=== PATIENT | female | born 1955 | race Caucasian/White ===

== ENCOUNTER 2022-11-15 13:28 | Outpatient (OUT) | payer MEDICARE, SELFPAY ==
[2022-11-15 14:35] LABS: Thyroid Stimulating Hormone 1.378 uIU/mL (0.358-3.740)
[2022-11-15 15:01] LABS: Free T4 0.97 ng/dL (0.76-1.46)
[2022-11-16 04:07] LABS: Triiodothyronine (T3) 107 ng/dL (71-180)
== END 2022-11-15 13:29 ==
LOC: LAB 13:35
PROVIDERS: PCP Internal Medicine; Visit Provider Internal Medicine
DX: E05.00 Thyrotoxicosis with diffuse goiter without thyrotoxic crisis or storm (principal)
CPT/HCPCS: 36415; 84439; 84443; 84480

== ENCOUNTER 2022-12-21 09:01 | Outpatient (OUT) | payer MEDICARE, SELFPAY ==
--- NOTE | 2022-12-21 09:16 | MM_ITS ---
Patient: KRISTYN ALEXANDER Exam Date: 12/21/2022 : 1955 Gender:F Ordering : DR Marcos Roque D.O. Admission #: [id number] Family : Order #: [id number] CLICK HERE TO VIEW EXAM RADIOLOGY REPORT PROCEDURE: MM TOMOSYNTHESIS SCREENING BI COMPARISON: MG MAMM SCREEN 3D SAÚL CAD, 12/04/2020. MG MAMM SCREEN 3D SAÚL CAD, 12/09/2021. INDICATIONS: Screening Calculator Name NCI Breast Cancer Risk Assessment Tool 5 Year Breast Cancer Risk 4.00% Lifetime Breast Cancer Risk 12.50% Personal Breast Cancer No Personal Ovarian Cancer No Treatments None Family Cancers Mother with breast cancer at age 71. LOCATION: [facility] BREAST COMPOSITION: Heterogeneously dense,which may obscure small masses. FINDINGS: DIAGNOSTIC CATEGORY 2--BENIGN FINDING. NO CHANGE FROM COMPARISON. Scattered benign-appearing nodules are present. Scattered benign-appearing calcifications are present. Scattered benign-appearing lymph nodes are present. RIGHT BREAST: No significant suspicious finding. LEFT BREAST: No significant suspicious finding. RECOMMENDATIONS: ROUTINE MAMMOGRAM AND CLINICAL EVALUATION IN 12 MONTHS. PLEASE NOTE: A NORMAL MAMMOGRAM DOES NOT EXCLUDE THE POSSIBILITY OF BREAST CANCER. A CLINICALLY SUSPICIOUS PALPABLE LUMP SHOULD BE BIOPSIED. Dictated by: Caden Brennan MD on 12/21/2022 at 13:03 Approved by: Caden Brennan MD on 12/21/2022 at 13:04
[2022-12-21 09:51] LABS: Basophils Absolute Auto 0.1 10^3/uL (0.0-0.1); Basophils Percent Auto 0.5 % (0.2-2.0); Eosinophils Absolute Auto 0.5 10^3/uL (0.0-0.7); Eosinophils Percent Auto 4.4 % (0.9-7.0); Hematocrit 41.7 % (36.0-48.0); Hemoglobin 13.4 g/dL (12.0-16.0); Immature Granulocytes Abs Auto 0.08 10^3/uL (0.00-0.03); Immature Granulocytes Pct Auto 0.8 % (0.0-0.5); Lymphocytes Absolute Auto 3.1 10^3/uL (1.2-3.8); Lymphocytes Percent Auto 29.7 % (20.5-60.0); Mean Corpuscular HGB Conc 32.1 g/dL (29.9-35.2); Mean Corpuscular Hemoglobin 28.9 pg (26.7-34.0); Mean Corpuscular Volume 90.1 fL (81.0-99.0); Mean Platelet Volume 10.8 fL (9.5-13.5); Monocytes Absolute Auto 0.8 10^3/uL (0.3-0.8); Neutrophils Absolute Auto 5.9 10^3/uL (1.4-6.5); Neutrophils Percent Auto 56.6 % (43.0-75.0); Platelet Count 293 10^3/uL (150-450); Red Blood Count 4.63 10^6/uL (4.20-5.40); Red Cell Distribution Width 13.5 % (11.0-15.0); White Blood Count 10.5 10^3/uL (4.0-11.0)
[2022-12-21 10:10] LABS: Bilirubin Urine NEGATIVE (NEGATIVE); Blood Urine NEGATIVE (NEGATIVE); Clarity Urine CLEAR (CLEAR); Color Urine LT. YELLOW (YELLOW); Glucose Urine UA NEGATIVE (NEGATIVE); Ketones Urine NEGATIVE (NEGATIVE); Leukocyte Esterase Urine LARGE (NEGATIVE); Nitrite Urine NEGATIVE (NEGATIVE); Protein Urine NEGATIVE (NEG/TRACE); Specific Gravity Urine 1.015 (1.005-1.025); Urobilinogen Urine 0.2 EU/dL (0.2-1.0); pH Urine 6.5 (5.0-9.0)
[2022-12-21 10:46] LABS: Bacteria Urine SMALL #/HPF (NONE SEEN); Cast Seen? NONE SEEN #/LPF (NONE SEEN); Crystals Seen? None Seen #/HPF (None Seen); Mucus Urine NONE SEEN (NONE SEEN); Squamous Epithelial Cell Urine MANY #/LPF (NONE/RARE); Urine Culture Indicated ALREADY ORDERED
[2022-12-21 11:21] LABS: Alanine Aminotransferase 21 U/L (14-59); Anion Gap 10.8; BUN Creatinine Ratio 25.9; Carbon Dioxide 29.6 mmol/L (21.0-32.0); Chloride 106 mmol/L (98-107); Chol HDL Ratio 3.2; Cholesterol 169 mg/dL (<=200); Estimated GFR (African America >60 (>=60); Estimated GFR (Non-African Ame 50 (>=60); Glucose 94 mg/dL (74-106); HDL Cholesterol 53 mg/dL (40-60); LDL Cholesterol Calculated 101.2 mg/dL; Potassium 3.4 mmol/L (3.5-5.1); Sodium 143 mmol/L (136-145); Triglycerides 74 mg/dL (<=150); VLDL CHOLESTEROL 14.8 mg/dL
== END 2022-12-21 09:02 | disposition home or self-care (01) ==
LOC: MAMMO 09:01
PROVIDERS: PCP Internal Medicine; Visit Provider Internal Medicine
DX: E78.00 Pure hypercholesterolemia, unspecified (principal); I10 Essential (primary) hypertension; Z79.899 Other long term (current) drug therapy; R30.0 Dysuria; Z12.31 Encounter for screening mammogram for malignant neoplasm of breast; Z80.3 Family history of malignant neoplasm of breast
CPT/HCPCS: 36415; 77063; 77067; 80048; 80061; 81001; 84460; 85025; 87086; 87150; 87186

== ENCOUNTER 2023-02-09 21:36 | Outpatient (REF) | payer MEDICARE, SELFPAY ==
[2023-02-15 13:08] LABS: Age Gdln ACOG Testing Note (.); Pap IG (Image Guided) Note (.)
== END 2023-02-09 21:37 | disposition home or self-care (01) ==
LOC: LAB 21:36
PROVIDERS: PCP Internal Medicine; Visit Provider Obstetrics & Gynecology
DX: Z12.4 Encounter for screening for malignant neoplasm of cervix (principal)
CPT/HCPCS: G0145

== ENCOUNTER 2023-02-14 10:21 | Outpatient (OUT) | payer MEDICARE, SELFPAY ==
--- NOTE | 2023-02-14 10:27 | XR_ITS ---
The [address] [address] Patient Name: KRISTYN ALEXANDER MRN: [id number] date: 1955 Sex: F Assigned Patient Location: RAD Current Patient Location: RAD Accession/Order Number: [id number] Exam Date: 02/14/2023 10:40 Report Date: 02/14/2023 16:26 At the request of: CONSUELO CLEVELAND Procedure: XR DEXA axial skeleton STUDY: XR DEXA axial skeleton HISTORY: Post Menopausal State Z78.0 TECHNIQUE: Bone mineral density (BMD) assessment by [employer]. Combined fav.[employer].it/[employer] database references used in T-score calculation. COMPARISON: 02/10/2021 SCAN QUALITY: Regions evaluated with no significant confounding factors. BMD RESULTS: Lumbar spine (L1-L4): BMD 1.346 g/cm2 T-score 1.4 No statistically significant interval change. Left Hip (neck): BMD 1.083 g/cm2 T-score 0.3 No statistically significant interval change. Right Hip (neck): BMD 1.041 g/cm2 T-score 0.0 No statistically significant interval change. XR/XR DEXA axial skeleton IMPRESSION: Normal bone mineral density. No statistically significant interval change. RECOMMENDATION: Consider follow-up study in 2 years, best performed at this facility to yield the most valid serial quantitative assessment. Electronically authenticated by: MAXIMILIANO BAILEY Date: 02/14/2023 16:26
== END 2023-02-14 10:22 | disposition home or self-care (01) ==
LOC: RAD 10:22
PROVIDERS: PCP Internal Medicine; Visit Provider Obstetrics & Gynecology
DX: Z78.0 Asymptomatic menopausal state (principal)
CPT/HCPCS: 77080

== ENCOUNTER 2023-12-23 09:26 | Outpatient (OUT) | payer MEDICARE, SELFPAY ==
[2023-12-23 09:50] LABS: Basophils Percent Auto 0.4 % (0.2-2.0); Eosinophils Absolute Auto 0.5 10^3/uL (0.0-0.7); Eosinophils Percent Auto 5.7 % (0.9-7.0); Hematocrit 41.1 % (36.0-48.0); Hemoglobin 13.3 g/dL (12.0-16.0); Immature Granulocytes Abs Auto 0.03 10^3/uL (0.00-0.03); Immature Granulocytes Pct Auto 0.3 % (0.0-0.5); Lymphocytes Absolute Auto 2.9 10^3/uL (1.2-3.8); Mean Corpuscular HGB Conc 32.4 g/dL (29.9-35.2); Mean Corpuscular Volume 89.5 fL (81.0-99.0); Mean Platelet Volume 10.9 fL (9.5-13.5); Monocytes Absolute Auto 0.7 10^3/uL (0.3-0.8); Neutrophils Absolute Auto 4.7 10^3/uL (1.4-6.5); Neutrophils Percent Auto 52.6 % (43.0-75.0); Platelet Count 325 10^3/uL (150-450); Red Blood Count 4.59 10^6/uL (4.20-5.40); Red Cell Distribution Width 12.5 % (11.0-15.0); White Blood Count 8.9 10^3/uL (4.0-11.0)
--- NOTE | 2023-12-23 10:00 | MM_ITS ---
Patient Name: KRISTYN ALEXANDER MR#: [id number] : 1955 Exam Date: 12/23/2023 Ordering Doctor: DR Marcos Roque D.O. RADIOLOGY REPORT PROCEDURE: MM TOMOSYNTHESIS SCREENING BI COMPARISON: MM TOMOSYNTHESIS SCREENING BI, 12/21/2022. MG MAMM SCREEN 3D SAÚL CAD, 12/09/2021. DIGITIZED_MAMMO, 05/27/2009. INDICATIONS: Screening Calculator Name NCI Breast Cancer Risk Assessment Tool 5 Year Breast Cancer Risk 4.00% Lifetime Breast Cancer Risk 11.90% Personal Breast Cancer No Personal Ovarian Cancer No Treatments None Family Cancers Mother with breast cancer at age 71. LOCATION: [facility] BREAST COMPOSITION: The breasts are heterogeneously dense,which may obscure small masses. FINDINGS: DIAGNOSTIC CATEGORY 2--BENIGN FINDING: RIGHT BREAST: No significant suspicious finding. No significant change has occurred. LEFT BREAST: No significant suspicious finding. No significant change has occurred. RECOMMENDATIONS: ROUTINE MAMMOGRAM AND CLINICAL EVALUATION IN 12 MONTHS. PLEASE NOTE: A NORMAL MAMMOGRAM DOES NOT EXCLUDE THE POSSIBILITY OF BREAST CANCER. A CLINICALLY SUSPICIOUS PALPABLE LUMP SHOULD BE BIOPSIED. Dictated by: Oh Zaragoza M.D. on 12/23/2023 at 14:37 Approved by: Oh Zaragoza M.D. on 12/23/2023 at 14:46
[2023-12-23 10:56] LABS: Alanine Aminotransferase 32 U/L (14-59); Albumin Globulin Ratio 1.1; Albumin Level 3.8 g/dL (3.4-5.0); Alkaline Phosphatase 78 U/L (46-116); Anion Gap 12.3; Aspartate Amino Transferase 19 U/L (15-37); BUN Creatinine Ratio 20.7; Bilirubin Total 0.6 mg/dL (0.2-1.0); Calcium 9.3 mg/dL (8.5-10.1); Carbon Dioxide 28.8 mmol/L (21.0-32.0); Chloride 105 mmol/L (98-107); Cholesterol 175 mg/dL (<=200); Estimated GFR (African America 59 (>=60); Estimated GFR (Non-African Ame 49 (>=60); Globulin 3.6 g/dL; Glucose 98 mg/dL (74-106); HDL Cholesterol 44 mg/dL (40-60); LDL Cholesterol Calculated 106.8 mg/dL; Potassium 3.1 mmol/L (3.5-5.1); Sodium 143 mmol/L (136-145); Thyroid Stimulating Hormone 1.246 uIU/mL (0.358-3.740); Total Protein 7.4 g/dL (6.4-8.2); Triglycerides 121 mg/dL (<=150); Uric Acid 6.4 mg/dL (2.6-6.0); VLDL CHOLESTEROL 24.2 mg/dL
[2023-12-23 11:06] LABS: Free T4 0.98 ng/dL (0.76-1.46)
[2023-12-24 04:08] LABS: Triiodothyronine (T3) 132 ng/dL (71-180)
[2023-12-25 17:11] LABS: Thyroid Stim Immunoglobulin 0.66 IU/L (0.00-0.55)
== END 2023-12-23 09:27 | disposition home or self-care (01) ==
LOC: MAMMO 09:26
PROVIDERS: PCP Internal Medicine; Visit Provider Internal Medicine
DX: K76.0 Fatty (change of) liver, not elsewhere classified (principal); I10 Essential (primary) hypertension; E78.00 Pure hypercholesterolemia, unspecified; E05.00 Thyrotoxicosis with diffuse goiter without thyrotoxic crisis or storm; Z12.31 Encounter for screening mammogram for malignant neoplasm of breast; Z80.3 Family history of malignant neoplasm of breast
CPT/HCPCS: 36415; 77063; 77067; 80053; 80061; 84439; 84443; 84445; 84480; 84550; 85025

== ENCOUNTER 2024-02-15 20:02 | Outpatient (REF) | payer MEDICARE, SELFPAY | END 2024-02-15 20:03 | disposition home or self-care (01) | LOC: LAB 20:02 | PROVIDERS: PCP Internal Medicine; Visit Provider Physician Assistant | DX: Z01.419 Encounter for gynecological examination (general) (routine) without abnormal findings (principal) | CPT/HCPCS: 88175 ==

== ENCOUNTER 2024-09-16 03:22 | Observation (INO) | payer MEDICARE, SELFPAY ==
[2024-09-16] VITALS (7 sets, daily range): BP systolic 148–165; BP diastolic 71–99; PULSE 79–92; TEMP 36.6–36.9; O2SAT 94–97; BMI 30.2
--- OUTSIDE RECORDS SUMMARY | 2024-09-16 03:27 | XMS_ITS | CCD ---
Author Organization [facility] Care Team Providers Care Clay Miner Name Role Phone Edmund Cardoza Attending Provider [phone] NON, STAFF, Primary Care Provider Unavailabl e JUDE, DR YUAN Admitting Unavailable BALL, DR YUAN Attending Unavailable BALL, DR YUAN Primary Care Unavailable BALL, DR YUAN Consulting Unavailable BALL, DR YUAN Admitting Unavailable BALL, DR YUAN Attending Unavailable BALL, DR YUAN Primary Care Unavailable BALL, DR YUAN Consulting Unavailable BALL, DR YUAN Admitting Unavailable BALL, DR YUAN Attending Unavailable BALL, DR YUAN Primary Care Unavailable BALL, DR YUAN Consulting Unavailable BALL, DR YUAN Admitting Unavailable BALL, DR YUAN Attending Unavailable BALL, DR YUAN Primary Care Unavailable BALL, DR YUAN Consulting Unavailable MEGHA ., DR CORDERO Admitting Unavailable MEGHA ., DR CORDERO Attending Unavailable BALL, DR YUAN Primary Care Unavailable MEGHA ., DR CORDERO Consulting Unavailable BALL, DR YUAN Admitting Unavailable BALL, DR YUAN Attending Unavailable BALL, DR YUAN Primary Care Unavailable BALL, DR YUAN Consulting Unavailable BALL, DR YUAN Admitting Unavailable BALL, DR YUAN Attending Unavailable BALL, DR YUAN Primary Care Unavailable BALL, DR YUAN Consulting Unavailable ZIEBER, DR [place] Reyes Consulting Unavailable BALL, DR YUAN Admitting Unavailable BALL, DR YUAN Attending Unavailable BALL, DR YUAN Primary Care Unavailable BALL, DR YUAN Consulting Unavailable ZIEBER, DR [place] Reyes Consulting Unavailable Jude, Macros Unavailable CONSUELO [place] Attending Unavailable NIDIA LIVINGSTON Attending Unavailable MELINDA BAKER Referring Unavailable NIDIA LIVINGSTON Attending Unavailable NIDIA LIVINGSTON Attending Unavailable NIDIA LIVINGSTON Attending Unavailable NIDIA LIVINGSTON Attending Unavailable Unavailable Unavailable Unavailable Allergies Allergy Classification Reported Allergen(s) Allergy Type Date of Onset Reaction(s) Facility (9 sources) Amoxicillin Drug Allergy 07-25-19 24 Unknown Reaction [facility] (9 sources) Codeine Drug Allergy 06-06-19 13 stomach irritation [facility] (9 sources) Doxycycline Drug Allergy 07-25-19 24 Unknown Reaction [facility] (1 source) Furosemide Drug Allergy 03-08-20 16 [facility] (9 sources) Latex Drug allergy (disorder) 06-06-19 13 Unknown Reaction [facility] (1 source) metroNIDAZOLE Drug Allergy 03-08-20 16 [facility] (14 sources) Amoxicillin Drug Allergy Unknown [facility] Other (14 sources) Codeine Drug Allergy stomach irritation Death by Party [facility] Other (14 sources) Doxycycline Drug Allergy Unknown Home Comfort Zones Other (14 sources) Latex Propensity to adverse reactions Unknown [facility] Com[facility]ones Other (20 sources) metroNIDAZOLE Drug Allergy 07-25-19 24 Unknown, Unknown Reaction [facility] (10 sources) Furosemide Drug Allergy 06-06-19 20 Unknown, Unknown Reaction [facility] Comment on above: Onset Date: 06/06/19 (2 sources) Pseudoephedrine Drug Allergy 06-06-19 20 Unknown Home Comfort Zones Other (1 source) Allergies Reconciled Propensity to adverse reactions Unknown Home Comfort Zones Other (2 sources) Tylenol with Codeine #3 *ANALGESICS - OPIOID* Propensity to adverse reactions 06-06-19 Unknown Home Comfort Zones Other (1 source) patient allergy list reviewed by nurse or physicia Propensity to adverse reactions 04-17-20 Comment:Done Home Comfort Zones Other (8 sources) 12 Hour Decongestant Allergy to substance 07-23-19 Unknown Reaction [facility] Comment on above: Onset Date: 06/06/19 (8 sources) Tylenol with Codeine #3 *ANALG Allergy to substance 07-23-19 Unknown Reaction [facility] Comment on above: Free Text Allergy: T ylenol with Codeine #3 *ANALGESICS - OPIOID*; Onset Date: 06/06/2019 Medications Current Medications Medication Drug Class(es) Dates Sig (Normalized) Sig (Original) acetaminophen 500 mg oral tablet (8 sources) Start: 07-23-2023 take 1 tablet by mouth every six hours Acetaminophen (Tylenol Extra Strength) 500 mg tablet Active 500 MG PO Every 6 hours July 23, 2023 1:00am AeroChamber mini chamber (8 sources) Start: 07-23-2023 AeroChamber mini chamber Active 0 .Route .MEDSUPPLY July 23, 2023 1:00am Start: 07-23-2023 AeroChamber mi ni chamber Active 0 .Route .MEDSUPPLY July 23, 2023 12:00am AeroChamber Mini Chamber - (10 sources) Start: 09-15-2022 Start: 09-15-2022 AeroChamber Mi ni Chamber - Use with MDI inhaled every 4 hours as needed for cough for 30 days Sep, Active amLODIPine (20 sources) Dihydropyridine Calcium Channel Shani Start: 07-27-2024 Amlodipine 2.5 mg tablet Active 0 .ROUTE .COMPLEX July 27, 2024 2:17pm TAKE 1 TABLET DAILY Start: 09-10-2023 End: 07-27-2024 Amlodipine 2.5 mg tablet Discontinued 0 .ROUTE .COMPLEX September 10, 2023 12:05pm July 27, 2024 2:18pm TAKE 1 TABLET DAILY Start: 09-10-2023 Amlodipine 2.5 mg tablet Active 0 .ROUTE .COMPLEX September 10, 2023 11:05am TAKE 1 TABLET DAILY Start: 09-10-2023 Amlodipine Act charu 0 .ROUTE .COMPLEX September 10, 2023 12:05pm TAKE 1 TABLET DAILY Start: 07-23-2023 End: 09-10-2023 take 1 tablet by mouth once daily Amlodipine 2.5 mg tablet Discontinued 2.5 MG PO Daily July 23, 2023 1:00am September 10, 2023 12:05pm Start: 09-27-2022 take 1 tablet by kj th every twenty-four hours amLODIPine Besylate 2.5 MG 1 tablet Orally Once a day Sep, Active aspirin 400 mg / caffeine 32 mg oral tablet (20 sources) Platelet Aggregation Inhibitor, Nonsteroidal Anti-inflammatory Drug, Central Nervous System Stimulant, Methylxanthine Start: 07-23-2023 take 2 tablets by mouth every six hours as needed Aspirin-Caffeine 400-32 mg tablet Active 2 TAB PO Every 6 hours as needed July 23, 2023 1:00am take 2 tablets by mouth every si x hours Anacin 400-32 MG 2 tablets as needed Orally every 6 hrs Active take 2 tablets by mouth every si x hours calcium carbonate 1500 mg oral tablet (20 sources) Start: 07-23-2023 take 1 tablet by mouth twice daily Calcium Carbonate 600 mg calcium (1,500 mg) tablet Active 600 MG PO Twice daily July 23, 2023 1:00am take 1 tablet by mouth every twe lve hours Calcium 600 MG 1 tablet with meals Orally Twice a day Active cholecalciferol 0.01 mg/ml oral solution (20 sources) Vitamin D Start: 07-23-2023 take 5 ug by mouth once daily Cholecalciferol (Vitamin D3) 10 mcg/mL (400 unit/mL) drops Active 5 MCG PO Daily July 23, 2023 1:00am take 0.25 mL by mouth once daily Vitamin D 10 MCG/ML 0.25 mL Orally Once a day Active Cranberry (8 sources) Non-Standardized Food Allergenic Extract, Non-Standardized Plant Allergenic Extract Start: 07-23-2023 take 1 capsule by mouth twice daily at mealtime Cranberry 500 mg capsule Active 500 MG PO Twice daily July 23, 2023 1:00am administer with meals Start: 07-23-2023 take 1 capsule by mo [facility] twice daily at mealtime Cranberry 500 mg capsule Active 500 MG PO Twice daily July 23, 2023 12:00am administer with meals Start: 07-23-2023 take 500 mg by mouth twice daily at mealtime Cranberry Active 500 MG PO Twice daily July 23, 2023 1:00am administer with meals Start: 07-23-2023 take 500 mg by mouth twice daily at mealtime Cranberry Active 500 MG PO Twice daily July 23, 2023 12:00am administer with meals Cranberry Super Strength (14 sources) Cranberry Super Strength Active Estroven (14 sources) Estroven Active fluticasone propionate 0.05 mg/actuat metered dose nasal spray (20 sources) Corticosteroid Start: 09-05-2023 take 2 spray(s) nasal route once daily Fluticasone Propionate 50 mcg/actuation spray,suspension Active 0 .ROUTE .COMPLEX 48 September 05, 2023 5:09pm USE 2 SPRAYS IN EACH NOSTRIL DAILY Start: 07-23-2023 End: 09-05-2023 Fluticasone Propionate 50 mc g/actuation spray,suspension Discontinued 2 SPRAY INTRANASAL Daily July 23, 2023 1:00am September 05, 2023 5:09pm take 2 spray(s) nasa l route once daily Fluticasone Propionate 50 MCG/ACT 2 sprays in each nostril Nasally Once a day Active hydroCHLOROthiazide 12.5 mg / irbesartan 150 mg oral tablet (20 sources) Thiazide Diuretic, Angiotensin 2 Receptor Shani Start: 03-11-2024 Irbesartan-Hydrochlorothiazi de 150-12.5 mg tablet Active 0 .ROUTE .COMPLEX 180 March 11, 2024 7:41pm TAKE 2 TABLETS DAILY Start: 07-23-2023 End: 03-11-2024 take 2 tablets by mouth once daily Irbesartan-Hydrochlorothiazide 150-12.5 mg tablet Discontinued 2 TAB PO Daily July 23, 2023 1:00am March 11, 2024 7:41pm Irbesartan-hydro CHLOROthiazide 150-12.5 mg TAKE 2 TABLETS DAILY Active take 1 tablet by kj th every twenty-four hours Labetalol (20 sources) beta-Adrenergic Shani Start: 11-02-2023 Labeta lol 200 mg tablet Active 0 .ROUTE .COMPLEX 180 November 02, 2023 1:08pm TAKE 1 TABLET TWICE A DAY Start: 11-02-2023 Labetalol 200 mg tablet Active 0 .ROUTE .COMPLEX 180 November 02, 2023 12:08pm TAKE 1 TABLET TWICE A DAY Start: 11-02-2023 Labetalol Acti ve 0 .ROUTE .COMPLEX 180 November 02, 2023 1:08pm TAKE 1 TABLET TWICE A DAY Start: 07-23-2023 End: 11-02-2023 take 1 tablet by mouth twice daily Labetalol 200 mg tablet Discontinued 200 MG PO Twice daily July 23, 2023 1:00am November 02, 2023 1:08pm Labetalol HCl 20 0 mg TAKE 1 TABLET TWICE A DAY Active levocetirizine dihydrochloride 5 mg oral tablet (20 sources) Histamine-1 Receptor Antagonist Start: 07-23-2023 End: 07-25-2023 take 1 tablet by mouth once daily in the evening as needed Levocetirizine (Xyzal) 5 mg tablet Active 5 MG PO Every evening as needed July 25, 2023 1:00am take 1 tablet by kj th every twenty-four hours Levocetirizine Dihydrochloride 5 MG 1 tablet in the evening Orally Once a day Active methIMAzole 10 mg oral tablet (20 sources) Thyroid Hormone Synthesis Inhibitor Start: 07-23-2024 take 1 tablet by mouth once daily Methimazole 10 mg tablet Active 10 MG PO Daily 90 90 July 23, 2024 1:07pm Start: 11-28-2023 End: 07-23-2024 Methimazole 5 mg tablet Disc ontinued 0 .ROUTE .COMPLEX November 28, 2023 8:52pm July 23, 2024 1:08pm TAKE 1 TABLET DAILY Start: 11-28-2023 End: 07-23-2024 Methimazole 5 mg tablet Disc ontinued 0 .ROUTE .COMPLEX November 28, 2023 7:52pm July 23, 2024 12:08pm TAKE 1 TABLET DAILY Start: 11-28-2023 Methimazole Ac tive 0 .ROUTE .COMPLEX November 28, 2023 8:52pm TAKE 1 TABLET DAILY Start: 07-23-2023 End: 11-28-2023 take 1 tablet by mouth once daily Methimazole 5 mg tablet Discontinued 5 MG PO Daily July 23, 2023 1:00am November 28, 2023 8:52pm take 1 tablet by kj every twenty-four hours methIMAzole 5 MG 1 tablet Orally Once a day Active nitrofurantoin, macrocrystals 100 mg oral capsule (1 source) Nitrofuran Antibacterial Start: 09-11-2024 take 1 capsule by mouth twice daily at mealtime Nitrofurantoin Macrocrystal 100 mg capsule Active 100 MG PO Twice daily September 11, 2024 12:00am must administer with a meal/food oxymetazoline hydrochloride 0.5 mg/ml nasal spray (20 sources) Start: 07-23-2023 Oxymetazoline (Afrin (Oxymetazoline)) 0.05 % mist Active 1 SPRAY INTRANASAL Every 12 hours as needed July 23, 2023 1:00am Afrin Nasal Spra y Active microencapsulated potassium chloride 10 meq extended release oral tablet (20 sources) Start: 07-23-2023 End: 04-11-2024 take 1 tablet by mouth once daily Potassium Chloride 10 mEq tablet,ER particles/crystals Active 10 MEQ PO Daily April 11, 2024 2:34pm Potassium Chlori de Nanda ER 10 MEQ TAKE 1 TABLET DAILY Active Potassium Chlori de Not-Taking pravastatin sodium 40 mg oral tablet (20 sources) HMG-CoA Reductase Inhibitor Start: 11-28-2023 Pravastatin 40 mg tablet Active 0 .ROUTE .COMPLEX November 28, 2023 8:52pm TAKE 1 TABLET DAILY IN THE EVENING Start: 07-23-2023 End: 11-28-2023 take 1 tablet by mouth once daily in the evening Pravastatin 40 mg tablet Discontinued 40 MG PO Every evening July 23, 2023 1:00am November 28, 2023 8:52pm Pravastatin Sodi um 40 mg TAKE 1 TABLET DAILY IN THE EVENING Active Probiotic - (14 sources) Probiotic - as d irected Orally Active Rhubarb Root Extract (Estroven Cmplt Menopause Rlf) 4 mg tablet (8 sources) Start: 07-23-2023 take 1 tablet by mouth once daily Rhubarb Root Extract (Estroven Cmplt Menopause Rlf) 4 mg tablet Active 4 MG PO Daily July 23, 2023 1:00am Start: 07-23-2023 take 1 tablet by kj th once daily Rhubarb Root Extract (Estroven Cmplt Menopause Rlf) 4 mg tablet Active 4 MG PO Daily July 23, 2023 12:00am saccharomyces boulardii 250 mg oral capsule (8 sources) Start: 07-23-2023 take 1 capsule by mouth twice daily Saccharomyces Boulardii (Daily Probiotic (S. Boulardii)) 250 mg capsule Active 250 MG PO Twice daily July 23, 2023 1:00am sulfamethoxazole 800 mg / trimethoprim 160 mg oral tablet (20 sources) Dihydrofolate Reductase Inhibitor Antibacterial, Sulfonamide Antimicrobial Start: 06-15-2022 take 1 tablet by mouth every twelve hours Bactrim DS 800-160 MG 1 tablet Orally Twice a day for 5 days October, Active Start: 06-15-2022 take 1 tablet by mouth every t welve hours Tylenol Extra Strength 500 M G (14 sources) take 1 tablet by kj th every six hours as needed Tylenol Extra Strength 500 MG 1 tablet a s needed Orally every 6 hrs Active Vitamins A,C,E-Disk-Qvdwen (Preservision Areds) 4,296 mcg-226 mg-90 mg capsule (2 sources) Start: 07-23-2024 take 1 capsule by mouth twice daily Vitamins A,C,U-Iysn-Gbihdf (Preservision Areds) 4,296 mcg-226 mg-90 mg capsule Active 1 CAP PO Twice daily July 23, 2024 1:00am Start: 07-23-2024 take 1 capsule by [facility] twice daily Vitamins A,C,O-Rydl-Jrwnpx (Preservision Areds) 4,296 mcg-226 mg-90 mg capsule Active 1 CAP PO Twice daily July 23, 2024 12:00am Completed/Discontinued Medications Medication Drug Class(es) Dates Sig (Normalized) Sig (Original) Acetaminophen / butalbital / Caffeine (14 sources) Barbiturate, Central Nervous System Stimulant, Methylxanthine Fioricet Not-Galen ing [id number] 200 actuat albuterol 0.09 mg/actuat metered dose inhaler (18 sources) beta2-Adrenergic Agonist Start: 07-23-2023 End: 07-25-2023 take 1 puff(s) by inhalation every four hours as needed for cough Albuterol Sulfate 90 mcg/actuation HFA aerosol inhaler Discontinued 2 PUFF INHALATION Every 4 hours as needed for cough and SOB July 23, 2023 1:00am July 25, 2023 12:45pm Start: 09-15-2022 take 2 puff(s) by in halation every four hours as needed for cough Albuterol Sulfate HFA 108 (90 Base) MCG/ACT 2 puffs Inhalation every 4 hrs as needed for cough and SOB Sep, Active Start: 09-15-2022 take 2 puff(s) by in halation every four hours as needed for cough Albuterol Sulfate HFA 108 (90 Base) MCG/ACT 2 puffs Inhalation every 4 hrs as needed for cough and SOB for 30 days Sep, Active Start: 09-15-2022 Cetirizine (14 sources) Histamine-1 Receptor Antagonist ZyrTEC Allergy N ot-Taking ciprofloxacin 250 mg oral tablet (12 sources) Quinolone Antimicrobial Start: 07-23-2023 End: 07-25-2023 take 1 tablet by mouth every twelve hours Ciprofloxacin Hcl 250 mg tablet Discontinued 250 MG PO Every 12 hours July 23, 2023 1:00am July 25, 2023 12:46pm Start: 12-21-2022 take 1 tablet by kj th every twelve hours Ciprofloxacin HCl 250 MG 1 tablet Orally every 12 hrs for 5 days Dec, Active famotidine 20 mg oral tablet (20 sources) Histamine-2 Receptor Antagonist Start: 07-23-2023 End: 07-25-2023 take 1 tablet by mouth once daily Famotidine (Pepcid) 20 mg tablet Discontinued 20 MG PO Daily July 23, 2023 1:00am July 25, 2023 12:46pm take 1 tablet by kj th once daily at bedtime as needed Pepcid 20 MG 1 tablet at bedtime as needed Orally Once a day as needed Active Felodipine (14 sources) Dihydropyridine Calcium Channel Shani Felodipine Not-T aking Loratadine (14 sources) Loratadine Not-T aking Losartan Potassium-HCTZ (14 sources) Losartan Potassi um-HCTZ Not-Taking Naproxen (14 sources) Nonsteroidal Anti-inflammatory Drug Aleve Not-Taking nitrofurantoin, macrocrystals 25 mg / nitrofurantoin, monohydrate 75 mg oral capsule (5 sources) Nitrofuran Antibacterial Start: 11-18-2023 End: 07-23-2024 take 1 capsule by mouth twice daily at mealtime Nitrofurantoin Monohyd/M-Cryst (Macrobid) 100 mg capsule Discontinued 100 MG PO Twice daily 10 5 November 18, 2023 12:00am July 23, 2024 2:22pm must administer with a meal/food omeprazole 40 mg delayed release oral capsule (20 sources) Proton Pump Inhibitor Start: 07-23-2023 End: 11-29-2023 Omeprazole 40 mg capsule,delayed release(DR/EC) Discontinued 40 MG PO Daily November 29, 2023 11:41am November 29, 2023 11:42am take on empty stomach, followed in 30 minutes by food take 1 capsule by mouth twice da maria antonia Omeprazole 40 MG 1 capsule Orally Twice a day, take on empty stomach, followed in 30 minutes by food Active take 1 capsule by mouth once alaina ly Omeprazole 40 MG 1 capsule 30 minutes before morning meal Orally Once a day Active oseltamivir 75 mg oral capsule (14 sources) Neuraminidase Inhibitor Start: 05-22-2017 take 1 capsule by mouth every twelve hours Tamiflu 75 MG 1 capsule Orally Twice a day for 5 day(s) May, Not-Taking predniSONE 20 mg oral tablet (7 sources) Start: 09-06-2023 End: 07-23-2024 Prednisone 20 mg tablet Discontinued 20 MG PO As Directed September 06, 2023 12:00am July 23, 2024 2:22pm 1 tab tid w/ food x 3 days, then bid w/ food x 3 days, then qd w/ food x 3 days Stool Softener (14 sources) Stool Softener N ot-Taking triamcinolone acetonide 40 mg/ml injectable suspension (8 sources) Corticosteroid Start: 10-29-2022 Kenalog-40 Mar, 60 mg Start: 10-29-2022 Problems Active Problems Problem Classification Problem Date Documented Da te Episodic/Chronic Abdominal pain (17 sources) Abdominal pain; Translations: [Unspecified abdominal pain] Onset: 6 Episodic Acquired foot deformities (2 sources) Hallux valgus (acquired), right foot; Translations: [Hallux valgus (acquired)] 09-06-2023 Chronic Allergic reactions (14 sources) Allergic contact dermatitis due to plants, except food; Translations: [Allergic contact dermatitis due to plants, except food] Episodic Asthma (20 sources) Mild intermittent asthma; Translations: [Mild intermittent asthma with (acute) exacerbation] Chronic Benign neoplasm of uterus (16 sources) Uterine leiomyoma; Translations: [Leiomyoma of uterus, unspecified] Episodic Conditions associated with dizziness or vertigo (1 source) Benign paroxysmal positional vertigo; Translations: [Benign paroxysmal vertigo, right ear] Episodic Disorders of lipid metabolism (20 sources) Familial hypercholesterolemia; Translations: [Hypercholesterolemia] Onset: 5 Chronic Diverticulosis and diverticulitis (1 source) Diverticulosis of colon; Translations: [Diverticulosis of colon] Onset: 6 Chronic Esophageal disorders (16 sources) Esophageal reflux finding; Translations: [Esophageal reflux] 07-23-2023 Chronic Essential hypertension (20 sources) Essential (primary) hypertension; Translations: [Essential hypertension] Onset: 2 Chronic Fluid and electrolyte disorders (14 sources) Hypokalemia; Translations: [Hypokalemia] Episodic Genitourinary symptoms and ill-defined conditions (11 sources) Dysuria; Translations: [Dysuria] Onset: 7 Resolved: 8 Episodic Headache; including migraine (20 sources) Chronic tension-type headache; Translations: [Chronic tension-type headache, not intractable] Onset: 9 Chronic Immunizations and screening for infectious disease (3 sources) Encounter for screening for human papillomavirus (HPV); Translations: [Contact with and (suspected) exposure to other viral communicable diseases] Onset: 2 Episodic Late effects of cerebrovascular disease (1 source) 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; Translations: [Dysphagia following unspecified cerebrovascular disease] Onset: 5 Chronic Malaise and fatigue (17 sources) Other malaise; Translations: [Other fatigue] Onset: 7 Episodic Mood disorders (15 sources) Major depression, single episode; Translations: [Major depressive disorder, single episode, unspecified] Chronic Nonmalignant breast conditions (1 source) Fibrocystic disease of breast; Translations: [Diffuse cystic mastopathy of unspecified breast] Chronic Nutritional deficiencies (1 source) Vitamin D deficiency; Translations: [Vitamin D deficiency, unspecified] Onset: 7 Chronic Osteoarthritis (2 sources) Degenerative joint disease of pelvis; Translations: [Osteoarthrosis, unspecified whether generalized or localized, pelvic region and thigh] Onset: 6 Chronic Other aftercare (2 sources) Other correction (current) drug therapy; Translations: [OTH 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 CURRENT DRUG THERAPY] Onset: 2 Episodic Other aftercare (1 source) Long-term current use of drug therapy; Translations: [Other 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) drug therapy] Episodic Other bone disease and musculoskeletal deformities (1 source) Disorder of bone; Translations: [Other specified disorders of bone density and structure, other site] Episodic Other connective tissue disease (2 sources) Other bursitis, not elsewhere classified, unspecified site; Translations: [Other bursitis] 09-06-2023 Episodic Other ear and sense organ disorders (3 sources) Impacted cerumen; Translations: [Impacted cerumen] Onset: 8 Episodic Other ear and sense organ disorders (1 source) Acute actinic otitis externa; Translations: [Acute actinic otitis externa, right ear] Episodic Other female genital disorders (14 sources) Large ovary; Translations: [Other noninflammatory disorders of ovary, fallopian tube and broad ligament] Episodic Other female genital disorders (1 source) Noninflammatory disorder of the vagina; Translations: [Other specified noninflammatory disorders of vagina] Episodic Other female genital disorders (1 source) Other noninflammatory disorders of ovary, fallopian tube and broad ligament; Translations: [Other noninflammatory disorders of ovary, fallopian tube and broad ligament] Episodic Other gastrointestinal disorders (1 source) Irritable bowel syndrome; Translations: [Irritable bowel syndrome without diarrhea] Onset: 6 Chronic Other gastrointestinal disorders (15 sources) H/O: gastrointestinal disease; Translations: [Personal history of other diseases of the digestive system] Episodic Other gastrointestinal disorders (1 source) Peritoneal adhesion; Translations: [Peritoneal adhesions (postprocedural) (postinfection)] Episodic Other injuries and conditions due to external causes (1 source) History of fall; Translations: [History of falling] Episodic Other liver diseases (20 sources) Fatty (change of) liver, not elsewhere classified; Translations: [Nonalcoholic fatty liver disease] Chronic Other liver diseases (1 source) Chronic nonalcoholic liver disease; Translations: [Other chronic nonalcoholic liver disease] Onset: 0 Chronic Other liver diseases (6 sources) Steatosis of liver; Translations: [Fatty (change of) liver, not elsewhere classified] 11-27-2023 Chronic Other lower respiratory disease (1 source) Chest pain on breathing; Translations: [Chest pain on breathing] Episodic Other non-traumatic joint disorders (1 source) Shoulder pain; Translations: [Pain in unspecified shoulder] 07-23-2024 Episodic Other non-traumatic joint disorders (1 source) Pain in unspecified shoulder; Translations: [Pain in joint, shoulder region] 07-23-2024 Episodic Other nutritional; endocrine; and metabolic disorders (1 source) Body mass index 30+ - obesity; Translations: [Body mass index 30.0-30.9, adult] Onset: 6 Chronic Other nutritional; endocrine; and metabolic disorders (1 source) Obesity; Translations: [Obesity, unspecified] Onset: 2 Chronic Other nutritional; endocrine; and metabolic disorders (1 source) Simple obesity ; Translations: [Other obesity due to excess calories] Onset: 6 Chronic Other nutritional; endocrine; and metabolic disorders (1 source) Overweight Episodic Other nutritional; endocrine; and metabolic disorders (3 sources) Body mass index 25-29 - overweight; Translations: [Body mass index 29.0-29.9, adult] Onset: 6 Episodic Other nutritional; endocrine; and metabolic disorders (1 source) Overweight; Translations: [Overweight] Episodic Other screening for suspected conditions (not mental disorders or infectious disease) (20 sources) Encounter for screening for malignant neoplasm of cervix; Translations: [Encounter for screening mammogram for malignant neoplasm of breast] Onset: 2 Resolved: 0 Episodic Other upper respiratory disease (15 sources) Seasonal allergic rhinitis; Translations: [Other seasonal allergic rhinitis] Chronic Other upper respiratory disease (19 sources) Allergic rhinitis due to pollen; Translations: [Allergic rhinitis due to pollen] 07-23-2023 Chronic Other upper respiratory disease (3 sources) Allergic rhinitis due to pollen; Translations: [Allergic rhinitis due to pollen] Chronic Other upper respiratory disease (1 source) Allergic rhinitis; Translations: [Allergic rhinitis, unspecified] Chronic Other upper respiratory infections (5 sources) Acute sinusitis; Translations: [Acute sinusitis, unspecified] Onset: 4 Episodic Ovarian cyst (2 sources) Cyst of ovary; Translations: [Other and unspecified ovarian cyst] Episodic Residual codes; unclassified (15 sources) Asymptomatic menopausal state; Translations: [Menopause] Episodic Residual codes; unclassified (1 source) Family history of ischemic heart disease; Translations: [Family history of ischemic heart disease and other diseases of the circulatory system] Episodic Residual codes; unclassified (1 source) Postmenopausal state; Translations: [Asymptomatic menopausal state] Episodic Spondylosis; intervertebral disc disorders; other back problems (16 sources) Cervical spondylosis; Translations: [Spondylosis without myelopathy or radiculopathy, cervical region] Onset: 7 Chronic Sprains and strains (5 sources) Strain of muscle of right hip; Translations: [Strain of muscle, fascia and tendon of right hip, initial encounter] Onset: 6 07-23-2024 Episodic Thyroid disorders (20 sources) Thyrotoxicosis with diffuse goiter without thyrotoxic crisis or storm; Translations: [Thyrotoxicosis, unspecified without thyrotoxic crisis or storm] Onset: 2 Chronic Unclassified (2 sources) CONTACT W/AND (SUSP) EXPOS COVID-19; Translations: [CONTACT W/AND (SUSP) EXPOS COVID-19] Onset: 2 Unclassified (1 source) Long-term current use of drug therapy; Translations: [Long-term (current) use of other medications] Onset: 9 Unclassified (1 source) Abnormal result; Translations: [Other abnormal clinical finding] Onset: 8 Urinary tract infections (1 source) Acute cystitis without hematuria Episodic Viral infection (1 source) COVID-19; Translations: [COVID-19] Onset: 2 Past or Other Problems Problem Classification Problem Date Documented Da te Episodic/Chronic Acute bronchitis (1 source) Acute bronchitis; Translations: [Acute bronchitis, unspecified] Onset: 04-08-2014 Episodic Bacterial infection; unspecified site (1 source) Bacterial infectious disease; Translations: [Bacterial infection, unspecified, in conditions classified elsewhere and of unspecified site] Onset: 07-07-2018 Episodic Esophageal disorders (17 sources) Esophageal disorders; Translations: [Gastroesophageal reflux disease with esophagitis without hemorrhage] Influenza (1 source) Influenza due to identified novel influenza A virus with other respiratory manifestations; Translations: [Influenza due to identified novel influenza A virus with other respiratory manifestations] Onset: 05-26-2017 Episodic Nonspecific chest pain (1 source) Chest pain; Translations: [Other chest pain] Resolved: 02-15-2020 Episodic Other aftercare (1 source) Surgical follow-up; Translations: [Follow-up examination, following unspecified surgery] Onset: 10-20-2006 Resolved: 09-09-2017 Episodic Other aftercare (1 source) History and physical examination, follow-up; Translations: [Encounter for follow-up examination after completed treatment for conditions other than malignant neoplasm] Resolved: 11-18-2020 Episodic Other connective tissue disease (1 source) Olecranon bursitis; Translations: [Olecranon bursitis] Onset: 01-03-2017 Episodic Other female genital disorders (1 source) Noninflammatory disorder of the female genital organs; Translations: [Other specified noninflammatory disorders of cervix uteri] Resolved: 03-19-2020 Episodic Other female genital disorders (1 source) History of gynecological disorder; Translations: [Personal history of other genital system and obstetric disorders] Onset: 01-27-2016 Episodic Other gastrointestinal disorders (1 source) Diarrhea; Translations: [Diarrhea] Onset: 06-08-2016 Episodic Other gastrointestinal disorders (1 source) Oral phase dysphagia; Translations: [Dysphagia, oral phase] Onset: 11-14-2014 Episodic Other non-traumatic joint disorders (1 source) Arthralgia of the upper arm; Translations: [Pain in joint, upper arm] Onset: 01-03-2017 Episodic Other screening for suspected conditions (not mental disorders or infectious disease) (1 source) Imaging result abnormal; Translations: [Abnormal findings on diagnostic imaging of other specified body structures] Resolved: 07-07-2021 Chronic Otitis media and related conditions (1 source) Eustachian tube salpingitis; Translations: [Unspecified Eustachian salpingitis, right ear] Onset: 07-07-2018 Episodic Residual codes; unclassified (1 source) Family history of malignant neoplasm of breast; Translations: [FAMILY HX MALIG NEOPLASM OF BREAST] Onset: 12-13-2021 Episodic Residual codes; unclassified (1 source) Postoperative state; Translations: [Other postprocedural status] Onset: 01-27-2016 Episodic Residual codes; unclassified (1 source) Postprocedural state finding; Translations: [Other specified postprocedural states] Resolved: 06-19-2020 Episodic Residual codes; unclassified (1 source) Requires influenza virus vaccination; Translations: [Need for prophylactic vaccination and inoculation, Influenza] Onset: 03-16-2018 Episodic Unclassified (1 source) CONTACT W/AND (SUSP) EXPOS COVID-19; Translations: [CONTACT W/AND (SUSP) EXPOS COVID-19] Onset: 12-30-2021 Unclassified (1 source) Gynecological examination normal; Translations: [Routine gynecological examination] Results Test Name Value Interpretation Reference Range Facility No Panel Informationon 02-14 Reference Lab Test Patient Age Note . [facility] Comment on above: TESTS RESULT FLAG UN ITS REF RANGE LAB Clinician Provided Cytology Information Source.............Cervix;Endocervix No. of containers..01 ThinPrep Genaro WEEMS Anuja... Note 01 <21 or >65 or no age provided --- FLAG LEGEND: L-Low Normal,H-High Normal,LL-Alert Low,HH-Alert High <-Panic Low,>-Panic High,A-Abnormal,AA-Critical Abnormal ---Performed at:01 =[address] [facility] [address] Nandini Kim MD, Thin Prep Pap Screen Note . [facility] Comment on above: TESTS RESULT FLAG UN ITS REF RANGE LAB DI AGNOSIS: 02 NEGATIVE FOR INTRAEPITHELIAL LESION OR MALIGNANCY.Specimen adequacy: 02 Satisfactory for evaluation. Endocervical and/or squamous metaplastic cells (endocervical component) are present.Performed by: Cristal Wilder, X Ray Technician ([facility]). 02Note: Note 03 The Pap smear is a screening test designed to aid in the detection of premalignant and malignant conditions of the uterine cervix. It is not a diagnostic procedure and should not be used as the sole means of detecting cervical cancer. Both false-positive and false-negative reports do occur.Test Methodology: Note 03 This liquid based ThinPrep(R) pap test was screened with the use of an image guided system. -- FLAG LEGEND: L-Low Normal,H-High Normal,LL-Alert Low,HH-Alert High <-Panic Low,>-Panic High,A-Abnormal,AA-Critical Abnormal ---Performed at:02 [facility] [address] [place] [address] Wlilie Villanueva MD, [address] [address] Nandini Kim MD, Fodtwjrvx at: =G - [facility] [address] [id number] Director: Nandini Kim MD, Phone: [phone] at: [facility] - [facility] [id number] [place], [place] [id number] Director: Willie Villanueva MD, Phone: [phone] Basophils Auto (Bld) [#/Vol] on 12-23-2023 Basophils (Bld) [#/Vol] 0.0 10 3/uL 0.0-0.1 [facility] Basophils/100 WBC Auto (Bld) on 12-23-2023 Basophils/100 WBC (Bld) 0.4 % 0.2-2.0 [facility] Cholesterol in LDL Calc [Mas s/Vol]on 12-23-2023 Cholesterol in LDL [Mass/Vol] 106.8 mg/dL [facility] Comment on above: <100 mg/dl [id number] 0-129 mg/dl NEAR OR ABOVE [id number] mg/dl BORDERLINE [id number] mg/dl HIGH>190 mg/dl VERY HIGH Cholesterol in VLDL Calc [Ma ss/Vol]on 12-23-2023 Cholesterol in VLDL [Mass/Vol] 24.2 mg/dL [facility] Eosinophils/100 WBC Auto (Bl d)on 12-23-2023 Eosinophils/100 WBC (Bld) 5.7 % 0.9-7.0 [facility] Erythrocyte distribution wid th Auto (RBC) [Ratio]on 12-23-2023 Erythrocyte distribution width (RBC) [Ratio] 12.5 % 11.0-15.0 [facility] Estimated glomerular filtrat ion rate (GFR) non- Americanon 12-23-2023 GFR/1.73 sq M.predicted among non-blacks MDRD (S/P/Bld) [Vol rate/Area] 49 mL/min/{1.73_m2} Low >=60 [facility] Globulin Calc (S) [Mass/Vol] on 12-23-2023 Globulin (S) [Mass/Vol] 3.6 g/dL [facility] Hematocrit Auto (Bld) [Volum e fraction]on 12-23-2023 Hematocrit (Bld) [Volume fraction] 41.1 % 36.0-48.0 [facility] Hemoglobin [Mass/volume] in Bloodon 12-23-2023 Hemoglobin (Bld) [Mass/Vol] 13.3 g/dL 12.0-16.0 [facility] Laboratory - Chemistry and C hemistry - challengeon 12-23-2023 Albumin [Mass/Vol] 3.8 g/dL 3.4-5.0 [facility] ALP [Catalytic activity/Vol] 78 U/L 46-116 [facility] ALT [Catalytic activity/Vol] 32 U/L 14-59 [facility] AST [Catalytic activity/Vol] 19 U/L 15-37 [facility] Bilirubin [Mass/Vol] 0.6 mg/dL 0.2-1.0 [facility] Calcium [Mass/Vol] 9.3 mg/dL 8.5-10.1 [facility] Chloride [Moles/Vol] 105 mmol/L 98-107 [facility] Cholesterol [Mass/Vol] 175 mg/dL <=200 [facility] Cholesterol in HDL [Mass/Vol] 44 mg/dL 40-60 [facility] Comment on above: > or =60 mg/dl - LOW CARDIOVASCULAR RISK<40 mg/dl - HIGH CARDIOVASCULAR RISK CO2 [Moles/Vol] 28.8 mmol/L 21.0-32.0 [facility] Creatinine [Mass/Vol] 1.11 mg/dL High 0.55-1.02 [facility] Free T4 [Mass/Vol] 0.98 ng/dL 0.76-1.46 [facility] GFR/1.73 sq M.predicted MDRD (S/P/Bld) [Vol rate/Area] 59 mL/min/{1.73_m2} Low >=60 [facility] Glucose [Mass/Vol] 98 mg/dL 74-106 [facility] Potassium [Moles/Vol] 3.1 mmol/L Low 3.5-5.1 [facility] Protein [Mass/Vol] 7.4 g/dL 6.4-8.2 [facility] Sodium [Moles/Vol] 143 mmol/L 136-145 [facility] Triglyceride [Mass/Vol] 121 mg/dL <=150 [facility] TSH Qn 1.246 m[IU]/L 0.358-3.740 [facility] Urate [Mass/Vol] 6.4 mg/dL High 2.6-6.0 [facility] Urea nitrogen [Mass/Vol] 23.0 mg/dL High 7.0-18.0 [facility] Urea nitrogen/Creatinine [Mass ratio] 20.7 mg/mg [facility] Laboratory - Hematology and Cell countson 12-23-2023 Immature granulocytes/100 WBC (Bld) 0.3 % 0.0-0.5 [facility] Leukocytes [#/volume] correc jo ann for nucleated erythrocytes in Blood by Automated counon 12-23-2023 WBC corrected for nucl RBC Auto (Bld) [#/Vol] 8.9 10 3/uL 4.0-11.0 [facility] Lymphocytes Auto (Bld) [#/Vo l]on 12-23-2023 Lymphocytes (Bld) [#/Vol] 2.9 10 3/uL 1.2-3.8 [facility] Lymphocytes/100 WBC Auto (Bl d)on 12-23-2023 Lymphocytes/100 WBC (Bld) 33.0 % 20.5-60.0 [facility] MCH Auto (RBC) [Entitic mass ]on 12-23-2023 MCH (RBC) [Entitic mass] 29.0 pg 26.7-34.0 [facility] MCHC Auto (RBC) [Mass/Vol]on 12-23-2023 MCHC (RBC) [Mass/Vol] 32.4 g/dL 29.9-35.2 [facility] MCV Auto (RBC) [Entitic vol] on 12-23-2023 MCV (RBC) [Entitic vol] 89.5 fL 81.0-99.0 [facility] Monocytes Auto (Bld) [#/Vol] on 12-23-2023 Monocytes (Bld) [#/Vol] 0.7 10 3/uL 0.3-0.8 [facility] Monocytes/100 WBC Auto (Bld) on 12-23-2023 Monocytes/100 WBC (Bld) 8.0 % 1.7-12.0 [facility] Neutrophils Auto (Bld) [#/Vo l]on 12-23-2023 Neutrophils (Bld) [#/Vol] 4.7 10 3/uL 1.4-6.5 [facility] Neutrophils/100 WBC Auto (Bl d)on 12-23-2023 Neutrophils/100 WBC (Bld) 52.6 % 43.0-75.0 [facility] No Panel Informationon 12-22 Eosinophils # (Auto) 0.5 10 3/uL 0.0-0.7 [facility] Immature Granulocyte # (Auto) 0.03 10 3/uL 0.00-0.03 [facility] Total Triiodothyronine 132 ng/dL 71-180 [facility] Comment on above: Performed at: [facility] [address] [id number] Director: Dayton Toussaint PhD, Phone: [phone] Platelet mean volume Auto (B ld) [Entitic vol]on 12-23-2023 Platelet mean volume (Bld) [Entitic vol] 10.9 fL 9.5-13.5 [facility] Platelets Auto (Bld) [#/Vol] on 12-23-2023 Platelets (Bld) [#/Vol] 325 10 3/uL 150-450 [facility] RBC Auto (Bld) [#/Vol]on RBC (Bld) [#/Vol] 4.59 10 6/uL 4.20-5.40 [facility] Serum or plasma albumin/glob ulin mass ratioon 12-23-2023 Albumin/Globulin [Mass ratio] 1.1 {ratio} [facility] Serum or plasma anion gap de terminationon 12-23-2023 Anion gap [Moles/Vol] 12.3 mmol/L [facility] Serum or plasma total choles terol/high density lipoprotein (HDL) cholesterol mass vanesa 12-23-2023 Cholesterol.total/Ch olesterol in HDL [Mass ratio] 4.0 {ratio} [facility] Comment on above: 3.3 - 4.4 LOW RISK4. 4 - 7.1 AVERAGE RISK7.1 - 11.0 MODERATE RISK>11.0 HIGH RISK Thyroid stimulating immunogl obulin (TSI) measurementon 12-23-2023 Thyroid stimulating immunoglobulins actual/normal (S) [Relative mass conc] 0.66 IU/L Abnormal 0.00-0.55 [facility] Comment on above: Performed at: BN - L [address] [id number] Director: Anderson Rodriguez MD, Phone: [phone] Laboratory - Chemistry and C hemistry - challengeon 11-18-2023 Bilirubin Ql (U) Negative [facility] Glucose (U) [Mass/Vol] Negative [facility] Ketones Ql (U) Negative [facility] pH (U) 7 [pH] [facility] Specific gravity (U) [Rel density] 1.015 [facility] Urobilinogen (U) [Mass/Vol] 0.2 mg/dL [facility] Laboratory - Specimen inform ationon 11-18-2023 Appearance (U) cloudy [facility] Color (U) yellow [facility] Laboratory - Urinalysison Leukocyte esterase Test strip Ql (U) +++ [facility] Nitrite Ql (U) Negative [facility] Protein Ql (U) ++ [facility] No Panel Informationon 11-17 Urine Occult Blood +++ [facility] Laboratory - Chemistry and C hemistry - challengeon 07-25-2023 TSH Qn 3.532 m[IU]/L 0.358-3.740 [facility] TSHon 07-21-2022 TSH 3.102 uIU/mL Normal 0.358-3.740 [facility] Comment on above: Performed By: #### B MP, TSH, LIPID #### Laboratory [address] [address] [address] Leonardo Salazar Thyroid Stimulating Hormoneo 07-21-2022 Thyroid Stimulating Hormone [facility] [employer] Other TSHon 06-14-2022 TSH 3.853 uIU/mL Critically high 0.358-3.740 [facility] Comment on above: Performed By: #### T SH #### Laboratory [address] [address] [address] Leonardo Salazar TSHon 05-03-2022 TSH 5.728 uIU/mL Critically high 0.358-3.740 [facility] Comment on above: Performed By: #### T SH #### Laboratory [address] [address] [address] Leonardo Salazar TSHon 03-25-2022 TSH 4.674 uIU/mL Critically high 0.358-3.740 [facility] Comment on above: Performed By: #### B MP, TSH, LIPID #### Laboratory [address] [place] [address] Dr. Leonardo Salazar PAP ACOG PANEL 2: 30 to 65on 02-12-2022 . . Normal [facility] Comment on above: Performed By: #### B MP, TSH, LIPID #### Laboratory [address] [address] [address] Leonardo Salazar Age Gdln ACOG Testing Comment [facility] Comment on above: Result Comment: <21 or >65 or no age provided Performed By: #### B MP, TSH, LIPID #### Laboratory [address] [address] [address] Leonardo Salazar DIAGNOSIS: Comment [facility] Comment on above: Result Comment: NEGA TIVE FOR INTRAEPITHELIAL LESION OR MALIGNANCY. Performed By: #### B MP, TSH, LIPID #### Laboratory [address] [place] [address] Dr. Leonardo Salazar Methodology: Comment [facility] Comment on above: Result Comment: This liquid based ThinPrep(R) pap test was screened with the use of an image guided system. Performed By: #### B MP, TSH, LIPID #### Laboratory [address] [place] [address] Dr. Leonardo Salazar Note: Comment [facility] Comment on above: Result Comment: The Pap smear is a screening test designed to aid in the detection of premalignant and malignant conditions of the uterine cervix. It is not a diagnostic procedure and should not be used as the sole means of detecting cervical cancer. Both false-positive and false-negative reports do occur. . Performed By: #### B MP, TSH, LIPID #### Laboratory [address] [address] [address] Leonardo Salazar Performed by: Comment Normal [facility] Comment on above: Result Comment: Troy Faulkner X Ray Technician (ASCP) Performed By: #### B MP, TSH, LIPID #### Laboratory [address] [place] [address] Dr. Leonardo Salazar Specimen adequacy: Comment [facility] Comment on above: Result Comment: Sati sfactory for evaluation. Endocervical and/or squamous metaplastic cells (endocervical component) are present. Performed By: #### B MP, TSH, LIPID #### Laboratory [address] [place] [address] Dr. Leonardo Salazar Covid-19 PCR (CVDTB)on 12-05 SARS-CoV-2 (COVID-19) RNA MOSHE+probe Ql (Unsp spec) Detected Critically abnormal NOT DETECTED The Comment on above: Result Comment: This test is not yet approved or cleared by the [place] FDA. When there are no FDA-approved or cleared tests available, and other criteria are met, FDA can make tests available under an emergency access mechanism called an Emergency Use Authorization (EUA). The EUA for this test is supported by the Size Worker of Health and Human Service's (HHS's) declaration that circumstances exist to justify the emergency use of in vitro diagnostics for the detection and/or diagnosis of the virus that causes COVID-19. This EUA will remain in effect (meaning this test can be used) for the duration of the COVID-19 declaration justifying emergency of IVDs, unless it is terminated or revoked by FDA (after which the test may no longer be used). Performed By: #### C VDTB #### Laboratory [address] [place] [address] Dr. Leonardo Salazar THYROID-STIMULATING IMMUNOGL OBULINon 12-28-2021 Thyroid Sim Immunoglobulin 4.57 IU/L Critically high 0.00-0.55 The Comment on above: Performed By: #### T OSITO #### Laboratory [address] [place] [address] Dr. Leonardo Salazar US THYROIDon 12-27-2021 US THYROID EXAMINATION: US THYROID HISTORY: Thyrotoxicosis COMPARISON: No relevant comparison available. FINDINGS: RIGHT LOBE: Contains a 1.8 x 1.8 x 1.1 cm TR 3 nodule within inferior pole. Lobe size: 5.2 x 1.3 x 1.7 cm LEFT LOBE: Contains a 1.5 x 1.4 x 0.8 cm TR 3 nodule within the interpolar region. Lobe size: 3.9 x 1.6 x 1.6 cm ISTHMUS: Borderline mildly thickened. Homogeneous echotexture. Thickness: 4 mm IMPRESSION: 1. Follow-up ultrasound in one year for evaluation of right and left thyroid TR 3 nodules. TR 3 The [employer] TI-RADS committee's white paper recommendations for thyroid lesions classified as TR3 (mildly suspicious) are listed below: > 1.5 cm. Follow-up ultrasound in 1, 3, and 5 years. > 2.5 cm. FNA. J. Am Luis Radiol 2017;14:587-595. Electronically authenticated by: [place] ZARAGOZA Date: 2021-12-27 07:22 Normal The THYROID PEROXIDASE ABon - Thyroid Peroxidase (TPO) Ab 234 IU/mL Critically high 0-34 The Comment on above: Performed By: #### T POAB #### Laboratory [address] [place] [address] Dr. Leonardo Salazar T3, TOTAL (TRIIODOTHYRONINE) on 12-11-2021 T3, TOTAL 196 ng/dL Critically high 71-180 [facility] Comment on above: Performed By: #### B MP, TSH, LIPID #### Laboratory [address] [place] [address] Dr. Leonardo Salazar CBC AUTO DIFFon 12-09-2021 BASO # 0.1 103/ul Normal 0.0-0.1 [facility] Comment on above: Performed By: #### C BC #### Laboratory [address] [place] [address] Dr. Leonardo Salazar Basophils/100 WBC (Bld) 0.4 % Normal 0.2-2.0 [facility] Comment on above: Performed By: #### C BC #### Laboratory [address] [place] [address] Dr. Leonardo Salazar EO # 0.3 103/ul Normal 0.0-0.7 The Comment on above: Performed By: #### C BC #### Laboratory [address] [place] [address] Dr. Leonardo Salazar Eosinophils/100 WBC (Bld) 2.3 % Normal 0.9-7.0 [facility] Comment on above: Performed By: #### C BC #### Laboratory [address] [place] [address] Dr. Leonardo Salazar Erythrocyte distribution width (RBC) [Ratio] 12.9 % Normal 11.0-15.0 [facility] Comment on above: Performed By: #### C BC #### Laboratory [address] [place] [address] Dr. Leonardo Salazar Hematocrit (Bld) [Volume fraction] 43.1 % Normal 36.0-48.0 [facility] Comment on above: Performed By: #### C BC #### Laboratory [address] [place] [address] Dr. Leonardo Salazar Hemoglobin (Bld) [Mass/Vol] 13.7 g/dL Normal 12.0-16.0 [facility] Comment on above: Performed By: #### C BC #### Laboratory [address] [place] [address] Dr. Leonardo Salazar IG # 0.07 10e3/ul Critically high 0.00-0.03 [facility] Comment on above: Performed By: #### C BC #### Laboratory [address] [place] [address] Dr. Leonardo Salazar IG % 0.6 % Critically high 0.0-0.5 [facility] Comment on above: Performed By: #### C BC #### Laboratory [address] [place] [address] Dr. Leonardo Salazar LYMPH # 2.9 103/ul Normal 1.2-3.8 [facility] Comment on above: Performed By: #### C BC #### Laboratory [address] [place] [address] Dr. Leonardo Salazar Lymphocytes/100 WBC (Bld) 25.3 % Normal 20.5-60.0 [facility] Comment on above: Performed By: #### C BC #### Laboratory [address] [place] [address] Dr. Leonardo Salazar MANUAL DIFF REQ NO Normal [facility] Comment on above: Performed By: #### C BC #### Laboratory [address] [place] [address] Dr. Leonardo Salazar MCH (RBC) [Entitic mass] 27.5 pg Normal 26.7-34.0 [facility] Comment on above: Performed By: #### C BC #### Laboratory [address] [address] [address] Leonardo Salazar MCHC (RBC) [Mass/Vol] 31.8 g/dL Normal 29.9-35.2 The Comment on above: Performed By: #### C BC #### Laboratory [address] [place] [address] Dr. Leonardo Salazar MCV (RBC) [Entitic vol] 86.4 fL Normal 81.0-99.0 [facility] Comment on above: Performed By: #### C BC #### Laboratory [address] [place] [address] Dr. Leonardo Salazar MONO # 0.9 103/ul Critically high 0.3-0.8 [facility] Comment on above: Performed By: #### C BC #### Laboratory [address] [place] [address] Dr. Leonardo Salazar Monocytes/100 WBC (Bld) 8.2 % Normal 1.7-12.0 [facility] Comment on above: Performed By: #### C BC #### Laboratory [address] [place] [address] Dr. Leonardo Salazar NEUT # 7.1 103/ul Critically high 1.4-6.5 [facility] Comment on above: Performed By: #### C BC #### Laboratory [address] [place] [address] Dr. Leonardo Salazar Neutrophils/100 WBC (Bld) 63.2 % Normal 43.0-75.0 The Comment on above: Performed By: #### C BC #### Laboratory [address] [place] [address] Dr. Leonardo Salazar Platelet mean volume (Bld) [Entitic vol] 10.4 fL Normal 9.5-13.5 The Comment on above: Performed By: #### C BC #### Laboratory [address] [place] [address] Dr. Leonardo Salazar PLT 320 103/ul Normal 150-450 [facility] Comment on above: Performed By: #### C BC #### Laboratory [address] [address] [address] Leonardo Salazar RBC 4.99 106/ul Normal 4.20-5.40 [facility] Comment on above: Performed By: #### C BC #### Laboratory [address] [address] [address] Leonardo Salazar WBC 11.3 103/ul Critically high 4.0-11.0 [facility] Comment on above: Performed By: #### C BC #### Laboratory [address] [address] [address] Leonardo Salazar FREE T3on 12-09-2021 FREE T3 5.33 pg/mlL Critically high 2.18-3.98 [facility] Comment on above: Performed By: #### F T3 #### Laboratory [address] [place] [address] Dr. Leonardo Salazar FREE T4on 12-09-2021 Free T4 [Mass/Vol] 1.97 ng/dL Critically high 0.76-1.46 [facility] Comment on above: Performed By: #### B MP, TSH, LIPID #### Laboratory [address] [place] [address] Dr. Leonardo Salazar LIPID PROFILEon 12-09-2021 CHOL-HDL RATIO NORM SEE BELOW Normal [facility] Comment on above: Result Comment: 3.3 - 4.4 LOW RISK 4.4 - 7.1 AVERAGE RISK 7.1 - 11.0 MODERATE RISK >11.0 HIGH RISK Performed By: #### B MP, TSH, LIPID #### Laboratory [address] [place] [address] Dr. Leonardo Salazar Cholesterol [Mass/Vol] 170 mg/dL Normal <=200 [facility] Comment on above: Performed By: #### B MP, TSH, LIPID #### Laboratory [address] [place] [address] Dr. Leonardo Salazar Cholesterol in HDL [Mass/Vol] 51 mg/dL Normal 40-60 [facility] Comment on above: Performed By: #### B MP, TSH, LIPID #### Laboratory [address] [address] [address] Leonardo Salazar Cholesterol in LDL [Mass/Vol] 105.4 mg/dL Normal [facility] Comment on above: Performed By: #### B MP, TSH, LIPID #### Laboratory [address] [place] [address] Dr. Leonardo Salazar Cholesterol.total/Ch olesterol in HDL [Mass ratio] 3.3 {ratio} Normal [facility] Comment on above: Performed By: #### B MP, TSH, LIPID #### Laboratory [address] [address] [address] Leonardo Salazar HDL NORMAL > or = 60 mg/dl - LOW CARDIOVASCULAR RISK <40 mg/dl - HIGH CARDIOVASCULAR RISK Normal [facility] Comment on above: Performed By: #### B MP, TSH, LIPID #### Laboratory [address] [place] [address] Dr. Leonardo Salazar LDL CALC NORMAL SEE BELOW Normal [facility] Comment on above: Result Comment: <100 mg/dl OPTIMAL 100 - 129 mg/dl NEAR OR ABOVE OPTIMAL 130 - 159 mg/dl BORDERLINE HIGH 160 - 189 mg/dl HIGH >190 mg/dl VERY HIGH Performed By: #### B MP, TSH, LIPID #### Laboratory [address] [place] [address] Dr. Leonardo Salazar Triglyceride [Mass/Vol] 68 mg/dL Normal <=150 [facility] Comment on above: Performed By: #### B MP, TSH, LIPID #### Laboratory [address] [place] [address] Dr. Leonardo Salazar VLDL CALC 13.6 mg/dL Normal [facility] Comment on above: Performed By: #### B MP, TSH, LIPID #### Laboratory [address] [place] [address] Dr. Leonardo Salazar MG MAMM SCREEN 3D SAÚL CADon 12-09-2021 MG MAMM SCREEN 3D SAÚL CAD Patient: ANGELA BAXTER Exam Date: 12/09/2021 : 1955 Gender:F Ordering : DR MARCOS ROQUE D.O. Admission #: [id number] Family : CONSUELO CLEVELAND . Order #: [id number] CLICK HERE TO VIEW EXAM RADIOLOGY REPORT PROCEDURE: MAMMOGRAM SCREENING 3D BILATERAL CAD COMPARISON: MG MAMM SCREEN 3D SAÚL CAD, 12/04/2020. MG MAMM SCREEN SAÚL W CAD, 12/04/2019. INDICATIONS: Screening mammography Calculator Name NCI Breast Cancer Risk Assessment Tool 5 Year Breast Cancer Risk 3.90% Lifetime Breast Cancer Risk 13.00% Personal Breast Cancer No Personal Ovarian Cancer No Treatments None Family Cancers Mother with breast cancer at age 71. LOCATION: The BREAST COMPOSITION: Heterogeneously dense,which may obscure small masses. FINDINGS: DIAGNOSTIC CATEGORY 2--BENIGN FINDING: RIGHT BREAST: No significant suspicious finding. Scattered benign-appearing nodules are present. No significant change has occurred. LEFT BREAST: No significant suspicious finding. Scattered benign-appearing nodules are present. No significant change has occurred. RECOMMENDATIONS: ROUTINE MAMMOGRAM AND CLINICAL EVALUATION IN 12 MONTHS. PLEASE NOTE: A NORMAL MAMMOGRAM DOES NOT EXCLUDE THE POSSIBILITY OF BREAST CANCER. A CLINICALLY SUSPICIOUS PALPABLE LUMP SHOULD BE BIOPSIED. Dictated by: Oh Zaragoza M.D. on 12/10/2021 at 13:34 Approved by: Oh Zaragoza M.D. on 12/10/2021 at 14:20 Normal The PROF CHEM 8 (BAS METB)on Anion gap [Moles/Vol] 10.4 mmol/L Normal [facility] Comment on above: Performed By: #### B MP, TSH, LIPID #### Laboratory [address] [address] [address] Leonardo Salazar Calcium [Mass/Vol] 9.7 mg/dL Normal 8.5-10.1 [facility] Comment on above: Performed By: #### B MP, TSH, LIPID #### Laboratory [address] [address] [address] Leonardo Salazar Chloride [Moles/Vol] 106 mmol/L Normal 98-107 [facility] Comment on above: Performed By: #### B MP, TSH, LIPID #### Laboratory [address] [address] [address] Leonardo Salazar CO2 [Moles/Vol] 29.5 mmol/L Normal 21.0-32.0 The [facility] Comment on above: Performed By: #### B MP, TSH, LIPID #### Laboratory [address] [address] [address] Leonardo Salazar Creatinine [Mass/Vol] 0.88 mg/dL Normal 0.55-1.02 [facility] Comment on above: Performed By: #### B MP, TSH, LIPID #### Laboratory [address] [address] [address] Leonardo Salazar EGFR-AF BOLIVIAN >60 Normal >=60 The [facility] Comment on above: Performed By: #### B MP, TSH, LIPID #### Laboratory [address] [address] [address] Leonardo Salazar EGFR-NON AF BOLIVIAN >60 Normal >=60 [facility] Comment on above: Performed By: #### B MP, TSH, LIPID #### Laboratory [address] [address] [address] Leonardo Salazar Glucose [Mass/Vol] 98 mg/dL Normal 74-106 The [facility] Comment on above: Performed By: #### B MP, TSH, LIPID #### Laboratory [address] [address] [address] Leonardo Salazar Potassium [Moles/Vol] 3.9 mmol/L Normal 3.5-5.1 The Comment on above: Performed By: #### B MP, TSH, LIPID #### Laboratory [address] [address] [address] Leonardo Salazar Sodium [Moles/Vol] 142 mmol/L Normal 136-145 [facility] Comment on above: Performed By: #### B MP, TSH, LIPID #### Laboratory [address] [address] [address] Leonardo Salazar Urea nitrogen [Mass/Vol] 23.0 mg/dL Critically high 7.0-18.0 [facility] Comment on above: Performed By: #### B MP, TSH, LIPID #### Laboratory [address] [place], [place] [address] Dr. Leonardo Salazar Urea nitrogen/Creatinine [Mass ratio] 26.1 mg/mg Normal The Comment on above: Performed By: #### B MP, TSH, LIPID #### Laboratory [address] [place], [place] [address] Dr. Leonardo Salazar TSHon 12-09-2021 TSH Qn m[IU]/L Critically low 0.358-3.740 [facility] Comment on above: Performed By: #### B MP, TSH, LIPID #### Laboratory [address] [place], [place] [address] Dr. Leonardo Salazar Vital Signs Date Time Vital Sign Value Performing Clinician Facility 07-23-2024 11:45-0500 Body height 172.72 cm [facility] 07-23-2024 11:45-0500 Body mass index (BMI) [Ratio] 30.1 kg/m2 [facility] 07-23-2024 11:45-0500 Body weight 89.92 kg [facility] 07-23-2024 11:45-0500 Diastolic blood pressure 75 mm[Hg] [facility] 07-23-2024 11:45-0500 Heart rate 80 /min [facility] 07-23-2024 11:45-0500 Respiratory rate 12 /min [facility] 07-23-2024 11:45-0500 Systolic blood pressure 124 mm[Hg] [facility] 03-19-2024 11:57-0400 Body height 172.72 cm [facility] 03-19-2024 11:57-0400 Body mass index (BMI) [Ratio] 29.8 kg/m2 [facility] 03-19-2024 11:57-0400 Body weight 89.07 kg [facility] 03-19-2024 11:57-0400 Diastolic blood pressure 82 mm[Hg] [facility] 03-19-2024 11:57-0400 Heart rate 71 /min [facility] 03-19-2024 11:57-0400 Respiratory rate 12 /min [facility] 03-19-2024 11:57-0400 Systolic blood pressure 134 mm[Hg] [facility] 11-29-2023 11:44-0400 Body height 172.72 cm [facility] 11-29-2023 11:44-0400 Body mass index (BMI) [Ratio] 29.5 kg/m2 [facility] 11-29-2023 11:44-0400 Body weight 88.11 kg [facility] 11-29-2023 11:44-0400 Diastolic blood pressure 85 mm[Hg] [facility] 11-29-2023 11:44-0400 Heart rate 89 /min [facility] 11-29-2023 11:44-0400 Respiratory rate 12 /min [facility] 11-29-2023 11:44-0400 Systolic blood pressure 134 mm[Hg] [facility] 09-06-2023 11:44-0400 Body height 172.72 cm [facility] 09-06-2023 11:44-0400 Body mass index (BMI) [Ratio] 29.6 kg/m2 [facility] 09-06-2023 11:44-0400 Body weight 88.45 kg [facility] 09-06-2023 11:44-0400 Diastolic blood pressure 82 mm[Hg] [facility] 09-06-2023 11:44-0400 Heart rate 80 /min [facility] 09-06-2023 11:44-0400 Respiratory rate 16 /min [facility] 09-06-2023 11:44-0400 Systolic blood pressure 131 mm[Hg] [facility] 07-25-2023 11:40-0500 Body height 172.72 cm [facility] 07-25-2023 11:40-0500 Body mass index (BMI) [Ratio] 30.2 kg/m2 [facility] 07-25-2023 11:40-0500 Body weight 90.26 kg [facility] 07-25-2023 11:40-0500 Diastolic blood pressure 78 mm[Hg] [facility] 07-25-2023 11:40-0500 Heart rate 73 /min [facility] 07-25-2023 11:40-0500 Respiratory rate 12 /min [facility] 07-25-2023 11:40-0500 Systolic blood pressure 137 mm[Hg] [facility] 03-23-2023 10:00-0400 Body height 172.72 cm Marcos Ball Other [facility] [employer] Other 03-23-2023 10:00-0400 Body mass index (BMI) [Ratio] 29.83 kg/m2 Marcos Ball Other [facility] Other 03-23-2023 10:00-0400 Body weight 89 kg Marcos Ball Other [facility] Other 03-23-2023 10:00-0400 Diastolic blood pressure 79 mm[Hg] Marcos Ball Other [facility] Other 03-23-2023 10:00-0400 Respiratory rate 12 /min Marcos Ball Other [facility] Other 03-23-2023 10:00-0400 Systolic blood pressure 131 mm[Hg] Marcos Ball Other [facility] Other 11-24-2022 10:00-0400 Body height 172.72 cm Marcos Ball Other [facility] Other 11-24-2022 10:00-0400 Body mass index (BMI) [Ratio] 29.43 kg/m2 Marcos Ball Other [facility] Other 11-24-2022 10:00-0400 Body weight 87.82 kg Marcos Ball Other [facility] Other 11-24-2022 10:00-0400 Diastolic blood pressure 87 mm[Hg] Marcos Ball Other [facility] Other 11-24-2022 10:00-0400 Respiratory rate 12 /min Marcos Ball Other [facility] Other 11-24-2022 10:00-0400 Systolic blood pressure 128 mm[Hg] Marcos Ball Other [facility] Other 07-21-2022 11:00-0500 Body height 172.72 cm Marcos Ball Other [facility] Other 07-21-2022 11:00-0500 Body mass index (BMI) [Ratio] 29.31 kg/m2 Marcos Ball Other [facility] Other 07-21-2022 11:00-0500 Body weight 87.45 kg Marcos Ball Other [facility] Other 07-21-2022 11:00-0500 Diastolic blood pressure 68 mm[Hg] Marcos Ball Other [facility] Other 07-21-2022 11:00-0500 Respiratory rate 12 /min Marcos Ball Other [facility] Other 07-21-2022 11:00-0500 Systolic blood pressure 124 mm[Hg] Marcos Ball Other [facility] Other Encounters Encounter Date Encounter Type Care Provider Facility Start: 09-11-2024 End: 09-11-2024 ambulatory [facility] Work Phone: Start: 09-11-2024 End: 09-11-2024 Patient encounter procedure [facility] Work Phone: Start: 07-23-2024 End: 07-23-2024 ambulatory [facility] Work Phone: Start: 07-23-2024 End: 07-23-2024 Patient encounter procedure [facility] Work Phone: Start: 06-25-2024 End: 06-25-2024 ambulatory NIDIA Garcia YARA Not Available Start: 06-13-2024 End: 06-13-2024 ambulatory NIDIA Garcia YARA Not Available Start: 06-04-2024 End: 06-04-2024 ambulatory NIDIA M YARA Not Available Start: 05-24-2024 End: 05-24-2024 ambulatory NIDIA Garcia YARA Not Available Start: 03-19-2024 End: 03-19-2024 ambulatory [facility] Work Phone: Start: 03-19-2024 End: 03-19-2024 Patient encounter procedure [facility] Work Phone: Start: 03-01-2024 End: 03-01-2024 ambulatory NIDIA Garcia YARA Not Available Start: 02-15-2024 Non-patient / Non-visit [facility] Work Phone: Start: 02-15-2024 End: 02-15-2024 ambulatory CONSUELO MEGHA Not Available Start: 12-28-2023 End: 12-28-2023 ambulatory [facility] Work Phone: Start: 12-28-2023 End: 12-28-2023 Patient encounter procedure [facility] Work Phone: Start: 12-23-2023 Non-patient / Non-visit [facility] Work Phone: Start: 11-29-2023 End: 11-29-2023 ambulatory [facility] Work Phone: Start: 11-29-2023 End: 11-29-2023 Patient encounter procedure [facility] Work Phone: Start: 11-18-2023 End: 11-18-2023 ambulatory [facility] Work Phone: Start: 11-18-2023 End: 11-18-2023 Patient encounter procedure [facility] Work Phone: Start: 09-06-2023 End: 09-06-2023 ambulatory [facility] Work Phone: Start: 09-06-2023 End: 09-06-2023 Patient encounter procedure [facility] Work Phone: Start: 07-25-2023 End: 07-25-2023 ambulatory [facility] Work Phone: Start: 07-25-2023 End: 07-25-2023 Patient encounter procedure [facility] Work Phone: Start: 03-23-2023 End: 03-23-2023 ambulatory Marcos Roque Other [facility] Other Start: 03-23-2023 Office outpatient vi sit 25 minutes Marcos Jude [facility] Start: 01-06-2023 End: 01-06-2023 ambulatory Marcos Roque Other [facility] Other Start: 01-06-2023 Telephone encounter Marcos Roque [facility] Start: 12-23-2022 End: 12-23-2022 ambulatory Marcos Roque Other [facility] Other Start: 12-23-2022 Telephone encounter Marcos Roque [facility] Start: 12-21-2022 End: 12-21-2022 ambulatory Marcos Ball Other [facility] Other Start: 12-21-2022 Telephone encounter Marcos Roque [facility] Start: 11-24-2022 End: 11-24-2022 ambulatory Marcos Ball Other [facility] Other Start: 11-24-2022 Patient encounter procedure Marcos Ball [facility] Start: 11-17-2022 End: 11-17-2022 ambulatory Marcos Roque Other [facility] Other Start: 11-17-2022 Telephone encounter Marcos Roque [facility] Start: 11-08-2022 End: 11-08-2022 ambulatory Marcos Roque Other [facility] Other Start: 11-08-2022 Telephone encounter Marcos Roque [facility] Start: 09-28-2022 End: 09-28-2022 ambulatory Marcos Roque Other [facility] Other Start: 09-28-2022 Telephone encounter Marcos Jude [facility] Start: 09-27-2022 End: 09-27-2022 ambulatory Marcos Roque Other [facility] Other Start: 09-27-2022 Telephone encounter Marcos Roque [facility] Start: 09-15-2022 End: 09-15-2022 ambulatory Marcos Roque Other [facility] Other Start: 09-15-2022 Office outpatient vi sit 15 minutes Marcos Roque [facility] Start: 07-21-2022 Office outpatient vi sit 25 minutes Marcos Roque [facility] Start: 07-21-2022 End: 07-22-[address] MARCOS ROQUE Facility:[facility] Start: 06-15-2022 End: 06-15-2022 ambulatory Marcos Roque Other [facility] Other Start: 06-15-2022 Nursing evaluation o f patient and report Marcos Roque [facility] Start: 06-15-2022 Telephone encounter Marcos Roque [facility] Start: 06-14-2022 End: 06-15-[address] MARCOS ROQUE Facility:[facility] Start: 06-14-2022 Telephone encounter Marcos Roque [facility] Start: 05-03-2022 End: 05-04-[address] MARCOS ROQUE Facility:[facility] Start: 03-25-2022 End: 03-26-[address] MARCOS ROQUE Facility:[facility] Start: 03-24-2022 Gynecological examin ation normal Marcos Roque Other [facility] [employer] Other Start: 02-04-2022 End: 02-04-[address] CONSUELO CLEVELAND . Facility:[facility] Start: 02-04-2022 Adult health examination Cristobal Roque Other [facility] [employer] Other Start: 12-30-2021 End: 12-30-[address] MARCOS ROQUE Facility:[facility] Start: 12-25-2021 End: 12-26-[address] MARCOS ROQUE Facility:[facility] Start: 12-09-2021 End: 12-10-[address] MARCOS ROQUE Facility:[facility] Start: 11-18-2020 End: 11-18-2020 Pre-procedure evaluation check Marcos Roque Other [facility] [employer] Other Start: 08-22-2020 End: 08-22-2020 Discharged Recurring Edmund Cardoza [facility] Vaccine Procedures Date Procedure Procedure Detail Performing Clinician Start: 11-23-2021 Depression screening Be lizett Roque Other Start: 08-20-2015 General examination of patient Marcos Roque Other Start: 08-20-2015 Screening for malign ant neoplasm of colon Marcos Roque Other Screening for malign ant neoplasm of breast Marcos Roque Other Screening for malign ant neoplasm of breast Marcos Roque Other Screening for osteoporosis B enreanna Roque Other Plan of Treatment Date Care Activity Detail Author Comprehensive metabo lic 2000 panel - Serum or Plasma [facility] enter MG Breast - bilateral Screening [facility] Thyroid stimulating immunoglobulins actual/normal in Serum [facility] enter [facility] Immunizations Immunization Date Immunization Notes Care Provider Fa cility 02-11-2024 Fluzone QIV High-Dos e 65YR+ [facility] 10-06-2022 COVID-19 Pfizer (bivalent) Marcos Roque Other [facility] 03-02-2022 COVID-19 Pfizer (bivalent) Marcos Roque Other [facility] 03-02-2022 influenza virus vaccine, unspecified formulation [facility] 03-02-2022 influenza, high dose seasonal, preservative-free Marcos Roque Other [facility] Other 09-07-2021 COVID-19 Pfizer Marcos Medrano joseph Other [facility] 09-07-2021 COVID-19 Vaccine Pfi zer - Documentation Purposes Only Marcos Roque Other [facility] 03-11-2021 influenza virus vaccine, split virus (incl. purified surface antigen) Marcos Roque Other [facility] [employer] Other 03-11-2021 influenza virus vaccine, unspecified formulation [facility] 03-03-2021 COVID-19 Vaccine Pfi zer - Documentation Purposes Only Marocs Roque Other [facility] 08-22-2020 COVID-19 mRNA,[id number] (Pfizer) [facility] 07-30-2020 COVID-19 mRNA,[id number] (Pfizer) [facility] 03-19-2020 influenza virus vaccine, split virus (incl. purified surface antigen) Marcos Roque Other [facility] [employer] Other 03-19-2020 influenza virus vaccine, unspecified formulation [facility] 03-20-2019 influenza virus vaccine, split virus (incl. purified surface antigen) Marcos Roque Other [facility] [employer] Other 03-20-2019 influenza virus vaccine, unspecified formulation [facility] 03-16-2018 influenza virus vaccine, split virus (incl. purified surface antigen) Marcos Jude Other [facility] Other 03-16-2018 influenza virus vaccine, unspecified formulation [facility] 04-04-2017 influenza virus vaccine, split virus (incl. purified surface antigen) Marcos Roque Other [facility] [employer] Other 04-04-2017 influenza virus vaccine, unspecified formulation [facility] 04-06-2016 influenza virus vaccine, split virus (incl. purified surface antigen) Marcos Roque Other [facility] Other 04-06-2016 influenza virus vaccine, unspecified formulation [facility] 04-03-2015 tetanus and diphther ia toxoids, adsorbed, preservative free, for adult use (5 Lf of tetanus toxoid and 2 Lf of diphtheria toxoid) Marcos Roque Other [facility] 02-21-2014 tetanus and diphther ia toxoids, adsorbed, preservative free, for adult use (5 Lf of tetanus toxoid and 2 Lf of diphtheria toxoid) Marcos Roque Other [facility] 03-07-2013 tetanus and diphther ia toxoids, adsorbed, preservative free, for adult use (5 Lf of tetanus toxoid and 2 Lf of diphtheria toxoid) Marcos Roque Other [facility] Payers Date Payer Category Payer Medicare [id number] 1955 Unknown [id number] 2.16.84 [id number] 1955 Unknown [id number] 2.16.84 [id number] 1955 Unknown [id number] 2.16.84 [id number] 1955 Unknown [id number] 2.16.84 [id number] 1955 Unknown [id number] 2.16.84 0.1.555470.3.579.2.593 1955 Unknown [id number] 2.16.84 0.1.995411.3.579.2.593 1955 Unknown [id number] 2.16.84 0.1.305975.3.579.2.593 1955 Unknown [id number] 2.16.84 [id number] 1955 Unknown [id number] 2.16.84 0.1.353553.3.579.2.1259 1955 Unknown [id number] 2.16.84 0.1.097002.3.579.2.1259 1955 Unknown [id number] 2.16.84 0.1.569943.3.579.2.1259 1955 Unknown [id number] 2.16.84 0.1.032094.3.579.2.1259 1955 Unknown [id number] 2.16.84 0.1.679921.3.579.2.1259 1955 Unknown [id number] 2.16.84 [id number] Medicare [id number] Self-pay Self Pay [id number] Social History Date Type Detail Facility Tobacco smoking status NHIS Unknown if ever smoked [facility] Start: 1955 Sex Assigned At Female F [facility] Sex Assigned At Sex Assigned At Bir th [place] [facility] Other Start: 03-23-2023 End: 07-25-2023 Tobacco smoking status NHIS Never smoked tobacco (finding) [facility] Start: 07-23-2024 End: 09-11-2024 Sex Female (finding) [facility] Goals Date Patient Goal Desired Activity /State Clinical Notes 06-14-2022 to 07-23-2024 Note Date & Type Note Facility 07-23-2024 Evaluation note Diagnosis Onset Date Resolution Chronic tension-type headache, not intractable acute Februa 2024 11:26am Gastroesophageal reflux disease with esophagitis without hemorrhage acute July 11:26am Graves disease acute July 072024 11:26am Hypercholesterolemia acute 2024 11:26am Metabolic dysfunction-associated fatty liver disease (MAFLD) acute 2024 11:26am Mild intermittent asthma without complication acute July 232024 11:26am Primary hypertension acute 2024 11:26am Shoulder pain acute July 232024 11:26am Strain of rotator cuff of right shoulder acute July 23, 2024 11:26am Dysuria acute September 11 9:56am [facility] Work Phone: [phone] 551-902002-17-2025 Evaluation note* Diagnosis Onset Date Resolution Status Admit Date Chronic tension-type headach e, not intractable acute July 23 11:26am Gastroesophageal reflux dise ase with esophagitis without hemorrhage acute July 23 11:26am Graves disease acute July 072024 11:26am Hypercholesterolemia acute 2024 11:26am Metabolic dysfunction-associ ated fatty liver disease (MAFLD) acute 2024 11:26am Mild intermittent asthma wit hout complication acute July 23 11:26am Primary hypertension acute 2024 11:26am [facility] Work Phone: [phone] 247-736510-18-2023 Evaluation note* Encounter Date Diagnosis Assessment Notes Treatment Notes Treatment Clinical Notes Mar, Primary hypertension (ICD-10 - I10) This patient is instructed to consume a healthy, low-fat, low-salt diet. They are also encouraged to continue exercise to achieve/maintain a normal BMI. Mar, NAFLD (nonalcoholic fatty liver disease) (ICD-10 - K76.0) Healthy low fat, high protein diet Exercise and weight loss Mar, Hypercholesterolemia (ICD-10 - E78.00) Instructed on diet and exercise with continued statin therapy.Discussed the beneficial effects of lowering cholesterol in reducing the risk for cerebrovascular and cardiovascular disease. Mar, Graves disease (ICD- 10 - E05.00) Clinically and chemically euthyroid. Continue Methimazole for now w/ retesting in 3mo. Mar, Mild intermittent as thma without complication (ICD-10 - J45.20) Avoid allergens, smoke and dust. Continue antihistamines. DONOVAN as needed for cough and wheezing. No ER visits for AE Mar, Multiple thyroid nod ules (ICD-10 - E04.2) Monitor for now. Yearly US per guidelines Mar, Gastroesophageal ref lux disease with esophagitis without hemorrhage (ICD-10 - K21.00) Diet instructions: Smaller portions, avoid eating and laying flat, avoid eating or drinking prior to bedtime. Weight loss. Mar, Seasonal allergic rhinitis due to pollen (ICD-10 - J30.1) Continue antihistamines and CS nasal spray Received Kenalog today since increased allergens where planning on [employer] Other 06-21-2023 Evaluation note* Encounter Date Diagnosis Assessment Notes Treatment Notes Treatment Clinical Notes Nov, Medicare annual well ness visit, subsequent (ICD-10 - Z00.00) Personalized health advice was given to the beneficiary including a written plan for screenings discussed and provided. Advanced care planning reviewed and/or information given as requested. Additional counseling was provided here today in regards to, [ ]. The above visit was performed by [ ], under direct supervision of [ ]. Document reviewed and amended by provider signed below. Nov, Primary hypertension (ICD-10 - I10) This patient is instructed to consume a healthy, low-fat, low-salt diet. They are also encouraged to continue exercise to achieve/maintain a normal BMI. Nov, NAFLD (nonalcoholic fatty liver disease) (ICD-10 - K76.0) Healthy, low fat diet, exercise and weight loss Nov, Hypercholesterolemia (ICD-10 - E78.00) Instructed on diet and exercise with continued statin therapy.Discussed the beneficial effects of lowering cholesterol in reducing the risk for cerebrovascular and cardiovascular disease. Nov, Gastroesophageal ref lux disease with esophagitis without hemorrhage (ICD-10 - K21.00) Diet instructions: Smaller portions, avoid eating and laying flat, avoid eating or drinking prior to bedtime. Weight loss. Nov, Graves disease (ICD- 10 - E05.00) Continue Methimazole as prescribed. Serial TSH, T4,T3 No s/s hyperthyroidism Recommend eye examination for JO ANN Nov, Mild intermittent as thma without complication (ICD-10 - J45.20) DONOVAN as needed during seasonal allergy and acute respiratory infections Nov, Multiple thyroid nod ules (ICD-10 - E04.2) Nov, Screening mammogram for breast cancer (ICD-10 - Z12.31) Nov, Menopause (ICD-10 - Z78.0) Nov, High risk medication use (ICD-10 - Z79.899) [facility] [employer] Other 06-05-2023 Evaluation note* Encounter Date Diagnosis Assessment Notes Treatment Notes Treatment Clinical Notes Nov, Graves disease (ICD-10 - E05.00) [employer] Other 04-12-2023 Evaluation note* Encounter Date Diagnosis Assessment Notes Treatment Notes Treatment Clinical Notes Sep, Gastroesophageal ref lux disease with esophagitis without hemorrhage (ICD-10 - K21.00) Diet instructions: Smaller portions, avoid eating and laying flat, avoid eating or drinking prior to bedtime. Weight loss. Double PPI taking bkfst and supper Strict dietary plan, avoid eating/drinking prior to bed Sep, Mild intermittent asthma with acute exacerbation (ICD-10 - J45.21) Initiate DONOVAN w/ chamber. Kenalog injection may be beneficial Sep, Seasonal allergic rhinitis due to pollen (ICD-10 - J30.1) Continue Flonase and Claritin Kenalog may be beneficial [employer] Other 02-15-2023 Evaluation note* Encounter Date Diagnosis Assessment Notes Treatment Notes Treatment Clinical Notes Jul, Primary hypertension (ICD-10 - I10) This patient is instructed to consume a healthy, low-fat, low-salt diet. They are also encouraged to continue exercise to achieve/maintain a normal BMI. Jul, Elevated cholesterol (ICD-10 - E78.00) Diet and exercise with continued statin therapy. Jul, NAFLD (nonalcoholic fatty liver disease) (ICD-10 - K76.0) Low fat diet, exercise w/ goal of weight loss. Recheck labs annually. Jul, Graves disease (ICD-10 - E05.00) Continue Methimazole, recheck TSH. Jul, Thyroid nodule (ICD-10 - E04.1) US: TR 3 - 12/2021 Repeat US yearly x 3 Jul, Overweight (BMI 25.0-29.9) (ICD-10 - E66.3) This patient has been instructed on a low-fat, high-fiber diet. They are instructed to reduce calories, portion sizes and snacks. It is recommended that they exercise for 30 minutes, 3-5 times weekly. Jul, Cervical spondylosis (ICD-10 - M47.812) ROM exercises, heat/ice and massage. Jul, Chronic tension-type headache, not intractable (ICD-10 - G44.229) Tylenol, heat/ice and massage [facility] [employer] Other 01-10-2023 Evaluation note* Encounter Date Diagnosis Assessment Notes Treatment Notes Treatment Clinical Notes Jun, Dysuria (ICD-10 - R30.0) [facility] [employer] Other 01-09-2023 Evaluation note* Encounter Date Diagnosis Assessment Notes Treatment Notes Treatment Clinical Notes Jun, Graves disease (ICD-10 - E05.00) [employer] Other Evaluation noteNo InformationNort [facility] Other evaluation noteNort [employer] Other evaluation noteNo assessment information available [facility] Work Phone: Evaluation note* Diagnosis Onset Date Resolution Status Chronic tension-type headache, not intractable acute Gastroesophageal reflux dise ase with esophagitis without hemorrhage acute Graves disease acute Hypercholesterolemia acute Mild intermittent asthma without complication acute NAFLD (nonalcoholic fatty liver disease) acute Primary hypertension acute [facility] Work Phone: Evaluation note* Diagnosis Onset Date Resolution Status Valgus deformity of right great toe noneactive Bursitis due to trauma nonea ctive [facility] Work Phone: Evaluation note* Diagnosis Onset Date Resolution Status Valgus deformity of right great toe noneactive Bursitis due to trauma nonea ctive Chronic tension-type headache, not intractable acute Gastroesophageal reflux dise ase with esophagitis without hemorrhage acute Graves disease acute Hypercholesterolemia acute Metabolic dysfunction-associ ated steatotic liver disease (MASLD) acute Mild intermittent asthma without complication acute Primary hypertension acute [facility] Work Phone: Evaluation note* Diagnosis Onset Date Resolution Status Chronic tension-type headache, not intractable acute Gastroesophageal reflux dise ase with esophagitis without hemorrhage acute Graves disease acute Hypercholesterolemia acute Metabolic dysfunction-associ ated steatotic liver disease (MASLD) acute Mild intermittent asthma without complication acute Primary hypertension acute Medicare annual wellness visit, subsequent noneactive Screening mammogram for breast cancer noneactive [facility] Work Phone: Evaluation note* Diagnosis Onset Date Resolution Status Seasonal allergic rhinitis due to pollen acute Chronic tension-type headache, not intractable acute Gastroesophageal reflux dise ase with esophagitis without hemorrhage acute Graves disease acute Hypercholesterolemia acute Metabolic dysfunction-associ ated steatotic liver disease (MASLD) acute Mild intermittent asthma without complication acute Primary hypertension acute [facility] Work Phone: History general Narrative - Reported* Type Description Date Medical History hyperlipidemia Medical History Graves disease Medical History Primary hypertension Medical History Episodic tension-type headache, not intractable Medical History Non-alcoholic fatty liver diseas e Medical History Multiple thyroid nodules Medical History Thyrotoxicosis, unsp ecified without thyrotoxic crisis or storm Medical History Abnormal TSH Medical History Malaise Medical History Abdominal pain Medical History Uterine fibroid Medical History Left ovarian enlargement Medical History Gastroesophageal ref lux disease with esophagitis without hemorrhage Medical History Hypokalemia Medical History Menopause Medical History Allergic rhinitis, seasonal Medical History Allergic contact dermatitis due to plants, except food Medical History H/O Crohn's disease Medical History Chronic major depressive disorde r Medical History Hyperlipidemia type II Medical History Migraine with aura a nd without status migrainosus, not intractable Surgical History biopsy Surgical History oophorectomy Surgical History D&C Hospitalization History SEE SURGICAL HX [place] [facility] Other History general Narrative - [facility] [employer] Other Advance Directives Advance Directive Response Recorded Date/ Time Advance Directives No July 7:14pm Advance Directive Response Recorded Date/ Time Advance Directives No July 6:14pm Chief Complaint and Reason for Visit Chief Complaint Vaccine Ins Chief Complaint 4 month Chief Complaint 4 month Inflamed Bunion Reason for Visit Chronic tension-type headache, not intractable Gastroesophageal reflux disease with esophagitis without hemorrhage Graves disease Hypercholesterolemia Mild intermittent asthma without complication NAFLD (nonalcoholic fatty liver disease) Primary hypertension Chief Complaint Inflamed Bunion UA Reason for Visit Valgus deformity of right great toe Bursitis due to trauma Chief Complaint Inflamed Bunion UA Medicare Wellness Reason for Visit Valgus deformity of right great toe Bursitis due to trauma Chronic tension-type headache, not intractable Gastroesophageal reflux disease with esophagitis without hemorrhage Graves disease Hypercholesterolemia Metabolic dysfunction-associated steatotic liver disease (MASLD) Mild intermittent asthma without complication Primary hypertension Chief Complaint UA Medicare Wellness allergy shot Reason for Visit Chronic tension-type headache, not intractable Gastroesophageal reflux disease with esophagitis without hemorrhage Graves disease Hypercholesterolemia Metabolic dysfunction-associated steatotic liver disease (MASLD) Mild intermittent asthma without complication Primary hypertension Medicare annual wellness visit, subsequent Screening mammogram for breast cancer Chief Complaint allergy shot 4 month f/u Reason for Visit Seasonal allergic rh initis due to pollen Chronic tension-type headache, not intractable Gastroesophageal reflux disease with esophagitis without hemorrhage Graves disease Hypercholesterolemia Metabolic dysfunction-associated steatotic liver disease (MASLD) Mild intermittent asthma without complication Primary hypertension Chief Complaint Admit Date 4 month f/u July 23, 2024 11:26am Reason for Visit Admit Date Chronic tension-type headache, not intra ctable July 23, 2024 11:26am Gastroesophageal reflux dise ase with esophagitis without hemorrhage July 23, 2024 11:26am Graves disease July 23, 2024 11:26am Hypercholesterolemia July 23, 2024 11:26am Metabolic dysfunction-associ ated fatty liver disease (MAFLD) July 23, 2024 11:26am Mild intermittent asthma without complic ation July 23, 2024 11:26am Primary hypertension July 23, 2024 11:26am Chief Complaint Admit Date 4 month f/u July 23, 2024 11:26am UA, difficulty voiding, backpain September 112024 9:56am Reason for Visit Admit Date Chronic tension-type headache, not intra ctable July 23, 2024 11:26am Gastroesophageal reflux dise ase with esophagitis without hemorrhage July 23, 2024 11:26am Graves disease July 23, 2024 11:26am Hypercholesterolemia July 23, 2024 11:26am Metabolic dysfunction-associ ated fatty liver disease (MAFLD) July 23, 2024 11:26am Mild intermittent asthma without complic ation July 23, 2024 11:26am Primary hypertension July 23, 2024 11:26am Shoulder pain July 23, 2024 11:26am Strain of rotator cuff of right shoulder July 23, 2024 11:26am Dysuria September 11, 2024 9:56 am Assessments No Assessments Information Available Summary Purpose Family History Relationship Condition Age at Onset Recorded Date/[place] father Unknown Malignant neoplasm Unknown Not Specified Unknown Hypertension Unknown Diabetes mellitus Unknown Relationship Condition Age at Onset Recorded Date/[place] father Unknown Malignant neoplasm Unknown mother Unknown Hypertension Unknown Diabetes mellitus Unknown Additional Source Comments INFORMATION SOURCE (unrecogn ized section and content) DATE CREATED AUTHOR 07/26/2022 [facility] DATE CREATED AUTHOR AUTHOR'S ORGANIZ ATION 06/26/2024 [facility] EPIC REASON FOR VISIT (unrecogniz ed section and content) LabsPossible Medication4 MON TH FOLLOW UPU/Adeep cough for 2 weeks, chest tightness due to coughUpdate/RefillRefillLabsLab ResultsWELLNESSNo InformationNo InformationTesting Results4 month Follow up Care Teams (unrecognized sec tion and content) Team Status: Active Member Role Status Janell Roque DO Primary Care Provider Active Team Status: Inactive Member Role Status Janell Roque DO Primary Care Provide r, Attending Provider Active Start: July 23, 2024 End: July 23, 2024 Team Status: Active Member Role Status Janell Roque DO Primary Care Provide r, Attending Provider Active Start: December 23, 2023 Team Status: Inactive Member Role Status Janell Roque DO Primary Care Provider Active Start: December 28, 2023 End: December 28, 2023 Diana Fowler MD Attending Provider Active St art: December 28, 2023 End: December 28, 2023 Team Status: Active Member Role Status Janell Roque DO Primary Care Provider Active Start: February 15, 2024 Karyn Leong PA-C Attending Provider Active Start : February 15, 2024 Team Status: Inactive Member Role Status Janell Roque DO Primary Care Provide r, Attending Provider Active Start: March 19, 2024 End: March 19, 2024 Team Status: Inactive Member Role Status Dates Marcos Ball , DO Primary Care Provide r, Attending Provider Active Start: July 25, 2023 End: July 25, 2023 Team Status: Inactive Member Role Status Dates Marcos Roque , DO Primary Care Provide r, Attending Provider Active Start: September 06, 2023 End: September 06, 2023 Team Status: Inactive Member Role Status Dates Marcos Roque , DO Primary Care Provide r, Attending Provider Active Start: November 18, 2023 End: November 18, 2023 Team Status: Inactive Member Role Status Dates Marcos Roque , DO Primary Care Provide r, Attending Provider Active Start: November 29, 2023 End: November 29, 2023 Team Status: Inactive Member Role Status Dates Marcos Roque , DO Primary Care Provider Active Start: September 11, 2024 End: September 11, 2024 Diana Fowler MD Attending Provider Active St art: September 11, 2024 End: September 11, 2024 Goals (unrecognized section and content) Goals may be documented in a n alternate section FOR RECORDS PERTAINING TO PATIENTS WHO ARE OR HAVE BEEN ENROLLED IN A CHEMICAL DEPENDENCY/SUBSTANCEABUSE PROGRAM, SOME INFORMATION MAY BE OMITTED. This clinical summary was aggregated from multiple sources. Caution should be exercised in using it in the provision of clinical care. This summary normalizes information from multiple sources, and as a consequence, information in this document may materially change the coding, format and clinical context of patient data. In addition, data may be omitted in some cases. CLINICAL DECISIONS SHOULD BE BASED ON THE PRIMARY CLINICAL RECORDS. [facility]. provides no warranty or guarantee of the accuracy or completeness of information in this document.
--- NOTE | 2024-09-16 03:45 | ED_ITS ---
HPI HPI - General Adult General Chief complaint: Nausea/Vomiting/Diarrhea Stated complaint: Nausea/Vomiting/Diarrhea UTI Time Seen by Provider: 09/16/24 03:35 Source: patient Mode of arrival: Wheelchair Limitations: no limitations History of Present Illness HPI narrative: cc - nausea and vomiting Pt developed nausea earlier in the week and had some urinary symptoms. She was diagnosed with UTI and started on macrobid. She took that for 3-4 days until she received a letter in the mail from [facility] warning her that she might developed abdominal pain or vomiting - so she stopped taking the macrobid. She said that her nausea returned yesterday and she began vomiting early this morning - so she came to the ED for evaluation. Pt stated that she has not had a BM for several days. She also has not been eating and drinking as she normally does for the last several days. No flank pain or abdominal pain at this time. She denied recent UTI symptoms. No blood in urine or stool. No fever or chills. No cough or congestion. Related Data Home Medications ?Medication ?Instructions ?Recorded ?Confirmed [facility] cranberry supplement 09/16/24 amlodipine 2.5 mg tablet 2.5 mg PO DAILY 09/16/24 09/16/24 aspirin-caffeine 400 mg-32 mg 1 tab PO Q6H PRN headache 09/16/24 09/16/24 tablet calcium 600 mg (as 1 tab PO BID 09/16/24 09/16/24 carbonate)-vitamin D3 5 mcg (200 unit) tablet cholecalciferol (vitamin D3) 350 400 mcg PO BID 09/16/24 09/16/24 mcg (14,000 unit) capsule famotidine 20 mg tablet (Pepcid) 10 mg PO DAILY PRN stomch 09/16/24 09/16/24 fluticasone propionate 50 2 spray intranasal DAILY 09/16/24 09/16/24 mcg/actuation nasal spray,suspension irbesartan 150 1 tab PO BID 09/16/24 09/16/24 mg-hydrochlorothiazide 12.5 mg tablet labetalol 200 mg tablet 200 mg PO Q12H 09/16/24 09/16/24 lactobacillus combination no.9 4 4,000 mmu cells PO DAILY 09/16/24 09/16/24 billion cell capsule (Adult 50 Plus Probiotic) levocetirizine 5 mg tablet (24HR 5 mg PO DAILY 09/16/24 09/16/24 Allergy Relief) methimazole 10 mg tablet 5 mg PO DAILY 09/16/24 09/16/24 nitrofurantoin macrocrystal 100 mg 100 mg PO Q12H 09/16/24 09/16/24 capsule omeprazole 40 mg capsule,delayed 40 mg PO DAILY 09/16/24 09/16/24 release oxymetazoline 0.05 % nasal spray 2 spray intranasal HS PRN nasal 09/16/24 09/16/24 (12 Hour Nasal Relief [place]) congestion peg 400-propylene glycol (PF) 0.4 1 drp ophthalmic (eye) BID 09/16/24 09/16/24 %-0.3 % eye drops in a dropperette (Lubricant Eye (PG-PEG 400) (PF)) pravastatin 40 mg tablet 40 mg PO HS 09/16/24 09/16/24 soy isoflavone-black cohosh 1 cap PO DAILY 09/16/24 09/16/24 root-magnolia bark 155 mg capsule (Estroven) vit C 250 mg-vit E 90 mg-zinc 40 1 tab PO BID 09/16/24 09/16/24 mg-copper 1 [id number] capsule (PreserVision AREDS-2) Allergies Allergy/AdvReac Type Severity Reaction Status Date / Time metronidazole (From Flagyl) Allergy red skin Verified 09/16/24 03:39 latex AdvReac Rash Verified 09/16/24 03:39 Opioid HPI Opioid Management Most Recent Opioid Data: No Data to Display PFSH PFSH Social History Little interest or pleasure in doing things: not at all Feeling down, depressed, or hopeless: not at all Exam Narrative Exam Narrative: Nurses notes and vital signs reviewed and patient is not hypoxic. afebrile General: Well-appearing and in no apparent distress. Skin: Warm, dry, no pallor noted. No rash. Head: Normocephalic, atraumatic. Neck: Supple, non-tender. No meningismus Eye: Pupils are equal, round and EOMI. No scleral icterus. Ears, Nose, Mouth, and Throat: Oral mucosa is dry Cardiovascular: Regular Rate and Rhythm without murmur, gallop or rub. Respiratory: No accessory muscle use or respiratory distress. Lungs are clear to auscultation, no wheezing, rales or rhonchi Back: No CVA tenderness Musculoskeletal: normal ROM, no calf or popliteal tenderness, no lower extremity edema/swelling GI: Abdomen is soft, non-distended. Normal bowel sounds. No masses appreciated. No tenderness to palpation. No rebound, guarding, or rigidity noted. Neurological: A&O x4. No cranial nerve dysfunction observed. No truncal ataxia. Moves all extremities. Sensation intact. Psychiatric: Cooperative and interactive. Normal mood and affect. Bowel Constitutional Vital Signs, click to edit/add: Last Vital Signs Temp 98.2 F 09/16/24 03:29 Pulse 83 09/16/24 03:29 Resp 20 09/16/24 04:01 BP 155/93 H 09/16/24 03:29 Pulse Ox 97 09/16/24 03:29 O2 Del Method Room Air 09/16/24 03:29 Course Vital Signs Vital signs: Vital Signs Temperature 98.2 F 09/16/24 03:29 Pulse Rate 83 09/16/24 03:29 Respiratory Rate 20 09/16/24 03:29 Blood Pressure 155/93 H 09/16/24 03:29 Pulse Oximetry 97 09/16/24 03:29 Oxygen Delivery Method Room Air 09/16/24 03:29 Temperature 98.2 F 09/16/24 03:29 Pulse Rate 83 09/16/24 03:29 Respiratory Rate 20 09/16/24 04:01 Blood Pressure 155/93 H 09/16/24 03:29 Pulse Oximetry 97 09/16/24 03:29 Oxygen Delivery Method Room Air 09/16/24 03:29 Medical Decision Making MDM Narrative Medical decision making narrative: Peripheral IV established blood drawn and sent for testing. The patient was ordered to receive a liter of normal saline IV fluid and IV Zofran for nausea. Urine was ordered to be sent for testing if obtained. WBC 16.5. Pt missed the HAT and we could not get a urine sample. BUN and Cr elevated at 71, 1.7. K decreased at 2.6. Lipase normal. LFTs normal. Lactate negative. Blood cultures pending. Pt was ordered to receive another liter of NS IVF. She felt less nausea after receiving IV Zofran and was able to tolerate ice chips. She was given oral potassium. Unclear if leukocytosis associated with viral infection or incompletely treated UTI - she was unable to give urine sample after missing the HAT. Blood cultures and lactate were ordered due to the pt's leukocytosis. She was ordered to receive a dose of Rocephin IV to treat her presumptive UTI - we will verify once she is able to give another urine sample. She will need to be admitted in order to further treat her dehydration, acute kidney injury and leukocytosis with source pending. Telehospitalist notified via [employer] to call to discuss case. Shilpi Lagunas and I spoke by phone and the telehospitalist agreed to admit the patient to [facility] - she will go under Dr Waldrop's care. ED nurse will attempt to straight cath for urine once the patient has received IVF and feels her bladder is full. UA confirmed acute UTI as the likely cause of the leukocytosis Lab Data Lab results reviewed: Yes I reviewed the patient's lab results Labs: Lab Results 09/16/24 09/16/24 09/16/24 Range/Units 03:50 03:56 04:55 WBC 16.5 H (4.0-11.0) 10^3/uL RBC 4.48 (4.20-5.40) 10^6/uL Hgb 12.9 (12.0-16.0) g/dL Hct 38.7 (36.0-48.0) % MCV 86.4 (81.0-99.0) fL MCH 28.8 (26.7-34.0) pg MCHC 33.3 (29.9-35.2) g/dL RDW 13.2 (11.0-15.0) % Plt Count 369 (150-450) 10^3/uL MPV 11.3 (9.5-13.5) fL Seg Neuts % (Manual) 74.0 (43.0-75.0) Band Neutrophils % 2.0 (0-5) % Lymphocytes % (Manual) 12.0 L (20.5-60.0) % Monocytes % (Manual) 10.0 (1.7-12.0) % Eosinophils % (Manual) 2.0 (0.9-7.0) % Basophils % (Manual) 0.0 L (0.2-2.0) % Neutrophils # (Manual) 12.21 H (1.4-6.5) 10^3/uL Band Neutrophils # 0.3 (0.0-0.3) 10^3/uL Lymphocytes # (Manual) 1.98 (1.20-3.80) 10^3/uL Monocytes # (Manual) 1.65 H (0.30-0.80) 10^3/uL Eosinophils # (Manual) 0.33 (0.00-0.70) 10^3/uL Basophils # (Manual) 0.00 (0.00-0.10) 10^3/uL Sodium 143 (136-145) mmol/L Potassium 2.6 L* (3.5-5.1) mmol/L Chloride 102 (98-107) mmol/L Carbon Dioxide 26.0 (21.0-32.0) mmol/L Anion Gap 17.6 BUN 71.0 H (7.0-18.0) mg/dL Creatinine 1.71 H (0.55-1.02) mg/dL Est GFR ( Amer) 36 L (>=60 mL/min/1.73m^2) Est GFR (Non-Af Amer) 30 L (>=60 mL/min/1.73m^2) BUN/Creatinine Ratio 41.5 Glucose 110 H (74-106) mg/dL Lactate 1.2 (0.4-2.0) mmol/L Calcium 9.2 (8.5-10.1) mg/dL Total Bilirubin 0.6 (0.2-1.0) mg/dL AST 15 (15-37) U/L ALT 24 (14-59) U/L Alkaline Phosphatase 93 (46-116) U/L Total Protein 7.3 (6.4-8.2) g/dL Albumin 2.6 L (3.4-5.0) g/dL Globulin 4.7 g/dL Albumin/Globulin Ratio 0.6 Lipase 55.0 (16.0-77.0) U/L Urine Color Lt. yellow (YELLOW) Urine Clarity Sl cloudy (CLEAR) Urine pH 6.0 (5.0-9.0) Ur Specific [place] 1.010 (1.005-1.025) Urine Protein 100 A (NEG/TRACE) mg/dL Urine Glucose (UA) Negative (NEGATIVE) mg/dL Urine Ketones 15 A (NEGATIVE) mg/dL Urine Occult Blood Moderate A (NEGATIVE) Urine Nitrite Negative (NEGATIVE) Urine Bilirubin Negative (NEGATIVE) Urine Urobilinogen 1.0 (0.2-1.0) EU/dL Ur Leukocyte Esterase Small A (NEGATIVE) Urine RBC 2-5 A (0-2) #/HPF Urine WBC 10-20 A (NONE SEEN) #/HPF Ur Squamous Epith Cells Moderate A (NONE/RARE) #/LPF Urine Crystals None seen (None Seen) #/HPF Urine Bacteria Moderate A (NONE SEEN) #/HPF Urine Casts None seen (NONE SEEN) #/LPF Urine Mucus None seen (NONE SEEN) Ur Culture Indicated? Yes-[facility] [place] Discharge Plan Discharge Chief Complaint: Nausea/Vomiting/Diarrhea Clinical Impression: Acute kidney injury, Gastroenteritis, Leukocytosis, Acute hypokalemia, Acute UTI Patient Disposition: Admitted as Observation Time of Disposition Decision: 04:37
[2024-09-16 04:03] LABS: Hematocrit 38.7 % (36.0-48.0); Hemoglobin 12.9 g/dL (12.0-16.0); Mean Corpuscular HGB Conc 33.3 g/dL (29.9-35.2); Mean Corpuscular Hemoglobin 28.8 pg (26.7-34.0); Mean Corpuscular Volume 86.4 fL (81.0-99.0); Mean Platelet Volume 11.3 fL (9.5-13.5); Platelet Count 369 10^3/uL (150-450); Red Blood Count 4.48 10^6/uL (4.20-5.40); Red Cell Distribution Width 13.2 % (11.0-15.0); White Blood Count 16.5 10^3/uL (4.0-11.0)
[2024-09-16] MEDS: ONDANSETRON PF 4 MG/2 ML VIAL IV (04:06)
[2024-09-16] MEDS: 0.9 % SODIUM CHLORIDE 1,000 ML 999 ML IV (04:06)
[2024-09-16 04:17] LABS: Alanine Aminotransferase 24 U/L (14-59); Albumin Globulin Ratio 0.6; Albumin Level 2.6 g/dL (3.4-5.0); Alkaline Phosphatase 93 U/L (46-116); Anion Gap 17.6; Aspartate Amino Transferase 15 U/L (15-37); BUN Creatinine Ratio 41.5; Bilirubin Total 0.6 mg/dL (0.2-1.0); Calcium 9.2 mg/dL (8.5-10.1); Chloride 102 mmol/L (98-107); Estimated GFR (African America 36 (>=60 mL/min/1.73m^2); Estimated GFR (Non-African Ame 30 (>=60 mL/min/1.73m^2); Globulin 4.7 g/dL; Glucose 110 mg/dL (74-106); Sodium 143 mmol/L (136-145); Total Protein 7.3 g/dL (6.4-8.2)
[2024-09-16 04:20] LABS: Potassium 2.6 mmol/L (3.5-5.1)
[2024-09-16 04:26] LABS: Band Neutrophils Absolute 0.3 10^3/uL (0.0-0.3); Segmented Neut Absolute Manual 12.21 10^3/uL (1.4-6.5)
[2024-09-16 04:27] LABS: Eosinophils Absolute Manual 0.33 10^3/uL (0.00-0.70); Lymphocytes Absolute Manual 1.98 10^3/uL (1.20-3.80); Monocytes Absolute Manual 1.65 10^3/uL (0.30-0.80)
[2024-09-16] MEDS: 0.9 % SODIUM CHLORIDE 1,000 ML 1000 ML IV (04:40)
[2024-09-16 05:01] LABS: Lactate/Lactic Acid 1.2 mmol/L (0.4-2.0)
[2024-09-16 05:11] LABS: Bilirubin Urine NEGATIVE (NEGATIVE); Blood Urine MODERATE (NEGATIVE); Clarity Urine SL CLOUDY (CLEAR); Color Urine LT. YELLOW (YELLOW); Glucose Urine UA NEGATIVE (NEGATIVE); Ketones Urine 15 mg/dL (NEGATIVE); Leukocyte Esterase Urine SMALL (NEGATIVE); Nitrite Urine NEGATIVE (NEGATIVE); Protein Urine 100 mg/dL (NEG/TRACE)
[2024-09-16 05:17] LABS: Bacteria Urine MODERATE #/HPF (NONE SEEN); Cast Seen? NONE SEEN #/LPF (NONE SEEN); Crystals Seen? None Seen #/HPF (None Seen); Mucus Urine NONE SEEN (NONE SEEN); Squamous Epithelial Cell Urine MODERATE #/LPF (NONE/RARE); Urine Culture Indicated YES-FRMC
[2024-09-16] MEDS: CEFTRIAXONE 1,000 MG in 0.9 % SODIUM CHLORIDE 50 ML 100 MG IV (05:35)
[2024-09-16] MEDS: POTASSIUM CHLORIDE 10 MEQ ER TABLET 40 MEQ PO (05:43)
--- OUTSIDE RECORDS SUMMARY | 2024-09-16 06:28 | XMS_ITS | CCD ---
Author Organization [facility] Care Team Providers Care Livestock Farmer Name Role Phone Edmund Cardoza Attending Provider NON, STAFF, Primary Care Provider Unavailabl e [...] ZIEBER, DR [place] Reyes Consulting Unavailable Jude, Marcos Unavailable CONSUELO CLEVELAND Attending Unavailable NIDIA LIVINGSTON Attending Unavailable MELINDA BAKER Referring Unavailable NIDIA LIVINGSTON Attending Unavailable NIDIA LIVINGSTON Attending Unavailable NIDIA LIVINGSTON Attending Unavailable NIDIA LIVINGSTON Attending Unavailable Unavailable Unavailable Unavailable Allergies Allergy Classification Reported Allergen(s) Allergy Type Date of Onset Reaction(s) Facility (9 sources) Amoxicillin Drug Allergy 07-25-19 24 Unknown Reaction [facility] Repository (9 sources) Codeine Drug Allergy 06-06-19 13 stomach irritation [facility] (9 sources) Doxycycline Drug Allergy 07-25-19 24 Unknown Reaction [facility] (1 source) Furosemide Drug Allergy 03-08-20 16 [facility] (9 sources) Latex Drug allergy (disorder) 06-06-19 13 Unknown Reaction [facility] (1 source) metroNIDAZOLE Drug Allergy 03-08-20 16 [facility] (14 sources) Amoxicillin Drug Allergy Unknown [facility] Other (14 sources) Codeine Drug Allergy stomach irritation [facility] Other (14 sources) Doxycycline Drug Allergy Unknown [facility] Other (14 sources) Latex Propensity to adverse reactions Unknown [facility] Other (20 sources) metroNIDAZOLE Drug Allergy 07-25-19 24 Unknown, Unknown Reaction [facility] (10 sources) Furosemide Drug Allergy 06-06-19 20 Unknown, Unknown Reaction [facility] Comment on above: Onset Date: 06/06/19 (2 sources) Pseudoephedrine Drug Allergy 06-06-19 20 Unknown [facility] Other (1 source) Allergies Reconciled Propensity to adverse reactions Unknown [facility] Other (2 sources) Tylenol with Codeine #3 *ANALGESICS - OPIOID* Propensity to adverse reactions 06-06-19 Unknown [facility] Other (1 source) patient allergy list reviewed by nurse or physicia Propensity to adverse reactions 04-17-20 Comment:Done [facility] Other (8 sources) 12 Hour Decongestant Allergy to substance 07-23-19 Unknown Reaction [facility] Comment on above: Onset Date: 06/06/19 (8 sources) Tylenol with Codeine #3 *ANALG Allergy to substance 07-23-19 Unknown Reaction [facility] Comment on above: Free Text Allergy: T [...] Start: 07-23-2023 take 1 capsule by mo [facility] twice daily at mealtime Cranberry 500 mg [...] needed Orally every 6 hrs Active Vitamins A,C,D-Lvcv-Bfjzge (Preservision Areds) 4,296 mcg-226 mg-90 mg capsule (2 sources) Start: 07-23-2024 take 1 capsule by mouth twice daily Vitamins A,C,O-Wmjd-Vjarty (Preservision Areds) 4,296 mcg-226 mg-90 mg capsule Active 1 CAP PO Twice daily July 23, 2024 1:00am Start: 07-23-2024 take 1 capsule by [facility] daily Vitamins A,C,L-Jhrq-Uxkjri (Preservision Areds) 4,296 mcg-226 mg-90 mg capsule Active 1 CAP PO Twice daily July 23, 2024 12:00am Completed/Discontinued Medications Medication Drug Class(es) Dates Sig (Normalized) Sig (Original) Acetaminophen / butalbital / Caffeine (14 sources) Barbiturate, Central Nervous System Stimulant, Methylxanthine Fioricet Not-Galen ing [id number] 200 actuat albuterol 0.09 mg/actuat metered dose [...] 6 Chronic Other aftercare (2 sources) Other care home (current) drug therapy; Translations: [OTH LAB[employer] CURRENT DRUG THERAPY] Onset: 2 Episodic Other aftercare (1 source) Long-term current use of drug therapy; Translations: [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 [facility] Comment on above: TESTS RESULT FLAG UN ITS REF RANGE LAB Clinician Provided Cytology Information Source.............Cervix;Endocervix No. of containers..01 ThinPrep Genaro WEEMS Anuja... Note 01 <21 or >65 or no age provided --- FLAG LEGEND: L-Low Normal,H-High Normal,LL-Alert Low,HH-Alert High <-Panic Low,>-Panic High,A-Abnormal,AA-Critical Abnormal ---Performed at:01 =G [facility] [address] Nandini Kim MD, Thin Prep Pap Screen Note . [facility] Comment on above: TESTS RESULT FLAG UN ITS REF RANGE LAB DI AGNOSIS: 02 NEGATIVE FOR INTRAEPITHELIAL LESION OR MALIGNANCY.Specimen adequacy: 02 Satisfactory for evaluation. Endocervical and/or squamous metaplastic cells (endocervical component) are present.Performed by: Cristal Wilder, Sueding And Buffing Machine Operator ([facility]). 02Note: Note 03 The Pap smear is [...] Low,>-Panic High,A-Abnormal,AA-Critical Abnormal ---Performed at:02 [facility] [address] [place] [address] Willie Villanueva MD, [address] [address] Nandini Kim MD, Jyrcxhdjy at: =G - [facility] [address] [id number] Director: Nandini Kim MD, Phone: [phone] at: [facility] - [facility] [id number] [place], [place] [id number] Director: Willie Villanueva MD, Phone: [phone] Basophils Auto (Bld) [#/Vol] on 12-23-2023 Basophils (Bld) [#/Vol] 0.0 10 3/uL 0.0-0.1 [facility] Basophils/100 WBC Auto (Bld) on 12-23-2023 Basophils/100 WBC (Bld) 0.4 % 0.2-2.0 [facility] Cholesterol in LDL Calc [Mas s/Vol]on 12-23-2023 Cholesterol in LDL [Mass/Vol] 106.8 mg/dL [facility] Comment on above: <100 mg/dl [id number] 0-129 mg/dl NEAR OR ABOVE [id number] mg/dl BORDERLINE [id number] mg/dl HIGH>190 mg/dl VERY HIGH Cholesterol in VLDL Calc [Ma ss/Vol]on 12-23-2023 Cholesterol in VLDL [Mass/Vol] 24.2 mg/dL [facility] Eosinophils/100 WBC Auto (Bl d)on 12-23-2023 Eosinophils/100 WBC (Bld) 5.7 % 0.9-7.0 [facility] Erythrocyte distribution wid th Auto (RBC) [Ratio]on 12-23-2023 Erythrocyte distribution width (RBC) [Ratio] 12.5 % 11.0-15.0 [facility] Estimated glomerular filtrat ion rate (GFR) non- Americanon 12-23-2023 GFR/1.73 sq M.predicted among non-blacks MDRD (S/P/Bld) [Vol rate/Area] 49 mL/min/{1.73_m2} Low >=60 [facility] Globulin Calc (S) [Mass/Vol] on 12-23-2023 Globulin (S) [Mass/Vol] 3.6 g/dL [facility] Hematocrit Auto (Bld) [Volum e fraction]on 12-23-2023 Hematocrit (Bld) [Volume fraction] 41.1 % 36.0-48.0 [facility] Hemoglobin [Mass/volume] in Bloodon 12-23-2023 Hemoglobin (Bld) [Mass/Vol] 13.3 g/dL 12.0-16.0 [facility] Laboratory - Chemistry and C hemistry - challengeon 12-23-2023 Albumin [Mass/Vol] 3.8 g/dL 3.4-5.0 [facility] ALP [Catalytic activity/Vol] 78 U/L 46-116 [facility] ALT [Catalytic activity/Vol] 32 U/L 14-59 [facility] AST [Catalytic activity/Vol] 19 U/L 15-37 [facility] Bilirubin [Mass/Vol] 0.6 mg/dL 0.2-1.0 [facility] Calcium [Mass/Vol] 9.3 mg/dL 8.5-10.1 [facility] Chloride [Moles/Vol] 105 mmol/L 98-107 [facility] Cholesterol [Mass/Vol] 175 mg/dL <=200 [facility] Cholesterol in HDL [Mass/Vol] 44 mg/dL 40-60 [facility] Comment on above: > or =60 mg/dl - LOW CARDIOVASCULAR RISK<40 mg/dl - HIGH CARDIOVASCULAR RISK CO2 [Moles/Vol] 28.8 mmol/L 21.0-32.0 [facility] Creatinine [Mass/Vol] 1.11 mg/dL High 0.55-1.02 [facility] Free T4 [Mass/Vol] 0.98 ng/dL 0.76-1.46 [facility] GFR/1.73 sq M.predicted MDRD (S/P/Bld) [Vol rate/Area] 59 mL/min/{1.73_m2} Low >=60 [facility] Glucose [Mass/Vol] 98 mg/dL 74-106 [facility] Potassium [Moles/Vol] 3.1 mmol/L Low 3.5-5.1 [facility] Protein [Mass/Vol] 7.4 g/dL 6.4-8.2 [facility] Sodium [Moles/Vol] 143 mmol/L 136-145 [facility] Triglyceride [Mass/Vol] 121 mg/dL <=150 [facility] TSH Qn 1.246 m[IU]/L 0.358-3.740 [facility] Urate [Mass/Vol] 6.4 mg/dL High 2.6-6.0 [facility] Urea nitrogen [Mass/Vol] 23.0 mg/dL High 7.0-18.0 [facility] Urea nitrogen/Creatinine [Mass ratio] 20.7 mg/mg [facility] Laboratory - Hematology and Cell countson 12-23-2023 Immature granulocytes/100 WBC (Bld) 0.3 % 0.0-0.5 [facility] Leukocytes [#/volume] correc jo ann for nucleated erythrocytes in Blood by Automated counon 12-23-2023 WBC corrected for nucl RBC Auto (Bld) [#/Vol] 8.9 10 3/uL 4.0-11.0 [facility] Lymphocytes Auto (Bld) [#/Vo l]on 12-23-2023 Lymphocytes (Bld) [#/Vol] 2.9 10 3/uL 1.2-3.8 [facility] Lymphocytes/100 WBC Auto (Bl d)on 12-23-2023 Lymphocytes/100 WBC (Bld) 33.0 % 20.5-60.0 [facility] MCH Auto (RBC) [Entitic mass ]on 12-23-2023 MCH (RBC) [Entitic mass] 29.0 pg 26.7-34.0 [facility] MCHC Auto (RBC) [Mass/Vol]on 12-23-2023 MCHC (RBC) [Mass/Vol] 32.4 g/dL 29.9-35.2 [facility] MCV Auto (RBC) [Entitic vol] on 12-23-2023 MCV (RBC) [Entitic vol] 89.5 fL 81.0-99.0 [facility] Monocytes Auto (Bld) [#/Vol] on 12-23-2023 Monocytes (Bld) [#/Vol] 0.7 10 3/uL 0.3-0.8 [facility] Monocytes/100 WBC Auto (Bld) on 12-23-2023 Monocytes/100 WBC (Bld) 8.0 % 1.7-12.0 [facility] Neutrophils Auto (Bld) [#/Vo l]on 12-23-2023 Neutrophils (Bld) [#/Vol] 4.7 10 3/uL 1.4-6.5 [facility] Neutrophils/100 WBC Auto (Bl d)on 12-23-2023 Neutrophils/100 WBC (Bld) 52.6 % 43.0-75.0 [facility] No Panel Informationon 12-22 Eosinophils # (Auto) 0.5 10 3/uL 0.0-0.[address] [facility] Immature Granulocyte # (Auto) 0.03 10 3/uL 0.00-0.03 [facility] Total Triiodothyronine 132 ng/dL 71-180 [facility] Comment on above: Performed at: [facility] [id number] Director: [place] Toussaint PhD, Phone: [phone] Platelet mean volume Auto (B ld) [Entitic vol]on 12-23-2023 Platelet mean volume (Bld) [Entitic vol] 10.9 fL 9.5-13.5 [facility] Platelets Auto (Bld) [#/Vol] on 12-23-2023 Platelets (Bld) [#/Vol] 325 10 3/uL 150-450 [facility] RBC Auto (Bld) [#/Vol]on RBC (Bld) [#/Vol] 4.59 10 6/uL 4.20-5.40 [facility] Serum or plasma albumin/glob ulin mass ratioon 12-23-2023 Albumin/Globulin [Mass ratio] 1.1 {ratio} [facility] Serum or plasma anion gap de terminationon 12-23-2023 Anion gap [Moles/Vol] 12.3 mmol/L [facility] Serum or plasma total choles terol/high density lipoprotein (HDL) cholesterol mass vanesa 12-23-2023 Cholesterol.total/Ch olesterol in HDL [Mass ratio] 4.0 {ratio} [facility] Comment on above: 3.3 - 4.4 LOW RISK4. 4 - 7.1 AVERAGE RISK7.1 - 11.0 MODERATE RISK>11.0 HIGH RISK Thyroid stimulating immunogl obulin (TSI) measurementon 12-23-2023 Thyroid stimulating immunoglobulins actual/normal (S) [Relative mass conc] 0.66 IU/L Abnormal 0.00-0.55 [facility] Comment on above: Performed at: BN - L [address] [id number] Director: Anderson Rodriguez MD, Phone: [phone] Laboratory - Chemistry and C hemistry - challengeon 11-18-2023 Bilirubin Ql (U) Negative [facility] Glucose (U) [Mass/Vol] Negative [facility] Ketones Ql (U) Negative [facility] pH (U) 7 [pH] [facility] Specific gravity (U) [Rel density] 1.015 [facility] Urobilinogen (U) [Mass/Vol] 0.2 mg/dL [facility] Laboratory - Specimen inform ationon 11-18-2023 Appearance (U) cloudy [facility] Color (U) yellow [facility] Laboratory - Urinalysison Leukocyte esterase Test strip Ql (U) +++ [facility] Nitrite Ql (U) Negative [facility] Protein Ql (U) ++ [facility] No Panel Informationon 11-17 Urine Occult Blood +++ [facility] Laboratory - Chemistry and C hemistry - challengeon 07-25-2023 TSH Qn 3.532 m[IU]/L 0.358-3.740 [facility] TSHon 07-21-2022 TSH 3.102 uIU/mL Normal 0.358-3.740 [facility] Comment on above: Performed By: #### B MP, TSH, LIPID #### [facility] [address] [address] [address] Leonardo Salazar Thyroid Stimulating Hormoneo 07-21-2022 Thyroid Stimulating Hormone Located Within [facility] Other TSHon 06-14-2022 TSH 3.853 uIU/mL Critically high 0.358-3.740 [facility] Comment on above: Performed By: #### T SH #### [facility] [address] [address] [address] Leonardo Salazar TSHon 05-03-2022 TSH 5.728 uIU/mL Critically high 0.358-3.740 [facility] Comment on above: Performed By: #### T SH #### [facility] [address] [address] [address] Leonardo Salazar TSHon 03-25-2022 TSH 4.674 uIU/mL Critically high 0.358-3.740 [facility] Comment on above: Performed By: #### B MP, TSH, LIPID #### [facility] [address] [place] [address] Dr. Leonardo Salazar PAP ACOG PANEL 2: 30 to 65on 02-12-2022 . . Normal [facility] Comment on above: Performed By: #### B MP, TSH, LIPID #### [facility] [address] [address] [address] Leonardo Salazar Age Gdln ACOG Testing Comment [facility] Comment on above: Result Comment: <21 or >65 or no age provided Performed By: #### B MP, TSH, LIPID #### [facility] [address] [address] [address] Leonardo Salazar DIAGNOSIS: Comment [facility] Comment on above: Result Comment: NEGA TIVE FOR INTRAEPITHELIAL LESION OR MALIGNANCY. Performed By: #### B MP, TSH, LIPID #### [facility] [address] [place] [address] Dr. Leonardo Salazar Methodology: Comment [facility] Comment on above: Result Comment: This liquid based ThinPrep(R) pap test was screened with the use of an image guided system. Performed By: #### B MP, TSH, LIPID #### [facility] [address] [place] [address] Dr. Leonardo Salazar Note: Comment [facility] Comment on above: Result Comment: The Pap smear is a screening test designed to aid in the detection of premalignant and malignant conditions of the uterine cervix. It is not a diagnostic procedure and should not be used as the sole means of detecting cervical cancer. Both false-positive and false-negative reports do occur. . Performed By: #### B MP, TSH, LIPID #### [facility] [address] [address] [address] Leonardo Salazar Performed by: Comment Normal [facility] Comment on above: Result Comment: Troy Faulkner Sueding And Buffing Machine Operator ([employer]) Performed By: #### B MP, TSH, LIPID #### [facility] [address] [place] [address] Dr. Leonardo Salazar Specimen adequacy: Comment [facility] Comment on above: Result Comment: Sati sfactory for evaluation. Endocervical and/or squamous metaplastic cells (endocervical component) are present. Performed By: #### B MP, TSH, LIPID #### [facility] [address] [place] [address] Dr. Leonardo Salazar Covid-19 PCR (CVDTB)on 12-05 SARS-CoV-2 (COVID-19) RNA MOSHE+probe Ql (Unsp spec) Detected Critically abnormal NOT DETECTED [facility] Comment on above: Result Comment: This test is not yet approved or cleared by the [place] FDA. When there are no FDA-approved or cleared tests available, and other criteria are met, FDA can make tests available under an emergency access mechanism called an Emergency Use Authorization (EUA). The EUA for this test is supported by the [place] of Health and Human Service's (HHS's) declaration [...] used). Performed By: #### C VDTB #### [facility] [address] [place] [address] Dr. Leonardo Salazar THYROID-STIMULATING IMMUNOGL OBULINon 12-28-2021 Thyroid Sim Immunoglobulin 4.57 IU/L Critically high 0.00-0.55 [facility] Comment on above: Performed By: #### T OSITO #### [facility] [address] [place] [address] Dr. Leonardo Salazar US THYROIDon 12-27-2021 US [...] thyroid TR 3 nodules. TR 3 The [employer] TI-RADS committee's white paper recommendations for thyroid lesions classified as TR3 (mildly suspicious) are listed below: > 1.5 cm. Follow-up ultrasound in 1, 3, and 5 years. > 2.5 cm. FNA. J. Am Luis Radiol 2017;14:587-595. Electronically authenticated by: [place] ZARAGOZA Date: 2021-12-27 07:22 Normal [facility] THYROID PEROXIDASE ABon - Thyroid Peroxidase (TPO) Ab 234 IU/mL Critically high 0-34 [facility] Comment on above: Performed By: #### T POAB #### [facility] [address] [place] [address] Dr. Leonardo Salazar T3, TOTAL (TRIIODOTHYRONINE) on 12-11-2021 T3, TOTAL 196 ng/dL Critically high 71-180 [facility] Comment on above: Performed By: #### B MP, TSH, LIPID #### [facility] [address] [place] [address] Dr. Leonardo Salazar CBC AUTO DIFFon 12-09-2021 BASO # 0.1 103/ul Normal 0.0-0.1 [facility] Comment on above: Performed By: #### C BC #### [facility] [address] [place] [address] Dr. Leonardo Salazar Basophils/100 WBC (Bld) 0.4 % Normal 0.2-2.0 [facility] Comment on above: Performed By: #### C BC #### [facility] [address] [place] [address] Dr. Leonardo Salazar EO # 0.3 103/ul Normal 0.0-0.7 [facility] Comment on above: Performed By: #### C BC #### [facility] [address] [place] [address] Dr. Leonardo Salazar Eosinophils/100 WBC (Bld) 2.3 % Normal 0.9-7.0 [facility] Comment on above: Performed By: #### C BC #### [facility] [address] [place] [address] Dr. Leonardo Salazar Erythrocyte distribution width (RBC) [Ratio] 12.9 % Normal 11.0-15.0 [facility] Comment on above: Performed By: #### C BC #### [facility] [address] [place] [address] Dr. Leonardo Salazar Hematocrit (Bld) [Volume fraction] 43.1 % Normal 36.0-48.0 [facility] Comment on above: Performed By: #### C BC #### [facility] [address] [place] [address] Dr. Leonardo Salazar Hemoglobin (Bld) [Mass/Vol] 13.7 g/dL Normal 12.0-16.0 [facility] Comment on above: Performed By: #### C BC #### [facility] [address] [place] [address] Dr. Leonardo Salazar IG # 0.07 10e3/ul Critically high 0.00-0.03 [facility] Comment on above: Performed By: #### C BC #### [facility] [address] [place] [address] Dr. Leonardo Salazar IG % 0.6 % Critically high 0.0-0.5 [facility] Comment on above: Performed By: #### C BC #### [facility] [address] [place] [address] Dr. Leonardo Salazar LYMPH # 2.9 103/ul Normal 1.2-3.8 [facility] Comment on above: Performed By: #### C BC #### [facility] [address] [place] [address] Dr. Leonardo Salazar Lymphocytes/100 WBC (Bld) 25.3 % Normal 20.5-60.0 [facility] Comment on above: Performed By: #### C BC #### [facility] [address] [place] [address] Dr. Leonardo Salazar MANUAL DIFF REQ NO Normal [facility] Comment on above: Performed By: #### C BC #### [facility] [address] [place] [address] Dr. Leonardo Salazar MCH (RBC) [Entitic mass] 27.5 pg Normal 26.7-34.0 [facility] Comment on above: Performed By: #### C BC #### [facility] [address] [address] [address] Leonardo Salazar MCHC (RBC) [Mass/Vol] 31.8 g/dL Normal 29.9-35.2 [facility] Comment on above: Performed By: #### C BC #### [facility] [address] [place] [address] Dr. Leonardo Salazar MCV (RBC) [Entitic vol] 86.4 fL Normal 81.0-99.0 [facility] Comment on above: Performed By: #### C BC #### [facility] [address] [place] [address] Dr. Leonardo Salazar MONO # 0.9 103/ul Critically high 0.3-0.8 [facility] Comment on above: Performed By: #### C BC #### [facility] [address] [place] [address] Dr. Leonardo Salazar Monocytes/100 WBC (Bld) 8.2 % Normal 1.7-12.0 [facility] Comment on above: Performed By: #### C BC #### [facility] [address] [place] [address] Dr. Leonardo Salazar NEUT # 7.1 103/ul Critically high 1.4-6.5 [facility] Comment on above: Performed By: #### C BC #### [facility] [address] [place] [address] Dr. Leonardo Salazar Neutrophils/100 WBC (Bld) 63.2 % Normal 43.0-75.0 [facility] Comment on above: Performed By: #### C BC #### [facility] [address] [place] [address] Dr. Leonardo Salazar Platelet mean volume (Bld) [Entitic vol] 10.4 fL Normal 9.5-13.5 [facility] Comment on above: Performed By: #### C BC #### [facility] [address] [place] [address] Dr. Leonardo Salazar PLT 320 103/ul Normal 150-450 [facility] Comment on above: Performed By: #### C BC #### [facility] [address] [address] [address] Leonardo Salazar RBC 4.99 106/ul Normal 4.20-5.40 [facility] Comment on above: Performed By: #### C BC #### [facility] [address] [address] [address] Leonardo Salazar WBC 11.3 103/ul Critically high 4.0-11.0 [facility] Comment on above: Performed By: #### C BC #### [facility] [address] [address] [address] Leonardo Salazar FREE T3on 12-09-2021 FREE T3 5.33 pg/mlL Critically high 2.18-3.98 [facility] Comment on above: Performed By: #### F T3 #### [facility] [address] [place] [address] Dr. Leonardo Salazar FREE T4on 12-09-2021 Free T4 [Mass/Vol] 1.97 ng/dL Critically high 0.76-1.46 [facility] Comment on above: Performed By: #### B MP, TSH, LIPID #### [facility] [address] [place] [address] Dr. Leonardo Salazar LIPID PROFILEon 12-09-2021 CHOL-HDL RATIO NORM SEE BELOW Normal [facility] Comment on above: Result Comment: 3.3 - 4.4 LOW RISK 4.4 - 7.1 AVERAGE RISK 7.1 - 11.0 MODERATE RISK >11.0 HIGH RISK Performed By: #### B MP, TSH, LIPID #### [facility] [address] [place] [address] Dr. Leonardo Salazar Cholesterol [Mass/Vol] 170 mg/dL Normal <=200 [facility] Comment on above: Performed By: #### B MP, TSH, LIPID #### [facility] [address] [place] [address] Dr. Leonardo Salazar Cholesterol in HDL [Mass/Vol] 51 mg/dL Normal 40-60 [facility] Comment on above: Performed By: #### B MP, TSH, LIPID #### [facility] [address] [address] [address] Leonardo Salazar Cholesterol in LDL [Mass/Vol] 105.4 mg/dL Normal [facility] Comment on above: Performed By: #### B MP, TSH, LIPID #### [facility] [address] [place] [address] Dr. Leonardo Salazar Cholesterol.total/Ch olesterol in HDL [Mass ratio] 3.3 {ratio} Normal [facility] Comment on above: Performed By: #### B MP, TSH, LIPID #### [facility] [address] [address] [address] Leonardo Salazar HDL NORMAL > or = 60 mg/dl - LOW CARDIOVASCULAR RISK <40 mg/dl - HIGH CARDIOVASCULAR RISK Normal [facility] Comment on above: Performed By: #### B MP, TSH, LIPID #### [facility] [address] [place] [address] Dr. Leonardo Salazar LDL CALC NORMAL SEE BELOW Normal [facility] Comment on above: Result Comment: <100 mg/dl OPTIMAL 100 - 129 mg/dl NEAR OR ABOVE OPTIMAL 130 - 159 mg/dl BORDERLINE HIGH 160 - 189 mg/dl HIGH >190 mg/dl VERY HIGH Performed By: #### B MP, TSH, LIPID #### [facility] [address] [place] [address] Dr. Leonardo Salazar Triglyceride [Mass/Vol] 68 mg/dL Normal <=150 [facility] Comment on above: Performed By: #### B MP, TSH, LIPID #### [facility] [address] [place] [address] Dr. Leonardo Salazar VLDL CALC 13.6 mg/dL Normal [facility] Comment on above: Performed By: #### B MP, TSH, LIPID #### [facility] [address] [place] [address] Dr. Leonardo Salazar MG MAMM SCREEN 3D SAÚL CADon 12-09-2021 MG MAMM SCREEN 3D SAÚL CAD Patient: ANGELA BAXTER Exam Date: 12/09/2021 : 1955 Gender:F Ordering : DR MARCOS ROQUE D.O. Admission #: [id number] Family : CONSUELO C[place]AND . Order #: [id number] CLICK HERE TO VIEW EXAM RADIOLOGY REPORT [...] breast cancer at age 70. LOCATION: [facility] BREAST COMPOSITION: Heterogeneously dense,which may obscure small [...] M.D. on 12/10/2021 at 14:20 Normal [facility] PROF CHEM 8 (BAS METB)on Anion gap [Moles/Vol] 10.4 mmol/L Normal [facility] Comment on above: Performed By: #### B MP, TSH, LIPID #### [facility] [address] [address] [address] Leonardo Salazar Calcium [Mass/Vol] 9.7 mg/dL Normal 8.5-10.1 [facility] Comment on above: Performed By: #### B MP, TSH, LIPID #### [facility] [address] [address] [address] Leonardo Salazar Chloride [Moles/Vol] 106 mmol/L Normal 98-107 [facility] Comment on above: Performed By: #### B MP, TSH, LIPID #### [facility] [address] [address] [address] Leonardo Salazar CO2 [Moles/Vol] 29.5 mmol/L Normal 21.0-32.0 [facility] Comment on above: Performed By: #### B MP, TSH, LIPID #### [facility] [address] [address] [address] Leonardo Salazar Creatinine [Mass/Vol] 0.88 mg/dL Normal 0.55-1.02 [facility] Comment on above: Performed By: #### B MP, TSH, LIPID #### [facility] [address] [address] [address] Leonardo Salazar EGFR-AF MARTINIQUAIS >60 Normal >=60 [facility] Comment on above: Performed By: #### B MP, TSH, LIPID #### [facility] [address] [address] [address] Leonardo Salazar EGFR-NON AF MARTINIQUAIS >60 Normal >=60 [facility] Comment on above: Performed By: #### B MP, TSH, LIPID #### [facility] [address] [address] [address] Leonardo Salazar Glucose [Mass/Vol] 98 mg/dL Normal 74-106 [facility] Comment on above: Performed By: #### B MP, TSH, LIPID #### [facility] [address] [address] [address] Leonardo Salazar Potassium [Moles/Vol] 3.9 mmol/L Normal 3.5-5.1 [facility] Comment on above: Performed By: #### B MP, TSH, LIPID #### [facility] [address] [address] [address] Leonardo Salazar Sodium [Moles/Vol] 142 mmol/L Normal 136-145 [facility] Comment on above: Performed By: #### B MP, TSH, LIPID #### [facility] [address] [address] [address] Leonardo Salazar Urea nitrogen [Mass/Vol] 23.0 mg/dL Critically high 7.0-18.0 [facility] Comment on above: Performed By: #### B MP, TSH, LIPID #### [facility] [address], [place] [address] Dr. Leonardo Salazar Urea nitrogen/Creatinine [Mass ratio] 26.1 mg/mg Normal [facility] Comment on above: Performed By: #### B MP, TSH, LIPID #### [facility] [address], [place] [address] Dr. Leonardo Salazar TSHon 12-09-2021 TSH Qn m[IU]/L Critically low 0.358-3.740 [facility] Comment on above: Performed By: #### B MP, TSH, LIPID #### [facility] [address], [place] [address] Dr. Leonardo Salazar Vital Signs Date Time Vital Sign Value Performing Clinician Facility 07-23-2024 11:45-0500 Body height 172.72 cm [facility] 07-23-2024 11:45-0500 Body mass index (BMI) [Ratio] 30.1 kg/m2 [facility] 07-23-2024 11:45-0500 Body weight 89.92 kg [facility] 07-23-2024 11:45-0500 Diastolic blood pressure 75 mm[Hg] [facility] 07-23-2024 11:45-0500 Heart rate 80 /min [facility] 07-23-2024 11:45-0500 Respiratory rate 12 /min [facility] 07-23-2024 11:45-0500 Systolic blood pressure 124 mm[Hg] [facility] 03-19-2024 11:57-0400 Body height 172.72 cm [facility] 03-19-2024 11:57-0400 Body mass index (BMI) [Ratio] 29.8 kg/m2 [facility] 03-19-2024 11:57-0400 Body weight 89.07 kg [facility] 03-19-2024 11:57-0400 Diastolic blood pressure 82 mm[Hg] [facility] 03-19-2024 11:57-0400 Heart rate 71 /min [facility] 03-19-2024 11:57-0400 Respiratory rate 12 /min [facility] 03-19-2024 11:57-0400 Systolic blood pressure 134 mm[Hg] [facility] 11-29-2023 11:44-0400 Body height 172.72 cm [facility] 11-29-2023 11:44-0400 Body mass index (BMI) [Ratio] 29.5 kg/m2 [facility] 11-29-2023 11:44-0400 Body weight 88.11 kg [facility] 11-29-2023 11:44-0400 Diastolic blood pressure 85 mm[Hg] [facility] 11-29-2023 11:44-0400 Heart rate 89 /min [facility] 11-29-2023 11:44-0400 Respiratory rate 12 /min [facility] 11-29-2023 11:44-0400 Systolic blood pressure 134 mm[Hg] [facility] 09-06-2023 11:44-0400 Body height 172.72 cm [facility] 09-06-2023 11:44-0400 Body mass index (BMI) [Ratio] 29.6 kg/m2 [facility] 09-06-2023 11:44-0400 Body weight 88.45 kg [facility] 09-06-2023 11:44-0400 Diastolic blood pressure 82 mm[Hg] [facility] 09-06-2023 11:44-0400 Heart rate 80 /min [facility] 09-06-2023 11:44-0400 Respiratory rate 16 /min [facility] 09-06-2023 11:44-0400 Systolic blood pressure 131 mm[Hg] [facility] 07-25-2023 11:40-0500 Body height 172.72 cm [facility] 07-25-2023 11:40-0500 Body mass index (BMI) [Ratio] 30.2 kg/m2 [facility] 07-25-2023 11:40-0500 Body weight 90.26 kg [facility] 07-25-2023 11:40-0500 Diastolic blood pressure 78 mm[Hg] [facility] 07-25-2023 11:40-0500 Heart rate 73 /min [facility] 07-25-2023 11:40-0500 Respiratory rate 12 /min [facility] 07-25-2023 11:40-0500 Systolic blood pressure 137 mm[Hg] [facility] 03-23-2023 10:00-0400 Body height 172.72 cm Marcos Ball Other [facility] Other 03-23-2023 10:00-0400 Body mass index (BMI) [Ratio] 29.83 kg/m2 Marcos Ball Other [facility] Other 03-23-2023 10:00-0400 Body weight 89 kg Marcos Ball Other [facility] Other 03-23-2023 10:00-0400 Diastolic blood pressure 79 mm[Hg] Marcos Ball Other [facility] Other 03-23-2023 10:00-0400 Respiratory rate 12 /min Marcos Ball Other [facility] Other 03-23-2023 10:00-0400 Systolic blood pressure 131 mm[Hg] Marcos Ball Other [facility] Other 11-24-2022 10:00-0400 Body height 172.72 cm Marcos Ball Other [facility] Other 11-24-2022 10:00-0400 Body mass index (BMI) [Ratio] 29.43 kg/m2 Marcos Ball Other [facility] Other 11-24-2022 10:00-0400 Body weight 87.82 kg Marcos Ball Other [facility] Other 11-24-2022 10:00-0400 Diastolic blood pressure 87 mm[Hg] Marcos Ball Other [facility] Other 11-24-2022 10:00-0400 Respiratory rate 12 /min Marcos Ball Other [facility] Other 11-24-2022 10:00-0400 Systolic blood pressure 128 mm[Hg] Marcos Ball Other [facility] Other 07-21-2022 11:00-0500 Body height 172.72 cm Marcos Ball Other [facility] Other 07-21-2022 11:00-0500 Body mass index (BMI) [Ratio] 29.31 kg/m2 Marcos Ball Other [facility] Other 07-21-2022 11:00-0500 Body weight 87.45 kg Marcos Ball Other [facility] Other 07-21-2022 11:00-0500 Diastolic blood pressure 68 mm[Hg] Marcos Ball Other [facility] Other 07-21-2022 11:00-0500 Respiratory rate 12 /min Marcos Ball Other [facility] Other 07-21-2022 11:00-0500 Systolic blood pressure 124 mm[Hg] Marcos Ball Other [facility] Other Encounters Encounter Date Encounter Type Care Provider Facility Start: 09-11-2024 End: 09-11-2024 ambulatory [facility] Work Phone: Start: 09-11-2024 End: 09-11-2024 Patient encounter procedure [facility] Work Phone: Start: 07-23-2024 End: 07-23-2024 ambulatory [facility] Work Phone: Start: 07-23-2024 End: 07-23-2024 Patient encounter procedure [facility] Work Phone: Start: 06-25-2024 End: 06-25-2024 ambulatory NIDIA Garcia YARA Not Available Start: 06-13-2024 End: 06-13-2024 ambulatory NIDIA Garcia YARA Not Available Start: 06-04-2024 End: 06-04-2024 ambulatory NIDIA M YARA Not Available Start: 05-24-2024 End: 05-24-2024 ambulatory NIDIA Garcia YARA Not Available Start: 03-19-2024 End: 03-19-2024 ambulatory [facility] Work Phone: Start: 03-19-2024 End: 03-19-2024 Patient encounter procedure [facility] Work Phone: Start: 03-01-2024 End: 03-01-2024 ambulatory NIDIA Garcia YARA Not Available Start: 02-15-2024 Non-patient / Non-visit [facility] Work Phone: Start: 02-15-2024 End: 02-15-2024 ambulatory CONSUELO MEGHA Not Available Start: 12-28-2023 End: 12-28-2023 ambulatory [facility] Work Phone: Start: 12-28-2023 End: 12-28-2023 Patient encounter procedure [facility] Work Phone: Start: 12-23-2023 Non-patient / Non-visit [facility] Work Phone: Start: 11-29-2023 End: 11-29-2023 ambulatory [facility] Work Phone: Start: 11-29-2023 End: 11-29-2023 Patient encounter procedure [facility] Work Phone: Start: 11-18-2023 End: 11-18-2023 ambulatory [facility] Work Phone: Start: 11-18-2023 End: 11-18-2023 Patient encounter procedure [facility] Work Phone: Start: 09-06-2023 End: 09-06-2023 ambulatory [facility] Work Phone: Start: 09-06-2023 End: 09-06-2023 Patient encounter procedure [facility] Work Phone: Start: 07-25-2023 End: 07-25-2023 ambulatory [facility] Work Phone: Start: 07-25-2023 End: 07-25-2023 Patient encounter procedure [facility] Work Phone: Start: 03-23-2023 End: 03-23-2023 ambulatory Marcos Roque Other [facility] Other Start: 03-23-2023 Office outpatient vi sit 25 minutes Marcos Jude [facility] Start: 01-06-2023 End: 01-06-2023 ambulatory Marcos Roque Other [facility] Other Start: 01-06-2023 Telephone encounter Marcos Roque [facility] Start: 12-23-2022 End: 12-23-2022 ambulatory Marcos Roque Other [facility] Other Start: 12-23-2022 Telephone encounter Marcos Roque [facility] Start: 12-21-2022 End: 12-21-2022 ambulatory Marcos Ball Other [facility] Other Start: 12-21-2022 Telephone encounter Marcos Roque [facility] Start: 11-24-2022 End: 11-24-2022 ambulatory Marcos Ball Other [facility] Other Start: 11-24-2022 Patient encounter procedure Marcos Ball [facility] Start: 11-17-2022 End: 11-17-2022 ambulatory Marcos Roque Other [facility] Other Start: 11-17-2022 Telephone encounter Marcos Roque [facility] Start: 11-08-2022 End: 11-08-2022 ambulatory Marcos Roque Other [facility] Other Start: 11-08-2022 Telephone encounter Marcos Roque [facility] Start: 09-28-2022 End: 09-28-2022 ambulatory Marcos Roque Other [facility] Other Start: 09-28-2022 Telephone encounter Marcos Jude [facility] Start: 09-27-2022 End: 09-27-2022 ambulatory Marcos Roque Other [facility] Other Start: 09-27-2022 Telephone encounter Marcos Roque [facility] Start: 09-15-2022 End: 09-15-2022 ambulatory Marcos Roque Other [facility] Other Start: 09-15-2022 Office outpatient vi sit 15 minutes Marcos Roque [facility] Start: 07-21-2022 Office outpatient vi sit 25 minutes Marcos Roque [facility] Start: 07-21-2022 End: 07-22-[address] MARCOS ROQUE Facility:[facility] Start: 06-15-2022 End: 06-15-2022 ambulatory Marcos Roque Other [facility] Other Start: 06-15-2022 Nursing evaluation o f patient and report Marcos Roque [facility] Start: 06-15-2022 Telephone encounter Marcos Roque [facility] Start: 06-14-2022 End: 06-15-[address] MARCOS ROQUE Facility:[facility] Start: 06-14-2022 Telephone encounter Marcos Roque [facility] Start: 05-03-2022 End: 05-04-[address] MARCOS ROUQE Facility:[facility] Start: 03-25-2022 End: 03-26-[address] MARCOS ROQUE Facility:[facility] Start: 03-24-2022 Gynecological examin ation normal Marcos Roque Other [facility] Other Start: 02-04-2022 End: 02-04-[address] CONSUELO C[place]AND . Facility:[facility] Start: 02-04-2022 Adult health examination Cristobal Roque Other [facility] Other Start: 12-30-2021 End: 12-30-[address] MARCOS ROQUE Facility:[facility] Start: 12-25-2021 End: 12-26-[address] MARCOS ROQUE Facility:[facility] Start: 12-09-2021 End: 12-10-[address] MARCOS ROQUE Facility:[facility] Start: 11-18-2020 End: 11-18-2020 Pre-procedure evaluation check Marcos Roque Other [facility] Other Start: 08-22-2020 End: 08-22-2020 Discharged Recurring Edmund Cardoza [facility]Cov[facility] Vaccine Procedures Date Procedure Procedure Detail Performing Clinician Start: 11-23-2021 Depression screening Be lieztt Roque Other Start: 08-20-2015 General examination of [...] lic 2000 panel - Serum or Plasma [facility] enter MG Breast - bilateral Screening [facility] Thyroid stimulating immunoglobulins actual/normal in Serum [facility] enter [facility] Immunizations Immunization Date Immunization Notes Care Provider Fa cility 02-11-2024 Fluzone QIV High-Dos e 65YR+ [facility] 10-06-2022 COVID-19 Pfizer (bivalent) Marcos Roque Other [facility] 03-02-2022 COVID-19 Pfizer (bivalent) Marcos Roque Other [facility] 03-02-2022 influenza virus vaccine, unspecified formulation [facility] 03-02-2022 influenza, high dose seasonal, preservative-free Marcos Roque Other [facility] Other 09-07-2021 COVID-19 Pfizer Marcos Medrano joseph Other [facility] 09-07-2021 COVID-19 Vaccine Pfi zer - Documentation Purposes Only Marcos Roque Other [facility] 03-11-2021 influenza virus vaccine, split virus (incl. purified surface antigen) Marcos Roque Other [facility] Other 03-11-2021 influenza virus vaccine, unspecified formulation [facility] 03-03-2021 COVID-19 Vaccine Pfi zer - Documentation Purposes Only Marcos Roque Other [facility] 08-22-2020 COVID-19 mRNA,[id number] b2 (Pfizer) [facility] 07-30-2020 COVID-19 mRNA,[id number] b2 (Pfizer) [facility] 03-19-2020 influenza virus vaccine, split virus (incl. purified surface antigen) Marcos Roque Other [facility] Other 03-19-2020 influenza virus vaccine, unspecified formulation [facility] 03-20-2019 influenza virus vaccine, split virus (incl. purified surface antigen) Marcos Roque Other [facility] Other 03-20-2019 influenza virus vaccine, unspecified formulation [facility] 03-16-2018 influenza virus vaccine, split virus (incl. purified surface antigen) Marcos Jude Other [facility] Other 03-16-2018 influenza virus vaccine, unspecified formulation [facility] 04-04-2017 influenza virus vaccine, split virus (incl. purified surface antigen) Marocs Roque Other [facility] Other 04-04-2017 influenza virus vaccine, unspecified formulation [facility] 04-06-2016 influenza virus vaccine, split virus (incl. purified surface antigen) Marcos Roque Other [facility] Other 04-06-2016 influenza virus vaccine, unspecified formulation [facility] 04-03-2015 tetanus and diphther ia toxoids, adsorbed, preservative free, for adult use (5 Lf of tetanus toxoid and 2 Lf of diphtheria toxoid) Marcos Roque Other [facility] 02-21-2014 tetanus and diphther ia toxoids, adsorbed, preservative free, for adult use (5 Lf of tetanus toxoid and 2 Lf of diphtheria toxoid) Marcos Roque Other [facility] 03-07-2013 tetanus and diphther ia toxoids, adsorbed, preservative free, for adult use (5 Lf of tetanus toxoid and 2 Lf of diphtheria toxoid) Marcos Roque Other [facility] Payers Date Payer Category Payer Medicare [id number] 1955 Unknown [id number] 2.16.84 [id number] 1955 Unknown [id number] 2.16.84 [id number] 1955 Unknown [id number] 2.16.84 [id number] 1955 Unknown [id number] 2.16.84 [id number] 1955 Unknown [id number] 2.16.84 0.1.411260.3.579.2.593 1955 Unknown [id number] 2.16.84 0.1.050830.3.579.2.593 1955 Unknown [id number] 2.16.84 0.1.068325.3.579.2.593 1955 Unknown [id number] 2.16.84 0.1.717298.3.579.2.593 1955 Unknown [id number] 2.16.84 0.1.202964.3.579.2.1259 1955 Unknown [id number] 2.16.84 0.1.214250.3.579.2.1259 1955 Unknown [id number] 2.16.84 0.1.216154.3.579.2.1259 1955 Unknown [id number] 2.16.84 0.1.720876.3.579.2.1259 1955 Unknown [id number] 2.16.84 0.1.280139.3.579.2.1259 1955 Unknown [id number] 2.16.84 [id number] Medicare [id number] Self-pay Self Pay [id number] Social History Date Type Detail Facility Tobacco smoking status NHIS Unknown if ever smoked [facility] Start: 1955 Sex Assigned At Female F [facility] Sex Assigned At Sex Assigned At Bir th [place] [facility] Other Start: 03-23-2023 End: 07-25-2023 Tobacco smoking status NHIS Never smoked tobacco (finding) [facility] Start: 07-23-2024 End: 09-11-2024 Sex Female (finding) [facility] Goals Date Patient Goal Desired Activity /State [...] 2024 11:26am Dysuria acute September 11 9:56am [facility] Work Phone: 1(110) 601-368802-17-2025 Evaluation note* Diagnosis Onset Date Resolution Status [...] 23 11:26am Primary hypertension acute 2024 11:26am [facility] Work Phone: 1(413) 446-245610-18-2023 Evaluation note* Encounter Date Diagnosis Assessment Notes [...] today since increased allergens where planning on [employer] [facility] Other 06-21-2023 Evaluation note* Encounter Date Diagnosis [...] High risk medication use (ICD-10 - Z79.899) [facility] Other 06-05-2023 Evaluation note* Encounter Date Diagnosis Assessment Notes Treatment Notes Treatment Clinical Notes Nov, Graves disease (ICD-10 - E05.00) [facility] Other 04-12-2023 Evaluation note* Encounter Date Diagnosis [...] Flonase and Claritin Kenalog may be beneficial [facility] Other 02-15-2023 Evaluation note* Encounter Date Diagnosis [...] (ICD-10 - G44.229) Tylenol, heat/ice and massage [facility] Other 01-10-2023 Evaluation note* Encounter Date Diagnosis Assessment Notes Treatment Notes Treatment Clinical Notes Jun, Dysuria (ICD-10 - R30.0) [facility] Other 01-09-2023 Evaluation note* Encounter Date Diagnosis Assessment Notes Treatment Notes Treatment Clinical Notes Jun, Graves disease (ICD-10 - E05.00) [facility] Other Evaluation noteNo [facility] Other evaluation [facility]Nort [facility] Other evaluation noteNo assessment information available [facility] Work Phone: Evaluation note* Diagnosis Onset Date Resolution Status Chronic tension-type headache, not intractable acute Gastroesophageal reflux dise ase with esophagitis without hemorrhage acute Graves disease acute Hypercholesterolemia acute Mild intermittent asthma without complication acute NAFLD (nonalcoholic fatty liver disease) acute Primary hypertension acute [facility] Work Phone: Evaluation note* Diagnosis Onset Date Resolution Status Valgus deformity of right great toe noneactive Bursitis due to trauma nonea ctive [facility] Work Phone: Evaluation note* Diagnosis Onset Date Resolution Status Valgus deformity of right great toe noneactive Bursitis due to trauma nonea ctive Chronic tension-type headache, not intractable acute Gastroesophageal reflux dise ase with esophagitis without hemorrhage acute Graves disease acute Hypercholesterolemia acute Metabolic dysfunction-associ ated steatotic liver disease (MASLD) acute Mild intermittent asthma without complication acute Primary hypertension acute [facility] Work Phone: Evaluation note* Diagnosis Onset Date Resolution Status Chronic tension-type headache, not intractable acute Gastroesophageal reflux dise ase with esophagitis without hemorrhage acute Graves disease acute Hypercholesterolemia acute Metabolic dysfunction-associ ated steatotic liver disease (MASLD) acute Mild intermittent asthma without complication acute Primary hypertension acute Medicare annual wellness visit, subsequent noneactive Screening mammogram for breast cancer noneactive [facility] Work Phone: Evaluation note* Diagnosis Onset Date Resolution Status Seasonal allergic rhinitis due to pollen acute Chronic tension-type headache, not intractable acute Gastroesophageal reflux dise ase with esophagitis without hemorrhage acute Graves disease acute Hypercholesterolemia acute Metabolic dysfunction-associ ated steatotic liver disease (MASLD) acute Mild intermittent asthma without complication acute Primary hypertension acute [facility] Work Phone: History general Narrative - [...] History D&C Hospitalization History SEE SURGICAL HX [place] [facility] Other History general Narrative - [facility] Other Advance Directives Advance Directive Response Recorded [...] DATE CREATED AUTHOR AUTHOR'S ORGANIZ ATION 06/26/2024 [facility] EPIC REASON FOR VISIT (unrecogniz [...] Team Status: Inactive Member Role Status Janell Roqeu DO Primary Care Provide r, Attending Provider [...] BE BASED ON THE PRIMARY CLINICAL RECORDS. [facility] [facility]. provides no warranty or guarantee of the accuracy or completeness of information in this document.
[2024-09-16] MEDS: 0.9 % SODIUM CHLORIDE 1,000 ML 100 ML IV (06:38)
--- NOTE | 2024-09-16 07:31 | P.HP_ITS ---
HPI H&P: HPI History of Present Illness Chief complaint: Leukocytosis ANYI Narrative: Patient was being treated as an outpatient for acute UTI, started having increasing nausea and vomiting, stopped her antibiotics was slightly better but nausea vomiting persisted and presented to the emergency room, found to have acute kidney injury with significant leukocytosis and still positive urinalysis with hypokalemia When I saw patient up in the medical surgical floor, she was resting comfortably in bed, no new complaints, she was describing some orthostatic hypotension symptoms, she states when she got up this morning to go to the bathroom she did not feel that Opioid HPI Opioid Management Most Recent Pain and Opioid Data: Last Pain Assessment 09/16/24 09:00 Last ORT Total Score 0 09/16/24 06:26 09/16/24 Last ORT Risk Category Low Risk 09/16/24 06:26 09/16/24 Review of Systems ROS Status of ROS 10 or more systems reviewed and unremark able except as noted in history and below PFSH PFS Medical History (Updated 09/16/24 @ 09:35 by Wellington Waldrop MD) Thyroid disease ?E07.9 - Disorder of thyroid, unspecified (ICD-10) Cyst Normal colonoscopy GERD (gastroesophageal reflux disease) ?K21.9 - Gastro-esophageal reflux disease without esophagitis (ICD-10) Low blood potassium ?E87.6 - Hypokalemia (ICD-10) High blood cholesterol ?E78.00 - Pure hypercholesterolemia, unspecified (ICD-10) Hypertension ?I10 - Essential (primary) hypertension (ICD-10) Surgical History (Updated 09/16/24 @ 05:42 by Pooja Posada) H/O endoscopy ?Z98.890 - Other specified postprocedural states (ICD-10) Family History (Updated 09/16/24 @ 06:24 by Evelia Stephen, HERB) Mother Family history of CHF (congestive heart failure) Family history of cancer Family history of diabetes mellitus Family history of hypertension Hypothyroidism Father Family history of cancer Grandmother Family history of myocardial infarction Family history of stroke DVT (deep venous thrombosis) Social History (Updated 09/16/24 @ 06:25 by Evelia Stephen, HERB) Within the past year, how often did you have a drink containing alcohol: never Within the past year, how many standard drinks containing alcohol did you have on a typical day: 1 or 2 Within the past year, how often did you have six or more drinks on one occasion: never Total score: 0 Score interpretation: A score less than 3 is consistent with normal alcohol consumption. Smoking status: Never smoker Non-prescribed substance use: denies use Highest level of school completed/degree received: high school graduate Are you now , , , , never or living with a partner: Little interest or pleasure in doing things: not at all Feeling down, depressed, or hopeless: not at all Do you think of yourself as: straight/heterosexual Gender Identity: female Meds Home Medications and Allergies Home Medications ?Medication ?Instructions ?Recorded ?Confirmed ?Type amlodipine 2.5 mg tablet 2.5 mg PO DAILY 09/16/24 09/16/24 History aspirin-caffeine 400 mg-32 mg 1 tab PO Q6H PRN headache 09/16/24 09/16/24 History tablet calcium 600 mg (as 1 tab PO BID 09/16/24 09/16/24 History carbonate)-vitamin D3 5 mcg (200 unit) tablet cholecalciferol (vitamin D3) 350 400 mcg PO BID 09/16/24 09/16/24 History mcg (14,000 unit) capsule famotidine 20 mg tablet (Pepcid) 10 mg PO DAILY PRN stomch 09/16/24 09/16/24 History fluticasone propionate 50 2 spray intranasal DAILY 09/16/24 09/16/24 History mcg/actuation nasal spray,suspension irbesartan 150 1 tab PO BID 09/16/24 09/16/24 History mg-hydrochlorothiazide 12.5 mg tablet labetalol 200 mg tablet 200 mg PO Q12H 09/16/24 09/16/24 History lactobacillus combination no.9 4 4,000 mmu cells PO DAILY 09/16/24 09/16/24 History billion cell capsule (Adult 50 Plus Probiotic) levocetirizine 5 mg tablet (24HR 5 mg PO DAILY 09/16/24 09/16/24 History Allergy Relief) levofloxacin 500 mg tablet 500 mg PO DAILY 7 days #7 tabs 09/16/24 Rx methimazole 10 mg tablet 5 mg PO DAILY 09/16/24 09/16/24 History omeprazole 40 mg capsule,delayed 40 mg PO DAILY 09/16/24 09/16/24 History release oxymetazoline 0.05 % nasal spray 2 spray intranasal HS PRN nasal 09/16/24 09/16/24 History (12 Hour Nasal Relief [place]) congestion peg 400-propylene glycol (PF) 0.4 1 drp ophthalmic (eye) BID 09/16/24 09/16/24 History %-0.3 % eye drops in a dropperette (Lubricant Eye (PG-PEG 400) (PF)) pravastatin 40 mg tablet 40 mg PO HS 09/16/24 09/16/24 History soy isoflavone-black cohosh 1 cap PO DAILY 09/16/24 09/16/24 History root-magnolia bark 155 mg capsule (Estroven) vit C 250 mg-vit E 90 mg-zinc 40 1 tab PO BID 09/16/24 09/16/24 History mg-copper 1 to-mynazj-sxqkos capsule (PreserVision AREDS-2) Allergies Allergy/AdvReac Type Severity Reaction Status Date / Time metronidazole (From Flagyl) Allergy red skin Verified 09/16/24 03:39 latex AdvReac Rash Verified 09/16/24 03:39 Exam Constitutional Vital Signs, click to edit/add: Last Vital Signs Temp 97.8 F 09/16/24 06:26 Pulse 82 09/16/24 06:26 Resp 16 09/16/24 06:26 BP 161/76 H 09/16/24 06:26 Pulse Ox 96 09/16/24 06:26 O2 Del Method Room Air 09/16/24 06:56 Documenting provider has reviewed patient's vital signs: yes Common normals: no apparent distress Chest Common normals: inspection of chest normal Respiratory Common normals: normal respiratory effort and no retractions Cardio Common normals: regular rate and regular rhythm GI Common normals: Normal to inspection, nondistended, normoactive bowel sounds present, soft to palpation and non-tender Extremity Common normals: normal to inspection, full ROM and no clubbing, cyanosis or edema Results Labs Labs: Short CBC 09/16/24 Range/Units 03:56 WBC 16.5 H (4.0-11.0) 10^3/uL Hgb 12.9 (12.0-16.0) g/dL Hct 38.7 (36.0-48.0) % Plt Count 369 (150-450) 10^3/uL BMP 04/13/25 03:56 Sodium 143 Potassium 2.6 L* Chloride 102 Carbon Dioxide 26.0 BUN 71.0 H Creatinine 1.71 H Glucose 110 H Calcium 9.2 Liver Function 09/16/24 Range/Units 03:56 Total Bilirubin 0.6 (0.2-1.0) mg/dL AST 15 (15-37) U/L ALT 24 (14-59) U/L Alkaline Phosphatase 93 (46-116) U/L Albumin 2.6 L (3.4-5.0) g/dL Urine 09/16/24 Range/Units 04:55 Urine Color Lt. yellow (YELLOW) Urine Clarity Sl cloudy (CLEAR) Urine pH 6.0 (5.0-9.0) Ur Specific [place] 1.010 (1.005-1.025) Urine Protein 100 A (NEG/TRACE) mg/dL Urine Glucose (UA) Negative (NEGATIVE) mg/dL Assessment and Plan Assessment and Plan (1) Acute hypokalemia: (2) Acute kidney injury: (3) Leukocytosis: (4) Acute UTI: (5) Dehydration: (6) Constipation: (7) Orthostatic hypotension: Plan Admission findings: Elevated blood pressure on admission but patient describing orthostatic hypotension symptoms, leukocytosis, hypokalemia, acute kidney injury stage I (baseline creatinine at wellness labs 1.11, admission creatinine of 1.71 which is 154% above baseline with decreased urine output in the last 6 hours would be stage I acute kidney injury) secondary to dehydration secondary to UTI with failed outpatient treatment Dehydration secondary to failed outpatient treatment of acute UTI resulting in acute kidney injury stage I as outlined above-IV fluids this morning, IV and oral antibiotics this morning, if tolerating the oral antibiotics and able to eat breakfast and lunch, possible discharge to home later today Acute kidney injury stage I with hypokalemia-repeat labs GERD-continue with current medications Constipation-add 1 dose of lactulose and MiraLAX Hyperthyroidism-continue with home medications Hypercholesterolemia continue with home medications Admission status: Patient admitted with acute kidney injury stage I secondary to dehydration secondary to failed outpatient treatment of acute UTI, at this point it would appear medically necessary treatment will only span 1 midnight, observation status. If patient condition deteriorates and she will span more than 1 midnight, she will be changed to inpatient status
--- NOTE | 2024-09-16 08:52 | P.DS_ITS ---
DS: Providers Provider Date of admission: 09/16/24 06:10 Primary care physician: Marcos Roque DO Consults: 09/16/24 07:25 Consult to Pharmacy Routine Consulting Provider: Reason for consultation: Please Grandy me when Med Rec is Updated Has provider been notified: No Occupational Therapy Eval and Treat Routine Reason for consultation: Only if needed for Rehab Has provider been notified: No Physical Therapy Eval and Treat Routine Reason for consultation: Eval and Treat Has provider been notified: No DS: Diagnosis Discharge Diagnosis (1) Orthostatic hypotension: (2) Dehydration: (3) Acute UTI: Plan (1) Acute hypokalemia: (2) Acute kidney injury: (3) Leukocytosis: (4) Acute UTI: (5) Dehydration: (6) Constipation: (7) Orthostatic hypotension: Plan Admission findings: Elevated blood pressure on admission but patient describing orthostatic hypotension symptoms, leukocytosis, hypokalemia, acute kidney injury stage I (baseline creatinine at wellness labs 1.11, admission creatinine of 1.71 which is 154% above baseline with decreased urine output in the last 6 hours would be stage I acute kidney injury) secondary to dehydration secondary to UTI with failed outpatient treatment Dehydration secondary to failed outpatient treatment of acute UTI resulting in acute kidney injury stage I as outlined above-IV fluids this morning, IV and oral antibiotics this morning, if tolerating the oral antibiotics and able to eat breakfast and lunch, possible discharge to home later today Acute kidney injury stage I with hypokalemia-repeat labs GERD-continue with current medications Constipation-add 1 dose of lactulose and MiraLAX Hyperthyroidism-continue with home medications Hypercholesterolemia continue with home medications Admission status: Patient admitted with acute kidney injury stage I secondary to dehydration secondary to failed outpatient treatment of acute UTI, at this point it would appear medically necessary treatment will only span 1 midnight, observation status. If patient condition deteriorates and she will span more than 1 midnight, she will be changed to inpatient status DS: Summary Hospital Course Hospital Course: Patient admitted with Elevated blood pressure on admission but patient describing orthostatic hypotension symptoms, leukocytosis, hypokalemia, acute kidney injury stage I (baseline creatinine at wellness labs 1.11, admission creatinine of 1.71 which is 154% above baseline with decreased urine output in the last 6 hours would be stage I acute kidney injury) secondary to dehydration secondary to UTI with failed outpatient treatment. She improved throughout the course today As She Is Able to Eat and Drink, at That Point She Was Discharged Home in Improving Condition. Medications See List. Follow-Up with Your PCP within the Next Week. Time Spent with Patient Time attestation: Total time spent providing and/or coordinating discharge services: Exam Constitutional Vital Signs, click to edit/add: Last Vital Signs Temp 97.8 F 09/16/24 06:26 Pulse 79 09/16/24 07:51 Resp 16 09/16/24 06:26 BP 161/76 H 09/16/24 06:26 Pulse Ox 96 09/16/24 06:26 O2 Del Method Room Air 09/16/24 07:32 Documenting provider has reviewed patient's vital signs: yes Common normals: no apparent distress Chest Common normals: inspection of chest normal Respiratory Common normals: normal respiratory effort and no retractions Cardio Common normals: regular rate and regular rhythm GI Common normals: Normal to inspection, nondistended, normoactive bowel sounds present, soft to palpation and non-tender Extremity Common normals: normal to inspection, full ROM and no clubbing, cyanosis or edema DS: Data Data Completed and Pending Labs on day of discharge: Labs from last 24 hours 09/16/24 09/16/24 09/16/24 04:55 03:56 03:50 WBC 16.5 H RBC 4.48 Hgb 12.9 Hct 38.7 MCV 86.4 MCH 28.8 MCHC 33.3 RDW 13.2 Plt Count 369 MPV 11.3 Seg Neuts % (Manual) 74.0 Band Neutrophils % 2.0 Lymphocytes % (Manual) 12.0 L Monocytes % (Manual) 10.0 Eosinophils % (Manual) 2.0 Basophils % (Manual) 0.0 L Neutrophils # (Manual) 12.21 H Band Neutrophils # 0.3 Lymphocytes # (Manual) 1.98 Monocytes # (Manual) 1.65 H Eosinophils # (Manual) 0.33 Basophils # (Manual) 0.00 Sodium 143 Potassium 2.6 L* Chloride 102 Carbon Dioxide 26.0 Anion Gap 17.6 BUN 71.0 H Creatinine 1.71 H Est GFR ( Amer) 36 L Est GFR (Non-Af Amer) 30 L BUN/Creatinine Ratio 41.5 Glucose 110 H Lactate 1.2 Calcium 9.2 Total Bilirubin 0.6 AST 15 ALT 24 Alkaline Phosphatase 93 Total Protein 7.3 Albumin 2.6 L Globulin 4.7 Albumin/Globulin Ratio 0.6 Lipase 55.0 Urine Color Lt. yellow Urine Clarity Sl cloudy Urine pH 6.0 Ur Specific [place] 1.010 Urine Protein 100 A Urine Glucose (UA) Negative Urine Ketones 15 A Urine Occult Blood Moderate A Urine Nitrite Negative Urine Bilirubin Negative Urine Urobilinogen 1.0 Ur Leukocyte Esterase Small A Urine RBC 2-5 A Urine WBC 10-20 A Ur Squamous Epith Cells Moderate A Urine Crystals None seen Urine Bacteria Moderate A Urine Casts None seen Urine Mucus None seen Ur Culture Indicated? Yes-[facility] [place] Discharge Plan Discharge Disposition: Home, Self-Care Discharge Medications: New levofloxacin 500 mg tablet 500 mg PO DAILY 7 Days Qty: 7 0RF Continued amlodipine 2.5 mg tablet 2.5 mg PO DAILY fluticasone propionate 50 mcg/actuation spray,suspension 2 spray INTRANASAL DAILY Rx Instructions: In am irbesartan-hydrochlorothiazide 150-12.5 mg tablet 1 tab PO BID labetalol 200 mg tablet 200 mg PO Q12H methimazole 10 mg tablet 5 mg PO DAILY Rx Instructions: at 3pm omeprazole 40 mg capsule,delayed release(DR/EC) 40 mg PO DAILY Rx Instructions: at noon famotidine [Pepcid] 20 mg tablet 10 mg PO DAILY PRN (Reason: stomch) pravastatin 40 mg tablet 40 mg PO HS levocetirizine [24HR Allergy Relief] 5 mg tablet 5 mg PO DAILY Rx Instructions: at HS oxymetazoline [12 Hour Nasal Relief [place]] 0.05 % spray,non-aerosol 2 spray intranasal HS PRN (Reason: nasal congestion) aspirin-caffeine 400-32 mg tablet 1 tab PO Q6H PRN (Reason: headache) calcium carbonate-vitamin D3 600 mg-5 mcg (200 unit) tablet 1 tab PO BID cholecalciferol (vitamin D3) 350 mcg (14,000 unit) capsule 400 mcg PO BID Adult 50 Plus Probiotic 4 billion cell capsule 4,000 mmu cells PO DAILY Patient Comments: at 0800 Rx Instructions: administer with a meal Estroven 155 mg capsule 1 cap PO DAILY Rx Instructions: 8 am PreserVision AREDS-2 250-90-40-1 mg capsule 1 tab PO BID Lubricant Eye (PG-PEG 400)(PF) 0.4-0.3 % dropperette 1 drp ophthalmic (eye) BID Rx Instructions: for dry eyes Activity: resume usual activities as tolerated Diet: advance to your usual diet Print Language: Romanian Patient Instructions: Levofloxacin (By mouth) (Calinaqrobin, Levaqrobin Leva-libia), Hypotension (DC), Urinary Tract Infection in Older Adults (DC) Forms: Portal Instructions Discharge Date/Time: 09/16/24 17:26
[2024-09-16] MEDS: CHOLECALCIFEROL (VITAMIN D3) 25 MCG/1,000 UNITS TABLET 12.5 MCG PO (09:08)
[2024-09-16] MEDS: LABETALOL HCL 100 MG TABLET 200 MG PO (09:08)
[2024-09-16] MEDS: PANTOPRAZOLE SODIUM 40 MG TABLET.DR PO (09:08)
[2024-09-16] MEDS: FLUTICASONE PROPIONATE 50 MCG NASAL SPRAY 2 SPRAY NS (09:08)
[2024-09-16] MEDS: ARTIFICIAL TEARS 300 DROP/15 ML BOTTLE OP (09:08)
[2024-09-16] MEDS: AMLODIPINE BESYLATE 5 MG TABLET 2.5 MG PO (09:08)
[2024-09-16] MEDS: L. ACIDOPHILUS/L.BULGARICUS TABLET 4 TAB PO (09:09)
[2024-09-16] MEDS: POLYETHYLENE GLYCOL 3350 17 GM POWDER PACKET PO (09:09)
[2024-09-16] MEDS: ENOXAPARIN SODIUM 30 MG/0.3 ML SYRINGE SUBQ (09:09)
[2024-09-16] MEDS: LACTULOSE 10 GM/15 ML UD CUP 30 GM PO (09:09)
[2024-09-16] MEDS: LEVOFLOXACIN 500 MG TABLET PO (09:11)
[2024-09-16 09:15] LABS: Anion Gap 11.5; BUN Creatinine Ratio 44.2; Carbon Dioxide 26.5 mmol/L (21.0-32.0); Chloride 109 mmol/L (98-107); Estimated GFR (African America 43 (>=60 mL/min/1.73m^2); Estimated GFR (Non-African Ame 35 (>=60 mL/min/1.73m^2); Glucose 99 mg/dL (74-106); Sodium 144 mmol/L (136-145)
[2024-09-16] MEDS: POTASSIUM CHLORIDE 40 MEQ in 0.9 % SODIUM CHLORIDE 250 ML 67.5 MEQ IV (10:31)
[2024-09-16 17:07] LABS: Anion Gap 13.3; BUN Creatinine Ratio 39.6; Calcium 8.3 mg/dL (8.5-10.1); Carbon Dioxide 23.9 mmol/L (21.0-32.0); Chloride 112 mmol/L (98-107); Estimated GFR (African America 44 (>=60 mL/min/1.73m^2); Estimated GFR (Non-African Ame 36 (>=60 mL/min/1.73m^2); Glucose 103 mg/dL (74-106); Potassium 3.2 mmol/L (3.5-5.1); Sodium 146 mmol/L (136-145)
--- NOTE | 2024-09-17 13:05 | CM.DCFOLLOWU ---
Person spoke with:patient How are you feeling? starting to feel better, could not keep anything down when first got home, but now she is able to keep fruits and water How is your pain?none Did you understand your discharge instructions?yes Do you have any questions about your discharge instructions? no, called PCP today and he will be calling back in regards to one medication Were you given any prescriptions at discharge?yes Were you able to get your prescriptions filled?yes Do you understand how to take your medications as ordered?yes Do you have any questions about your follow up appointment and do you plan to keep your follow up appointment? no questions, she told PCP she will call once she is feeling better Is there anything else that you would like to discuss?no Questions/Comments/Concerns/Other:none
== END 2024-09-16 17:26 | disposition home or self-care (01) ==
LOC: ER 05:02 → MS 06:25
PROVIDERS: Registered Nurse; Admitting Provider Family Medicine; Emergency Provider Emergency Medicine; PCP Internal Medicine; Visit Provider Family Medicine
DX: E86.0 Dehydration (principal); N17.9 Acute kidney failure, unspecified; N39.0 Urinary tract infection, site not specified; E87.6 Hypokalemia; K59.00 Constipation, unspecified; I95.1 Orthostatic hypotension; D72.829 Elevated white blood cell count, unspecified; K21.9 Gastro-esophageal reflux disease without esophagitis; E05.90 Thyrotoxicosis, unspecified without thyrotoxic crisis or storm; E78.00 Pure hypercholesterolemia, unspecified; B96.20 Unspecified Escherichia coli [E. coli] as the cause of diseases classified elsewhere; K52.9 Noninfective gastroenteritis and colitis, unspecified
CPT/HCPCS: 36415; 80048; 80053; 81001; 83605; 83690; 85007; 85027; 87040; 87070; 87086; 87088; 87186; 87205; 94761; 96361; 96365; 96366; 96367; 96372; 96375; 99285; G0378; J0696; J1650; J2405; J3480

== ENCOUNTER 2024-12-24 08:19 | Outpatient (OUT) | payer MEDICARE, SELFPAY ==
--- OUTSIDE RECORDS SUMMARY | 2023-09-21 06:15 | XMS_ITS ---
Author Organization [facility] [place] Address [address] [place] [address] Care Team Providers Care Transportation Dispatch Manager Name Role Phone Marcos Roque DO Primary Care Provider Bairon Dejesus Unavailable [phone] Allergies Allergen (clinical drug ingredient) Drug/Non Drug Allergy documented on EMR Reaction Allergy Type Onset Date Status metronidazole Flagyl rash, stomach upset Drug Allergy Active codeine Codeine rash, stomach upset Drug Allergy Active REASON FOR VISIT right foot pain not specified Medications Medication SIG (Take, Route, Frequency, Duration) Notes Start Date End Date Status Pravastatin Sodium 40 MG Oral for 90 Days Active Potassium Chloride Nanda ER 10 MEQ Oral for 90 Days Active Omeprazole 40 MG Oral for 90 Days Active methIMAzole 5 MG Oral for 90 Days Active Labetalol HCl 200 MG Oral for 90 Days Active Fluticasone Propionate 50 MCG/ACT Nasal for 90 Days Active amLODIPine Besylate 2.5 MG Oral for 90 Days Active Xyzal Active Afrin Allergy Active Irbesartan-hydroCHLOROthiaz livan 150-12.5 MG Oral for 90 Days Active Anacin 400-32 MG 2 tablets as needed Orally every 6 hrs Active Calcium 600 + D 600-5 MG-MCG 1 tablet with a meal Orally Once a day Active Vitamin D3 10 MCG (400 UNIT) 2 tablets Orally Once a day Active Probiotic Active Estroven Menopause Supplement - as directed Orally Active Tylenol 325 MG 1 tablet as needed O rally every 4 hrs Active Aleve 220 MG 1 tablet with food o r milk as needed Orally every 12 hrs Active Cranberry 450 MG as directed Orally Active Systane 0.4-0.3 % as directed Ophthalmic Active Social History Tobacco Use: Social History Observation Description Date Details (start date - stop date) Never Smoker NA - NA Tobacco Control (Standard) Question Answer Notes Tobacco use: Nonsmoker Problems Problem Type SNOMED Code ICD Code Onset Dates Problem Status W/U Status Risk Notes Problem 426316918 Tinea unguium (B35.1) Active confirmed Problem 988584462 Hallux rigidus, right foot (M20.21) Active confirmed Problem 811258449 Hallux valgus (acquired), right foot (M20.11) Active confirmed Vital Signs Weight 194 lbs 09/21/2023 Height 67 in 09/21/2023 Temperature 98.4 degrees Fahrenheit 09/21/19 24 Heart Rate 82 /min 09/21/2023 BMI 30.38 kg/m2 09/21/2023 Oximetry 97 % 09/21/2023 Encounters Encounter Location Date Provider Diagnosis [facility] (PODIATRY) [address] [place] [address] [place] [address] 09/21/2023 [facility] Right foot pain M79.671 ; Tinea unguium B35.1 ; Hallux rigidus, right foot M20.21 and Hallux valgus (acquired), right foot M20.11 Assessments Encounter Date Diagnosis (ICD Code) Assessment Notes Treatment Notes Treatment Clinical Notes Section Notes 09/21/2023 Right foot pain (ICD-10 - M79.671) 09/21/2023 Tinea unguium (ICD-10 - B35.1) Patient examined evaluated. All findings discussed with patient all questions answered to patient's satisfaction.Amparo ricardo presents today for initial evaluation regarding right foot pain. Her she does have moderate bunion deformity with hallux rigidus, however this is nonpainful for her and she is not interested in pursuing any intervention regarding this at this point.. Her primary complaint is the right hallux toenail which is thickened and dystrophic causes catching on shoe gear and is even become lifted off and caused her significant pain in the past. She presents today hoping to have the toenail completely removed.Clinical exam and findings discussed with patient.Discussed temporary versus permanent avulsion with the patient, after discussing risk and benefits of each she elected to move forward with temporary total nail avulsion. After informed consent was obtained, the right hallux was prepped with alcohol and digital block consisting of 5 cc of 1% lidocaine plain was administered. After anesthesia was confirmed, the right hallux was prepped with Betadine solution and attention was then directed to the hallux toenail which was loosened at the proximal nail fold with the [place] and able to be avulsed and totality with hemostats. Hemostasis was maintained with pressure. She tolerated the procedure well without incident. A dressing of Xeroform, dry sterile dressing and Coban was applied to the right hallux. Postprocedure care was discussed with the patient, she may remove the dressing later this evening or tomorrow and change with antibiotic ointment and Band-Aid.Like for her to follow-up in 2 weeks to evaluate her progress. She is to call meantime with any questions or concerns. 09/21/2023 Hallux rigidus, right foot (ICD-10 - M20.21) 09/21/2023 Hallux valgus (acquired), right foot (ICD-10 - M20.11) Plan Of Treatment Treatment Notes Assessment Notes Tinea unguium Patient examined evaluated. All findings discussed with patient all questions answered to patient's satisfaction.Patient presents today for initial evaluation regarding right foot pain. Her she does have moderate bunion deformity with hallux rigidus, however this is nonpainful for her and she is not interested in pursuing any intervention regarding this at this point.. Her primary complaint is the right hallux toenail which is thickened and dystrophic causes catching on shoe gear and is even become lifted off and caused her significant pain in the past. She presents today hoping to have the toenail completely removed.Clinical exam and findings discussed with patient.Discussed temporary versus permanent avulsion with the patient, after discussing risk and benefits of each she elected to move forward with temporary total nail avulsion. After informed consent was obtained, the right hallux was prepped with alcohol and digital block consisting of 5 cc of 1% lidocaine plain was administered. After anesthesia was confirmed, the right hallux was prepped with Betadine solution and attention was then directed to the hallux toenail which was loosened at the proximal nail fold with the [place] and able to be avulsed and totality with hemostats. Hemostasis was maintained with pressure. She tolerated the procedure well without incident. A dressing of Xeroform, dry sterile dressing and Coban was applied to the right hallux. Postprocedure care was discussed with the patient, she may remove the dressing later this evening or tomorrow and change with antibiotic ointment and Band-Aid.Like for her to follow-up in 2 weeks to evaluate her progress. She is to call meantime with any questions or concerns. Progress Notes * Aline ALEXANDEROB: 5 (68 yo F)Acc No.[id number]:09/21/2023 New Patient Patient: Angela ZAIDI Provider: Wilber Anderson DPM, MS :1955 A ge:68 Y S ex:Female Date:09/21/2023 Address:[address] [place] [address] [address], [id number] Pcp:Marcos Roque, DO Check In:10:12 AM ESTCheck O ut:11:13 AM EST Subjective: * Chief Complaints: * R ight foot pain not specified * HPI: G eneral: Patient to office for intial visit today for right great toenail problem. Patient states she had trauma to the right great toe in the past and the nail has never grown back the same. She feels like it is loose and would like it popped off . She recently finished a course of prednisone for redness to her right bunion that the doctor stated was not gout. She wears a bunion cushion and has not pain there anymore. Her right great toenail is not painful, but would like it removed today and suggestions on further treatment for when the nail grows back. * ROS: G eneral/Constitutional: Chills d enies. F ever d enies. W eight gain?denies. W eight loss d enies. S kin: Skin Ulcers d enies. S kin lesion(s) d enies. ? C ardiovascular: Difficulty breathing on exertion d enies. L eg cramps?denies. E anton d enies. C hest pain d enies. R espiratory: Difficulty breathing d enies. D yspnea d enies.?Cough d enies. G astrointestinal: Diarrhea d enies. N ausea d enies. V omiting?denies. M usculoskeletal: Bone/Joint Symptoms d enies. C fci Pain d enies.?Leg cramps d enies. N eurologic: Numbness d enies. T ingling d enies . G ait abnormality d enies. ? H ematology: Anemia D enies. E asy bruising d enies. ? A ll Other Systems: Review of Systems (ROS) S ee HPI for details,All others negative except those mentioned in HPI. * Active Problem List B35.1 Tinea unguium Modified On:09/21/2023W/U Status:confirmed M20.21 Hallux rigidus, righ t foot Modified On:09/21/2023/U Status:confirmed M20.11 Hallux valgus (acqui red), right foot Modified On:09/21/2023/U Status:confirmed * Medical History: * Surgical History: c olonoscopy x3 remove cyst endoscopy x2 right breast biopsy D&C x2 * Hospitalization/Major Diagno stic Procedure: * Family History: M other: blood clots, diagnosed with Cancer, Hypertension, Heart Disease, Diabetes. F ather: diagnosed with Cancer. * Social History: T obacco Use: T obacco Control (Standard) T obacco use: N onsmoker * Medications: T akingAfrin Allergy Aleve(Naproxen Sodium) 220 MG Tablet 1 tablet with food or milk as needed Orally every 12 hrs amLODIPine Besylate 2.5 MG Tablet Oral Anacin(Aspirin-Caffeine) 400-32 MG Tablet 2 tablets as needed Orally every 6 hrs Calcium 600 + D(Calcium Carb-Cholecalciferol) 600-5 MG-MCG Tablet 1 tablet with a meal Orally Once a day Cranberry 450 MG Tablet as directed Orally Estroven Menopause Supplement(Multiple Vitamins-Minerals) - Tablet as directed Orally Fluticasone Propionate 50 MCG/ACT Suspension Nasal Irbesartan-hydroCHLOROthiazide 150-12.5 MG Tablet Oral Labetalol HCl 200 MG Tablet Oral methIMAzole 5 MG Tablet Oral Omeprazole 40 MG Capsule Delayed Release Oral Potassium Chloride Nanda ER 10 MEQ Tablet Extended Release Oral Pravastatin Sodium 40 MG Tablet Oral Probiotic Systane(Polyethyl Glycol-Propyl Glycol) 0.4-0.3 % Gel as directed Ophthalmic Tylenol(Acetaminophen) 325 MG Tablet 1 tablet as needed Orally every 4 hrs Vitamin D3 10 MCG (400 UNIT) Tablet 2 tablets Orally Once a day Xyzal Medication List reviewed and reconciled with the patientTaking Afrin Allergy Taking Aleve(Naproxen Sodium) 220 MG Tablet 1 tablet with food or milk as needed Orally every 12 hrs Taking amLODIPine Besylate 2.5 MG Tablet Oral Taking Anacin(Aspirin-Caffeine) 400-32 MG Tablet 2 tablets as needed Orally every 6 hrs Taking Calcium 600 + D(Calcium Carb-Cholecalciferol) 600-5 MG-MCG Tablet 1 tablet with a meal Orally Once a day Taking Cranberry 450 MG Tablet as directed Orally Taking Estroven Menopause Supplement(Multiple Vitamins-Minerals) - Tablet as directed Orally Taking Fluticasone Propionate 50 MCG/ACT Suspension Nasal Taking Irbesartan-hydroCHLOROthiazide 150-12.5 MG Tablet Oral Taking Labetalol HCl 200 MG Tablet Oral Taking methIMAzole 5 MG Tablet Oral Taking Omeprazole 40 MG Capsule Delayed Release Oral Taking Potassium Chloride Nanda ER 10 MEQ Tablet Extended Release Oral Taking Pravastatin Sodium 40 MG Tablet Oral Taking Probiotic Taking Systane(Polyethyl Glycol-Propyl Glycol) 0.4-0.3 % Gel as directed Ophthalmic Taking Tylenol(Acetaminophen) 325 MG Tablet 1 tablet as needed Orally every 4 hrs Taking Vitamin D3 10 MCG (400 UNIT) Tablet 2 tablets Orally Once a day Taking Xyzal Medication List reviewed and reconciled with the patient * Allergies: C odeine: rash, stomach upsetFlagyl: rash, stomach upset Objective: * Vitals: W t:194lbs, Ht: 67 in, Temp:98.4F, HR:82/min, BMI:30.38Index, Pain scale:01-10, Oxygen sat %:97%, Ht-cm: 170.18 cm, Wt-k kg. * Examination: P odiatry Exam: MUSCULOSKELETAL: M uscle strength 5/5 for 4 pedal groups. Ankle subtalar range of motion supple without pain or crepitus. First MTP range of motion significant limited dorsiflexion approximately 20 degrees. Mild hallux abductovalgus deformity prominent medial eminence. Palpatory tenderness elicited to the right hallux toenail. No pain with calf or thigh compression.. NEUROLOGICAL: L ight touch gross station intact. Negative Tinel's. VASCULAR: D P PT pulse strongly palpable. CFT intact. Skin temperature warm symmetric definitely increased. No erythema edema or ecchymosis.. [facility] thickened discolored and dystrophic with subungual debris. Nail is well adhered. Remaining toenails within normal limits. No open lesions or signs of acute infection.. Assessment: * Assessment: 1. T ilanaa unguium - B35.1 (Primary) 2 . R ight foot pain - M79.671 3 . H allux rigidus, right foot - M20.21 4 . H allux valgus (acquired), right foot - M20.11 Plan: * Treatment: 2. R ight foot pain I maging: XR Foot RT (3 views) * (Order Cancelled) * Procedure Codes: 1 1730 AVULSION,NAIL PLATE, Modifiers: T5 * * Sign off status: Completed Visit Status: Collin SHELDON (Check Out) true * Provider: Wilber Anderson DPM, MS Date: 0 09/21/2023 Generated for Himanshu cifuentes/Kathi/Zoiesmitting on: 0 12/24/2024 08:21 AM EDT History and Physical Notes * Examination Category Sub-Category Detail Notes Category Not es Podiatry Exam MUSCULOSKELETAL: Muscle strength 5/5 for 4 pedal groups. Ankle subtalar range of motion supple without pain or crepitus. First MTP range of motion significant limited dorsiflexion approximately 20 degrees. Mild hallux abductovalgus deformity prominent medial eminence. Palpatory tenderness elicited to the right hallux toenail. No pain with calf or thigh compression. NEUROLOGICAL: Light touch gross st ation intact. Negative Tinel's VASCULAR: DP PT pulse strongly palpable. CFT intact. Skin temperature warm symmetric definitely increased. No erythema edema or ecchymosis. DERMATOLOGY Right hallux toenail thickened discolored and dystrophic with subungual debris. Nail is well adhered. Remaining toenails within normal limits. No open lesions or signs of acute infection.
--- OUTSIDE RECORDS SUMMARY | 2023-10-06 06:20 | XMS_ITS ---
Author Organization [facility] [place] Address [address] [place] [address] Care Team Providers Care Arboriculture Teacher Name Role Phone Marcos Roque DO Primary Care Provider Chrystal Liu Unavailable [phone] Allergies Allergen (clinical drug ingredient) Drug/Non Drug Allergy documented on EMR Reaction Allergy Type Onset Date Status metronidazole Flagyl rash, stomach upset Drug Allergy Active codeine Codeine rash, stomach upset Drug Allergy Active REASON FOR VISIT 2 week f/u Medications Medication SIG (Take, Route, Frequency, Duration) Notes Start Date End Date Status methIMAzole 5 MG Oral for 90 Days Active Labetalol HCl 200 MG Oral for 90 Days Active Fluticasone Propionate 50 MCG/ACT Nasal for 90 Days Active Estroven Menopause Supplement - as directed Orally Active Irbesartan-hydroCHLOROthiaz livan 150-12.5 MG Oral for 90 Days Active Aleve 220 MG 1 tablet with food o r milk as needed Orally every 12 hrs Active Cranberry 450 MG as directed Orally Active Calcium 600 + D 600-5 MG-MCG 1 tablet with a meal Orally Once a day Active Anacin 400-32 MG 2 tablets as needed Orally every 6 hrs Active amLODIPine Besylate 2.5 MG Oral for 90 Days Active Afrin Allergy Active Tylenol 325 MG 1 tablet as needed O rally every 4 hrs Active Systane 0.4-0.3 % as directed Ophthalmic Active Vitamin D3 10 MCG (400 UNIT) 2 tablets Orally Once a day Active Xyzal Active Potassium Chloride Nanda ER 10 MEQ Oral for 90 Days Active Omeprazole 40 MG Oral for 90 Days Active Probiotic Active Pravastatin Sodium 40 MG Oral for 90 Days Active Social History Tobacco Use: Social History Observation Description Date Details (start date - stop date) Never Smoker NA - NA Tobacco Control (Standard) Question Answer Notes Tobacco use: Nonsmoker Vital Signs Weight 194 lbs 10/06/2023 Height 67 in 10/06/2023 Temperature 96.2 degrees Fahrenheit 10/06/19 Heart Rate 100 /min 10/06/2023 Respiratory Rate 18 /min 10/06/2023 BMI 30.38 kg/m2 10/06/2023 Encounters Encounter Location Date Provider Diagnosis [facility] (PODIATRY) [address] [place] [address] [place] [address] 10/06/2023 Chrystal Willard Tinea unguium B35.1 Assessments Encounter Date Diagnosis (ICD Code) Assessment Notes Treatment Notes Treatment Clinical Notes Section Notes 10/06/2023 Tinea unguium (ICD-10 - B35.1) The patient is a pleasant 68-year-old female who presents for reevaluation after avulsion of the left hallux nail for painful nail fungus. No evidence of infection on examination today. She was advised that it may take up to a year for the nail to regrow. She should follow up with us if she develops any pain as the nail regrows. She is happy with the plan. Plan Of Treatment Treatment Notes Assessment Notes Tinea unguium The patient is a pleasant 68-year-old female who presents for reevaluation after avulsion of the left hallux nail for painful nail fungus. No evidence of infection on examination today. She was advised that it may take up to a year for the nail to regrow. She should follow up with us if she develops any pain as the nail regrows. She is happy with the plan. Next Appt Details Follow Up: prn, Reason: Progress Notes * Aline ALEXANDEROB: 5 (68 yo F)Acc No.[id number]:10/06/2023 Follow Up Patient: Angela ZAIDI Provider: Laverne Willard PA-C :1955 A ge:68 Y S ex:Female Date:10/06/2023 Address:[address] [place] [address] [address], [id number] Pcp:Marcos Roque, DO Check In:10:10 AM ESTCheck O ut:10:44 AM EST Subjective: * Chief Complaints: * 2 week f/u * HPI: G eneral: f/u right great toenail procedure. Denies pain states much better no redness or drainage noted. * ROS: G eneral/Constitutional: Chills d enies. [...] M usculoskeletal: Bone/Joint Symptoms d enies. C mcfp Pain d enies.?Leg cramps d enies. N eurologic: Numbness d enies. T ingling d enies . G ait abnormality d enies. ? H ematology: Anemia D enies. E asy bruising d enies. ? A ll Other Systems: Review of Systems (ROS) S ee HPI for details,All others negative except those mentioned in HPI. * Active Problem List B35.1 Tinea unguium Modified On:09/21/2023/U Status:confirmed M20.21 Hallux rigidus, righ t foot Modified On:09/21/2023/U Status:confirmed M20.11 Hallux valgus (acqui red), right foot Modified On:09/21/2023U Status:confirmed * Medical History: * Surgical History: c olonoscopy x3 remove cyst endoscopy x2 right breast biopsy D&C x2 * Hospitalization/Major Diagno stic Procedure: s ee above * Family History: M other: blood clots, diagnosed with Heart Disease, Cancer, Diabetes, Hypertension. F ather: diagnosed with Cancer. * Social [...] C odeine: rash, stomach upsetFlagyl: rash, stomach upsetno[Allergies Verified] Objective: * Vitals: W t:194lbs, Ht: 67 in, Temp:96.2F, HR:100/min, RR:18/min, BMI:30.38Index, Pain scale:01-10, Ht-cm: 170.18 cm, Wt-k kg. * Examination: P odiatry Examination: SKIN: s kin intact, n o sign of infection. Left hallux nail is absent. MUSCULOSKELETAL: N o pain on palpation, Range of motion of ankle and foot is within normal limits, Muscle strength is 5/5 in all planes. NEUROLOGICAL: L ight touch sensation is intact in all nerve distributions, Normal muscle tone. VASCULAR: P alpable pedal pulses, No swelling, No calf pain on squeeze. Assessment: * Assessment: 1. Niko santana - B35.1 (Primary) Plan: * Treatment: * Procedure Codes: * Follow Up: p rn * * Sign off status: Completed Visit Status: C HK (Check Out) true * Provider: Laverne Willard PA-C Date: 0 10/06/2023 Generated for Himanshu cifuentes/Kathi/Samsonitting on: 0 12/24/2024 08:21 AM EDT History and Physical Notes * HPI (History of Present Illness) Category Sub-Category Detail Notes Category Not es General f/u right great toenail procedure. Denies pain states much better no redness or drainage noted. Examination Category Sub-Category Detail Notes Category Not es Podiatry Examination SKIN: skin intact , no sign of infection. Left hallux nail is absent MUSCULOSKELETAL: No pain on palpation , Range of motion of ankle and foot is within normal limits, Muscle strength is 5/5 in all planes NEUROLOGICAL: Light touch sensatio n is intact in all nerve distributions, Normal muscle tone VASCULAR: Palpable pedal pulse s, No swelling, No calf pain on squeeze
--- OUTSIDE RECORDS SUMMARY | 2024-12-19 08:54 | XMS_ITS | Continuity of Care Document ---
Author Organization [facility] Address [address] [place] [address] Phone Care Team Providers Care Elephant Keeper Name Role Phone Marcos Roque DO Primary Care Provider Marcos Roque DO Attending Provider Edu Watts MD Attending Provider [phone] Edu Watts MD Other Provider Care Teams Patient Care Team Team Status: Active Member Role Status Dates Marcos Roque DO Primary Care Provider Active Visit Care Team Team Status: Inactive Member Role Status Dates Marcos Roque DO Primary Care Provider Active Start: September 25, 2024 End: September 25, 2024 Marcos Roque DO Attending Provider Active Sta rt: September 25, 2024 End: September 25, 2024 Visit Care Team Team Status: Inactive Member Role Status Dates Marcos Roque DO Primary Care Provider Active Start: November 20, 2024 End: November 20, 2024 Marcos Roque DO Attending Provider Active Sta rt: November 20, 2024 End: November 20, 2024 Patient Care Team Team Status: Active Member Role Status Dates Marcos Roque DO Primary Care Provider Active Start: December 19, 2024 Edu Watts MD Attending Provider Active S tart: December 19, 2024 Edu Watts MD Other Provider Active Start : December 19, 2024 Chief Complaint and Reason for Visit Chief Complaint Admit Date swelling on side of ear by cheekbone Apr il 22nd, 2025 1:37pm Wellness November 20, 2024 11:2 4am GERD, heartburn, Screening December 19 9:41am Reason for Visit Admit Date Gastroesophageal reflux dise ase with esophagitis without hemorrhage September 25, 2024 1:37pm Primary hypertension September 25, 2024 1: 37pm Parotid sialadenitis September 25, 2024 1: 37pm Chronic tension-type headache, not intra ctable November 20, 2024 11:24am Gastroesophageal reflux dise ase with esophagitis without hemorrhage November 20, 2024 11:24am Graves disease November 20, 2024 11:2 4am Hypercholesterolemia November 20, 2024 11: 24am Metabolic dysfunction-associated fatty l iver disease (MAFLD) November 20, 2024 11:24am Mild intermittent asthma without complic ation November 20, 2024 11:24am Primary hypertension November 20, 2024 11: 24am Screening for colon cancer November 20 11:24am Medicare annual wellness visit, subseque nt November 20, 2024 11:24am Screening mammogram for breast cancer [facility] 2024 11:24am Reason for Referral Referring Provider Name Referring Provider Address Referring Provider Phone Referral Date Requested Appointment Date Referral Reason November 20, 2024 Z12. 11 - Encounter for screening for malignant neoplasm of colon,K21.00 - Gastro-esophag eal reflux disease with esophagitis, without bleeding Allergies, Adverse Reactions, Alerts Allergen Type Severity Reaction Last Updated Verified Status Comments amoxicillin Allergy Unknown Unknown Reaction December 05, 2024 9:30am Yes Active codeine Allergy Unknown stomach irritation December 05, 2024 9:30am Yes Active doxycycline Allergy Unknown Unknown Reaction December 05, 2024 9:30am Yes Active furosemide Allergy Unknown Unknown Reaction December 05, 2024 9:30am Yes Active Onset Date: 06/06/2019 latex Allergy Unknown Unknown Reaction December 05, 2024 9:30am Yes Active metronidazole Allergy Unknown Unknown Reaction December 05, 2024 9:30am Yes Active 12 Hour Decongestant Allergy Unknown Unknown Reaction July 23, 2023 11:40am No Active Onset Date: 06/06/2019 Tylenol with Codeine #3 *ANALG Allergy Unknown Unknown Reaction July 23, 2023 11:40am No Active Free Text Allergy: Tylenol with Codeine #3 *ANALGESICS - OPIOID*; Onset Date: 06/06/2019 Social History Smoking Status Status Start Date End Date Date of Observa tion Never smoked tobacco (finding) December 19, 2024 10:09am Observation Status Observation Response Date of Response Legal Sex Female (finding) Sex Assigned At Female July [id number] Family History Relationship Condition Age at Onset Recorded Date/[place] father Unknown Malignant neoplasm of esophagus Unknown mother Diabetes mellitus Unknown Malignant neoplasm of breast Unknown Unknown Hypertension Unknown Macular degeneration Unknown Problems Active Problems Medical Problem Onset Date Status Medicare annual wellness visit, subsequent Unkno wn Active Gastroesophageal reflux disease with esophagitis without hemorrhage Unknown Active Strain of rotator cuff of right shoulder Unknown Active Metabolic dysfunction-associated fatty liver dis ease (MAFLD) Unknown Active Screening for colon cancer Unknown Activ e Mild intermittent asthma without complication Un known Active NAFLD (nonalcoholic fatty liver disease) Unknown Active Graves disease Unknown Active Shoulder pain Unknown Active Dysuria Unknown Active Multiple thyroid nodules Unknown Active Hypercholesterolemia Unknown Active Primary hypertension Unknown Active Seasonal allergic rhinitis due to pollen Unknown Active Chronic tension-type headache, not intractable U nknown Active Medications Medication Status Dose Units Route Directions Qty Days St art Date Stop Date End Date Instructions Adherence Fluticasone Propionate 50 mcg/actuati on spray,suspe nsion Active 0 .ROUTE .COMPLEX September 05, 2023 5:09pm USE 2 SPRAYS IN EACH NOSTRIL DAILY Complies with drug therapy Amlodipine 2.5 mg tablet Discont inued 0 .ROUTE .COMPLEX September 10, 2023 12:05p m [id number] 2:18p m TAKE 1 TABLET DAILY Labetalol 200 mg tablet Discont inued 0 .ROUTE .COMPLEX 180 November 02, 2023 1:08pm October 28, 2024 7:38a m TAKE 1 TABLET TWICE A DAY Pravastatin 40 mg tablet Discont inued 0 .ROUTE .COMPLEX November 28, 2023 8:52pm October 10, 2024 10:14 am TAKE 1 TABLET DAILY IN THE EVENING Methimazole 5 mg tablet Discont inued 0 .ROUTE .COMPLEX November 28, 2023 8:52pm 2024 1:08p m TAKE 1 TABLET DAILY Irbesartan- Hydrochloro thiazide 150-12.5 mg tablet Active 0 .ROUTE .COMPLEX 180 Oct2023 7:41pm TAKE 2 TABLETS DAILY Complies with drug therapy Potassium Chloride 10 mEq tablet,ER particles/c rystals Active 10 MEQ PO Daily 90 Novemb er 2023 2:34pm Complies with drug therapy Amlodipine 2.5 mg tablet Active 0 .ROUTE .COMPLEX 90 2024 2:17pm TAKE 1 TABLET DAILY Complies with drug therapy Ciprofloxac in Hcl (Cipro) 250 mg tablet Discont inued 250 MG PO Twice daily 10 5 September 18, 2024 12:00a m September 25, 2024 2:27p m Pravastatin 40 mg tablet Active 40 MG PO Daily 90 90 October 10, 2024 10:14a m Complies with drug therapy Labetalol 200 mg tablet Active 0 .ROUTE .COMPLEX 180 October 28, 2024 7:37am TAKE 1 TABLET TWICE A DAY Complies with drug therapy Cholecalcif berta (Vitamin D3) (Delta D3) 10 mcg (400 unit) tablet Active 10 MCG PO Twice daily December 05, 2024 12:00a m Complies with drug therapy Famotidine (Pepcid) 20 mg tablet Active 20 MG PO Daily at bedtime as needed for reflux December 05, 2024 12:00a m Complies with drug therapy Methimazole 10 mg tablet Active 5 MG PO Daily December 05, 2024 12:00a m Complies with drug therapy Potassium Chloride 10 mEq tablet,ER particles/c rystals Discont inued 10 MEQ PO Daily 2023 1:00am Novem tae 2023 2:34p m Cholecalcif berta (Vitamin D3) 10 mcg/mL (400 unit/mL) drops Discont inued 5 MCG PO Daily 2023 1:00am December 05, 2024 9:31a m Levocetiriz ine 5 mg tablet Discont inued 5 MG PO Daily 2023 1:00am Febru miriam 2023 12:47 pm Oxymetazoli ne (Afrin (Oxymetazol ine)) 0.05 % mist Active 1 SPRAY INTRAN BREANNA Every 12 hours as needed for nasal congestion 2023 1:00am Complies with drug therapy Fluticasone Propionate 50 mcg/actuati on spray,suspe nsion Discont inued 2 SPRAY INTRAN BREANNA Daily 2023 1:00am September 05, 2023 5:09p m Aspirin-Caf feine 400-32 mg tablet Active 2 TAB PO Every 6 hours as needed for headache 2023 1:00am Complies with drug therapy Methimazole 5 mg tablet Discont inued 5 MG PO Daily 2023 1:00am November 28, 2023 8:52p m Calcium Carbonate 600 mg calcium (1,500 mg) tablet Active 600 MG PO Twice daily 2023 1:00am Complies with drug therapy Acetaminoph en (Tylenol Extra Strength) 500 mg tablet Active 500 MG PO Every 6 hours 2023 1:00am Complies with drug therapy Omeprazole 40 mg capsule,del ayed release(DR/ EC) Discont inued 40 MG PO Twice daily 2023 1:00am November 29, 2023 11:41 am take on empty stomach, followed in 30 minutes by food Pravastatin 40 mg tablet Discont inued 40 MG PO Every evening 2023 1:00am November 28, 2023 8:52p m Labetalol 200 mg tablet Discont inued 200 MG PO Twice daily 2023 1:00am November 02, 2023 1:08p m Saccharomyc es Boulardii (Daily Probiotic (S. Boulardii)) 250 mg capsule Active 250 MG PO Twice daily 2023 1:00am Complies with drug therapy Cranberry 500 mg capsule Active 1000 MG PO Daily 2023 1:00am administer with meals Complies with drug therapy Irbesartan- Hydrochloro thiazide 150-12.5 mg tablet Discont inued 2 TAB PO Daily 2023 1:00am Octob er 2023 7:41p m Rhubarb Root Extract (Estroven Cmplt Menopause Rlf) 4 mg tablet Active 4 MG PO Daily 2023 1:00am Complies with drug therapy Ciprofloxac in Hcl 250 mg tablet Discont inued 250 MG PO Every 12 hours 2023 1:00am Febru miriam 2023 12:46 pm Amlodipine 2.5 mg tablet Discont inued 2.5 MG PO Daily 2023 1:00am September 10, 2023 12:05 pm Albuterol Sulfate 90 mcg/actuati on HFA aerosol inhaler Discont inued 2 PUFF INHALA TION Every 4 hours as needed for cough and SOB 2023 1:00am 2023 12:45 pm AeroChamber mini chamber Active 0 .Route .MEDSUPPLY 2023 1:00am Famotidine (Pepcid) 20 mg tablet Discont inued 20 MG PO Daily 2023 1:00am 2023 12:46 pm Levocetiriz ine (Xyzal) 5 mg tablet Active 5 MG PO Every evening 2023 1:00am Complies with drug therapy Omeprazole 40 mg capsule,del ayed release(DR/ EC) Discont inued 40 MG PO Daily November 29, 2023 11:41a m November 29, 2023 11:42 am take on empty stomach, followed in 30 minutes by food Nitrofurant oin Monohyd/M-C ryst (Macrobid) 100 mg capsule Discont inued 100 MG PO Twice daily 10 November 18, 2023 12:00a m 2024 2:22p m must administer with a meal/food Vitamins A,C,E-Zinc- Copper (Preservisi on Areds) 4,296 mcg-226 mg-90 mg capsule Active 1 CAP PO Twice daily 2024 1:00am Complies with drug therapy Methimazole 10 mg tablet Discont inued 10 MG PO Daily 2024 1:07pm December 05, 2024 9:35a m Nitrofurant oin Macrocrysta l 100 mg capsule Discont inued 100 MG PO Twice daily September 11, 2024 12:00a m November 19, 2024 4:33p m must administer with a meal/food Omeprazole 40 mg capsule,del ayed release(DR/ EC) Active 40 MG PO Daily November 29, 2023 11:41a m take on empty stomach, followed in 30 minutes by food Complies with drug therapy Prednisone 20 mg tablet Discont inued 20 MG PO As Directed September 06, 2023 12:00a m Febru miriam 2024 2:22p m 1 tab tid w/ food x 3 days, then bid w/ food x 3 days, then qd w/ food x 3 days Azithromyci n 250 mg tablet Discont inued 250 MG PO .COMPLEX 6 5 September 25, 2024 12:00a m November 19, 2024 4:33p m 2 tabs on first day followed by 1 tab on days 2-5 Immunizations Immunization Event Date Not Given Reason Dose Number Provider Contracting Consultant Lot Number Vaccine Information Statement (VIS) Detail Administration Location COVID-19 mRNA, Comirnaty ([facility]) July 30, 2020 [id number] [facility] COVID-19 mRNA, Comirnaty ([facility]) August 22, 2020 [id number] [facility] COVID-19 mRNA, Comirnaty ([facility]) March 03, 2021 COVID-19 mRNA, Comirnaty ([facility]) September 07, 2021 COVID-19 Comirnaty ([facility]) Tri-Sucrose 12September 07, 2021 COVID-19 mRNA Bivalent Booster ([facility]) March 02, 2022 COVID-19 mRNA Bivalent Booster ([facility]) October 06, 2022 Fluzone QIV High-Dose [id number]+ February 11, 2024 influenza, unspecified formulation April 06, 2016 influenza, unspecified formulation April 04, 2017 influenza, unspecified formulation March 16, 2018 influenza, unspecified formulation March 20, 2019 influenza, unspecified formulation March 19, 2020 influenza, unspecified formulation March 11, 2021 influenza, unspecified formulation March 02, 2022 Tetanus, Diphtheria adult, 5 Lf pres free abs March 07, 2013 Tetanus, Diphtheria adult, 5 Lf pres free abs February 21, 2014 Tetanus, Diphtheria adult, 5 Lf pres free abs April 03, 2015 Vital Signs Vital Reading Result Reference Range Collection Date/Time Height 68 [in_i] September 25 1:49pm Weight 84.53 kg September 25 1:49pm Heart Rate 92 /min 60-100 September 25 1:49pm Respiratory rate 12 /min 12-24 September 25, 2024 1:49pm BP Systolic 136 mm[Hg] 100-140 September 25 1:49pm BP Diastolic 78 mm[Hg] 60-100 September 25 1:49pm BMI (Body Mass Index) 28.3 kg/m2 September 25, 2024 1:49pm Height 68 [in_i] November 20, 2024 11:35am Weight 86.69 kg November 20, 2024 11:35am Heart Rate 76 /min 60-100 November 20, 2024 11:35am Respiratory rate 12 /min 12-24 November 20, 2024 11:35am BP Systolic 162 mm[Hg] 100-140 November 20, 2024 11:35am BP Diastolic 84 mm[Hg] 60-100 November 20, 2024 11:35am BMI (Body Mass Index) 29.0 kg/m2 November 042024 11:35am Height 66.5 [in_i] December 19, 2024 10:05am Weight 87.09 kg December 19, 2024 10:05am Heart Rate 74 /min 60-100 December 19, 2024 11:58am Respiratory rate 18 /min -December 19, 2024 11:58am Oxygen saturation by Pulse oximetry 97 % 95-100 December 19, 2024 11:5 8am BP Systolic 147 mm[Hg] 100-140 December 19, 2024 11:58am BP Diastolic 74 mm[Hg] 60-100 December 19, 2024 11:58am Advance Directives Advance Directive Response Recorded Date/ Time Advance Directives No July 7:14pm Insurance Providers Guarantor Angela Baxter Address [address] [place] [phone] Contact Info. Home Phone: Payer Policy Id Subscriber's Name Subscriber Id Effectiv e Date Expiration Date Medicare [id number] Encounters Encounter Location(s) Arrival/Admit Date Discharge/Depart Date Provider(s) Departed Physician/Prov ider Office Visit -[facility] September 25, 2024 1:37pm September 25, 2024 2:23pm Marcos Roque DO Departed Physician/Prov ider Office Visit -[facility] November 20, 2024 11:24am November 20, 2024 12:09pm Marcos Roque DO Non-patient / Non-visit -[facility] December 19, 2024 9:41am Edu Watts MD Recent Diagnosis Onset Date Admit Date Gastroesophageal reflux dise ase with esophagitis without hemorrhage Unknown September 25, 2024 1:37pm Primary hypertension Unknown September 25, 2024 1:37pm Parotid sialadenitis Unknown September 25, 2024 1:37pm Chronic tension-type headache, not intractable U nknown November 20, 2024 11:24am Gastroesophageal reflux dise ase with esophagitis without hemorrhage Unknown November 20, 2024 11:24am Graves disease Unknown November 20, 2024 11:24am Hypercholesterolemia Unknown November 20, 2024 11:24am Metabolic dysfunction-associ ated fatty liver disease (MAFLD) Unknown November 20, 2024 11:24am Mild intermittent asthma without complication Un known November 20, 2024 11:24am Primary hypertension Unknown November 20, 2024 11:24am Screening for colon cancer Unknown November 20, 2024 11:24am Medicare annual wellness visit, subsequent Unkno wn November 20, 2024 11:24am Screening mammogram for breast cancer Unknown November 20, 2024 11:24am Assessments Diagnosis Onset Date Resolution Status Admit Date Gastroesophageal reflux dise ase with esophagitis without hemorrhage acute September 25, 2024 1:37pm Primary hypertension acute Apri l 2024 1:37pm Parotid sialadenitis noneactive Apri l 2024 1:37pm Chronic tension-type headach e, not intractable acute November 20, 2024 11:24am Gastroesophageal reflux dise ase with esophagitis without hemorrhage acute November 20, 2024 11:24am Graves disease acute November 20, 2024 11:24am Hypercholesterolemia acute November 20, 2024 11:24am Metabolic dysfunction-associ ated fatty liver disease (MAFLD) acute November 20, 2024 11:24am Mild intermittent asthma wit hout complication acute November 20, 2024 11:24am Primary hypertension acute November 20, 2024 11:24am Screening for colon cancer acute November 20, 2024 11:24am Medicare annual wellness vis it, subsequent noneactive November 20, 2024 11:24am Screening mammogram for [facility] cancer noneactive November 20, 2024 11:24am Plan of Treatment Author Marcos Roque [facility] Authored November 20, 2024 1:41 pm I have instructed this patie nt to consume a healthy, low-fat, low-salt diet. I have also encouraged them to continue exercise with weight loss to achieve/maintain a BMI < 30. I have instructed this patient on the correct procedure for obtaining home BP measurements: - rest for 5 minutes w/o talking. - positioned w/ feet on floor and arms supported. - average best 2/3 readings w/ goal < 135/85. - update office w/ home readings in 2 weeks. Continue Amlodipine and Labetolol without interruption No ER visits for acute exacerbations. Has noticed some increased phlegm and wheezing, suggested restarting DONOVAN GERD precautions and review of treatment of AR, both triggers for asthma. Instructed on low fat, high protein diet. Instructed on benefits of weight loss and reduction of fatty infiltration of the liver, goal is 10% reduction in weight. Discussed medical therapy: GLP-1, Actos Continue medical treatment w/ Methimazole 5mg qd. Monitor TSH and CBC Previous TSI was elevated, which correlates w/ decreased chance of becoming euthyroid in future - planning to recheck TSH, FT4 and TSI at wellness Continue Methimazole without interruption I have instructed this patient on a low fat, high fiber diet and exercise. I have discussed the primary and secondary prevention benefits attributed to lowering LDL cholesterol. I have also discussed the medical treatment of elevated cholesterol, which is based on the 10 year ASCVD risk. Continue Pravastatin without interruption I have instructed this patient to avoid lying flat after eating. I have also recommended to avoid eating 2 hours prior to bedtime. They were also informed that smaller, frequent meals may be better tolerated. I have discussed additional treatment options for persistent symptoms, which includes: weight loss, H2 blockers and PPI. I have also instructed them to notify the office with any pain or difficulty swallowing. She developed breakthrough heartburn when attempting to decrease to once daily PPI use. I suggest an EGD for persistent heartburn despite adequate treatment Control stress/anxiety and AR, both triggers for headaches. Avoid use of NSAIDs due to overuse headaches and CKD. Controlled w/ Tylenol I have instructed this patient on the recommended lifestyle changes, which includes a low fat, high fiber diet along with a regular exercise routine. I have also reviewed the recommended age-appropriate preventive testing for this patient. I have also reviewed the recommended vaccines for their age and risk factors. I have instructed this patient on monthly SBE and recommended yearly mammograms. This is an asymptomatic, low risk patient, who is due for a screening colonoscopy. There has been no change in appetite, weight or bowel habits. There is no history of abdominal pain, melena or hematochezia. Her last colonoscopy was in 2014. Author Marcos Roque [facility] Authored September 25, 2024 2:2 6pm I have instructed this patie nt to consume a healthy, low-fat, low-salt diet. I have also encouraged them to continue exercise with weight loss to achieve/maintain a BMI < 30. I have instructed this patient on the correct procedure for obtaining home BP measurements: - rest for 5 minutes w/o talking. - positioned w/ feet on floor and arms supported. - average best 2/3 readings w/ goal < 135/85. - update office w/ home readings in 2 weeks. Continue Amlodipine and Labetolol without interruption I have instructed this patient to avoid lying flat after eating. I have also recommended to avoid eating 2 hours prior to bedtime. They were also informed that smaller, frequent meals may be better tolerated. I have discussed additional treatment options for persistent symptoms, which includes: weight loss, H2 blockers and PPI. I have also instructed them to notify the office with any pain or difficulty swallowing. Decrease PPI to qd and use Pepcid as needed in evening EGD if symptoms persist and prevent weaning Instructed on sour candy to stimulate saliva flow Instructed to use warm compresses Rx for Zpak sent to pharmacy, may require 10 day course of therapy, update on Tuesday Future Tests Future scheduled test information is unavailable Pending Tests Test Name Ordered Date Scheduled Date Comprehensive Metabolic Panel November 20, 2024 11 :54am MM screening mammo BI w/CAD November 20, 2024 11:5 2am Future Visits Future appointment information is unavailable Referrals to Other Providers Reason for Referral Referral Start Date Provider Provider Contact Information Provider Address Z12.11 - Encounter for screening for malignant neoplasm of colon,K21.00 - Gastro-esophageal reflux disease with esophagitis, without bleeding November 20, 2024 Edu Watts MD Work Phone: [address], [phone] [facility] [address] Future Procedures Procedure Name Ordered Date Scheduled Date Discharge Order December 19, 2024 11:26am December 11:26am Complete Blood Count Auto Diff November 20, 2024 1 1:54am Lipid Panel November 20, 2024 11:54am Triiodothyronine (T3) Total November 20, 2024 11:5 4am Free T4 (Free Thyroxine) November 20, 2024 11:54am Thyroid Stimulating Hormone November 20, 2024 11:5 4am Future Medications Future medication information is unavailable Patient Instructions Instruction Admit Date [facility] Hemorrhoids Discha rge Instructions Know your Meds [facility] Colon Polypectomy Discharge Instructions December 19, 2024 9:41am Hospital Discharge Instructions Additional Instructions DISCHARGE INSTRUCTIONS FOR UPPER ENDOSCOPY WHAT TO EXPECT: - You may feel full, gassy or cramping after your procedure. In some cases, this may be from a few hours to a day. Walking may help relieve the discomfort. - Your throat may feel sore today from the scope that the doctor passed through your throat to visualize your stomach. Take a throat lozenge or suck on ice to ease the discomfort. - You may notice some streaks of blood in your sputum if the doctor has taken a biopsy. - You should begin to recover from anesthesia within 1 hour of the procedure, however may feel groggy for the next 24 hours. DO's AND DON'Ts: - Call your doctor right away if you have a hard abdomen, severe pain, vomiting or if you cough up large amounts of blood. - Call your doctor if you develop any rashes, hives or difficulty breathing. - If you take 81 mg aspirin for your heart it is safe to resume this medication. - If you take other blood thinner medications your doctor will instruct you when these can safely be resumed. - Do NOT drive for 24 hours. - Do NOT operate machinery such as power tools, lawn mowers, snow blowers, sewing machines, etc. for 24 hours. - Avoid alcoholic beverages and drugs for allergies, nerves, or sleep. - Do NOT stay alone. Do NOT leave your child unattended. - Do NOT make important personal or business decisions or sign any legal documents. - Eat solid foods and drink liquids in smaller amounts than usual until normal appetite returns. If you should experience an upset stomach, liquids high in sugar content (soda, Austyn-Aid, non-acid juices) are recommended. - Do NOT smoke. - Do take it easy today. You need not stay in bed, but avoid strenuous activities such as jogging or working out. DISCHARGE INSTRUCTIONS FOR COLONOSCOPY WHAT TO EXPECT: - You may feel full, gassy or cramping after your procedure. In some cases, this may be from a few hours to a day. Walking may help relieve the discomfort. - If you have polyp(s) removed you may note some minor bloody discharge after your first bowel movements. - You should begin to recover from anesthesia within 1 hour of the procedure, however may feel groggy for the next 24 hours. DO's AND DON'Ts: - Call your doctor right away if you have a hard abdomen, sever pain, are passing lots of bright red blood or clots. - Call your doctor if you develop any rashes, hives or difficulty breathing. - Let your doctor know if you have not had a bowel movement by 3 days after your procedure. - If you take 81 mg aspirin for your heart it is safe to resume this medication. - If you take other blood thinner medications your doctor will instruct you when these can safely be resumed. - Do NOT drive for 24 hours. - Do NOT operate machinery such as power tools, shopandsaven mowers, [employer] blowers, sewing machines, etc. for 24 hours. - Avoid alcoholic beverages and drugs for allergies, nerves, or sleep. - Do NOT stay alone. Do NOT leave your child unattended. - Do NOT make important personal or business decisions or sign any legal documents. - Eat solid foods and drink liquids in smaller amounts than usual until normal appetite returns. If you should experience an upset stomach, liquids high in sugar content (soda, Austyn-Aid, non-acid juices) are recommended. - You can resume normal activities tomorrow. FOLLOW UP & RECOMMENDATIONS: - You should have a repeat colonoscopy in 5 years. - Notify the doctor if you have any problems. - Follow-up with the GI office as needed. - Follow up with PCP. - Office number [phone].
--- OUTSIDE RECORDS SUMMARY | 2024-12-24 08:21 | XMS_ITS | Encounter Summary ---
Author Organization [facility] Address [address] [place] [address] Phone Care Team Providers Care Security Ambassador Name Role Phone Unavailable Primary Care Provider Unavailabl e Encounter Details Date Type Department Care Team (Late st Contact Info) Description 06/08/2023 Patient Risk Score ACO Care Management [address] [place] [address] Social History Tobacco Use Types Packs/Day Years Used Date Smoking Tobacco: Never Assessed Comments Unknown Sex and Gender Information Value Date Recorded Sex Assigned at Not on file Legal Sex Female 5:47 PM EDT Gender Identity Not on file Sexual Orientation Not on file documented as of this encounter Plan of Treatment Not on file documented as of this encounter Visit Diagnoses Not on filedocumented in this encounter
--- OUTSIDE RECORDS SUMMARY | 2024-12-24 08:21 | XMS_ITS | Encounter Summary ---
Author Organization [facility] Address [address] [place] [address] Phone Care Team Providers Care Assembly Inspector Name Role Phone Marcos Roque DO Unavailable Encounter Details Date Type Department Care Team (Late st Contact Info) Description 01/06/2023 Patient Risk Score ACO Care Management [address] [place] [phone] Social History Tobacco Use Types Packs/Day Years [...] Diagnoses Not on filedocumented in this encounter Care Teams Assembly Inspector Relationship Specialty Start Date End Date Marcos Roque DO [address] [place] [address] PCP - MMO Medicare Advantage PCP 10/04/22 05/05/23 documented as of this encounter
--- OUTSIDE RECORDS SUMMARY | 2024-12-24 08:21 | XMS_ITS | Encounter Summary ---
Author Organization [facility] Address [address] [place] [address] Phone Care Team Providers Care Orthotics Prosthetics Technician Name Role Phone Marcos Roque DO Unavailable Encounter Details Date Type Department Care Team (Late st Contact Info) Description 04/08/2023 Patient Risk Score ACO Care Management [address] [place] [phone] Social History Tobacco Use Types Packs/Day Years [...] on filedocumented in this encounter Care Teams Orthotics Prosthetics Technician Relationship Specialty Start Date End Date Marcos Roque DO [address] [place] [address] PCP - MMO Medicare Advantage PCP 10/04/22 05/05/23 documented as of this encounter
--- OUTSIDE RECORDS SUMMARY | 2024-12-24 08:21 | XMS_ITS | Encounter Summary ---
Author Organization [facility] Address [address] [place] [address] Phone Care Team Providers Care Day Spa Manager Name Role Phone Unavailable Primary Care Provider Unavailabl e Encounter Details Date Type Department Care Team (Late st Contact Info) Description 05/08/2023 Patient Risk Score ACO Care Management [address] [place] [address] Social History Tobacco Use Types [...]
--- OUTSIDE RECORDS SUMMARY | 2024-12-24 08:21 | XMS_ITS | Encounter Summary ---
Author Organization [facility] Address [address] [place] [address] Phone Care Team Providers Care Senior Energy Trader Name Role Phone Marcos Roque DO Unavailable Encounter Details Date Type Department Care Team (Late st Contact Info) Description 02/06/2023 Patient Risk Score ACO Care Management [address] [place] [phone] Social History Tobacco Use Types Packs/Day Years [...] on filedocumented in this encounter Care Teams Senior Energy Trader Relationship Specialty Start Date End Date Marcos Roque DO [address] [place] [address] PCP - MMO Medicare Advantage PCP 10/04/22 05/05/23 documented as of this encounter
--- OUTSIDE RECORDS SUMMARY | 2024-12-24 08:21 | XMS_ITS | Clinical Summary ---
Author Organization [facility] Address [address] [place] [address] Phone Care Team Providers Care Clinical Program Manager Name Role Phone Unavailable Primary Care Provider Unavailabl e Social History Tobacco Use Types Packs/Day Years Used Date Smoking Tobacco: Never Assessed Comments Unknown Sex and Gender Information Value Date Recorded Sex Assigned at Not on file Legal Sex Female 5:47 PM EDT Gender Identity Not on file Sexual Orientation Not on file Plan of Treatment Health Maintenance Due Date Last Done Comments CT Colonography 1955 Colonoscopy 1955 Colorectal Cancer Screening 1955 FIT-DNA (Cologuard) 1955 FIT 1955 Lipid Panel 1955 Sigmoidoscopy 1955 Hepatitis C Screening 1972 DTaP/Tdap/Td Vaccines (1 - Tdap) 1976 Mammogram 1994 Pneumococcal Vaccine (1 of 1 - PCV) 2004 Zoster Vaccines (1 of 2) 2004 COVID-19 Vaccine (1 - season) 2024 Yearly Adult Physical 02/11/2024 02/09/2023 , 11/24/2022, 02/04/2022, Additional history exists Influenza Vaccine (#1) 2025 RSV High Risk: (Elderly (60+) or Population) (1 - 1-dose 75+ series) 2029 Bone Density Scan Completed 02/14/2023, 02/10/2021 HIB Vaccines Aged Out No longer eligi ble based on patient's age to complete this topic HPV Vaccines Aged Out No longer eligi ble based on patient's age to complete this topic Hepatitis A Vaccines Aged Out No long er eligible based on patient's age to complete this topic Hepatitis B Vaccines Aged Out No long er eligible based on patient's age to complete this topic IPV Vaccines Aged Out No longer eligi ble based on patient's age to complete this topic Meningococcal Vaccine Aged Out No martín seema eligible based on patient's age to complete this topic Rotavirus Vaccines Aged Out No longer eligible based on patient's age to complete this topic
--- OUTSIDE RECORDS SUMMARY | 2024-12-24 08:21 | XMS_ITS | Patient Health Record ---
Author Organization [facility] Address [address] [place] [address] Care Team Providers Care Senior Engineering Tech Name Role Phone Marcos Roque DO Primary Care Provider Unavaila ble Allergies Allergen (clinical drug ingredient) Drug/Non Drug Allergy documented on EMR Reaction Allergy Type Onset Date Status metronidazole Flagyl rash, stomach upset Drug Allergy Active codeine Codeine rash, stomach upset Drug Allergy Active Results Component Value Reference Range Notes PROF CHEM 8 (BAS METB) Reviewed date:09/16/2024 06:15:41 PM Interpretation: Performing Lab: Notes/Report: [facility] , Sodium 146 136-145 mmol/L Potassium 3.2 3.5-5.1 mmol/L Chloride 112 98-107 mmol/L Carbon Dioxide 23.9 21.0-32.0 mmol/L Anion Gap 13.3 Glucose 103 74-106 mg/dL Blood Urea Nitrogen 57.0 7.0-18.0 mg/dL Creatinine 1.44 0.55-1.02 mg/dL Estimated GFR ( Jaye 44 >=60 mL/min/1.73m 2 Estimated GFR (Non- Yuko 36 >=60 mL/min/1.73m 2 BUN Creatinine Ratio 39.6 Calcium 8.3 8.5-10.1 mg/dL Performing Lab: see note ML - [facility] LB PROF CHEM 8 (BAS METB) Reviewed date:09/16/2024 03:23:36 PM Interpretation: Performing Lab: Notes/Report: [facility] , Sodium 144 136-145 mmol/L Potassium 3.0 3.5-5.1 mmol/L Chloride 109 98-107 mmol/L Carbon Dioxide 26.5 21.0-32.0 mmol/L Anion Gap 11.5 Glucose 99 74-106 mg/dL Blood Urea Nitrogen 65.0 7.0-18.0 mg/dL Creatinine 1.47 0.55-1.02 mg/dL Estimated GFR ( Jaye 43 >=60 mL/min/1.73m 2 Estimated GFR (Non- Yuko 35 >=60 mL/min/1.73m 2 BUN Creatinine Ratio 44.2 Calcium 8.0 8.5-10.1 mg/dL Performing Lab: see note ML - The [facility] Reason For Referral No Information Medications Medication SIG (Take, Route, Frequency, Duration) Notes Start Date End Date Status Irbesartan-hydroCHLOROthiaz livan 150-12.5 MG Oral for 90 Days Active Xyzal Active Aleve 220 MG 1 tablet with food o r milk as needed Orally every 12 hrs Active Potassium Chloride Nanda ER 10 MEQ Oral for 90 Days Active Afrin Allergy Active Omeprazole 40 MG Oral for 90 Days Active methIMAzole 5 MG Oral for 90 Days Active Labetalol HCl 200 MG Oral for 90 Days Active Cranberry 450 MG as directed Orally Active Tylenol 325 MG 1 tablet as needed O rally every 4 hrs Active Calcium 600 + D 600-5 MG-MCG 1 tablet with a meal Orally Once a day Active Systane 0.4-0.3 % as directed Ophthalmic Active Anacin 400-32 MG 2 tablets as needed Orally every 6 hrs Active Probiotic Active amLODIPine Besylate 2.5 MG Oral for 90 Days Active Pravastatin Sodium 40 MG Oral for 90 Days Active Fluticasone Propionate 50 MCG/ACT Nasal for 90 Days Active Estroven Menopause Supplement - as directed Orally Active Vitamin D3 10 MCG (400 UNIT) 2 tablets Orally Once a day Active Social History Tobacco Use: Social History Observation Description Date Details (start date - stop date) Never Smoker NA - NA Tobacco Control (Standard) Question Answer Notes Tobacco use: Nonsmoker Problems Problem Type SNOMED Code ICD Code Onset Dates Problem Status W/U Status Risk Notes Problem 511381385 Tinea unguium (B35.1) Active confirmed Problem 244502437 Hallux valgus (acquired), right foot (M20.11) Active confirmed Problem 177186813 Hallux rigidus, right foot (M20.21) Active confirmed Plan Of Treatment No Information Insurance Providers Payer Name Payer Address Payer Phone Subscriber Number Group Number Insured Name Patient Relationship to Insured Coverage Start Date Coverage End Date MMO [address] [place], [place] [id number] [phone] [id number] Angela Baxter Self - patient is the insured Medical (General) History Medical History History ICD Code hypertension high cholesterol thyroid issues grave's disease Surgical History Surgery Date(Month/Year) colonoscopy x3 remove cyst endoscopy x2 right breast biopsy D&C x2 Hospitalization History Reason Date(Month/Year) see above
--- OUTSIDE RECORDS SUMMARY | 2024-12-24 08:21 | XMS_ITS | Encounter Summary ---
Author Organization [facility] Address [address] [place] [address] Phone Care Team Providers Care Hotel Or Motel Cleaning Supervisor Name Role Phone Marcos Roque DO Unavailable Encounter Details Date Type Department Care Team (Late st Contact Info) Description 03/08/2023 Patient Risk Score ACO Care Management [address] [place] [phone] Social History Tobacco Use Types Packs/Day Years [...] on filedocumented in this encounter Care Teams Hotel Or Motel Cleaning Supervisor Relationship Specialty Start Date End Date Marcos Roque DO [address] [place] [address] PCP - MMO Medicare Advantage PCP 10/04/22 05/05/23 documented as of this encounter
[2024-12-24 08:40] LABS: Hematocrit 37.7 % (36.0-48.0); Hemoglobin 12.4 g/dL (12.0-16.0); Immature Granulocytes Abs Auto 0.02 10^3/uL (0.00-0.03); Immature Granulocytes Pct Auto 0.2 % (0.0-0.5); Lymphocytes Absolute Auto 3.6 10^3/uL (1.2-3.8); Mean Corpuscular HGB Conc 32.9 g/dL (29.9-35.2); Mean Corpuscular Hemoglobin 29.2 pg (26.7-34.0); Mean Corpuscular Volume 88.7 fL (81.0-99.0); Platelet Count 315 10^3/uL (150-450); Red Blood Count 4.25 10^6/uL (4.20-5.40); White Blood Count 9.2 10^3/uL (4.0-11.0)
--- NOTE | 2024-12-24 09:44 | MM_ITS ---
Patient Name: KRISTYN ALEXANDER MR#: [id number] : 1955 Exam Date: 12/24/2024 Ordering Doctor: DR KWABENA YOU D.O. RADIOLOGY REPORT PROCEDURE: MM TOMOSYNTHESIS SCREENING BI COMPARISON: MM TOMOSYNTHESIS SCREENING BI, 12/23/2023. MM TOMOSYNTHESIS SCREENING BI, 12/21/2022. MG MAMM SCREEN 3D SAÚL CAD, 12/09/2021. MG MAMM SAÚL SCRN W CAD DIG, 08/08/2013. INDICATIONS: Screening Calculator Name NCI Breast Cancer Risk Assessment Tool 5 Year Breast Cancer Risk 4.00% Lifetime Breast Cancer Risk 11.40% Personal Breast Cancer No Personal Ovarian Cancer No Treatments None Family Cancers Mother with breast cancer at age 71. LOCATION: [facility] BREAST COMPOSITION: There are scattered areas of fibroglandular density. FINDINGS: DIAGNOSTIC CATEGORY 1--NEGATIVE. RIGHT BREAST: No significant suspicious finding. LEFT BREAST: No significant suspicious finding. RECOMMENDATIONS: ROUTINE MAMMOGRAM AND CLINICAL EVALUATION IN 12 MONTHS. PLEASE NOTE: A NORMAL MAMMOGRAM DOES NOT EXCLUDE THE POSSIBILITY OF BREAST CANCER. A CLINICALLY SUSPICIOUS PALPABLE LUMP SHOULD BE BIOPSIED. Dictated by: Domenico Gonzalez MD on 12/24/2024 at 13:22 Approved by: Domenico Gonzalez MD on 12/24/2024 at 13:34
[2024-12-24 10:19] LABS: Alanine Aminotransferase 23 U/L (14-59); Albumin Globulin Ratio 0.9; Albumin Level 3.4 g/dL (3.4-5.0); Alkaline Phosphatase 70 U/L (46-116); Anion Gap 13.0; Aspartate Amino Transferase 15 U/L (15-37); Blood Urea Nitrogen 24.0 mg/dL (7.0-18.0); Calcium 9.1 mg/dL (8.5-10.1); Carbon Dioxide 29.9 mmol/L (21.0-32.0); Chloride 106 mmol/L (98-107); Cholesterol 155 mg/dL (<=200); Estimated GFR (African America >60 (>=60 mL/min/1.73m^2); Estimated GFR (Non-African Ame 50 (>=60 mL/min/1.73m^2); Globulin 3.7 g/dL; Glucose 109 mg/dL (74-106); HDL Cholesterol 39 mg/dL (40-60); Sodium 146 mmol/L (136-145); Thyroid Stimulating Hormone 0.625 uIU/mL (0.358-3.740); Total Protein 7.1 g/dL (6.4-8.2); Triglycerides 151 mg/dL (<=150); VLDL CHOLESTEROL 30.2 mg/dL
[2024-12-24 10:22] LABS: Potassium 2.9 mmol/L (3.5-5.1)
== END 2024-12-24 08:20 | disposition home or self-care (01) ==
LOC: MAMMO 08:20
PROVIDERS: PCP Internal Medicine; Visit Provider Internal Medicine
DX: Z12.31 Encounter for screening mammogram for malignant neoplasm of breast (principal); K76.0 Fatty (change of) liver, not elsewhere classified; I10 Essential (primary) hypertension; E78.00 Pure hypercholesterolemia, unspecified; E05.00 Thyrotoxicosis with diffuse goiter without thyrotoxic crisis or storm; Z80.3 Family history of malignant neoplasm of breast
CPT/HCPCS: 36415; 77063; 77067; 80053; 80061; 84439; 84443; 84480; 85025

== ENCOUNTER 2024-12-31 10:16 | Outpatient (OUT) | payer MEDICARE, SELFPAY ==
[2024-12-31 10:56] LABS: Anion Gap 13.9; Blood Urea Nitrogen 29.0 mg/dL (7.0-18.0); Calcium 9.2 mg/dL (8.5-10.1); Carbon Dioxide 27.4 mmol/L (21.0-32.0); Chloride 106 mmol/L (98-107); Estimated GFR (African America 59 (>=60 mL/min/1.73m^2); Estimated GFR (Non-African Ame 49 (>=60 mL/min/1.73m^2); Glucose 110 mg/dL (74-106); Potassium 3.3 mmol/L (3.5-5.1); Sodium 144 mmol/L (136-145)
== END 2024-12-31 10:17 | disposition home or self-care (01) ==
PROVIDERS: PCP Internal Medicine; Visit Provider Internal Medicine
DX: E87.6 Hypokalemia (principal)
CPT/HCPCS: 36415; 80048

== ENCOUNTER 2025-02-19 12:09 | Outpatient (REF) | payer MEDICARE, SELFPAY ==
--- OUTSIDE RECORDS SUMMARY | 2025-02-19 09:00 | XMS_ITS | Encounter Summary ---
Author Organization [facility] Address [address] [place] [address] Care Team Providers Care Director Of Special Events Name Role Phone Marcos Roque Primary Care Provider [phone] Reason for Visit * Reason Comments Well Women Visit Encounter Details Date Type Department Care Team (Late st Contact Info) Description 02/19/2025 9:00 AM EDT Office Visit [facility] [place] [facility] [address] [place] [address] Román Mccall DO [address] [place] [address] Well woman exam with routine gynecological exam; [...] nursing note reviewed. Exam conducted with a emerging solutions executive present. Vitals: Estimated body mass index is [...] them. Patient can also view results via Facile System. I reinforced importance of condom use for [...] 06/24/2025 9:45 AM EST Office Visit [facility] [address] [place] [address] Joslyn Mcneil MD [address] [place] [address] 02/24/2026 8:50 AM EDT Procedure Visit [facility] [place] [facility] [address] [facility] [address] Román Mccall DO [address] [place] [address] Scheduled Orders Name Type Priority Associated Diagnoses [...] BI PROCEDURES Final Result Performing Organization Address City/State/[facility] Co de Phone Number [address] [place] [address], documented in this encounter Visit Diagnoses Diagnosis Well woman exam with routine gynecological exam Routine gynecological examination Breast cancer screening by mammogram Postmenopausal state Asymptomatic postmenopausal status (age-related) (natural) documented in this encounter Care Teams Director Of Special Events Relationship Specialty Start Date End Date Marcos Roque DO PCP - General Internal Medicine 02/09/23 documented as of this encounter
--- OUTSIDE RECORDS SUMMARY | 2025-02-19 12:13 | XMS_ITS | Encounter Summary ---
Author Organization [facility] Address [address] [place] [address] Phone Care Team Providers Care County Bailiff Name Role Phone Marcos Roque DO Unavailable Encounter Details Date Type Department Care Team (Late st Contact Info) Description 02/06/2023 Patient Risk Score ACO Care Management [address] [place] [address] Social History Tobacco Use Types Packs/Day Years [...] on filedocumented in this encounter Care Teams County Bailiff Relationship Specialty Start Date End Date Marcos Roque DO [facility] [place] [address] PCP - MMO Medicare Advantage PCP 10/04/22 05/05/23 documented as of this encounter
--- OUTSIDE RECORDS SUMMARY | 2025-02-19 12:13 | XMS_ITS | Encounter Summary ---
Author Organization [facility] Address [address] [place] [address] Phone Care Team Providers Care Maintenance Worker House Trailer Name Role Phone Unavailable Primary Care Provider Unavailabl e Encounter Details Date Type Department Care Team (Late st Contact Info) Description 05/08/2023 Patient Risk Score ACO Care Management [address] [place] [address] Social History Tobacco Use Types [...]
--- OUTSIDE RECORDS SUMMARY | 2025-02-19 12:13 | XMS_ITS | Encounter Summary ---
Author Organization [facility] Address [address] [place] [address] Care Team Providers Care V Belt Coverer Name Role Phone Marcos Roque DO Primary Care Provider [phone] Encounter Details Date Type Department Care Team (Late Contact Info) Description 02/19/2025 Bamboo flowsheet [facility] [address] [place] [address] Román Mccall DO [address] [facility] [address] [place], [facility]11 Social History Tobacco Use Types Packs/Day Years Used Date Smoking Tobacco: Never Smokeless Tobacco: Never Comments No Sex and Gender Information Value Date Recorded Sex Assigned at Female 02/13/2024 10:03 PM EDT Legal Sex Female 7:01 PM EDT Gender Identity Female 02/13/2024 10:03 PM EDT Sexual Orientation Don't know 02/13/2024 10 :03 PM EDT documented as of this encounter Plan of Treatment Upcoming Encounters Date Type Department Care Team (Late Contact Info) Description 06/24/2025 9:45 AM EST Office Visit [facility] [address] [place] [address] Joslyn Mcneil MD [address] [place] [address] 02/24/2026 8:50 AM EDT Procedure Visit [facility] [place] [facility] [address] [place] [address] Román Mccall DO [address] [place] [address] [place] [address] documented as of this encounter Visit Diagnoses Not on filedocumented in this encounter Care Teams V Belt Coverer Relationship Specialty Start Date End Date Marcos Roque DO PCP - General Internal Medicine 02/09/23 documented as of this encounter
--- OUTSIDE RECORDS SUMMARY | 2025-02-19 12:13 | XMS_ITS | Encounter Summary ---
Author Organization [facility] Address [address] [place] [address] Care Team Providers Care General Passenger Agent Name Role Phone Marcos Roque DO Primary Care Provider [phone] Encounter Details Date Type Department Care Team (Late Contact Info) Description 02/23/2024 Orders Only [facility] [address] [facility] [place] [address] Vero Lemons MA [address] [place] [address] Social History Tobacco Use Types Packs/Day Years Used Date Smoking Tobacco: Never Assessed Comments No Sex and Gender Information Value [...] 06/24/2025 9:45 AM EST Office Visit [facility] [address] [place] [address] Joslyn Mcneil MD [address] [place] [address] 02/24/2026 8:50 AM EDT Procedure Visit [facility] [place] [facility] [address] [place] [address] Román Mccall DO [address] [place] [address] documented as of this encounter Procedures Procedure Name Priority Date/Time Associated Diagnosis Comments PAP SMEAR Routine 02/15/2024 12:00 AM EDT documented in this encounter Results * Pap Smear (02/15/2024 12:00 AM EDT) Swab Cervical swab / Unknown us [facility] ORDERABLES Final Re sult EXTERNAL LAB documented in this encounter Visit Diagnoses Not on filedocumented in this encounter Care Teams General Passenger Agent Relationship Specialty Start Date End Date Marcos Roque DO PCP - General Internal Medicine 02/09/23 documented as of this encounter
--- OUTSIDE RECORDS SUMMARY | 2025-02-19 12:13 | XMS_ITS | Encounter Summary ---
Author Organization [facility] Address [address] [place] [address] Care Team Providers Care International Editorial Producer Name Role Phone Marcos Roque DO Primary Care Provider [phone] Encounter Details Date Type Department Care Team (Late st Contact Info) Description 02/14/2023 Clinisync Result Encounter [facility] External Department Unsolicited Consuelo Mccall, DO [address] [place], [facility]11 Social History Tobacco Use Types Packs/Day Years [...] 06/24/2025 9:45 AM EST Office Visit [facility] [address] [place] [address] Joslyn Mcneil MD [address] [place] [address] 02/24/2026 8:50 AM EDT Procedure Visit [facility] [place] [facility] [address] [place] [address] Consuelo Mccall, DO [address] [place] [address] [phone] (work) documented as of this encounter Procedures Procedure Name Priority Date/Time Associated Diagnosis Comments XR DEXA AXIAL SKELETON 02/14/2023 4:26 PM EDT documented in this encounter Results * XR DEXA AXIAL SKELETON (02/14/2023 4:26 PM EDT) Anatomical Region Laterality Modality Other 02/14/2023 4:26 PM EDT Narrative 02/14/2023 4:26 PM EDT [address] [address] XRay Report Signed Patient: ANGELA ALEXANDER MR#: [id number] : 1955 Acct:[id number] Age/Sex: 67 / F ADM Date: 02/14/23 Loc: RAD Attending Dr: Consuelo Mccall D.O. Ordering Physician: Consuelo Mccall D.O. Date of Service: 02/14/23 Procedure(s): XR DEXA axial skeleton Accession Number(s): [id number] cc: Marcos Roque D.O.; Consuelo Mccall D.O. [address] [address] Patient Name: ANGELA ALEXANDER MRN: [id number] date: 1955 Sex: F Assigned Patient Location: [facility] Current Patient Location: [facility] Accession/Order Number: [id number] Exam Date: 02/14/2023 10:40 Report Date: 02/14/2023 16:26 At the request of: CONSUELO MCCALL Procedure: XR DEXA axial skeleton STUDY: XR DEXA axial skeleton HISTORY: Post Menopausal State Z78.0 TECHNIQUE: Bone mineral density (BMD) assessment by [employer]. Combined NHANES[employer] database references used in T-score calculation. COMPARISON: 02/10/2021 SCAN QUALITY: Regions evaluated with no significant confounding factors. BMD RESULTS: Lumbar spine (L1-L4): BMD 1.346 g/cm2 T-score 1.4 No statistically significant interval change. Left Hip (neck): BMD 1.083 g/cm2 T-score 0.3 No statistically significant interval change. Right Hip (neck): BMD 1.041 g/cm2 T-score 0.0 No statistically significant interval change. XR/XR DEXA axial skeleton IMPRESSION: Normal bone mineral density. No statistically significant interval change. RECOMMENDATION: Consider follow-up study in 2 years, best performed at this facility to yield the most valid serial quantitative assessment. Electronically authenticated by: MAXIMILIANO SYLVESTER Date: 02/14/2023 16:26 Dictated By: Maximiliano Sylvester Signed By: 02/14/238 DD/ 25 TD/TT: Lining Cementer: Procedure Note Radiology, Radiologist, - 02/25/2023 [place] [address] XRay Report Signed Patient: ANGELA ALEXANDER LMR#: [id number] [id number] Age/Sex: 67 / FADM Date: 02/14/23 Loc: RAD Attending Dr: Consuelo Mccall D.O. Ordering Physician: Consuelo Mccall D.O. Date of Service: 02/14/23 Procedure(s): XR DEXA axial skeleton Accession Number(s): [id number] cc: Marcos Roque D.O.; Consuelo Mccall D.O. The [place] [id number] Patient Name: ANGELA ALEXANDER MRN: [id number] date: 1955 Sex: F Assigned Patient Location: [facility] Current Patient Location: RAD Accession/Order Number: [id number] Exam Date: 02/14/2023 10:40 Report Date: 02/14/2023 16:26 At the request of: CONSUELO MCCALL Procedure: XR DEXA axial skeleton STUDY: XR DEXA axial skeleton HISTORY: Post Menopausal State Z78.0 TECHNIQUE: Bone mineral density (BMD) assessment by [employer]. Combined [employer] database references used in T-score calculation. COMPARISON: 02/10/2021 SCAN QUALITY: Regions evaluated with no significant confounding factors. BMD RESULTS: Lumbar spine (L1-L4): BMD 1.346 g/cm2 T-score 1.4 No statistically significant interval change. Left Hip (neck): BMD 1.083 g/cm2 T-score 0.3 No statistically significant interval change. Right Hip (neck): BMD 1.041 g/cm2 T-score 0.0 No statistically significant interval change. XR/XR DEXA axial skeleton IMPRESSION: Normal bone mineral density. No statistically significant interval change. RECOMMENDATION: Consider follow-up study in 2 years, best performed atthis facility to yield the most valid serial quantitative assessment. Electronically authenticated by: MAXIMILIANO SYLVESTER Date: 02/14/2023 16:26 Dictated By: Maximiliano Sylvester Signed By:02/14/238 DD/ 25 TD/TT: Lining Cementer: Consuelo Mccall DO [facility] Final Result documented in this encounter Visit Diagnoses Not on filedocumented in this encounter Care Teams International Editorial Producer Relationship Specialty Start Date End Date Marcos Roque DO PCP - General Internal Medicine 02/09/23 documented as of this encounter
--- OUTSIDE RECORDS SUMMARY | 2025-02-19 12:13 | XMS_ITS | Patient Health Record ---
Author Organization [facility] [place] Address [address] [place] [address] Care Team Providers Care Plant Maintenance Mechanic Name Role Phone Marcos Roque DO Primary [...] 03:23:36 PM Interpretation: Performing Lab: Notes/Report: [facility] , Sodium 144 136-145 mmol/L Potassium 3.0 [...] Performing Lab: see note ML - [facility] LB PROF CHEM 8 (BAS METB) Reviewed date:09/16/2024 06:15:41 PM Interpretation: Performing Lab: Notes/Report: [facility] , Sodium 146 136-145 mmol/L Potassium 3.2 [...] Performing Lab: see note ML - [facility] Reason For Referral No Information Medications Medication SIG (Take, Route, Frequency, Duration) Notes Start Date End Date Status Irbesartan-hydroCHLOROthiaz livan 150-12.5 MG Oral; Duration: 90 Days A ctive Xyzal Active Aleve 220 MG 1 tablet with food o r milk as needed Orally every 12 hrs Active Potassium Chloride Nanda ER 10 MEQ Oral; Duration: 90 Days Acti ve Afrin Allergy Active Omeprazole 40 MG Oral; Duration: 90 Days Active methIMAzole 5 MG Oral; Duration: 90 Days Active Labetalol HCl 200 MG Oral; Duration: 90 Days Active Cranberry 450 MG as [...] Active Probiotic Active amLODIPine Besylate 2.5 MG Oral; Duration: 90 Days Active Pravastatin Sodium 40 MG Oral; Duration: 90 Days Active Fluticasone Propionate 50 MCG/ACT Nasal; Duration: 90 Days Act charu Estroven Menopause Supplement - as directed Orally [...] Problem Status W/U Status Risk Notes Problem Tinea unguium (132022474) Tinea unguium (B35.1) Active confirmed Problem Acquired hallux valgus (80529086) Hallux valgus (acquired), right foot (M20.11) Active confirmed Problem Acquired hallux rigidus (3185728) Hallux rigidus, right foot (M20.21) Active confirmed Plan Of Treatment No Information Insurance Providers Payer Name Payer Address Payer Phone Subscriber Number Group Number Insured Name Patient Relationship to Insured Coverage Start Date Coverage End Date [facility] [address] [place], [place] [id number] Angela Baxter Self - patient is the insured Medical (General) History Medical History History ICD Code hypertension high cholesterol thyroid issues grave's disease Surgical History Surgery Date(Month/Year) colonoscopy x3 remove cyst endoscopy x2 right breast biopsy D&C x2 Hospitalization History Reason Date(Month/Year) see above
--- OUTSIDE RECORDS SUMMARY | 2025-02-19 12:13 | XMS_ITS | Encounter Summary ---
Author Organization [facility] Address [address] [place] [address] Care Team Providers Care Elderly Sitter Name Role Phone Marcos Roque DO Primary Care Provider [phone] Encounter Details Date Type Department Care Team (Late Contact Info) Description 12/23/2023 Abstract [facility] [address] [place] [address] Román Mccall DO [address] [facility] [address] [place] [id number] Social History Tobacco Use Types Packs/Day Years [...] 06/24/2025 9:45 AM EST Office Visit [facility] [address] [place] [address] Joslyn Mcneil MD [address] [place] [address] 02/24/2026 8:50 AM EDT Procedure Visit [facility] [place] [facility] [address] [place] [address] Román Mccall DO [address] [place] [address] [place] [address] documented as of this encounter Visit Diagnoses Not on filedocumented in this encounter Care Teams Elderly Sitter Relationship Specialty Start Date End Date Marcos Roque DO PCP - General Internal Medicine 02/09/23 documented as of this encounter
--- OUTSIDE RECORDS SUMMARY | 2025-02-19 12:13 | XMS_ITS | Encounter Summary ---
Author Organization [facility] Address [address] [place] [address] Phone Care Team Providers Care Clam Shovel Operator Name Role Phone Marcos Roque DO Unavailable Encounter Details Date Type Department Care Team (Late st Contact Info) Description 01/06/2023 Patient Risk Score ACO Care Management [address] [place] [address] Social History Tobacco Use Types Packs/Day Years [...] on filedocumented in this encounter Care Teams Clam Shovel Operator Relationship Specialty Start Date End Date Marcos Roque DO [facility] [place] [address] PCP - MMO Medicare Advantage PCP 10/04/22 05/05/23 documented as of this encounter
--- OUTSIDE RECORDS SUMMARY | 2025-02-19 12:13 | XMS_ITS | Encounter Summary ---
Author Organization [facility] Address [address] [place] [address] Care Team Providers Care Agent Telegrapher Name Role Phone Marcos Roque DO Primary Care Provider [phone] Encounter Details Date Type Department Care Team (Latest Contact Info) Description 02/12/2025 Travel Social History Tobacco Use Types Packs/Day Years [...] 06/24/2025 9:45 AM EST Office Visit [facility] [address] [place] [address] Joslyn Mcneil MD [address] [place] [address] 02/24/2026 8:50 AM EDT Procedure Visit [facility] [place] [facility] [address] [place] [address] Román Mccall DO [address] [place] [address] documented as of this encounter Visit Diagnoses Not on filedocumented in this encounter Care Teams Agent Telegrapher Relationship Specialty Start Date End Date Marcos Roque DO PCP - General Internal Medicine 02/09/23 documented as of this encounter
--- OUTSIDE RECORDS SUMMARY | 2025-02-19 12:13 | XMS_ITS | Encounter Summary ---
Author Organization [facility] Address [address] [place] [address] Phone Care Team Providers Care Front Office Manager Name Role Phone Unavailable Primary Care Provider Unavailabl e Encounter Details Date Type Department Care Team (Late st Contact Info) Description 06/08/2023 Patient Risk Score ACO Care Management [address] [place] [address] Social History Tobacco Use Types [...]
--- OUTSIDE RECORDS SUMMARY | 2025-02-19 12:13 | XMS_ITS | Clinical Summary ---
Author Organization [facility] Address [address] [place] [address] Care Team Providers Care Consulting Utility Forester Name Role Phone Marcos Roque Primary Care Provider [phone] Allergies Active Allergy Reactions Criticality Noted Date Comments Acetaminophen-Codeine Unknown 02/09/2023 Amoxicillin Unknown 02/09/2023 Codeine Unknown 02/09/2023 Other Reaction(s): rash, stomach upset Doxycycline Unknown 02/09/2023 Furosemide Unknown 02/09/2023 Latex Unknown 02/09/2023 Metronidazole Unknown 02/09/2023 Other Reaction(s): rash, stomach upset Medications amLODIPine (Norvasc) 2.5 MG tablet 3 Active fluticasone (Flonase) 50 MCG/ACT nasal spray 3 Active irbesartan-hyd roCHLOROthiazi de (Avalide) 150-12.5 MG tablet 3 Active labetalol (Normodyne) 200 MG tablet 3 Active methIMAzole (Tapazole) 5 MG tablet 3 Active omeprazole (PriLOSEC) [address] capsule 3 Active potassium chloride CR (Klor-Con M10) 10 MEQ ER tablet Take 10 mEq by mouth in the morning and 10 mEq in the evening and 10 mEq before bedtime. 3 Active pravastatin (Pravachol) 40 MG tablet 3 Active acetaminophen (Tylenol) 325 MG tablet every 4 (four) hours Active Aspirin-Caffei ne 400-32 MG tablet 2 tablets 4 Active Calcium Carb-Cholecalc iferol (Calcium 600 + D) 600-5 MG-MCG tablet 1 (one) time each day at the same time Active cholecalcifero l (Vitamin D-3) 10 MCG (400 UNIT) tablet 1 (one) time each day at the same time Active Cranberry 450 MG tablet as directed Orally Active Multiple Vitamins-Winona als (Estroven Menopause Supplement) tablet as directed Orally Active levocetirizine (Xyzal) 5 MG tablet Every evening 4 Active Polyethyl Glycol-Propyl Glycol 0.4-0.3 % gel as directed Ophthalmic Active saccharomyces boulardii (Florastor) 250 MG capsule Twice daily 4 Active nitrofurantoin , macrocrystal-m onohydrate, (Macrobid) 100 MG capsule Twice daily 4 02/20/20 25 Discontinu ed(Other) Encounters Date Type Department Care Team Description 02/19/2025 9:00 AM EDT Office Visit [facility] [place] [facility] [address] [place] [address] Román Mccall, Well woman exam with routine gynecological exam; Breast cancer screening by mammogram; Postmenopausal state 02/19/2025 Bamboo flowsheet [facility] [place] [facility] [address] [place] [address] Román Mccall DO 02/12/2025 Travel from Last 3 Months Family History Medical History Relation Name Comments Cancer Father Jeff Garcia Heart disease Maternal Grandmother Cancer Mother Fernanda Garcia Cataracts Mother Fernanda Garcia Diabetes Mother Fernanda Garcia Heart disease Mother Fernanda Garcia Hypertension Mother Fernanda Garcia Macular degeneration Mother Fernanda Garcia Mental illness Mother Fernanda Garcia Heart disease Paternal Grandmother Relation Name Status Comments Father Jeff Garcia Maternal Grandmother Mother Fernanda Garcia Paternal Grandmother Social History Tobacco Use Types Packs/Day Years Used Date Smoking Tobacco: Never Smokeless Tobacco: Never Tobacco Cessation:Counseling Given: Not Answered Comments No Sex and Gender Information Value Date Recorded Sex Assigned at Female 02/13/2024 10:03 PM EDT Legal Sex Female 7:01 PM EDT Gender Identity Female 02/13/2024 10:03 PM EDT Sexual Orientation Don't know 02/13/2024 10 :03 PM EDT Last Filed Vital Signs Vital Sign Reading Time Taken Comments Blood Pressure 122/78 02/19/2025 9:04 AM EDT Pulse - - Temperature - - Respiratory Rate - - Oxygen Saturation - - Inhaled Oxygen Concentration - - Weight 88.4 kg (194 lb 12.8 oz) 02/19/2025 9:04 AM EDT Height 175.3 cm (5' 9 ) 02/09/2023 1:19 PM EDT Body Mass Index 28.77 02/09/2023 1:19 PM EDT Plan of Treatment Upcoming Encounters Date Type Department Care Team (Late st Contact Info) Description 06/24/2025 9:45 AM EST Office Visit [facility] [address] [place] [address] Joslyn Mcneil MD [address] [place] [address] 02/24/2026 8:50 AM EDT Procedure Visit [facility] [place] [facility] [address] [place] [address] Román Mccall DO [address] [facility] [address] [place] [address] Health Maintenance Due Date Last Done Comments CT Colonography 1955 Colonoscopy 1955 Colorectal Cancer Screening 1955 FIT-DNA 1955 FIT 1955 FOBT 1955 Sigmoidoscopy 1955 Mammogram 1994 02/19/2025 Pneumococcal Vaccine: 65+ Years Completed Influenza Vaccine Completed 02/03/2025, , 02/19/2023, Additional history exists Procedures Procedure Name Priority Date/Time Associated Diagnosis Comments BI MAMMOGRAM SCREENING BILATERAL Routine 02/19/2025 11:50 AM EDT Breast cancer screening by mammogram from Last 3 Months Results * Bilateral screening mammogram (02/19/2025 11:50 AM EDT) us Román Mccall DO IMG BI PROCEDURES Final Result [facility] [address] [place] [address], from Last 3 Months Insurance [employer] Care Teams Consulting Utility Forester Relationship Specialty Start Date End Date Marcos Roque DO PCP - General Internal Medicine 02/09/23
--- OUTSIDE RECORDS SUMMARY | 2025-02-19 12:14 | XMS_ITS | Encounter Summary ---
Author Organization [facility] Address [address] [place] [address] Phone Care Team Providers Care Computer Technology Instructor Name Role Phone Marcos Roque DO Unavailable Encounter Details Date Type Department Care Team (Late st Contact Info) Description 03/08/2023 Patient Risk Score ACO Care Management [address] [place] [address] Social History Tobacco Use Types Packs/Day Years [...] on filedocumented in this encounter Care Teams Computer Technology Instructor Relationship Specialty Start Date End Date Marcos Roque DO [facility] [place] [address] PCP - MMO Medicare Advantage PCP 10/04/22 05/05/23 documented as of this encounter
--- OUTSIDE RECORDS SUMMARY | 2025-02-19 12:14 | XMS_ITS | Encounter Summary ---
Author Organization [facility] Address [address] [place] [address] Phone Care Team Providers Care Hand Rounder Name Role Phone Marcos Roque DO Unavailable Encounter Details Date Type Department Care Team (Late st Contact Info) Description 04/08/2023 Patient Risk Score ACO Care Management [address] [place] [id number] Social History Tobacco Use Types Packs/Day Years [...] on filedocumented in this encounter Care Teams Hand Rounder Relationship Specialty Start Date End Date Marcos Roque DO [facility] [place] [address] PCP - MMO Medicare [employer]vantage PCP 10/04/22 05/05/23 documented as of this encounter
--- OUTSIDE RECORDS SUMMARY | 2025-02-19 12:56 | XMS_ITS | CCD ---
Author Organization [facility] Care Team Providers Care Chief Information Security Officer Name Role Phone Edmund Cardoza Attending Provider [phone] NON, STAFF, Primary Care Provider Unavailree ROQUE, DR YUAN Admitting Unavailable BALL, DR YUAN [...] ., DR CORDERO Attending Unavailable BALL, DR YAUN Primary Care Unavailable MEGHA ., DR CORDERO [...] Unavailable ZIEBER, DR OH Reyes Consulting Unavailable Jude Marcos Unavailable CONSUELO CLEVELAND Attending Unavailable NIDIA LIVINGSOTN Attending Unavailable MELINDA BAKER Referring Unavailable NIDIA LIVINGSTON Attending Unavailable NIDIA LIVINGSTON Attending Unavailable NIDIA LIVINGSTON Attending Unavailable NIDIA LIVINGSTON Attending Unavailable Ghanshyam Mills DO Attending Provider Marcos Roque DO Primary Care Provider Marcos Roque DO Attending Provider Edu Watts MD Attending Provider [phone] Edu Watts MD Other Provider [phone] Edu Watts Admitting Unavailable Edu Watts Attending Unavailable Marcos Roque Primary Care Unavailable Ghanshyam Mills Attending Unavailable Ghanshyam Mills Admitting Unavailable Marcos Roque DO Primary Care Provider [phone] Marcos Roque DO Attending Provider Unavailable Unavailable Unavailable Allergies Allergy Classification Reported Allergen(s) Allergy Type Date of Onset Reaction(s) Facility (13 sources) Amoxicillin Drug Allergy 07-25-19 24 Unknown Reaction [facility] (13 sources) Codeine Drug Allergy 06-06-19 13 stomach irritation [facility] (13 sources) Doxycycline Drug Allergy 07-25-19 24 Unknown Reaction [facility] (1 source) Furosemide Drug Allergy 03-08-20 16 [facility] (13 sources) Latex Drug allergy (disorder) 06-06-19 13 Unknown Reaction [facility] (1 source) metroNIDAZOLE Drug Allergy 03-08-20 16 [facility] (14 sources) Amoxicillin Drug Allergy Unknown [facility] Other (14 sources) Codeine Drug Allergy stomach irritation [facility] Other (14 sources) Doxycycline Drug Allergy Unknown [facility] Other (14 sources) Latex Propensity to adverse reactions Unknown [facility] Other (20 sources) metroNIDAZOLE Drug Allergy 07-25-19 24 Unknown, Unknown Reaction [facility] (14 sources) Furosemide Drug Allergy 06-06-19 20 Unknown, Unknown Reaction [facility] Comment on above: Onset Date: 06/06/19 20 (2 sources) Pseudoephedrine Drug Allergy 06-06-19 20 Unknown [facility] Other (1 source) Allergies Reconciled Propensity to adverse reactions Unknown [facility] Other (2 sources) Tylenol with Codeine #3 *ANALGESICS - OPIOID* Propensity to adverse reactions 06-06-19 Unknown [facility] Other (1 source) patient allergy list reviewed by nurse or physicia Propensity to adverse reactions 11-12-20 15 Comment:Done [facility] Other (12 sources) 12 Hour Decongestant Allergy to substance 07-23-19 24 Unknown Reaction [facility] Comment on above: Onset Date: 06/06/19 20 (12 sources) Tylenol with Codeine #3 *ANALG Allergy to substance 07-23-19 24 Unknown Reaction [facility] Comment on above: Free Text Allergy: T ylenol with Codeine #3 *ANALGESICS - OPIOID*; Onset Date: 06/06/2019 Medications Current Medications Medication Drug Class(es) Dates Sig (Normalized) Sig (Original) acetaminophen 500 mg oral tablet (12 sources) Start: 07-23-2023 take 1 tablet by mouth every six hours Acetaminophen (Tylenol Extra Strength) 500 mg tablet Active 500 MG PO Every 6 hours July 23, 2023 1:00am Complies with drug therapy AeroChamber mini chamber (12 sources) Start: 07-23-2023 AeroChamber mini chamber Active 0 .Route .MEDSUPPLY July 23, 2023 1:00am Start: 07-23-2023 AeroChamber mi ni chamber Active 0 .Route .MEDSUPPLY July 23, 2023 12:00am AeroChamber Mini Chamber - (10 sources) Start: 09-15-2022 Start: 09-15-2022 AeroChamber Mi ni Chamber - Use with MDI inhaled every 4 hours as needed for cough for 30 days Sep, Active amLODIPine 2.5 mg oral tablet (20 sources) Dihydropyridine Calcium Channel Shani Start: 07-27-2024 Amlodipine 2.5 mg tablet Active 0 .ROUTE .COMPLEX July 27, 2024 2:17pm TAKE 1 TABLET DAILY Start: 09-10-2023 End: 07-27-2024 Amlodipine 2.5 mg tablet Act charu 0 .ROUTE .COMPLEX July 27, 2024 2:17pm TAKE 1 TABLET DAILY Complies with drug therapy Start: 09-10-2023 End: 07-27-2024 Amlodipine 2.5 mg tablet Discontinued 0 .ROUTE .COMPLEX September 10, 2023 12:05pm July 27, 2024 2:18pm TAKE 1 TABLET DAILY Start: 09-10-2023 Amlodipine 2.5 mg tablet Active 0 .ROUTE .COMPLEX 90 September 10, 2023 11:05am TAKE 1 TABLET [...] tablet Orally Once a day Sep, Active ascorbic acid 226 mg / beta carotene [id number] unt / cuprous oxide 0.8 mg / dl-alpha tocopheryl acetate 200 unt / zinc oxide 34.8 mg oral capsule (2 sources) Vitamin C Start: 07-23-2024 take 1 capsule by mouth twice daily Vitamins A,C,Z-Vcvb-Yljipy (Preservision Areds) 4,296 mcg-226 mg-90 mg capsule Active 1 CAP PO Twice daily July 23, 2024 1:00am Complies with drug therapy aspirin 400 mg / caffeine 32 mg oral tablet (20 sources) Platelet Aggregation Inhibitor, Nonsteroidal Anti-inflammatory Drug, Central Nervous System Stimulant, Methylxanthine Start: 07-23-2023 take 2 tablets by mouth every six hours as needed for headache Aspirin-Caffeine 400-32 mg tablet Active 2 TAB PO Every 6 hours as needed for headache July 23, 2023 1:00am Complies with drug therapy take 2 tablets by mouth every si [...] PO Twice daily July 23, 2023 1:00am Complies with drug therapy take 1 tablet by mouth every twe lve hours Calcium 600 MG 1 tablet with meals Orally Twice a day Active cholecalciferol 0.01 mg oral tablet (20 sources) Vitamin D Start: 12-05-2024 take 1 tablet by mouth twice daily Cholecalciferol (Vitamin D3) (Delta D3) 10 mcg (400 unit) tablet Active 10 MCG PO Twice daily December 05, 2024 12:00am Complies with drug therapy Start: 07-23-2023 End: 12-05-2024 take 5 ug by mouth once daily Cholecalciferol (Vitamin D3) 10 mcg/mL (400 unit/mL) drops Discontinued 5 MCG PO Daily July 23, 2023 1:00am December 05, 2024 9:31am take 0.25 mL by mout h once daily Vitamin D 10 MCG/ML 0.25 mL Orally Once a day Active Cranberry (12 sources) Non-Standardized Food Allergenic Extract, Non-Standardized Plant Allergenic Extract Start: 07-23-2023 take 1 capsule by mouth once daily at mealtime Cranberry 500 mg capsule Active 1000 MG PO Daily July 23, 2023 1:00am administer with meals Complies with drug therapy Start: 07-23-2023 take 1 capsule by mo uth twice daily at mealtime Cranberry 500 mg capsule Active 500 MG PO Twice daily July 23, 2023 1:00am administer with meals Start: 07-23-2023 take 1 capsule by mo uth twice daily at mealtime Cranberry 500 mg [...] Strength Active Estroven (14 sources) Estroven Active famotidine 20 mg oral tablet (20 sources) Histamine-2 Receptor Antagonist Start: 12-05-2024 take 1 tablet by mouth once daily at bedtime as needed for gastroesophageal reflux disease Famotidine (Pepcid) 20 mg tablet Active 20 MG PO Daily at bedtime as needed for reflux December 05, 2024 12:00am Complies with drug therapy Start: 07-23-2023 End: 07-25-2023 take 1 tablet by mouth once daily Famotidine (Pepcid) 20 mg tablet Discontinued 20 MG PO Daily July 23, 2023 1:00am July 25, 2023 12:46pm take 1 tablet by kj th once daily at bedtime as needed Pepcid 20 MG 1 tablet at bedtime as needed Orally Once a day as needed Active fluticasone propionate 0.05 mg/actuat metered dose nasal spray (20 sources) Corticosteroid Start: 09-05-2023 End: 01-08-2025 take 2 spray(s) nasal route once daily Fluticasone Propionate 50 mcg/actuation spray,suspension Active 0 .ROUTE .COMPLEX 48 January 08, 2025 8:23am USE 2 SPRAYS IN EACH NOSTRIL DAILY Complies with drug therapy Start: 07-23-2023 End: 09-05-2023 Fluticasone Propionate 50 [...] 11, 2024 7:41pm TAKE 2 TABLETS DAILY Complies with drug therapy Start: 07-23-2023 End: 03-11-2024 take 2 tablets by mouth once daily Irbesartan-Hydrochlorothiazide 150-12.5 mg tablet Discontinued 2 TAB PO Daily July 23, 2023 1:00am March 11, 2024 7:41pm Irbesartan-hydro CHLOROthiazide 150-12.5 mg TAKE 2 TABLETS DAILY Active take 1 tablet by kj th every twenty-four hours labetalol hydrochloride 200 mg oral tablet (20 sources) beta-Adrenergic Shani Start: 11-02-2023 End: 10-28-2024 Labetalol 200 mg tablet Active 0 .ROUTE .COMPLEX 180 October 28, 2024 7:37am TAKE 1 TABLET TWICE A DAY Complies with drug therapy Start: 11-02-2023 Labetalol 200 mg tablet Active [...] by mouth once daily in the evening Levocetirizine (Xyzal) 5 mg tablet Active 5 MG PO Every evening July 25, 2023 1:00am Complies with drug therapy take 1 tablet by kj th every twenty-four hours Levocetirizine Dihydrochloride 5 MG 1 tablet in the evening Orally Once a day Active methIMAzole 10 mg oral tablet (20 sources) Thyroid Hormone Synthesis Inhibitor Start: 12-05-2024 take 5 mg by mouth once daily Methimazole 10 mg tablet Active 5 MG PO Daily December 05, 2024 12:00am Complies with drug therapy Start: 07-23-2024 End: 12-05-2024 take 1 tablet by mouth once daily Methimazole 10 mg tablet Discontinued 10 MG PO Daily 90 July 23, 2024 1:07pm December 05, 2024 9:35am Start: 11-28-2023 End: 07-23-2024 Methimazole 5 mg [...] 2023 8:52pm take 1 tablet by kj th every twenty-four hours methIMAzole 5 MG 1 tablet Orally Once a day Active oxymetazoline hydrochloride 0.5 mg/ml nasal spray (20 sources) Start: 07-23-2023 Oxymetazoline (Afrin (Oxymetazoline)) 0.05 % mist Active 1 SPRAY INTRANASAL Every 12 hours as needed for nasal congestion July 23, 2023 1:00am Complies with drug therapy Afrin Nasal Spra y Active microencapsulated potassium chloride 10 meq extended release oral tablet (20 sources) Start: 12-31-2024 End: 01-22-2025 take 1 tablet by mouth three times daily Potassium Chloride 10 mEq tablet,ER particles/crystals Active 10 MEQ PO Three times daily 270 January 22, 2025 12:58pm Complies with drug therapy Start: 07-23-2023 End: 12-31-2024 take 1 tablet by mouth once daily Potassium Chloride 10 mEq tablet,ER particles/crystals Discontinued 10 MEQ PO Daily April 11, 2024 2:34pm December 31, 2024 12:53pm Potassium Chlori de Nanda ER 10 MEQ TAKE 1 TABLET DAILY Active Potassium Chlori de Not-Taking pravastatin sodium 40 mg oral tablet (20 sources) HMG-CoA Reductase Inhibitor Start: 10-10-2024 take 1 tablet by mouth once daily Pravastatin 40 mg tablet Active 40 MG PO Daily October 10, 2024 10:14am Complies with drug therapy Start: 11-28-2023 End: 10-10-2024 Pravastatin 40 mg tablet Discontinued 0 .ROUTE .COMPLEX November 28, 2023 8:52pm October 10, 2024 10:14am TAKE 1 TABLET DAILY IN THE EVENING [...] (Estroven Cmplt Menopause Rlf) 4 mg tablet (12 sources) Start: 07-23-2023 take 1 tablet by mouth once daily Rhubarb Root Extract (Estroven Cmplt Menopause Rlf) 4 mg tablet Active 4 MG PO Daily July 23, 2023 1:00am Complies with drug therapy Start: 07-23-2023 take 1 tablet by kj [...] 12:00am saccharomyces boulardii 250 mg oral capsule (12 sources) Start: 07-23-2023 take 1 capsule by mouth twice daily Saccharomyces Boulardii (Daily Probiotic (S. Boulardii)) 250 mg capsule Active 250 MG PO Twice daily July 23, 2023 1:00am Complies with drug therapy sulfamethoxazole 800 mg / trimethoprim 160 mg [...] needed Orally every 6 hrs Active Vitamins A,C,C-Yiud-Vdrqox (Preservision Areds) 4,296 mcg-226 mg-90 mg capsule (4 sources) Start: 07-23-2024 take 1 capsule by mouth twice daily Vitamins A,C,W-Qnxk-Oiiqdk (Preservision Areds) 4,296 mcg-226 mg-90 mg capsule Active 1 CAP PO Twice daily July 23, 2024 1:00am Start: 07-23-2024 take 1 capsule by [facility] twice daily Vitamins A,C,G-Fzcx-Ncbipj (Preservision Areds) 4,296 mcg-226 mg-90 mg capsule Active 1 CAP PO Twice daily July 23, 2024 12:00am Completed/Discontinued Medications Medication Drug Class(es) Dates Sig (Normalized) Sig (Original) Acetaminophen / butalbital / Caffeine (14 sources) Barbiturate, Central Nervous System Stimulant, Methylxanthine Fioricet Not-Galen ing [id number] 200 actuat albuterol 0.09 mg/actuat metered dose inhaler (20 sources) beta2-Adrenergic Agonist Start: 07-23-2023 End: 07-25-2023 [...] for 30 days Sep, Active Start: 09-15-2022 azithromycin 250 mg oral tablet (2 sources) Macrolide Antimicrobial Start: 09-25-2024 End: 11-19-2024 Azithromycin 250 mg tablet Discontinued 250 MG PO .COMPLEX 6 5 September 25, 2024 12:00am November 19, 2024 4:33pm 2 tabs on first day followed by 1 tab on days 2-5 Cetirizine (14 sources) Histamine-1 Receptor Antagonist ZyrTEC Allergy N ot-Taking ciprofloxacin 250 mg oral tablet (19 sources) Quinolone Antimicrobial Start: 09-18-2024 End: 09-25-2024 take 1 tablet by mouth twice daily Ciprofloxacin Hcl (Cipro) 250 mg tablet Discontinued 250 MG PO Twice daily 03 10September 18, 2024 12:00am September 25, 2024 2:27pm Start: 07-23-2023 End: 07-25-2023 take 1 tablet by mouth every twelve hours Ciprofloxacin Hcl 250 mg tablet Discontinued 250 MG PO Every 12 hours July 23, 2023 1:00am July 25, 2023 12:46pm Start: 12-21-2022 take 1 tablet by kj th every twelve hours Ciprofloxacin HCl 250 MG 1 tablet Orally every 12 hrs for 5 days Dec, Active Felodipine (14 sources) Dihydropyridine Calcium Channel Shani Felodipine Not-T aking Loratadine (14 sources) Loratadine Not-T aking Losartan Potassium-HCTZ (14 sources) Losartan Potassi um-HCTZ Not-Taking Naproxen (14 sources) Nonsteroidal Anti-inflammatory Drug Aleve Not-Taking nitrofurantoin, macrocrystals 100 mg oral capsule (5 sources) Nitrofuran Antibacterial Start: 09-11-2024 End: 11-19-2024 take 1 capsule by mouth twice daily at mealtime Nitrofurantoin Macrocrystal 100 mg capsule Discontinued 100 MG PO Twice daily September 11, 2024 12:00am November 19, 2024 4:33pm must administer with a meal/food nitrofurantoin, macrocrystals 25 mg / nitrofurantoin, monohydrate 75 mg oral capsule (9 sources) Nitrofuran Antibacterial Start: 11-18-2023 End: 07-23-2024 take 1 capsule by mouth twice daily at mealtime Nitrofurantoin Monohyd/M-Cryst (Macrobid) 100 mg capsule Discontinued 100 MG PO Twice daily 03 10November 18, 2023 12:00am July 23, 2024 2:22pm [...] May, Not-Taking predniSONE 20 mg oral tablet (11 sources) Start: 09-06-2023 End: 07-23-2024 Prednisone 20 [...] [Hallux valgus (acquired)] 09-06-2023 Chronic Allergic reactions (16 sources) Allergic contact dermatitis due to plants, except food; Translations: [Allergic contact dermatitis due to plants, except food] 01-30-2025 Episodic Asthma (20 sources) Mild intermittent asthma; Translations: [Mild intermittent asthma with (acute) exacerbation] Chronic Benign neoplasm of uterus (16 sources) Uterine leiomyoma; Translations: [Leiomyoma of uterus, unspecified] Episodic Conditions associated with dizziness or vertigo (1 source) Benign paroxysmal positional vertigo; Translations: [Benign paroxysmal vertigo, right ear] Episodic Diseases of mouth; excluding dental (1 source) Parotitis; Translations: [Sialoadenitis, unspecified] 09-25-2024 Episodic Disorders of lipid metabolism (20 sources) Familial hypercholesterolemia; Translations: [Hypercholesterolemia] Onset: 5 Chronic Diverticulosis and diverticulitis (1 source) Diverticulosis of colon; Translations: [Diverticulosis of colon] Onset: 6 Chronic Esophageal disorders (20 sources) Esophageal reflux finding; Translations: [Esophageal reflux] 07-23-2023 Chronic Essential hypertension (20 sources) Essential (primary) hypertension; Translations: [Essential hypertension] Onset: 2 Chronic Fluid and electrolyte disorders (15 sources) Hypokalemia; Translations: [Hypokalemia] 12-24-2024 Episodic Genitourinary symptoms and ill-defined conditions (17 sources) Dysuria; Translations: [Dysuria] Onset: 7 Resolved: [...] 6 Chronic Other aftercare (2 sources) 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; Translations: [OTH NURSING HOME CURRENT DRUG THERAPY] Onset: 2 Episodic Other aftercare (1 source) Long-term current use of drug therapy; Translations: [Other correction (current) drug therapy] Episodic Other bone disease [...] disease] Onset: 0 Chronic Other liver diseases (12 sources) Steatosis of liver; Translations: [Fatty (change of) liver, not elsewhere classified] 11-27-2023 Chronic Other lower respiratory disease (1 source) Chest pain on breathing; Translations: [Chest pain on breathing] Episodic Other non-traumatic joint disorders (5 sources) Shoulder pain; Translations: [Pain in unspecified shoulder] 07-23-2024 Episodic Other non-traumatic joint disorders (3 sources) Pain in unspecified shoulder; Translations: [Pain in [...] allergic rhinitis] Chronic Other upper respiratory disease (20 sources) Allergic rhinitis due to pollen; Translations: [...] region] Onset: 7 Chronic Sprains and strains (12 sources) Strain of muscle of right hip; [...] Translations: [Other abnormal clinical finding] Onset: 8 Unclassified (1 source) Z12.11 - Encounter for screening for malignant neoplasm of colon,K21.00 - Gastro-esophageal reflux disease with esophagitis, without bleeding Urinary tract infections (1 source) Acute cystitis [...] Test Name Value Interpretation Reference Range Facility Glomerular filtration rate ( GFR) estimation in non- AmericanOrdered By: Marcos Roque on 12-31-2024 GFR/1.73 sq M.predicted among non-blacks MDRD (S/P/Bld) [Vol rate/Area] 49 mL/min/{1.73_m2} Low >=60 mL/min/1.73m 2 [facility] Laboratory - Chemistry and C hemistry - challengeOrdered By: Marcos Roque on 12-31-2024 Calcium [Mass/Vol] 9.2 mg/dL 8.5-10.1 [facility] Chloride [Moles/Vol] 106 mmol/L 98-107 [facility] CO2 [Moles/Vol] 27.4 mmol/L 21.0-32.0 [facility] Creatinine [Mass/Vol] 1.10 mg/dL High 0.55-1.02 [facility] GFR/1.73 sq M.predicted MDRD (S/P/Bld) [Vol rate/Area] 59 mL/min/{1.73_m2} Low >=60 mL/min/1.73m 2 [facility] Glucose [Mass/Vol] 110 mg/dL High 74-106 [facility] Potassium [Moles/Vol] 3.3 mmol/L Low 3.5-5.1 [facility] Sodium [Moles/Vol] 144 mmol/L 136-145 [facility] Urea nitrogen [Mass/Vol] 29.0 mg/dL High 7.0-18.0 [facility] Urea nitrogen/Creatinine [Mass ratio] 26.4 mg/mg [facility] Serum or plasma anion gap de terminationOrdered By: Marcos Roque on 12-31-2024 Anion gap [Moles/Vol] 13.9 mmol/L [facility] Basophils Auto (Bld) [#/Vol] Ordered By: Marcos Roque on 12-24-2024 Basophils (Bld) [#/Vol] 0.0 10 3/uL 0.0-0.1 [facility] Basophils/100 WBC Auto (Bld) Ordered By: Marcos Roque on 12-24-2024 Basophils/100 WBC (Bld) 0.4 % 0.2-2.0 [facility] Cholesterol in LDL Calc [Mas s/Vol]Ordered By: Marcos Roque on 12-24-2024 Cholesterol in LDL [Mass/Vol] 86.0 mg/dL [facility] Comment on above: <100 mg/dl [id number] 0-129 mg/dl NEAR OR ABOVE [id number] mg/dl BORDERLINE [id number] mg/dl HIGH>190 mg/dl VERY HIGH Cholesterol in VLDL Calc [Ma ss/Vol]Ordered By: Marcos Roque on 12-24-2024 Cholesterol in VLDL [Mass/Vol] 30.2 mg/dL [facility] Eosinophils/100 WBC Auto (Bl d)Ordered By: Marcos Roque on 12-24-2024 Eosinophils/100 WBC (Bld) 6.1 % 0.9-7.0 [facility] Erythrocyte distribution wid th Auto (RBC) [Ratio]Ordered By: Marcos Roque on 12-24-2024 Erythrocyte distribution width (RBC) [Ratio] 12.5 % 11.0-15.0 [facility] Globulin Calc (S) [Mass/Vol] Ordered By: Marcos Roque on 12-24-2024 Globulin (S) [Mass/Vol] 3.7 g/dL [facility] Glomerular filtration rate ( GFR) estimation in non- AmericanOrdered By: Marcos oRque on 12-24-2024 GFR/1.73 sq M.predicted among non-blacks MDRD (S/P/Bld) [Vol rate/Area] 50 mL/min/{1.73_m2} Low >=60 mL/min/1.73m 2 [facility] Hematocrit Auto (Bld) [Volum e fraction]Ordered By: Marcos Roque on 12-24-2024 Hematocrit (Bld) [Volume fraction] 37.7 % 36.0-48.0 [facility] Hemoglobin [Mass/volume] in BloodOrdered By: Marcos Roque on 12-24-2024 Hemoglobin (Bld) [Mass/Vol] 12.4 g/dL 12.0-16.0 [facility] Laboratory - Chemistry and C hemistry - challengeOrdered By: Marcos Roque on 12-24-2024 Albumin [Mass/Vol] 3.4 g/dL 3.4-5.0 [facility] ALP [Catalytic activity/Vol] 70 U/L 46-116 [facility] ALT [Catalytic activity/Vol] 23 U/L 14-59 [facility] AST [Catalytic activity/Vol] 15 U/L 15-37 [facility] Bilirubin [Mass/Vol] 0.4 mg/dL 0.2-1.0 [facility] Calcium [Mass/Vol] 9.1 mg/dL 8.5-10.1 [facility] Chloride [Moles/Vol] 106 mmol/L 98-107 [facility] Cholesterol [Mass/Vol] 155 mg/dL <=200 [facility] Cholesterol in HDL [Mass/Vol] 39 mg/dL Low 40-60 [facility] Comment on above: > or =60 mg/dl - LOW CARDIOVASCULAR RISK<40 mg/dl - HIGH CARDIOVASCULAR RISK CO2 [Moles/Vol] 29.9 mmol/L 21.0-32.0 [facility] Creatinine [Mass/Vol] 1.08 mg/dL High 0.55-1.02 [facility] Free T4 [Mass/Vol] 1.22 ng/dL 0.76-1.46 [facility] GFR/1.73 sq M.predicted MDRD (S/P/Bld) [Vol rate/Area] mL/min/{1.73_m2} >=60 mL/min/1.73m 2 [facility] Glucose [Mass/Vol] 109 mg/dL High 74-106 [facility] Potassium [Moles/Vol] 2.9 mmol/L Critically low 3.5-5.1 [facility] Comment on above: RESULTS CALLED TO ANN MARIE WHITE) AT [facility] Protein [Mass/Vol] 7.1 g/dL 6.4-8.2 [facility] Sodium [Moles/Vol] 146 mmol/L High 136-145 [facility] Triglyceride [Mass/Vol] 151 mg/dL High <=150 [facility] TSH Qn 0.625 m[IU]/L 0.358-3.740 [facility] Urea nitrogen [Mass/Vol] 24.0 mg/dL High 7.0-18.0 [facility] Urea nitrogen/Creatinine [Mass ratio] 22.2 mg/mg [facility] Laboratory - Hematology and Cell countsOrdered By: Marcos Roque on 12-24-2024 Immature granulocytes/100 WBC (Bld) 0.2 % 0.0-0.5 [facility] Leukocytes [#/volume] correc jo ann for nucleated erythrocytes in Blood by Automated counOrdered By: Marcos Roque on 12-24-2024 WBC corrected for nucl RBC Auto (Bld) [#/Vol] 9.2 10 3/uL 4.0-11.0 [facility] Lymphocytes Auto (Bld) [#/Vo l]Ordered By: Marcos Roque on 12-24-2024 Lymphocytes (Bld) [#/Vol] 3.6 10 3/uL 1.2-3.8 [facility] Lymphocytes/100 WBC Auto (Bl d)Ordered By: Marcos Roque on 12-24-2024 Lymphocytes/100 WBC (Bld) 38.9 % 20.5-60.0 [facility] MCH Auto (RBC) [Entitic mass ]Ordered By: Marcos Roque on 12-24-2024 MCH (RBC) [Entitic mass] 29.2 pg 26.7-34.0 [facility] MCHC Auto (RBC) [Mass/Vol]Or dered By: Marcos Roque on 12-24-2024 MCHC (RBC) [Mass/Vol] 32.9 g/dL 29.9-35.2 [facility] MCV Auto (RBC) [Entitic vol] Ordered By: Marcos Roque on 12-24-2024 MCV (RBC) [Entitic vol] 88.7 fL 81.0-99.0 [facility] Monocytes Auto (Bld) [#/Vol] Ordered By: Marcos Roque on 12-24-2024 Monocytes (Bld) [#/Vol] 0.7 10 3/uL 0.3-0.8 [facility] Monocytes/100 WBC Auto (Bld) Ordered By: Marcos Roque on 12-24-2024 Monocytes/100 WBC (Bld) 7.3 % 1.7-12.0 [facility] Neutrophils Auto (Bld) [#/Vo l]Ordered By: Marcos Roque on 12-24-2024 Neutrophils (Bld) [#/Vol] 4.3 10 3/uL 1.4-6.5 [facility] Neutrophils/100 WBC Auto (Bl d)Ordered By: Marcos Roque on 12-24-2024 Neutrophils/100 WBC (Bld) 47.1 % 43.0-75.0 [facility] No Panel InformationOrdered By: Marcos Roque on 12-24-2024 Eosinophils # (Auto) 0.6 10 3/uL 0.0-0.7 [facility] Immature Granulocyte # (Auto) 0.02 10 3/uL 0.00-0.03 [facility] Total Triiodothyronine 141 ng/dL 71-180 [facility] Comment on above: Performed at: - [address] Director: Dayton Toussaint PhD, Phone: [phone] Platelet mean volume Auto (B ld) [Entitic vol]Ordered By: Marcos Roque on 12-24-2024 Platelet mean volume (Bld) [Entitic vol] 10.8 fL 9.5-13.5 [facility] Platelets Auto (Bld) [#/Vol] Ordered By: Marcos Roque on 12-24-2024 Platelets (Bld) [#/Vol] 315 10 3/uL 150-450 [facility] RBC Auto (Bld) [#/Vol]Ordere d By: Marcos Roque on 12-24-2024 RBC (Bld) [#/Vol] 4.25 10 6/uL 4.20-5.40 [facility] Serum or plasma albumin/glob ulin mass ratioOrdered By: Marcos Roque on 12-24-2024 Albumin/Globulin [Mass ratio] 0.9 {ratio} [facility] Serum or plasma anion gap de terminationOrdered By: Marcos Roque on 12-24-2024 Anion gap [Moles/Vol] 13.0 mmol/L [facility] Serum or plasma total choles terol/high density lipoprotein (HDL) cholesterol mass ratOrdered By: Marcos Roque on 12-24-2024 Cholesterol.total/Zaira sterol in HDL [Mass ratio] 4.0 {ratio} [facility] Comment on above: 3.3 - 4.4 LOW RISK4. 4 - 7.1 AVERAGE RISK7.1 - 11.0 MODERATE RISK>11.0 HIGH RISK Pathology Request for Lab Co rpon 12-19-2024 Pathology Request for Lab Amadou Normal [facility] Comment on above: Order Comment: GI SP ECIMEN Result Comment: See report. Scanned copy available in EMR. PERFORMED BY: [place] [address] PATHOLOGIST CIVIL CADD TECHNICIAN BRENT MOORE M.D. Performed By: #### P ATH TO [facility] #### [address] Basophils/100 WBC Manual cnt (Bld)on 09-16-2024 Basophils/100 WBC (Bld) Basophils/100 leukocytes in Blood by Manual count Low 0.2-2.0 [facility] Eosinophils/100 WBC Manual c nt (Bld)on 09-16-2024 Eosinophils/100 WBC (Bld) Eosinophils/100 leukocytes in Blood by Manual count 0.9-7.0 [facility] Estimated glomerular filtrat ion rate (GFR) non- Americanon 09-16-2024 GFR/1.73 sq M.predicted among non-blacks MDRD (S/P/Bld) [Vol rate/Area] Estimated glomerular filtration rate (GFR) non- Low >=60 mL/min/1.73m 2 [facility] Globulin Calc (S) [Mass/Vol] on 09-16-2024 Globulin (S) [Mass/Vol] Serum globulin measurement by calculation (mass/volume) [facility] Laboratory - Chemistry and C hemistry - challengeon 09-16-2024 Calcium [Mass/Vol] 8.3 mg/dL Low 8.5-10.1 [facility] Chloride [Moles/Vol] 112 mmol/L High 98-107 [facility] CO2 [Moles/Vol] 23.9 mmol/L 21.0-32.0 [facility] Creatinine [Mass/Vol] 1.44 mg/dL High 0.55-1.02 [facility] GFR/1.73 sq M.predicted MDRD (S/P/Bld) [Vol rate/Area] 44 mL/min/{1.73_m2} Low >=60 mL/min/1.73m 2 [facility] Glucose [Mass/Vol] 103 mg/dL 74-106 [facility] Potassium [Moles/Vol] 3.2 mmol/L Low 3.5-5.1 [facility] Sodium [Moles/Vol] 146 mmol/L High 136-145 [facility] Urea nitrogen [Mass/Vol] 57.0 mg/dL High 7.0-18.0 [facility] Urea nitrogen/Creatinine [Mass ratio] 39.6 mg/mg [facility] Bilirubin Ql (U) Negative NEGATIVE [facility] Glucose (U) [Mass/Vol] Negative NEGATIVE Fi [facility] Ketones Ql (U) 15 mg/dL Abnormal NEGATIVE [facility] pH (U) 6.0 [pH] 5.0-9.0 [facility] Specific gravity (U) [Rel density] 1.010 1.005-1.025 [facility] Urobilinogen Qn (U) 1.0 {Jeremias'U}/dL 0.2-1.0 [facility] Albumin [Mass/Vol] 2.6 g/dL Low 3.4-5.0 [facility] ALP [Catalytic activity/Vol] 93 U/L 46-116 [facility] ALT [Catalytic activity/Vol] 24 U/L 14-59 [facility] AST [Catalytic activity/Vol] 15 U/L 15-37 [facility] Bilirubin [Mass/Vol] 0.6 mg/dL 0.2-1.0 [facility] Lipase [Catalytic activity/Vol] 55.0 U/L 16.0-77.0 [facility] Protein [Mass/Vol] 7.3 g/dL 6.4-8.2 [facility] Lactate [Moles/Vol] 1.2 mmol/L 0.4-2.0 [facility] Laboratory - Hematology and Cell countson 09-16-2024 Band form neutrophils/100 WBC (Bld) 2.0 % 0-5 [facility] Lymphocytes/100 WBC (Bld) 12.0 % Low 20.5-60.0 [facility] Monocytes/100 WBC (Bld) 10.0 % 1.7-12.0 [facility] Laboratory - Specimen inform ationon 09-16-2024 Appearance (U) SL CLOUDY CLEAR [facility] Color (U) LT. YELLOW YELLOW [facility] Laboratory - Urinalysison Leukocyte esterase Test strip Ql (U) SMALL Abnormal NEGATIVE [facility] Mucus Ql (Urine sed) NONE SEEN NONE SEEN [facility] Nitrite Ql (U) Negative NEGATIVE [facility] Protein Ql (U) 100 mg/dL Abnormal NEG/TRACE [facility] No Panel Informationon 09-16 Urine Bacteria MODERATE #/HPF Abnormal NONE SEEN [facility] Urine Culture Reflexed YES-[facility] Urine Occult Blood MODERATE Abnormal NEGATIVE [facility] Urine Other Casts NONE SEEN #/LPF NONE SEEN [facility] Urine Other Crystals None Seen #/HPF None Seen [facility] Urine RBC 2-5 #/HPF Abnormal 0-2 [facility] Urine Squamous Epithelial Cells MODERATE #/LPF Abnormal NONE/RARE [facility] Urine WBC 10-20 #/HPF Abnormal NONE SEEN [facility] Absolute Basophils (Manual) 0.00 10 3/uL 0.00-0.10 [facility] Band Neutrophils # (Manual) 0.3 10 3/uL 0.0-0.3 [facility] Eosinophils # (Manual) 0.33 10 3/uL 0.00-0.70 [facility] Lymphocytes # (Manual) 1.98 10 3/uL 1.20-3.80 [facility] Monocytes # (Manual) 1.65 10 3/uL High 0.30-0.80 [facility] Segmented Neutrophils # (Manual) 12.21 10 3/uL High 1.4-6.5 [facility] Segmented neutrophils/100 WB C Manual cnt (Bld)on 09-16-2024 Segmented neutrophils/100 WBC (Bld) Manual blood segmented neutrophils/100 leukocytes 43.0-75.0 [facility] Serum or plasma albumin/glob ulin mass ratioon 09-16-2024 Albumin/Globulin [Mass ratio] Serum or plasma albumin/globulin mass ratio [facility] Serum or plasma anion gap de terminationon 09-16-2024 Anion gap [Moles/Vol] Serum or plasma anion gap determination [facility] Urine Cultureon 09-16-2024 Bacteria identified Cx Nom (U) ORGANISM: Escherichia coli (O:ESCCOL) [place] Count 75,000 Aerobic TIA Charge ([id number]) ------ SUSCEPTIBILITY ----- ORGANISM: O:ESCCOL ANTIBIOTIC INTERPRETATION TIA Amikacin S <16 Amoxacillin/K Clavulanate S <8 Ampicillin S <8 Ampicillin/Sulbacta m S <4 Aztreonam S <4 Cefazolin S <2 Cefepime S <2 Ceftazidime S <1 Ceftazidime/Avibact am S <4 Ceftolozane/Tazobac borges S <2 Ceftriaxone S <1 Cefuroxime S <4 Ciprofloxacin S <0.25 Ertapenem S <0.5 Gentamicin S <2 Levofloxacin S <0.5 Meropenem S <1 Meropenem/Vaborbact am S <2 Nitrofurantoin S <32 Piperacillin/Tazoba ctam S <8 Tetracycline S <4 Tigecycline S <2 Tobramycin S <2 Trimethoprim/Sulfam ethoxazole S <0.5 S = SUSCEPTIBLE I = INTERMEDIATE R = RESISTANT BLANK = DATA NOT AVAILABLE, OR DRUG NOT ADVISABLE OR TESTED R* = RESISTANCE DUE TO EXTENDED SPECTRUM BETA-LACTAMASES ESBL = EXTENDED SPECTRUM BETA-LACTAMASE TFG = THYMIDINE-DEPENDENT STRAIN YU = BETA-LACTAMASE POSITIVE IB = INDUCIBLE BETA-LACTAMASE. APPEARS IN PLACE OF 'S' WITH SPECIES KNOWN TO POSSESS INDUCIBLE BETA-LACTAMASES. POTENTIALLY THEY MAY BECOME RESISTANT TO ALL B-LACTAM DRUGS. PERFORMED BY: [facility] [address] [place] [address] PATHOLOGIST CIVIL CADD TECHNICIAN EDGARDO BECERRA M.D. Normal [facility] Comment on above: Performed By: #### C UU #### [facility] [address] Urine cultureOrdered By: Omi Mills on 09-16-2024 Bacteria identified Cx Nom (U) Escherichia coli Abnormal [facility] Laboratory - Chemistry and C hemistry - challengeon 09-11-2024 Bilirubin Ql (U) Negative [facility] Glucose (U) [Mass/Vol] [facility] Ketones Ql (U) Negative [facility] pH (U) 5 [pH] [facility] Specific gravity (U) [Rel density] 1.020 [facility] Urobilinogen (U) [Mass/Vol] 0.2 mg/dL [facility] Laboratory - Specimen inform ationon 09-11-2024 Appearance (U) cloudy [facility] Color (U) yellow [facility] Laboratory - Urinalysison Leukocyte esterase Test strip Ql (U) ++ [facility] Nitrite Ql (U) Negative [facility] Protein Ql (U) ++ [facility] No Panel Informationon 09-11 Urine Occult Blood ++ [facility] No Panel Informationon 02-14 Reference Lab Test Patient Age Note . [facility] Comment on above: TESTS RESULT FLAG UN ITS REF RANGE LAB - Clinician Provided Cytology Information Source.............Cervix;Endocervix No. of containers..01 ThinPrep VialAge Algo ACOG Anuja... Note 01 <21 or >65 or no age provided ------ FLAG LEGEND: L-Low Normal,H-High Normal,LL-Alert Low,HH-Alert High <-Panic Low,>-Panic High,A-Abnormal,AA-Critical Abnormal ------Performed at:01 =G [facility] [address] [place] [address] Nandini Kim MD, Thin Prep Pap Screen Note . [facility] Comment on above: TESTS RESULT FLAG UN ITS REF RANGE LAB -DIAGNOSIS: 02 NEGATIVE FOR INTRAEPITHELIAL LESION OR MALIGNANCY.Specimen adequacy: 02 Satisfactory for evaluation. Endocervical and/or squamous metaplastic cells (endocervical component) are present.Performed by: Cristal Wilder, Lumber Press Operator ([facility]). 02Note: Note 03 The Pap [...] the use of an image guided system. ----- FLAG LEGEND: L-Low Normal,H-High Normal,LL-Alert Low,HH-Alert High <-Panic Low,>-Panic High,A-Abnormal,AA-Critical Abnormal ------Performed at:02 [facility] [address] [place] [address] Willie Villanueva MD, [address] [facility] [address] [address] Nandini Kim MD, Qgiqcrrdz at: = - [facility] [address] [id number] Director: Nandini Kim MD, Phone: [phone] at: [facility] - [facility] [place] [id number] [place], [place] [id number] Director: Willie Villanueva MD, Phone: [phone] Basophils Auto (Bld) [#/Vol] on 12-23-2023 Basophils (Bld) [#/Vol] 0.0 10 3/uL 0.0-0.1 [facility] Basophils/100 WBC Auto (Bld) on 12-23-2023 Basophils/100 WBC (Bld) 0.4 % 0.2-2.[address] [facility] Cholesterol in LDL Calc [Mas s/Vol]on 12-23-2023 Cholesterol in LDL [Mass/Vol] 106.8 mg/dL [facility] Comment on above: <100 mg/dl [id number] 0-129 mg/dl NEAR OR ABOVE [id number] mg/dl BORDERLINE [id number] mg/dl HIGH>190 mg/dl VERY HIGH Cholesterol in VLDL Calc [Ma ss/Vol]on 12-23-2023 Cholesterol in VLDL [Mass/Vol] 24.2 mg/dL [facility] Eosinophils/100 WBC Auto (Bl d)on 12-23-2023 Eosinophils/100 WBC (Bld) 5.7 % 0.9-7.0 [facility] Erythrocyte distribution wid th Auto (RBC) [Ratio]on 12-23-2023 Erythrocyte distribution width (RBC) [Ratio] 12.5 % 11.0-15.0 [facility] Estimated glomerular filtrat ion rate (GFR) non- Americanon 12-23-2023 GFR/1.73 sq M.predicted among non-blacks MDRD (S/P/Bld) [Vol rate/Area] 49 mL/min/{1.73_m2} Low >=60 [facility] Globulin Calc (S) [Mass/Vol] on 12-23-2023 Globulin (S) [Mass/Vol] 3.6 g/dL [facility] Hematocrit Auto (Bld) [Volum e fraction]on 12-23-2023 Hematocrit (Bld) [Volume fraction] 41.1 % 36.0-48.0 [facility] Hemoglobin [Mass/volume] in Bloodon 12-23-2023 Hemoglobin (Bld) [Mass/Vol] 13.3 g/dL 12.0-16.0 [facility] Laboratory - Chemistry and C hemistry - challengeon 12-23-2023 Albumin [Mass/Vol] 3.8 g/dL 3.4-5.0 [facility] ALP [Catalytic activity/Vol] 78 U/L 46-116 [facility] ALT [Catalytic activity/Vol] 32 U/L 14-59 [facility] AST [Catalytic activity/Vol] 19 U/L 15-37 [facility] Bilirubin [Mass/Vol] 0.6 mg/dL 0.2-1.0 [facility] Calcium [Mass/Vol] 9.3 mg/dL 8.5-10.1 [facility] Chloride [Moles/Vol] 105 mmol/L 98-107 [facility] Cholesterol [Mass/Vol] 175 mg/dL <=200 [facility] Cholesterol in HDL [Mass/Vol] 44 mg/dL 40-60 [facility] Comment on above: > or =60 mg/dl - LOW CARDIOVASCULAR RISK<40 mg/dl - HIGH CARDIOVASCULAR RISK CO2 [Moles/Vol] 28.8 mmol/L 21.0-32.0 [facility] Creatinine [Mass/Vol] 1.11 mg/dL High 0.55-1.02 [facility] Free T4 [Mass/Vol] 0.98 ng/dL 0.76-1.46 [facility] GFR/1.73 sq M.predicted MDRD (S/P/Bld) [Vol rate/Area] 59 mL/min/{1.73_m2} Low >=60 [facility] Glucose [Mass/Vol] 98 mg/dL 74-106 [facility] Potassium [Moles/Vol] 3.1 mmol/L Low 3.5-5.1 [facility] Protein [Mass/Vol] 7.4 g/dL 6.4-8.2 [facility] Sodium [Moles/Vol] 143 mmol/L 136-145 [facility] Triglyceride [Mass/Vol] 121 mg/dL <=150 [facility] TSH Qn 1.246 m[IU]/L 0.358-3.740 [facility] Urate [Mass/Vol] 6.4 mg/dL High 2.6-6.0 [facility] Urea nitrogen [Mass/Vol] 23.0 mg/dL High 7.0-18.0 [facility] Urea nitrogen/Creatinine [Mass ratio] 20.7 mg/mg [facility] Laboratory - Hematology and Cell countson 12-23-2023 Immature granulocytes/100 WBC (Bld) 0.3 % 0.0-0.5 [facility] Leukocytes [#/volume] correc jo ann for nucleated erythrocytes in Blood by Automated counon 12-23-2023 WBC corrected for nucl RBC Auto (Bld) [#/Vol] 8.9 10 3/uL 4.0-11.0 [facility] Lymphocytes Auto (Bld) [#/Vo l]on 12-23-2023 Lymphocytes (Bld) [#/Vol] 2.9 10 3/uL 1.2-3.8 [facility] Lymphocytes/100 WBC Auto (Bl d)on 12-23-2023 Lymphocytes/100 WBC (Bld) 33.0 % 20.5-60.0 [facility] MCH Auto (RBC) [Entitic mass ]on 12-23-2023 MCH (RBC) [Entitic mass] 29.0 pg 26.7-34.0 [facility] MCHC Auto (RBC) [Mass/Vol]on 12-23-2023 MCHC (RBC) [Mass/Vol] 32.4 g/dL 29.9-35.2 [facility] MCV Auto (RBC) [Entitic vol] on 12-23-2023 MCV (RBC) [Entitic vol] 89.5 fL 81.0-99.0 [facility] Monocytes Auto (Bld) [#/Vol] on 12-23-2023 Monocytes (Bld) [#/Vol] 0.7 10 3/uL 0.3-0.8 [facility] Monocytes/100 WBC Auto (Bld) on 12-23-2023 Monocytes/100 WBC (Bld) 8.0 % 1.7-12.0 [facility] Neutrophils Auto (Bld) [#/Vo l]on 12-23-2023 Neutrophils (Bld) [#/Vol] 4.7 10 3/uL 1.4-6.5 [facility] Neutrophils/100 WBC Auto (Bl d)on 12-23-2023 Neutrophils/100 WBC (Bld) 52.6 % 43.0-75.0 [facility] No Panel Informationon 12-22 Eosinophils # (Auto) 0.5 10 3/uL 0.0-0.7 [facility] Immature Granulocyte # (Auto) 0.03 10 3/uL 0.00-0.03 [facility] Total Triiodothyronine 132 ng/dL 71-180 [facility] Comment on above: Performed at: [address] [id number] Director: Dayton Toussaint PhD, Phone: [phone] Platelet mean volume Auto (B ld) [Entitic vol]on 12-23-2023 Platelet mean volume (Bld) [Entitic vol] 10.9 fL 9.5-13.5 [facility] Platelets Auto (Bld) [#/Vol] on 12-23-2023 Platelets (Bld) [#/Vol] 325 10 3/uL 150-450 [facility] RBC Auto (Bld) [#/Vol]on RBC (Bld) [#/Vol] 4.59 10 6/uL 4.20-5.40 [facility] Serum or plasma albumin/glob ulin mass ratioon 12-23-2023 Albumin/Globulin [Mass ratio] 1.1 {ratio} [facility] Serum or plasma anion gap de terminationon 12-23-2023 Anion gap [Moles/Vol] 12.3 mmol/L [facility] Serum or plasma total choles terol/high density lipoprotein (HDL) cholesterol mass vanesa 12-23-2023 Cholesterol.total/Zaira sterol in HDL [Mass ratio] 4.0 {ratio} [facility] Comment on above: 3.3 - 4.4 LOW RISK4. 4 - 7.1 AVERAGE RISK7.1 - 11.0 MODERATE RISK>11.0 HIGH RISK Thyroid stimulating immunogl obulin (TSI) measurementon 12-23-2023 Thyroid stimulating immunoglobulins actual/normal (S) [Relative mass conc] 0.66 IU/L Abnormal 0.00-0.55 [facility] Comment on above: Performed at: [address] [id number] Director: Anderson Rodriguez MD, Phone: [phone] Laboratory - Chemistry and C hemistry - challengeon 11-18-2023 Bilirubin Ql (U) Negative [facility] Glucose (U) [Mass/Vol] Negative [facility] Ketones Ql (U) Negative [facility] pH (U) 7 [pH] [facility] Specific gravity (U) [Rel density] 1.015 [facility] Urobilinogen (U) [Mass/Vol] 0.2 mg/dL [facility] Laboratory - Specimen inform ationon 11-18-2023 Appearance (U) cloudy [facility] Color (U) yellow [facility] Laboratory - Urinalysison Leukocyte esterase Test strip Ql (U) +++ [facility] Nitrite Ql (U) Negative [facility] Protein Ql (U) ++ [facility] No Panel Informationon 11-17 Urine Occult Blood +++ [facility] Laboratory - Chemistry and C hemistry - challengeon 07-25-2023 TSH Qn 3.532 m[IU]/L 0.358-3.740 [facility] TSHon 07-21-2022 TSH 3.102 uIU/mL Normal 0.358-3.740 [facility] Comment on above: Performed By: #### B MP, TSH, LIPID #### [facility] [address] [address] [address] Leonardo Salazar Thyroid Stimulating Hormoneo 07-21-2022 Thyroid Stimulating Hormone KarmaKey Other TSHon 06-14-2022 TSH 3.853 uIU/mL Critically high 0.358-3.740 [facility] Comment on above: Performed By: #### T SH #### [facility] [address] [address] [address] Leonardo Salazar TSHon 05-03-2022 TSH 5.728 uIU/mL Critically high 0.358-3.740 [facility] Comment on above: Performed By: #### T SH #### [facility] [address] [place] [address] Dr. Leonardo Salazar TSHon 03-25-2022 TSH 4.674 uIU/mL Critically high 0.358-3.740 [facility] Comment on above: Performed By: #### B MP, TSH, LIPID #### [facility] [address] [place] [address] Dr. Leonardo Salazar PAP ACOG PANEL 2: 30 to 65on 02-12-2022 . . Normal [facility] Comment on above: Performed By: #### B MP, TSH, LIPID #### [facility] [address] [place] [address] Dr. Leonardo Salazar Age Gdln ACOG Testing Comment Normal [facility] Comment on above: Result Comment: <21 or >65 or no age provided Performed By: #### B MP, TSH, LIPID #### [facility] [address] [address] [address] Leonardo Salazar DIAGNOSIS: Comment Normal [facility] Comment on above: Result Comment: NEGA TIVE FOR INTRAEPITHELIAL LESION OR MALIGNANCY. Performed By: #### B MP, TSH, LIPID #### [facility] [address] [address] [address] Leonardo Salazar Methodology: Comment Normal [facility] Comment on above: Result Comment: This liquid based ThinPrep(R) pap test was screened with the use of an image guided system. Performed By: #### B MP, TSH, LIPID #### [facility] [address] [address] [address] Leonardo Salazar Note: Comment Normal [facility] Comment on above: Result Comment: The Pap smear is a screening test designed to aid in the detection of premalignant and malignant conditions of the uterine cervix. It is not a diagnostic procedure and should not be used as the sole means of detecting cervical cancer. Both false-positive and false-negative reports do occur. . Performed By: #### B MP, TSH, LIPID #### [facility] [address] [address] [address] Leonardo Salazar Performed by: Comment Normal [facility] Comment on above: Result Comment: Troy Faulkner Lumber Press Operator ([employer]) Performed By: #### B MP, TSH, LIPID #### [facility] [address] [place] [address] Dr. Leonardo Salazar Specimen adequacy: Comment Normal [place] Comment on above: Result Comment: Sati sfactory for evaluation. Endocervical and/or squamous metaplastic cells (endocervical component) are present. Performed By: #### B MP, TSH, LIPID #### [facility] [address] [place] [address] Dr. Leonardo Salazar Covid-19 PCR ([facility])on 12-05 SARS-CoV-2 (COVID-19) RNA MOSHE+probe Ql (Unsp spec) Detected Critically abnormal NOT DETECTED [facility] Comment on above: Result Comment: This test is not yet approved or cleared by the [place] FDA. When there are no FDA-approved or cleared tests available, and other criteria are met, FDA can make tests available under an emergency access mechanism called an Emergency Use Authorization (EUA). The EUA for this test is supported by the [place] of Health and Human Service's (HHS's) declaration [...] used). Performed By: #### C VDTB #### [facility] [address] [place] [address] Dr. Leonardo Salazar THYROID-STIMULATING IMMUNOGL OBULINon 12-28-2021 Thyroid Sim Immunoglobulin 4.57 IU/L Critically high 0.00-0.55 [facility] Comment on above: Performed By: #### T OSITO #### [facility] [address] [place] [address] Dr. Leonardo Salazar US THYROIDon 12-27-2021 US [...] thyroid TR 3 nodules. TR 3 The [employer] TI-RADS committee's white paper recommendations for thyroid lesions classified as TR3 (mildly suspicious) are listed below: > 1.5 cm. Follow-up ultrasound in 1, 3, and 5 years. > 2.5 cm. FNA. J. Am Luis Radiol 2017;14:587-595. Electronically authenticated by: [place] ZARAGOZA Date: 2021-12-27 07:22 Normal [facility] THYROID PEROXIDASE ABon 07-2 Thyroid Peroxidase (TPO) Ab 234 IU/mL Critically high 0-34 [facility] Comment on above: Performed By: #### T POAB #### [facility] [address] [address] [address] Leonardo Salazar T3, TOTAL (TRIIODOTHYRONINE) on 12-11-2021 T3, TOTAL 196 ng/dL Critically high 71-180 [facility] Comment on above: Performed By: #### B MP, TSH, LIPID #### [facility] [address] [address] [address] Leonardo Salazar CBC AUTO DIFFon 12-09-2021 BASO # 0.1 103/ul Normal 0.0-0.1 [facility] Comment on above: Performed By: #### C BC #### [facility] [address] [address] [address] Leonardo Salazar Basophils/100 WBC (Bld) 0.4 % Normal 0.2-2.0 [facility] Comment on above: Performed By: #### C BC #### [facility] [address] [place] [address] Dr. Leonardo Salazar EO # 0.3 103/ul Normal 0.0-0.7 [facility] Comment on above: Performed By: #### C BC #### [facility] [address] [place] [address] Dr. Leonardo Salazar Eosinophils/100 WBC (Bld) 2.3 % Normal 0.9-7.0 [facility] Comment on above: Performed By: #### C BC #### [facility] [address] [place] [address] Dr. Leonardo Salazar Erythrocyte distribution width (RBC) [Ratio] 12.9 % Normal 11.0-15.0 [facility] Comment on above: Performed By: #### C BC #### [facility] [address] [place] [address] Dr. Leonardo Salazar Hematocrit (Bld) [Volume fraction] 43.1 % Normal 36.0-48.0 [facility] Comment on above: Performed By: #### C BC #### [facility] [address] [address] [address] Leonardo Salazar Hemoglobin (Bld) [Mass/Vol] 13.7 g/dL Normal 12.0-16.0 [facility] Comment on above: Performed By: #### C BC #### [facility] [address] [address] [address] Leonardo Salazar IG # 0.07 10e3/ul Critically high 0.00-0.03 [facility] Comment on above: Performed By: #### C BC #### [facility] [address] [address] [address] Leonardo Salazar IG % 0.6 % Critically high 0.0-0.5 [facility] Comment on above: Performed By: #### C BC #### [facility] [address] [address] [address] Leonardo Salazar LYMPH # 2.9 103/ul Normal 1.2-3.8 [facility] Comment on above: Performed By: #### C BC #### [facility] [address] [address] [address] Leonardo Salazar Lymphocytes/100 WBC (Bld) 25.3 % Normal 20.5-60.0 [facility] Comment on above: Performed By: #### C BC #### [facility] [address] [address] [address] Leonardo Salazar MANUAL DIFF REQ NO Normal [facility] Comment on above: Performed By: #### C BC #### [facility] [address] [address] [address] Leonardo Salazar MCH (RBC) [Entitic mass] 27.5 pg Normal 26.7-34.0 [facility] Comment on above: Performed By: #### C BC #### [facility] [address] [address] [address] Leonardo Salazar MCHC (RBC) [Mass/Vol] 31.8 g/dL Normal 29.9-35.2 [facility] Comment on above: Performed By: #### C BC #### [facility] [address] [address] [address] Leonardo Salazar MCV (RBC) [Entitic vol] 86.4 fL Normal 81.0-99.0 [facility] Comment on above: Performed By: #### C BC #### [facility] [address] [address] [address] Leonardo Salazar MONO # 0.9 103/ul Critically high 0.3-0.8 [facility] Comment on above: Performed By: #### C BC #### [facility] [address] [address] [address] Leonardo Salazar Monocytes/100 WBC (Bld) 8.2 % Normal 1.7-12.0 [facility] Comment on above: Performed By: #### C BC #### [facility] [address] [place] [address] Dr. Leonardo Salazar NEUT # 7.1 103/ul Critically high 1.4-6.5 [facility] Comment on above: Performed By: #### C BC #### [facility] [address] [place] [address] Dr. Leonardo Salazar Neutrophils/100 WBC (Bld) 63.2 % Normal 43.0-75.0 [facility] Comment on above: Performed By: #### C BC #### [facility] [address] [place] [address] Dr. Leonardo Salazar Platelet mean volume (Bld) [Entitic vol] 10.4 fL Normal 9.5-13.5 [facility] Comment on above: Performed By: #### C BC #### [facility] [address] [place] [address] Dr. Leonardo Salazar PLT 320 103/ul Normal 150-450 [facility] Comment on above: Performed By: #### C BC #### [facility] [address] [place] [address] Dr. Leonardo Salazar RBC 4.99 106/ul Normal 4.20-5.40 [facility] Comment on above: Performed By: #### C BC #### [facility] [address] [address] [address] Leonardo Salazar WBC 11.3 103/ul Critically high 4.0-11.0 [facility] Comment on above: Performed By: #### C BC #### [facility] [address] [address] [address] Leonardo Salazar FREE T3on 12-09-2021 FREE T3 5.33 pg/mlL Critically high 2.18-3.98 [facility] Comment on above: Performed By: #### F T3 #### [facility] [address] [address] [address] Leonardo Salazar FREE T4on 12-09-2021 Free T4 [Mass/Vol] 1.97 ng/dL Critically high 0.76-1.46 [facility] Comment on above: Performed By: #### B MP, TSH, LIPID #### [facility] [address] [address] [address] Leonardo Salazar LIPID PROFILEon 12-09-2021 CHOL-HDL RATIO NORM SEE BELOW Normal [facility] Comment on above: Result Comment: 3.3 - 4.4 LOW RISK 4.4 - 7.1 AVERAGE RISK 7.1 - 11.0 MODERATE RISK >11.0 HIGH RISK Performed By: #### B MP, TSH, LIPID #### [facility] [address] [address] [address] Leonardo Salazar Cholesterol [Mass/Vol] 170 mg/dL Normal <=200 [facility] Comment on above: Performed By: #### B MP, TSH, LIPID #### [facility] [address] [address] [address] Leonardo Salazar Cholesterol in HDL [Mass/Vol] 51 mg/dL Normal 40-60 [facility] Comment on above: Performed By: #### B MP, TSH, LIPID #### [facility] [address] [address] [address] Leonardo Salazar Cholesterol in LDL [Mass/Vol] 105.4 mg/dL Normal [facility] Comment on above: Performed By: #### B MP, TSH, LIPID #### [facility] [address] [address] [address] Leonardo Salazar Cholesterol.total/Zaira sterol in HDL [Mass ratio] 3.3 {ratio} Normal [facility] Comment on above: Performed By: #### B MP, TSH, LIPID #### [facility] [address] [address] [address] Leonardo Salazar HDL NORMAL > or = 60 mg/dl - LOW CARDIOVASCULAR RISK <40 mg/dl - HIGH CARDIOVASCULAR RISK Normal [facility] Comment on above: Performed By: #### B MP, TSH, LIPID #### [facility] [address] [address] [address] Leonardo Salazar LDL CALC NORMAL SEE BELOW Normal [facility] Comment on above: Result Comment: <100 mg/dl OPTIMAL 100 - 129 mg/dl NEAR OR ABOVE OPTIMAL 130 - 159 mg/dl BORDERLINE HIGH 160 - 189 mg/dl HIGH >190 mg/dl VERY HIGH Performed By: #### B MP, TSH, LIPID #### [facility] [address] [address] [address] Leonardo Salazar Triglyceride [Mass/Vol] 68 mg/dL Normal <=150 [facility] Comment on above: Performed By: #### B MP, TSH, LIPID #### [facility] [address] [address] [address] Leonardo Salazar VLDL CALC 13.6 mg/dL Normal [facility] Comment on above: Performed By: #### B MP, TSH, LIPID #### [facility] [address] [address] [address] Leonardo Salazar MG MAMM SCREEN 3D SAÚL CADon 12-09-2021 MG MAMM SCREEN 3D SAÚL CAD Patient: ANGELA BAXTER Exam Date: 12/09/2021 : 1955 Gender:F Ordering : DR MARCOS ROQUE D.O. Admission #: [id number] Family : DR CONSUELO CLEVELAND . Order #: [id number] CLICK HERE TO VIEW EXAM RADIOLOGY REPORT [...] breast cancer at age 70. LOCATION: [facility] BREAST COMPOSITION: Heterogeneously dense,which may obscure small [...] Zaragoza M.D. on 12/10/2021 at 14:20 Normal [facility] PROF CHEM 8 (BAS METB)on Anion gap [Moles/Vol] 10.4 mmol/L Normal [facility] Comment on above: Performed By: #### B MP, TSH, LIPID #### [facility] [address] [address] [address] Leonardo Salazar Calcium [Mass/Vol] 9.7 mg/dL Normal 8.5-10.1 [place] Comment on above: Performed By: #### B MP, TSH, LIPID #### [facility] [address] [address] [address] Leonardo Salazar Chloride [Moles/Vol] 106 mmol/L Normal 98-107 [facility] Comment on above: Performed By: #### B MP, TSH, LIPID #### [facility] [address] [address] [address] Leonardo Salazar CO2 [Moles/Vol] 29.5 mmol/L Normal 21.0-32.0 [facility] Comment on above: Performed By: #### B MP, TSH, LIPID #### [facility] [address] [address] [address] Leonardo Salazar Creatinine [Mass/Vol] 0.88 mg/dL Normal 0.55-1.02 [facility] Comment on above: Performed By: #### B MP, TSH, LIPID #### [facility] [address] [place] [address] Dr. Leonardo Salazar EGFR-AF CROATIAN >60 Normal >=60 [facility] Comment on above: Performed By: #### B MP, TSH, LIPID #### [facility] [address] [place] [address] Dr. Leonardo Salazar EGFR-NON AF CROATIAN >60 Normal >=60 [facility] Comment on above: Performed By: #### B MP, TSH, LIPID #### [facility] [address] [place] [address] Dr. Leonardo Salazar Glucose [Mass/Vol] 98 mg/dL Normal 74-106 [place] Comment on above: Performed By: #### B MP, TSH, LIPID #### [facility] [address] [place] [address] Dr. Leonardo Salazar Potassium [Moles/Vol] 3.9 mmol/L Normal 3.5-5.1 [facility] Comment on above: Performed By: #### B MP, TSH, LIPID #### [facility] [address] [place] [address] Dr. Leonardo Salazar Sodium [Moles/Vol] 142 mmol/L Normal 136-145 [facility] Comment on above: Performed By: #### B MP, TSH, LIPID #### [facility] [address] [place] [address] Dr. Leonardo Salazar Urea nitrogen [Mass/Vol] 23.0 mg/dL Critically high 7.0-18.0 [facility] Comment on above: Performed By: #### B MP, TSH, LIPID #### [facility] [address] [place] [address] Dr. Leonardo Salazar Urea nitrogen/Creatinine [Mass ratio] 26.1 mg/mg Normal [facility] Comment on above: Performed By: #### B MP, TSH, LIPID #### [facility] [address] [place] [address] Dr. Leonardo Salazar TSHon 12-09-2021 TSH Qn m[IU]/L Critically low 0.358-3.740 [facility] Comment on above: Performed By: #### B MP, TSH, LIPID #### [facility] [address] [address] [address] Leonardo Salazar Vital Signs Date Time Vital Sign Value Performing Clinician Facility 01-30-2025 09:47-0400 Body height 168.91 cm Marcos Ball DO Work Phone: [facility] 01-30-2025 09:47-0400 Body mass index (BMI) [Ratio] 30.2 kg/m2 Marcos Ball DO Work Phone: [facility] 01-30-2025 09:47-0400 Body weight 86.29 kg Marcos Ball DO Work Phone: [facility] 01-30-2025 09:47-0400 Diastolic blood pressure 87 mm[Hg] Marcos Ball DO Work Phone: [facility] 01-30-2025 09:47-0400 Heart rate 83 /min Marcos Ball DO Work Phone: [facility] 01-30-2025 09:47-0400 Respiratory rate 12 /min Marcos Ball DO Work Phone: [facility] 01-30-2025 09:47-0400 Systolic blood pressure 154 mm[Hg] Marcos Ball DO Work Phone: [facility] 12-19-2024 11:58-0400 Diastolic blood pressure 74 mm[Hg] Marcos Ball DO Work Phone: [facility] 12-19-2024 11:58-0400 Heart rate 74 /min Marcos Ball DO Work Phone: [facility] 12-19-2024 11:58-0400 Respiratory rate 18 /min Marcos Ball DO Work Phone: [facility] 12-19-2024 11:58-0400 SaO2% (BldA) [Mass fraction] 97 % Marcos Ball DO Work Phone: [facility] 12-19-2024 11:58-0400 Systolic blood pressure 147 mm[Hg] Marcos Ball DO Work Phone: [facility] 12-19-2024 10:05-0400 Body height 168.91 cm Marcos Ball DO Work Phone: [facility] 12-19-2024 10:05-0400 Body weight 87.09 kg Marcos Ball DO Work Phone: [facility] 11-20-2024 11:35-0400 Body height 172.72 cm Marcos Ball DO Work Phone: [facility] 11-20-2024 11:35-0400 Body mass index (BMI) [Ratio] 29 kg/m2 Marcos Ball DO Work Phone: [facility] 11-20-2024 11:35-0400 Body weight 86.69 kg Marcos Ball DO Work Phone: [facility] 11-20-2024 11:35-0400 Diastolic blood pressure 84 mm[Hg] Marcos Ball DO Work Phone: [facility] 11-20-2024 11:35-0400 Heart rate 76 /min Marcos Ball DO Work Phone: [facility] 11-20-2024 11:35-0400 Respiratory rate 12 /min Marcos Ball DO Work Phone: [facility] 11-20-2024 11:35-0400 Systolic blood pressure 162 mm[Hg] Marcos Ball DO Work Phone: [facility] 09-25-2024 13:49-0400 Body height 172.72 cm Ghanshyam Hay DO Work Phone: [facility] 09-25-2024 13:49-0400 Body mass index (BMI) [Ratio] 28.3 kg/m2 Ghanshyam Hay DO Work Phone: [facility] 09-25-2024 13:49-0400 Body weight 84.53 kg Ghanshyam Hay DO Work Phone: [facility] 09-25-2024 13:49-0400 Diastolic blood pressure 78 mm[Hg] Ghanshyam Hay DO Work Phone: [facility] 09-25-2024 13:49-0400 Heart rate 92 /min Ghanshyam Hay DO Work Phone: [facility] 09-25-2024 13:49-0400 Respiratory rate 12 /min Ghanshyam Hay DO Work Phone: [facility] 09-25-2024 13:49-0400 Systolic blood pressure 136 mm[Hg] Ghanshyam Hay DO Work Phone: [facility] 07-23-2024 11:45-0500 Body height 172.72 cm [facility] 07-23-2024 11:45-0500 Body mass index (BMI) [Ratio] 30.1 kg/m2 [facility] 07-23-2024 11:45-0500 Body weight 89.92 kg [facility] 07-23-2024 11:45-0500 Diastolic blood pressure 75 mm[Hg] [facility] 07-23-2024 11:45-0500 Heart rate 80 /min [facility] 07-23-2024 11:45-0500 Respiratory rate 12 /min [facility] 07-23-2024 11:45-0500 Systolic blood pressure 124 mm[Hg] [facility] 03-19-2024 11:57-0400 Body height 172.72 cm [facility] 03-19-2024 11:57-0400 Body mass index (BMI) [Ratio] 29.8 kg/m2 [facility] 03-19-2024 11:57-0400 Body weight 89.07 kg [facility] 03-19-2024 11:57-0400 Diastolic blood pressure 82 mm[Hg] [facility] 03-19-2024 11:57-0400 Heart rate 71 /min [facility] 03-19-2024 11:57-0400 Respiratory rate 12 /min [facility] 03-19-2024 11:57-0400 Systolic blood pressure 134 mm[Hg] [facility] 11-29-2023 11:44-0400 Body height 172.72 cm [facility] 11-29-2023 11:44-0400 Body mass index (BMI) [Ratio] 29.5 kg/m2 [facility] 11-29-2023 11:44-0400 Body weight 88.11 kg [facility] 11-29-2023 11:44-0400 Diastolic blood pressure 85 mm[Hg] [facility] 11-29-2023 11:44-0400 Heart rate 89 /min [facility] 11-29-2023 11:44-0400 Respiratory rate 12 /min [facility] 11-29-2023 11:44-0400 Systolic blood pressure 134 mm[Hg] [facility] 09-06-2023 11:44-0400 Body height 172.72 cm [facility] 09-06-2023 11:44-0400 Body mass index (BMI) [Ratio] 29.6 kg/m2 [facility] 09-06-2023 11:44-0400 Body weight 88.45 kg [facility] 09-06-2023 11:44-0400 Diastolic blood pressure 82 mm[Hg] [facility] 09-06-2023 11:44-0400 Heart rate 80 /min [facility] 09-06-2023 11:44-0400 Respiratory rate 16 /min [facility] 09-06-2023 11:44-0400 Systolic blood pressure 131 mm[Hg] [facility] 07-25-2023 11:40-0500 Body height 172.72 cm [facility] 07-25-2023 11:40-0500 Body mass index (BMI) [Ratio] 30.2 kg/m2 [facility] 07-25-2023 11:40-0500 Body weight 90.26 kg [facility] 07-25-2023 11:40-0500 Diastolic blood pressure 78 mm[Hg] [facility] 07-25-2023 11:40-0500 Heart rate 73 /min [facility] 07-25-2023 11:40-0500 Respiratory rate 12 /min [facility] 07-25-2023 11:40-0500 Systolic blood pressure 137 mm[Hg] [facility] 03-23-2023 10:00-0400 Body height 172.72 cm Marcos Ball Other [facility] Other 03-23-2023 10:00-0400 Body mass index (BMI) [Ratio] 29.83 kg/m2 Marcos Ball Other [facility] Other 03-23-2023 10:00-0400 Body weight 89 kg Marcos Ball Other [facility] Other 03-23-2023 10:00-0400 Diastolic blood pressure 79 mm[Hg] Marcos Ball Other [facility] Other 03-23-2023 10:00-0400 Respiratory rate 12 /min Marcos Ball Other [facility] Other 03-23-2023 10:00-0400 Systolic blood pressure 131 mm[Hg] Marcos Ball Other [facility] Other 11-24-2022 10:00-0400 Body height 172.72 cm Marcos Ball Other [facility] Other 11-24-2022 10:00-0400 Body mass index (BMI) [Ratio] 29.43 kg/m2 Marcos Ball Other [facility] Other 11-24-2022 10:00-0400 Body weight 87.82 kg Marcos Ball Other [facility] Other 11-24-2022 10:00-0400 Diastolic blood pressure 87 mm[Hg] Marcos Ball Other [facility] Other 11-24-2022 10:00-0400 Respiratory rate 12 /min Marcos Ball Other [facility] Other 11-24-2022 10:00-0400 Systolic blood pressure 128 mm[Hg] Marcos Ball Other [facility] Other 07-21-2022 11:00-0500 Body height 172.72 cm Marcos Ball Other [facility] Other 07-21-2022 11:00-0500 Body mass index (BMI) [Ratio] 29.31 kg/m2 Marcos Ball Other [facility] Other 07-21-2022 11:00-0500 Body weight 87.45 kg Marcos Ball Other [facility] Other 07-21-2022 11:00-0500 Diastolic blood pressure 68 mm[Hg] Marcos Ball Other [facility] Other 07-21-2022 11:00-0500 Respiratory rate 12 /min Marcos Ball Other [facility] Other 07-21-2022 11:00-0500 Systolic blood pressure 124 mm[Hg] Marcos Ball Other [facility] Other Encounters Encounter Date Encounter Type Care Provider Facility Start: 01-30-2025 End: 01-30-2025 ambulatory Marcos Jude DO Work Phone: [facility] Work Phone: Start: 01-30-2025 End: 01-30-2025 Patient encounter procedure Marcos Roque DO -[facility] Work Phone: Start: 12-31-2024 Non-patient / Non-visit Marcos ruiz DO -[facility] Work Phone: Start: 12-24-2024 Non-patient / Non-visit Marcos ruiz DO -[facility] Work Phone: Start: 12-19-2024 End: 12-19-2024 ambulatory Edu Watts Facility:[facility] Start: 12-19-2024 Non-patient / Non-visit Edu Fairbanks MD -[facility] Work Phone: Start: 11-20-2024 End: 11-20-2024 Patient encounter procedure Marcos Jude RODRIGUEZ -[facility] Work Phone: Start: 09-25-2024 End: 09-25-2024 ambulatory Ghanshyam Mills DO Work Phone: [facility] Work Phone: Start: 09-25-2024 End: 09-25-2024 Patient encounter procedure Ghanshyam Mills DO Work Phone: [facility] Work Phone: Start: 09-16-2024 End: 09-16-2024 ambulatory Ghanshyam Tay [facility] Work Phone: Start: 09-16-2024 End: 09-16-2024 Departed Referred Ghanshyam Mills DO Work Phone: [facility] Start: 09-16-2024 Non-patient / Non-visit Ghanshyam Willis maurisio DO Work Phone: [facility] Work Phone: Start: 09-11-2024 End: 09-11-2024 ambulatory [facility] Work Phone: Start: 09-11-2024 End: 09-11-2024 Patient encounter procedure [facility] Work Phone: Start: 07-23-2024 End: 07-23-2024 ambulatory [facility] Work Phone: Start: 07-23-2024 End: 07-23-2024 Patient encounter procedure [facility] Work Phone: Start: 06-25-2024 End: 06-25-2024 ambulatory NIDIA Garcia YARA Not Available Start: 06-13-2024 End: 06-13-2024 ambulatory NIDIA Garcia YARA Not Available Start: 06-04-2024 End: 06-04-2024 ambulatory NIDIA Garcia YARA Not Available Start: 05-24-2024 End: 05-24-2024 ambulatory NIDIA Garcia YARA Not Available Start: 03-19-2024 End: 03-19-2024 ambulatory [facility] Work Phone: Start: 03-19-2024 End: 03-19-2024 Patient encounter procedure [facility] Work Phone: Start: 03-01-2024 End: 03-01-2024 ambulatory NIDIA Garcia YARA Not Available Start: 02-15-2024 Non-patient / Non-visit [facility] Work Phone: Start: 02-15-2024 End: 02-15-2024 ambulatory CONSUELO RIOSO Not Available Start: 12-28-2023 End: 12-28-2023 ambulatory [facility] Work Phone: Start: 12-28-2023 End: 12-28-2023 Patient encounter procedure [facility] Work Phone: Start: 12-23-2023 Non-patient / Non-visit [facility] Work Phone: Start: 11-29-2023 End: 11-29-2023 ambulatory [facility] Work Phone: Start: 11-29-2023 End: 11-29-2023 Patient encounter procedure [facility] Work Phone: Start: 11-18-2023 End: 11-18-2023 ambulatory [facility] Work Phone: Start: 11-18-2023 End: 11-18-2023 Patient encounter procedure [facility] Work Phone: Start: 09-06-2023 End: 09-06-2023 ambulatory [facility] Work Phone: Start: 09-06-2023 End: 09-06-2023 Patient encounter procedure [facility] Work Phone: Start: 07-25-2023 End: 07-25-2023 ambulatory [facility] Work Phone: Start: 07-25-2023 End: 07-25-2023 Patient encounter procedure [facility] Work Phone: Start: 03-23-2023 End: 03-23-2023 ambulatory Marcos Ball Other [facility] Other Start: 03-23-2023 Office outpatient vi sit 25 minutes Marcos Ball [facility] Start: 01-06-2023 End: 01-06-2023 ambulatory Marcos Ball Other [facility] Other Start: 01-06-2023 Telephone encounter Marcos Ball [facility] Start: 12-23-2022 End: 12-23-2022 ambulatory Marcos Ball Other [facility] Other Start: 12-23-2022 Telephone encounter Marcos Ball [facility] Start: 12-21-2022 End: 12-21-2022 ambulatory Marcos Ball Other [facility] Other Start: 12-21-2022 Telephone encounter Marcos Ball [facility] Start: 11-24-2022 End: 11-24-2022 ambulatory Marcos Ball Other [facility] Other Start: 11-24-2022 Patient encounter procedure Marcos Ball [facility] Start: 11-17-2022 End: 11-17-2022 ambulatory Marcos Roque Other [facility] Other Start: 11-17-2022 Telephone encounter Marcos Roque [facility] Start: 11-08-2022 End: 11-08-2022 ambulatory Marcos Roque Other [facility] Other Start: 11-08-2022 Telephone encounter Marcos Roque [facility] Start: 09-28-2022 End: 09-28-2022 ambulatory Marcos Roque Other [facility] Other Start: 09-28-2022 Telephone encounter Marcos Roque [facility] Start: 09-27-2022 End: 09-27-2022 ambulatory Marcos Roque Other [facility] Other Start: 09-27-2022 Telephone encounter Marcos Roque [facility] Start: 09-15-2022 End: 09-15-2022 ambulatory Marcos Roque Other [facility] Other Start: 09-15-2022 Office outpatient vi sit 15 minutes Marcos Jude [facility] Start: 07-21-2022 Office outpatient vi sit 25 minutes Marcos Roque [facility] Start: 07-21-2022 End: 07-22-[address] MARCOS ROQUE Facility:[facility] Start: 06-15-2022 End: 06-15-2022 ambulatory Marcos Roque Other [facility] Other Start: 06-15-2022 Nursing evaluation o f patient and report Marcos Roque [facility] Start: 06-15-2022 Telephone encounter Marcos Roque [facility] Start: 06-14-2022 End: 06-15-[address] MARCOS ROQUE Facility:H1 Start: 06-14-2022 Telephone encounter Marcos Roque FP [facility] Start: 05-03-2022 End: 05-04-[address] MARCOS ROQUE Facility:H1 Start: 03-25-2022 End: 03-26-[address] MARCOS ROQUE Facility:H1 Start: 03-24-2022 Gynecological examin ation normal Marcos Roque Other [facility] Other Start: 02-04-2022 End: 02-04-[address] CONSUELO CLEVELAND . Facility:H1 Start: 02-04-2022 Adult health examination Cristobal Roque Other [facility] Other Start: 12-30-2021 End: 12-30-[address] MARCOS ROQUE Facility:H1 Start: 12-25-2021 End: 12-26-[address] MARCOS ROQUE Facility:H1 Start: 12-09-2021 End: 12-10-[address] MARCOS ROQUE Facility:H1 Start: 11-18-2020 End: 11-18-2020 Pre-procedure evaluation check Marcos Roque Other [facility] Other Start: 08-22-2020 End: 08-22-2020 Discharged Recurring Edmund Cardoza [facility]-Covid Vaccine Procedures Date Procedure Procedure Detail Performing Clinician Start: 09-16-2024 Urine culture Ghanshyam Mills DO Work Phone: Start: 11-23-2021 Depression screening Be lizett Roque Other Start: 08-20-2015 General examination of patient Marcos Roque Other Start: 08-20-2015 Screening for malign ant neoplasm of colon Marcos Roque Other Screening for malign ant neoplasm of breast Marcos Roque Other Screening for malign ant neoplasm of breast Marcos Roque Other Screening for osteoporosis B enjamin Jude Other Plan of Treatment Date Care Activity Detail Author Start: 12-19-2024 [facility] Start: 11-20-2024 Patient referral [facility] Work Phone: Start: 09-16-2024 Bacteria identified in Urine by Culture Urine Culture [facility] Start: 09-16-2024 Urine culture [facility] Comprehensive metabo lic 1999 panel - Serum or Plasma [facility] Comprehensive metabo lic 1999 panel - Serum or Plasma [facility] MG Breast - bilatera l Screening [facility] MG Breast - bilatera l Screening [facility] Patient Education [facility] Hemo rrhoids Discharge Instructions Know your Meds [facility] Colon Polypectomy Discharge Instructions [facility] Work Phone: Patient referral [facility] Work Phone: Thyroid stimulating immunoglobulins actual/normal in Serum [facility] Immunizations Immunization Date Immunization Notes Care Provider Fa gayatri 02-11-2024 Fluzone QIV High-Dos e 65YR+ [facility] 10-06-2022 COVID-19 Pfizer (bivalent) Marcos Roque Other [facility] 03-02-2022 COVID-19 Pfizer (bivalent) Marcos Roque Other [facility] 03-02-2022 influenza virus vaccine, unspecified formulation [facility] 03-02-2022 influenza, high dose seasonal, preservative-free Marcos Roque Other [facility] Other 09-07-2021 COVID-19 Pfizer Marcos ruiz Other [facility] 09-07-2021 COVID-19 Vaccine Pfi zer - Documentation Purposes Only Marcos Roque Other [facility] 03-11-2021 influenza virus vaccine, split virus (incl. purified surface antigen) Marcos Roque Other [facility] Other 03-11-2021 influenza virus vaccine, unspecified formulation [facility] 03-03-2021 COVID-19 Vaccine Pfi zer - Documentation Purposes Only Marcos Roque Other [facility] 08-22-2020 COVID-19 mRNA,[id number] (Pfizer) Edmund Cardoza [facility] 07-30-2020 COVID-19 mRNA,[id number] (Pfizer) Edmund Cardoza [facility] 03-19-2020 influenza virus vaccine, split virus (incl. purified surface antigen) Marcos Roque Other [facility] Other 03-19-2020 influenza virus vaccine, unspecified formulation [facility] 03-20-2019 influenza virus vaccine, split virus (incl. purified surface antigen) Marcos Roque Other [facility] Other 03-20-2019 influenza virus vaccine, unspecified formulation [facility] 03-16-2018 influenza virus vaccine, split virus (incl. purified surface antigen) Marcos Roque Other [facility] Other 03-16-2018 influenza virus vaccine, unspecified formulation [facility] 04-04-2017 influenza virus vaccine, split virus (incl. purified surface antigen) Marcos Roque Other [facility] Other 04-04-2017 influenza virus vaccine, unspecified formulation [facility] 04-06-2016 influenza virus vaccine, split virus (incl. purified surface antigen) Marcos Roque Other [facility] Other 04-06-2016 influenza virus vaccine, unspecified formulation [facility] 04-03-2015 tetanus and diphther ia toxoids, adsorbed, preservative free, for adult use (5 Lf of tetanus toxoid and 2 Lf of diphtheria toxoid) Marcos Roque Other [facility] 02-21-2014 tetanus and diphther ia toxoids, adsorbed, preservative free, for adult use (5 Lf of tetanus toxoid and 2 Lf of diphtheria toxoid) Marcos Roque Other [facility] 03-07-2013 tetanus and diphther ia toxoids, adsorbed, preservative free, for adult use (5 Lf of tetanus toxoid and 2 Lf of diphtheria toxoid) Marcos Roque Other [facility] Payers Date Payer Category Payer Medicare [id number] 1955 Unknown [id number] 2.16.84 [id number] 1955 Unknown [id number] 2.16.84 0.1.403456.3.579.2.593 1954 Unknown [id number] 2.16.84 0.1.891742.3.579.2.593 1954 Unknown [id number] 2.16.84 0.1.980476.3.579.2.593 1954 Unknown [id number] 2.16.84 0.1.573630.3.579.2.593 1954 Unknown [id number] 2.16.84 0.1.524567.3.579.2.593 1954 Unknown [id number] 2.16.84 0.1.160229.3.579.2.593 1954 Unknown [id number] 2.16.84 0.1.294002.3.579.2.593 1954 Unknown [id number] 2.16.84 0.1.048298.3.579.2.1259 1954 Unknown [id number] 2.16.84 0.1.141576.3.579.2.1259 1954 Unknown [id number] 2.16.84 0.1.832977.3.579.2.1259 1954 Unknown [id number] 2.16.84 0.1.681026.3.579.2.1259 1954 Unknown [id number] 2.16.84 0.1.850442.3.579.2.1259 1954 Unknown [id number] 2.16.84 0.1.268175.3.579.2.1259 Medicare [id number] Self-pay Self Pay [id number] Social History Date Type Detail Facility Tobacco smoking status NHIS Unknown if ever smoked [facility] Start: 1955 Sex Assigned At Female F [facility] Sex Assigned At Sex Assigned At Bir th [facility] Other Start: 03-23-2023 End: 12-19-2024 Tobacco smoking status NHIS Never smoked tobacco (finding) [facility] Start: 07-23-2024 End: 09-25-2024 Sex Female (finding) [facility] Goals Date Patient Goal Desired Activity /State Clinical Notes 06-14-2022 to 11-20-2024 Note Date & Type Note Facility 11-20-2024 Evaluation note Diagnosis Onset Date Resolution Chronic tension-type headache, not intractable acute November 042024 11:24am Gastroesophageal reflux disease with esophagitis without hemorrhage acute November 20 11:24am Graves disease acute November 20, 2024 11:24am Hypercholesterolemia acute November 20, 2024 11:24am Metabolic dysfunction-associated fatty liver disease (MAFLD) acute November 20, 2024 11:24am Mild intermittent asthma without complication acute November 20, 2024 11:24am Primary hypertension acute November 20, 2024 11:24am Screening for colon cancer acute November 20, 2024 11:24am Medicare annual wellness visit, subsequent noneactive November 20 11:24am Screening mammogram for breast cancer noneactive November 20, 2024 11:24am Allergic contact dermatitis acute January 30, 2025 9:39am [facility] Work Phone: 1(876) 379-410904-22-2025 Evaluation note* Diagnosis Onset Date Resolution Status [...] st cancer noneactive November 20, 2024 11:24am [facility] Work Phone: 1(959) 694-157302-17-2025 Evaluation note* Diagnosis Onset Date Resolution Status [...] 23 11:26am Primary hypertension acute 2024 11:26am Shoulder pain acute July 232024 11:26am Strain of rotator cuff of ri ght shoulder acute July 23 11:26am Dysuria acute September 11 9:56am [facility] Work Phone: 1(201) 965-644402-17-2025 Evaluation note* Diagnosis Onset Date Resolution Status [...] 23 11:26am Primary hypertension acute 2024 11:26am Shoulder pain acute July 232024 11:26am Strain of rotator cuff of ri ght shoulder acute July 23 11:26am Dysuria acute September 11 9:56am Gastroesophageal reflux dise ase with esophagitis without hemorrhage acute September 25, 2024 1:37pm Graves disease acute September 1:37pm Metabolic dysfunction-associ ated fatty liver disease (MAFLD) acute Apri l 2024 1:37pm Mild intermittent asthma wit hout complication acute September 25, 2024 1:37pm Primary hypertension acute Apr l 2024 1:37pm Strain of rotator cuff of ri ght shoulder acute September 25, 2024 1:37pm [facility] Work Phone: 1(637) 448-809602-17-2025 Evaluation note* Diagnosis Onset Date Resolution Status Admit Date Chronic tension-type headach e, not intractable acute July 23 025 11:26am Gastroesophageal reflux dise ase with esophagitis without hemorrhage acute July 23 11:26am Graves disease acute July 072024 11:26am Hypercholesterolemia acute 2024 11:26am Metabolic dysfunction-associ ated fatty liver disease (MAFLD) acute 2024 11:26am Mild intermittent asthma wit hout complication acute July 23 11:26am Primary hypertension acute 2024 11:26am [facility] Work Phone: 1(104) 739-927710-18-2023 Evaluation note* Encounter Date Diagnosis Assessment Notes [...] today since increased allergens where planning on vacationing [facility] Other 06-21-2023 Evaluation note* Encounter Date Diagnosis [...] High risk medication use (ICD-10 - Z79.899) [facility] Other 06-05-2023 Evaluation note* Encounter Date Diagnosis Assessment Notes Treatment Notes Treatment Clinical Notes Nov, Graves disease (ICD-10 - E05.00) [facility] Other 04-12-2023 Evaluation note* Encounter Date Diagnosis [...] Flonase and Claritin Kenalog may be beneficial [facility] Other 02-15-2023 Evaluation note* Encounter Date Diagnosis [...] (ICD-10 - G44.229) Tylenol, heat/ice and massage [facility] Other 01-10-2023 Evaluation note* Encounter Date Diagnosis Assessment Notes Treatment Notes Treatment Clinical Notes Jun, Dysuria (ICD-10 - R30.0) [facility] Other 01-09-2023 Evaluation note* Encounter Date Diagnosis Assessment Notes Treatment Notes Treatment Clinical Notes Jun, Graves disease (ICD-10 - E05.00) [facility] Other Evaluation [facility]No [facility] Other [facility] Other Evaluation noteNo assessment information available [facility] Work Phone: Evaluation note* Diagnosis Onset Date Resolution Status Chronic tension-type headache, not intractable acute Gastroesophageal reflux dise ase with esophagitis without hemorrhage acute Graves disease acute Hypercholesterolemia acute Mild intermittent asthma without complication acute NAFLD (nonalcoholic fatty liver disease) acute Primary hypertension acute [facility] Work Phone: Evaluation note* Diagnosis Onset Date Resolution Status Valgus deformity of right great toe noneactive Bursitis due to trauma nonea ctive [facility] Work Phone: Evaluation note* Diagnosis Onset Date Resolution Status Valgus deformity of right great toe noneactive Bursitis due to trauma nonea ctive Chronic tension-type headache, not intractable acute Gastroesophageal reflux dise ase with esophagitis without hemorrhage acute Graves disease acute Hypercholesterolemia acute Metabolic dysfunction-associ ated steatotic liver disease (MASLD) acute Mild intermittent asthma without complication acute Primary hypertension acute [facility] Work Phone: Evaluation note* Diagnosis Onset Date Resolution Status Chronic tension-type headache, not intractable acute Gastroesophageal reflux dise ase with esophagitis without hemorrhage acute Graves disease acute Hypercholesterolemia acute Metabolic dysfunction-associ ated steatotic liver disease (MASLD) acute Mild intermittent asthma without complication acute Primary hypertension acute Medicare annual wellness visit, subsequent noneactive Screening mammogram for breast cancer noneactive [facility] Work Phone: Evaluation note* Diagnosis Onset Date Resolution Status Seasonal allergic rhinitis due to pollen acute Chronic tension-type headache, not intractable acute Gastroesophageal reflux dise ase with esophagitis without hemorrhage acute Graves disease acute Hypercholesterolemia acute Metabolic dysfunction-associ ated steatotic liver disease (MASLD) acute Mild intermittent asthma without complication acute Primary hypertension acute [facility] Work Phone: History general Narrative - [...] History D&C Hospitalization History SEE SURGICAL HX [facility] Other History general Narrative - [facility] Other Hospital Discharge instructions Additional Instructions DISCHARGE INSTRUCTIONS FOR UPPER ENDOSCOPY [...] NOT operate machinery such as power tools, [employer] mowers, [employer], sewing machines, etc. for 24 hours. - [...] Follow up with PCP. - Office number [phone].[facility] Work Phone: Reason for referral (narrative)No reason for referral information [facility] Work Phone: Advance Directives Advance Directive Response Recorded Date/ [...] 11:26am Dysuria September 11, 2024 9:56 am Chief Complaint Admit Date 4 month f/u July 23, 2024 11:26am UA, difficulty voiding, backpain September 112024 9:56am Unknown September 16, 2024 5:1 7am Chief Complaint Admit Date 4 month f/u July 23, 2024 11:26am UA, difficulty voiding, backpain September 112024 9:56am Unknown September 16, 2024 5:1 7am swelling on side of ear by cheekbone Apr 2024 1:37pm Reason for Visit Admit Date Chronic tension-type [...] 11:26am Dysuria September 11, 2024 9:56 am Gastroesophageal reflux dise ase with esophagitis without hemorrhage September 25, 2024 1:37pm Graves disease September 25, 2024 1:3 7pm Metabolic dysfunction-associ ated fatty liver disease (MAFLD) September 25, 2024 1:37pm Mild intermittent asthma without complic ation September 25, 2024 1:37pm Primary hypertension September 25, 2024 1: 37pm Strain of rotator cuff of right shoulder September 25, 2024 1:37pm Chief Complaint Admit Date swelling on side of ear by cheekbone Apr 2024 1:37pm Wellness November 20, 2024 11:2 4am [...] 2024 11:24am Screening mammogram for breast cancer [facility] 2024 11:24am Chief Complaint Admit Date Wellness November 20, 2024 11:2 4am GERD, heartburn, Screening December 19 9:41am swollen eye, red spots on face and finge rs January 30, 2025 9:39am Reason for Visit Admit Date Chronic tension-type headache, not intra ctable November [...] 2024 11:24am Screening mammogram for breast cancer [facility] 2024 11:24am Allergic contact dermatitis January 30, 2025 9:39am Assessments No Assessments Information Available Summary Purpose Family History Relationship Condition Age at Onset Recorded Date/[place] father Unknown Malignant neoplasm Unknown Not Specified Unknown Hypertension Unknown Diabetes mellitus Unknown Relationship Condition Age at Onset Recorded Date/[place] father Unknown Malignant neoplasm Unknown mother Unknown Hypertension Unknown Diabetes mellitus Unknown Relationship Condition Age at Onset Recorded Date/T [place] father Unknown Malignant neoplasm of esophagus Unknown mother Diabetes mellitus Unknown Malignant neoplasm of breast Unknown Unknown Hypertension Unknown Macular degeneration Unknown Additional Source Comments INFORMATION SOURCE (unrecogn ized section and content) DATE CREATED AUTHOR 07/26/2022 [facility] DATE CREATED AUTHOR AUTHOR'S ORGANIZ ATION 06/26/2024 [facility] DATE CREATED AUTHOR AUTHOR'S ORGANIZ ATION 12/26/2024 [facility] REASON FOR VISIT (unrecogniz ed section and [...] September 11, 2024 End: September 11, 2024 Team Status: Active Member Role Status Dates Marcos Ball , DO Primary Care Provider Active Start: September 16, 2024 Ghanshyam Mills , DO Attending Provider Active Start: September 16, 2024 Team Status: Inactive Member Role Status Dates Ghanshyam Mills , DO Attending Provider Active Start: September 16, 2024 End: September 16, 2024 Team Status: Inactive Member Role Status Dates Marcos Jude , DO Primary Care Provide r, Attending Provider Active Start: September 25, 2024 End: September 25, 2024 Team Status: Inactive Member Role Status Dates Marcos Jude , DO Primary Care Provider Active Start: September 25, 2024 End: September 25, 2024 Marcos Roque , DO Attending Provider Active Sta rt: September 25, 2024 End: September 25, 2024 Team Status: Inactive Member Role Status Dates Marcos Roque , Primary Care Provider Active Start: November 20, 2024 End: November 20, 2024 Marcos Roque , DO Attending Provider Active Sta rt: November 20, 2024 End: November 20, 2024 Team Status: Active Member Role Status Dates Marcos Roque DO Primary Care Provider Active Start: December 19, 2024 Edu Watts MD Attending Provider Active S tart: December 19, 2024 Edu Watts MD Other Provider Active Start : December 19, 2024 Team Status: Active Member Role Status Dates Marcos Roque DO Primary Care Provider Active Start: December 24, 2024 Marcos Roque , DO Attending Provider Active Sta rt: December 24, 2024 Team Status: Active Member Role Status Dates Marcos Roque DO Primary Care Provider Active Start: December 31, 2024 Marcos Roque , DO Attending Provider Active Sta rt: December 31, 2024 Team Status: Inactive Member Role Status Dates Marcos Roque DO Primary Care Provider Active Start: January 30, 2025 End: January 30, 2025 Marcos Roque , DO Attending Provider Active Sta rt: January 30, 2025 End: January 30, 2025 Goals (unrecognized section and content) Goals may [...] BE BASED ON THE PRIMARY CLINICAL RECORDS. [facility]. provides no warranty or guarantee of the accuracy or completeness of information in this document.
[2025-02-22 16:09] LABS: Age Gdln ACOG Testing Note (.); Pap IG (Image Guided) Note (.)
== END 2025-02-19 12:10 | disposition home or self-care (01) ==
LOC: LAB 12:09
PROVIDERS: PCP Internal Medicine; Visit Provider Obstetrics & Gynecology
DX: Z01.419 Encounter for gynecological examination (general) (routine) without abnormal findings (principal)
CPT/HCPCS: 88175

== ENCOUNTER 2025-02-26 09:20 | Outpatient (OUT) | payer MEDICARE, SELFPAY ==
--- OUTSIDE RECORDS SUMMARY | 2025-02-19 09:00 | XMS_ITS | Encounter Summary ---
Author Organization [facility] Address [address] [place] [address] Care Team Providers Care Asphalt Patcher Name Role Phone Marcos Roque Primary Care Provider [phone] Reason for Visit * Reason Comments Well Women Visit Encounter Details Date Type Department Care Team (Late st Contact Info) Description 02/19/2025 9:00 AM EDT Office Visit [facility] [place] [facility] [address] [phone] Román Mccall DO [address] [place] [address] Well woman exam with routine gynecological exam; Breast cancer screening by mammogram; Postmenopausal state Social History Tobacco Use Types Packs/Day Years Used Date Smoking Tobacco: Never Smokeless Tobacco: Never Comments No Sex and Gender Information Value Date Recorded Sex Assigned at Female 02/13/2024 10:03 PM EDT Legal Sex Female 7:01 PM EDT Gender Identity Female 02/13/2024 10:03 PM EDT Sexual Orientation Don't know 02/13/2024 10 :03 PM EDT documented as of this encounter Last Filed Vital Signs Vital Sign Reading Time Taken Comments Blood Pressure 122/78 02/19/2025 9:04 AM EDT Pulse - - Temperature - - Respiratory Rate - - Oxygen Saturation - - Inhaled Oxygen Concentration - - Weight 88.4 kg (194 lb 12.8 oz) 02/19/2025 9:04 AM EDT Height - - Body Mass Index 28.77 02/09/2023 1:19 PM EDT documented in this encounter Progress Notes * Lizeth Valdez LPN - 02/19/2025 9:00 AM EDT Reason for Appointment: Patient ID: Angela Baxter is a 69 y.o. female who presents for Well Women Visit Patient presents today for Annual Exam. MEDICATIONS Current Outpatient Medications Medication Instructions acetaminophen (Tylenol) 325 MG tablet Every 4 hours amLODIPine (Norvasc) 2.5 MG tablet Aspirin-Caffeine 400-32 MG tablet 2 tablets Calcium Carb-Cholecalciferol (Calcium 600 + D) 600-5 MG-MCG tablet Every 24 hours cholecalciferol (Vitamin D-3) 10 MCG (400 UNIT) tablet Every 24 hours Cranberry 450 MG tablet as directed Orally fluticasone (Flonase) 50 MCG/ACT nasal spray irbesartan-hydroCHLOROthiazide (Avalide) 150-12.5 MG tablet labetalol (Normodyne) 200 MG tablet levocetirizine (Xyzal) 5 MG tablet Every evening methIMAzole (Tapazole) 5 MG tablet Multiple Vitamins-Minerals (Estroven Menopause Supplement) tablet as directed Orally omeprazole (PriLOSEC) [address] capsule Polyethyl Glycol-Propyl Glycol 0.4-0.3 % gel as directed Ophthalmic potassium chloride CR (Klor-Con M10) 10 MEQ ER tablet 10 mEq, Oral, 3 times daily pravastatin (Pravachol) 40 MG tablet saccharomyces boulardii (Florastor) 250 MG capsule Twice daily ALLERGIES Allergies Allergen Reactions Acetaminophen-Codeine Unknown Amoxicillin Unknown Codeine Unknown Other Reaction(s): rash, stomach upset Doxycycline Unknown Furosemide Unknown Latex Unknown Metronidazole Unknown Other Reaction(s): rash, stomach upset PROBLEMS Active Ambulatory Problems Diagnosis Date Noted No Active Ambulatory Problems Resolved Ambulatory Problems Diagnosis Date Noted No Resolved Ambulatory Problems Past Medical History: Diagnosis Date Abnormal TSH Cataract Dry eyes Flank pain GERD (gastroesophageal reflux disease) Graves disease History of medical problems HTN (hypertension) Hyperthyroidism Hypokalemia Multiple thyroid nodules Thyrotoxic crisis Visit for screening mammogram 12/10/2021 HISTORY PAST MEDICAL HISTORY SOCIAL HISTORY Past Medical History: Diagnosis Date Abnormal TSH Cataract Dry eyes Flank pain GERD (gastroesophageal reflux disease) Graves disease History of medical problems left ovary enlargement HTN (hypertension) Hyperthyroidism Hypokalemia Multiple thyroid nodules Thyrotoxic crisis thyroidtoxicosis Visit for screening mammogram 12/10/2021 neg Social History Tobacco Use Smoking status: Never Smokeless tobacco: Never Substance Use Topics Alcohol use: Not on file Drug use: Not on file FAMILY HISTORY Family History Problem Relation Name Age of Onset Cataracts Mother Fernanda Garcia Macular degeneration Mother Fernanda Garcia Cancer Mother Fernanda Garcia Diabetes Mother Fernanda Garcia Hypertension Mother Fernanda Garcia Heart disease Mother Fernanda Garcia Mental illness Mother Fernanda Garcia Cancer Father Jeff Garcia Heart disease Maternal Grandmother Heart disease Paternal Grandmother SURGICAL HISTORY Past Surgical History: Procedure Laterality Date COLONOSCOPY DILATION AND CURETTAGE OF UTERUS HM MAMMOGRAPHY 12/10/2021 normal PAP SMEAR 02/03/2021 negative REVIEW OF SYSTEMS Review of Systems: Review of Systems Constitutional: Negative. HENT: Negative. Eyes: Negative. Respiratory: Negative. Cardiovascular: Negative. Gastrointestinal: Negative. Genitourinary: Negative. Musculoskeletal: Negative. Skin: Negative. Neurological: Negative. All other systems reviewed and are negative. Hematological: Negative. Endocrine: Negative. Allergic/Immunologic: Negative. OBJECTIVE Objective: Physical Exam Constitutional: Appearance: Normal appearance. She is well-developed. Genitourinary: Vulva normal. Cardiovascular: Rate and Rhythm: Normal rate and regular rhythm. Pulmonary: Effort: Pulmonary effort is normal. Breath sounds: Normal breath sounds. Abdominal: General: Bowel sounds are normal. There is no distension. Palpations: Abdomen is soft. Tenderness: There is no abdominal tenderness. There is no guarding or rebound. Musculoskeletal: General: No swelling. Normal range of motion. Right lower leg: No edema. Left lower leg: No edema. Neurological: Mental Status: She is alert and oriented to person, place, and time. Skin: General: Skin is warm and dry. Psychiatric: Mood and Affect: Mood normal. Behavior: Behavior normal. Vitals and nursing note reviewed. Exam conducted with a handtools repairer present. Vitals: Estimated body mass index is 28.77 kg/m?? as calculated from the following: Height as of 02/09/23: 5' 9 . Weight as of this encounter: 194 lb 12.8 oz. BP: 122/78 No LMP recorded (lmp unknown). Patient is postmenopausal. ASSESSMENT & PLAN ICD-10-CM 1. Well woman exam with routine gynecological exam Z01.419 THIN PREP TIS PAP AND HR HPV DNA 2. Breast cancer screening by mammogram Z12.31 Bilateral screening mammogram Bilateral screening mammogram 3. Postmenopausal state Z78.0 DEXA bone density Orders Placed This Encounter Procedures Bilateral screening mammogram DEXA bone density Annual Wellness Exam: Patient presents today for routine annual exam. Patient states she has no current complaints. Patients vitals were reviewed and within normal limits. Growth and development is noted to be appropriate for age. No mental health concerns was expressed. Pap Smear: Speculum was inserted into the vagina and pap was obtained without difficulty. HPV testing was performed per age guideline. Patient was advised that pap results could take anywhere from 7 to 10 days to receive and our office will reach out to the patient with those once we have them. Patient can also view results via [employer]. I reinforced importance of condom use for STI prevention. Patient declined cultures to be performed with today's visit. Breast Exam: Upon examination, clinical breast exam was noted to be normal and screening mammogram was ordered and given to patient to have obtained. Patient was counseled on breast self-awareness, including the importance of knowing what is normal for her own breasts and promptly reporting any changes such as new lumps, skin dimpling, nipple discharge, or pain. Screening mammogram was recommended annually. Discussed signs and symptoms of breast cancer and when to seek medical attention. Answered all patient questions. DEXA Counseling: DEXA scan ordered and given to the patient to have performed for osteoporosis screening per guidelines. Patient counseled on bone health, including the importance of calcium and vitamin D intake, weight-bearing exercise, fall prevention, and avoiding tobacco and excessive alcohol. Discussed purposeof DEXA in assessing fracture risk and monitoring bone density. Patient advised results will be reviewed upon completion and next steps discussed as needed. Follow Up: Patient is to return to our office in one year for annual exam unless needed otherwise. Documented by Lizeth Valdez LPN on behalf of: Román Mccall DO documented in this encounter Plan of Treatment Upcoming Encounters Date Type Department Care Team (Late st Contact Info) Description 06/24/2025 9:45 AM EST Office Visit [facility] [address] [place] [address] Joslyn Mcneil MD [address] [place] [address] 02/24/2026 8:50 AM EDT Procedure Visit [facility] [address] [place] [address] Román Mccall DO [address] [place] [address] [address] Scheduled Orders Name Type Priority Associated Diagnoses Orde r Schedule DEXA bone density Imaging Routine Postmenopausal state Expected: 02/19/2025 (Approximate), Expires: 02/19/2026 THIN PREP TIS PAP AND HR HPV DNA Pathology and Cytology Routine Well woman exam with routine gynecological exam Ordered: 02/19/2025 documented as of this encounter Procedures Procedure Name Priority Date/Time Associated Diagnosis Comments BI MAMMOGRAM SCREENING BILATERAL Routine 02/19/2025 11:50 AM EDT Breast cancer screening by mammogram documented in this encounter Results * Bilateral screening mammogram (02/19/2025 11:50 AM EDT) us Román Mccall DO IMG BI PROCEDURES Final Result Performing Organization Address City/State/[facility] Co de Phone Number [address] [place] [address], documented in this encounter Visit Diagnoses Diagnosis Well woman exam with routine gynecological exam Routine gynecological examination Breast cancer screening by mammogram Postmenopausal state Asymptomatic postmenopausal status (age-related) (natural) documented in this encounter Care Teams Asphalt Patcher Relationship Specialty Start Date End Date Marcos Roque DO PCP - General Internal Medicine 02/09/23 documented as of this encounter
--- OUTSIDE RECORDS SUMMARY | 2025-02-26 09:22 | XMS_ITS | Encounter Summary ---
Author Organization [facility] Address [address] [place] [address] Care Team Providers Care Reporting Consultant Name Role Phone Marcos Roque DO Primary Care Provider [phone] Encounter Details Date Type Department Care Team (Late st Contact Info) Description 02/19/2025 Clinisync Result Encounter [facility] Unsolicited Román Mccall, DO [address] [place] [address] Social History Tobacco Use Types Packs/Day Years [...] 06/24/2025 9:45 AM EST Office Visit [facility] [address] [place] [id number] Joslyn Mcneil MD [address] [place] [address] 02/24/2026 8:50 AM EDT Procedure Visit [facility] [address] [place] [address] Román Mccall, [address] [place] [address] documented as of this encounter Procedures Procedure Name Priority Date/Time Associated Diagnosis Comments IGP,APTIMA HPV,AGE GDLN Routine 02/19/2025 8:51 AM EDT documented in this encounter Results * IGP,APTIMA HPV,AGE GDLN (02/19/2025 8:51 AM EDT) AGE GDLN ACOG TESTING Note . [facility] Comment: TESTS RESULT FLAG UNITS REF RANGE LAB Clinician Provided Cytology Information Source.............Cervix;Endocervix No. of containers..01 ThinPrep Vial Age Algo ACOG Anuja... Note 01 <21 or >65 or no age provided FLAG LEGEND: L-Low Normal,H-High Normal,LL-Alert Low,HH-Alert High <-Panic Low,>-Panic High,A-Abnormal,AA-Critical Abnormal Performed at: 01 [facility] [address] [address] Nandini Kim MD, PAP IG (IMAGE GUIDED) Note . [facility] Comment: TESTS RESULT FLAG UNITS REF RANGE LAB DIAGNOSIS: 02 NEGATIVE FOR INTRAEPITHELIAL LESION OR MALIGNANCY. Specimen adequacy: 02 Satisfactory for evaluation. Endocervical and/or squamous metaplastic cells (endocervical component) are present. Performed by: Cristal Strauss, Phlebotomy Tech ([facility]) . 02 Note: Note 02 The Pap smear is a screening test designed to aid in the detection of premalignant and malignant conditions of the uterine cervix. It is not a diagnostic procedure and should not be used as the sole means of detecting cervical cancer. Both false-positive and false-negative reports do occur. Test Methodology: Note 02 This liquid based ThinPrep(R) pap test was screened with the use of an image guided system. FLAG LEGEND: L-Low Normal,H-High Normal,LL-Alert Low,HH-Alert High <-Panic Low,>-Panic High,A-Abnormal,AA-Critical Abnormal Performed at: [address] [place] [address] Nandini Kim MD, Performed at: = - [facility] [id number] Personalized Living Manager: Nandini Kim MD, Phone: [phone] Performed at: [address] [id number] Personalized Living Manager: Nandini Kim MD, Phone: [phone] 02/19/2025 8:51 AM EDT 02/19/2025 12:39 PM EDT Narrative [facility] - 02/22/2025 4:09 PM EDT BRUSH-SPATULA CERVIX ENDOCERVIX us Román Mccall DO LAB BLOOD ORDERABLES Final Resul t [facility] documented in this encounter Visit Diagnoses Not on filedocumented in this encounter Care Teams Reporting Consultant Relationship Specialty Start Date End Date Marcos Roque DO PCP - General Internal Medicine 02/09/23 documented as of this encounter
--- OUTSIDE RECORDS SUMMARY | 2025-02-26 09:22 | XMS_ITS | Encounter Summary ---
Author Organization [facility] Address [address] [place] [address] Phone Care Team Providers Care Master Police Detective Name Role Phone Marcos Roque DO Unavailable Encounter Details Date Type Department Care Team (Late st Contact Info) Description 03/08/2023 Patient Risk Score ACO Care Management [address] [place] [phone] Social History Tobacco Use Types Packs/Day Years [...] on filedocumented in this encounter Care Teams Master Police Detective Relationship Specialty Start Date End Date Marcos Roque DO [facility] [place] [address] PCP - M[employer] PCP 10/04/22 05/05/23 documented as of this encounter
--- OUTSIDE RECORDS SUMMARY | 2025-02-26 09:22 | XMS_ITS | Encounter Summary ---
Author Organization [facility] Address [address] [place] [address] Phone Care Team Providers Care Wash Tub Machine Operator Name Role Phone Marcos Roque DO Unavailable Encounter Details Date Type Department Care Team (Late st Contact Info) Description 04/08/2023 Patient Risk Score ACO Care Management [address] [place] [phone] Social History Tobacco Use Types Packs/Day Years [...] on filedocumented in this encounter Care Teams Wash Tub Machine Operator Relationship Specialty Start Date End Date Marcos Roque DO [facility] [place] [address] PCP - M[employer] PCP 10/04/22 05/05/23 documented as of this encounter
--- OUTSIDE RECORDS SUMMARY | 2025-02-26 09:22 | XMS_ITS | Encounter Summary ---
Author Organization [facility] Address [address] [place] [address] Care Team Providers Care Heavy Truck Mechanic Name Role Phone Marcos Roque DO Primary Care Provider [phone] Encounter Details Date Type Department Care Team [...] 06/24/2025 9:45 AM EST Office Visit [facility] [address] [place] [phone] Joslyn Mcneil MD [address] [place] [address] 02/24/2026 8:50 AM EDT Procedure Visit [facility] [address] [place] [address] Román Mccall DO [address] [place] [address] documented as of this encounter Visit Diagnoses Not on filedocumented in this encounter Care Teams Heavy Truck Mechanic Relationship Specialty Start Date End Date Marcos Roque DO PCP - General Internal Medicine 02/09/23 documented as of this encounter
--- OUTSIDE RECORDS SUMMARY | 2025-02-26 09:22 | XMS_ITS | Encounter Summary ---
Author Organization [facility] Address [address] [place] [address] Phone Care Team Providers Care Hotel Valet Attendant Name Role Phone Marcos Roque DO Unavailable Encounter Details Date Type Department Care Team (Late st Contact Info) Description 02/06/2023 Patient Risk Score ACO Care Management [address] [place] [phone] Social History Tobacco Use Types Packs/Day Years [...] filedocumented in this encounter Care Teams Hotel Valet Attendant Relationship Specialty Start Date End Date Marcos Roque DO [facility] [place] [address] PCP - MMO Medicare Advantage PCP 10/04/22 05/05/23 documented as of this encounter
--- OUTSIDE RECORDS SUMMARY | 2025-02-26 09:22 | XMS_ITS | Clinical Summary ---
Author Organization [facility] Address [address] [place] [address] Care Team Providers Care Private Investigator Surveillance Name Role Phone Marcos Roque Primary Care Provider [phone] Allergies Active Allergy Reactions Criticality Noted Date [...] MG tablet as directed Orally Active Multiple Vitamins-Culebra als (Estroven Menopause Supplement) tablet as directed [...] EDT Office Visit [facility] [address] [facility] [place] [address] Román Mccall, Well woman exam with routine gynecological exam; Breast cancer screening by mammogram; Postmenopausal state 02/19/2025 Clinisync Result Encounter [facility] External Department Unsolicited Román Mccall, 02/19/2025 Bamboo flowsheet [facility] [address] [facility] [place] [address] Román Mccall, 02/12/2025 Travel from Last 3 Months Family [...] 06/24/2025 9:45 AM EST Office Visit [facility] [address] [place] [address] Joslyn Mcneil MD [address] [place] [address] 02/24/2026 8:50 AM EDT Procedure Visit [facility] [address] [facility] [place] [phone] Román Mccall DO [address] [facility] [place] [address] Health Maintenance Due Date Last Done Comments CT Colonography 1955 Colonoscopy 1955 Colorectal Cancer Screening 1955 FIT-DNA 1955 FIT 1955 FOBT 1955 Sigmoidoscopy 1955 Mammogram 02/19/2026 02/19/2025 Pneumococcal Vaccine: 65+ Years Completed 3 Influenza Vaccine Completed 02/03/2025, , 02/19/2023, Additional history exists Procedures Procedure Name Priority Date/Time Associated Diagnosis Comments BI MAMMOGRAM SCREENING BILATERAL Routine 02/19/2025 11:50 AM EDT Breast cancer screening by mammogram IGP,APTIMA HPV,AGE GDLN Routine 02/19/2025 8:51 AM EDT from Last 3 Months Results * Bilateral screening mammogram (02/19/2025 11:50 AM EDT) us Román Cal DO IMG BI PROCEDURES Final Result [facility] [place] [address], * IGP,APTIMA HPV,AGE GDLN (02/19/2025 8:51 AM EDT) AGE GDLN ACOG TESTING Note . [facility] Comment: TESTS RESULT FLAG UNITS REF RANGE LAB Clinician Provided Cytology Information Source.............Cervix;Endocervix No. of containers..01 ThinPrep Vial Age Algo ACOG Anuja... Note 01 <21 or >65 or no age provided FLAG LEGEND: L-Low Normal,H-High Normal,LL-Alert Low,HH-Alert High <-Panic Low,>-Panic High,A-Abnormal,AA-Critical Abnormal Performed at: 01 =G [facility] [place] [address] Nandini Kim MD, PAP IG (IMAGE GUIDED) Note . [facility] Comment: TESTS RESULT FLAG UNITS REF RANGE LAB DIAGNOSIS: 02 NEGATIVE FOR INTRAEPITHELIAL LESION OR MALIGNANCY. Specimen adequacy: 02 Satisfactory for evaluation. Endocervical and/or squamous metaplastic cells (endocervical component) are present. Performed by: Cristal Strauss [employer] Teacher ([facility]) . 02 Note: Note 02 The [...] <-Panic Low,>-Panic High,A-Abnormal,AA-Critical Abnormal Performed at: [address] [address] Nandini Kim MD, Performed at: = - [facility] [id number] Pillowcase Cutter: Nandini Kim MD, Phone: [phone] Performed at: [address] [id number] Pillowcase Cutter: Nandini Kim MD, Phone: [phone] 02/19/2025 8:51 AM EDT 02/19/2025 12:39 PM EDT Narrative [facility] - 02/22/2025 4:09 PM EDT BRUSH-SPATULA CERVIX ENDOCERVIX us Román Mccall DO LAB BLOOD ORDERABLES Final Resul t [facility] from Last 3 Months Insurance [employer] Member Subscriber Plan / Payer (Ef fective 2019-Present) Name:Angela Baxter Relation to Subscriber:Self Name:Angela Baxter Payer ID:Not on file Type:Not on file Address: [place] [id number] Care Teams Private Investigator Surveillance Relationship Specialty Start Date End Date Marcos Roque DO PCP - General Internal Medicine 02/09/23
--- OUTSIDE RECORDS SUMMARY | 2025-02-26 09:22 | XMS_ITS | Encounter Summary ---
Author Organization [facility] Address [address] [place] [address] Care Team Providers Care Coil Builder Name Role Phone Marcos Roque DO Primary Care Provider [phone] Encounter Details Date Type Department Care Team (Late Contact Info) Description 02/23/2024 Orders Only [facility] QU[facility]ONES [address] [facility] [place] [place] [address] Vero Lemons MA [address] [place] [address] Social History Tobacco Use Types Packs/Day Years [...] 06/24/2025 9:45 AM EST Office Visit [facility] [address] [place] [phone] Joslyn Mcneil MD [address] [place] [address] 02/24/2026 8:50 AM EDT Procedure Visit [facility] [address] [facility] [place] [place] [address] Román Mccall DO [address] [place] [address] documented as of this encounter Procedures Procedure Name Priority Date/Time Associated Diagnosis Comments PAP SMEAR Routine 02/15/2024 12:00 AM EDT documented in this encounter Results * Pap Smear (02/15/2024 12:00 AM EDT) Swab Cervical swab / Unknown us [facility] CYTOLOGY ORDERABLES Final Re sult EXTERNAL LAB documented in this encounter Visit Diagnoses Not on filedocumented in this encounter Care Teams Coil Builder Relationship Specialty Start Date End Date Marcos Roque DO PCP - General Internal Medicine 02/09/23 documented as of this encounter
--- OUTSIDE RECORDS SUMMARY | 2025-02-26 09:22 | XMS_ITS | Encounter Summary ---
Author Organization [facility] Address [address] [place] [address] Care Team Providers Care Price Accuracy Supervisor Name Role Phone Marcos Roque DO Primary Care Provider [phone] Encounter Details Date Type Department Care Team (Late Contact Info) Description 02/19/2025 Bamboo flowsheet [facility] [address] [place] [address] Román Mccall DO [address] [facility] [address] [place], [facility]11 Social History Tobacco Use Types Packs/Day Years [...] [facility] [address] [place] [phone] Joslyn Mcneil MD [address] [place] [address] 02/24/2026 8:50 AM EDT Procedure Visit [facility] [address] [place] [address] Román Mccall DO [address] [place] [address] [place] [address] documented as of this encounter Visit Diagnoses Not on filedocumented in this encounter Care Teams Price Accuracy Supervisor Relationship Specialty Start Date End Date Marcos Roque DO PCP - General Internal Medicine 02/09/23 documented as of this encounter
--- OUTSIDE RECORDS SUMMARY | 2025-02-26 09:22 | XMS_ITS | Encounter Summary ---
Author Organization [facility] Address [address] [place] [address] Care Team Providers Care Music Video Director Name Role Phone Marcos Roque DO Primary Care Provider [phone] Encounter Details Date Type Department Care Team (Late st Contact Info) Description 02/14/2023 Clinisync Result Encounter [facility] External Department Unsolicited Consuelo Mccall, DO [address] [place], [facility] Social History Tobacco Use Types Packs/Day [...] 06/24/2025 9:45 AM EST Office Visit [facility] [address] [place] [phone] Joslyn Mcneil MD [address] [place] [address] 02/24/2026 8:50 AM EDT Procedure Visit [facility] [address] [place] [phone] Consuelo Mccall, DO [address] [place] [address] [phone] (work) documented as of this encounter Procedures Procedure Name Priority Date/Time Associated Diagnosis Comments XR DEXA AXIAL SKELETON 02/14/2023 4:26 PM EDT documented in this encounter Results * XR DEXA AXIAL SKELETON (02/14/2023 4:26 PM EDT) Anatomical Region Laterality Modality Other 02/14/2023 4:26 PM EDT Narrative 02/14/2023 4:26 PM EDT [address] [address] XRay Report Signed Patient: ANGELA ALEXANDER MR#: [id number] : 1955 Acct:[id number] Age/Sex: 67 / F ADM Date: 02/14/23 Loc: RAD Attending Dr: Consuelo Mccall D.O. Ordering Physician: Consuelo Mccall D.O. Date of Service: 02/14/23 Procedure(s): XR DEXA axial skeleton Accession Number(s): [id number] cc: Marcos Roque D.O.; Consuelo Mccall D.O. [address] [address] Patient Name: ANGELA ALEXANDER MRN: [id number] date: 1955 Sex: F Assigned Patient Location: [facility] Current Patient Location: [facility] Accession/Order Number: [id number] Exam Date: 02/14/2023 10:40 Report Date: 02/14/2023 16:26 At the request of: CONSUELO MCCALL Procedure: XR DEXA axial skeleton STUDY: XR DEXA axial skeleton HISTORY: Post Menopausal State Z78.0 TECHNIQUE: Bone mineral density (BMD) assessment by [employer]. Combined [employer] database references used in T-score calculation. COMPARISON: [...] Sylvester Signed By: 02/14/238 DD/ 25 TD/TT: Recreational Vehicle Resort Manager: Procedure Note Radiology, Radiologist, - 02/25/2023 [place] [address] XRay Report Signed Patient: ANGELA ALEXANDER LMR#: [id number] [id number] Age/Sex: 67 / FADM Date: 02/14/23 Loc: RAD Attending Dr: Consuelo Mccall D.O. Ordering Physician: Consuelo Mccall D.O. Date of Service: 02/14/23 Procedure(s): XR DEXA axial skeleton Accession Number(s): [id number] cc: Marcos Roque D.O.; Consuelo Mccall D.O. [place] [id number] Patient Name: ANGELA ALEXANDER MRN: [id number] date: 1955 Sex: F Assigned Patient Location: [facility] Current Patient Location: RAD Accession/Order Number: [id number] Exam Date: 02/14/2023 10:40 Report Date: 02/14/2023 16:26 At the request of: CONSUELO MCCALL Procedure: XR DEXA axial skeleton STUDY: XR DEXA axial skeleton HISTORY: Post Menopausal State Z78.0 TECHNIQUE: Bone mineral density (BMD) assessment by [employer] [place]. Combined [employer] database references used in T-score calculation. COMPARISON: [...] Maximiliano Sylvester Signed By:02/14/238 DD/ 25 TD/TT: Recreational Vehicle Resort Manager: Consuelo Mccall DO [facility] Final Result documented in this encounter Visit Diagnoses Not on filedocumented in this encounter Care Teams Music Video Director Relationship Specialty Start Date End Date Marcos Roque DO PCP - General Internal Medicine 02/09/23 documented as of this encounter
--- OUTSIDE RECORDS SUMMARY | 2025-02-26 09:22 | XMS_ITS | Encounter Summary ---
Author Organization [facility] Address [address] [place] [address] Phone Care Team Providers Care Geological E Logger Name Role Phone Unavailable Primary Care Provider Unavailabl e Encounter Details Date Type Department Care Team (Late st Contact Info) Description 06/08/2023 Patient Risk Score ACO Care Management [address] [place] [address] Social History Tobacco Use Types [...]
--- OUTSIDE RECORDS SUMMARY | 2025-02-26 09:22 | XMS_ITS | Encounter Summary ---
Author Organization [facility] Address [address] [place] [address] Phone Care Team Providers Care Disc Pad Knockout Worker Name Role Phone Marcos Roque DO Unavailable Encounter Details Date Type Department Care Team (Late st Contact Info) Description 01/06/2023 Patient Risk Score ACO Care Management [address] [place] [address] Social History Tobacco Use Types Packs/Day Years [...] on filedocumented in this encounter Care Teams Disc Pad Knockout Worker Relationship Specialty Start Date End Date Marcos Roque DO [facility] [place] [address] PCP - MMO Medicare Advantage PCP 10/04/22 05/05/23 documented as of this encounter
--- OUTSIDE RECORDS SUMMARY | 2025-02-26 09:22 | XMS_ITS | Encounter Summary ---
Author Organization [facility] Address [address] [place] [address] Phone Care Team Providers Care Wheel Polisher Name Role Phone Unavailable Primary Care Provider Unavailabl e Encounter Details Date Type Department Care Team (Late st Contact Info) Description 05/08/2023 Patient Risk Score ACO Care Management [address] [place] [address] Social History Tobacco Use Types [...]
--- OUTSIDE RECORDS SUMMARY | 2025-02-26 09:22 | XMS_ITS | Encounter Summary ---
Author Organization [facility] Address [address] [place] [address] Care Team Providers Care Aircraft Engine Mechanic Name Role Phone Marcos Roque DO Primary Care Provider [phone] Encounter Details Date Type Department Care Team (Late Contact Info) Description 12/23/2023 Abstract [facility] [address] [place] [address] Román Mccall DO [address] [facility] [address] [place] [id number] Social History Tobacco Use Types Packs/Day Years [...] 06/24/2025 9:45 AM EST Office Visit [facility] [address] [place] [phone] Joslyn Mcneil MD [address] [place] [address] 02/24/2026 8:50 AM EDT Procedure Visit [facility] QU[facility]ON[facility] [address] [place] [address] Román Mccall DO [address] [place] [address] [place] [address] documented as of this encounter Visit Diagnoses Not on filedocumented in this encounter Care Teams Aircraft Engine Mechanic Relationship Specialty Start Date End Date Marcos Roque DO PCP - General Internal Medicine 02/09/23 documented as of this encounter
--- OUTSIDE RECORDS SUMMARY | 2025-02-26 09:24 | XMS_ITS | CCD ---
Author Organization [facility] Care Team Providers Care Directional Survey Drafter Name Role Phone Edmund Cardoza Attending Provider NON, STAFF, Primary Care Provider Unavailree ROQUE, [...] [place] Reyes Consulting Unavailable Jude, Marcos Unavailable Ghanshyam Mills DO Attending Provider [phone] Marcos Roque DO Primary Care Provider [phone] Marcos Roque DO Attending Provider Edu Watts MD Attending Provider [phone] Edu Watts MD Other Provider [phone] Edu Watts Admitting Unavailable Edu Watts Attending Unavailable Marcos Roque Primary Care Unavailable Ghanshyam Mills Attending Unavailable Ghanshyam Mills Admitting Unavailable Marcos Roque DO Primary Care Provider Marcos Roque DO Attending Provider CONSUELO CLEVELAND Attending Unavailable NIDIA LIVINGSTON Attending Unavailable MELINDA BAKER Referring Unavailable NIDIA LIVINGSTON Attending Unavailable NIDIA LIVINGSTON Attending Unavailable NIDIA LIVINGSTON Attending Unavailable NIDIA LIVINGSTON Attending Unavailable Unavailable Unavailable Unavailable Allergies Allergy Classification Reported Allergen(s) Allergy Type Date of Onset Reaction(s) Facility (13 sources) Amoxicillin Drug Allergy 07-25-19 24 Unknown Reaction [facility] (13 sources) Codeine Drug Allergy 06-06-19 13 stomach irritation [facility] (13 sources) Doxycycline Drug Allergy 07-25-19 24 Unknown Reaction [facility] (1 source) Furosemide Drug Allergy 03-08-20 16 [facility] (13 sources) Latex Drug allergy (disorder) 06-06-19 13 Unknown Reaction [facility] (1 source) metroNIDAZOLE Drug Allergy 03-08-20 16 [facility] (14 sources) Amoxicillin Drug Allergy Unknown OF[facility]ALDIA Other (14 sources) Codeine Drug Allergy stomach irritation [facility] Other (14 sources) Doxycycline Drug Allergy Unknown OFERTALDIA Other (14 sources) Latex Propensity to adverse reactions Unknown OF[facility]ALDIA Other (20 sources) metroNIDAZOLE Drug Allergy 07-25-19 24 Unknown, Unknown Reaction [facility] (14 sources) Furosemide Drug Allergy 06-06-19 20 Unknown, Unknown Reaction [facility] Comment on above: Onset Date: 06/06/19 20 (2 sources) Pseudoephedrine Drug Allergy 06-06-19 20 Unknown OFERTALDIA Other (1 source) Allergies Reconciled Propensity to adverse reactions Unknown OFERTALDIA Other (2 sources) Tylenol with Codeine #3 *ANALGESICS - OPIOID* Propensity to adverse reactions 06-06-19 Unknown OFERTALDIA Other (1 source) patient allergy list reviewed by nurse or physicia Propensity to adverse reactions 11-12-20 15 Comment:Done OFERTALDIA Other (12 sources) 12 Hour Decongestant Allergy to substance 07-23-19 24 Unknown Reaction [facility] Comment on above: Onset Date: 06/06/19 20 (12 sources) Tylenol with Codeine #3 *ANALG Allergy to substance 07-23-19 24 Unknown Reaction [facility] Comment on above: Free Text Allergy: [...] ascorbic acid 226 mg / beta carotene 18043 unt / cuprous oxide 0.8 mg / dl-alpha tocopheryl acetate 200 unt / zinc oxide 34.8 mg oral capsule (2 sources) Vitamin C Start: 07-23-2024 take 1 capsule by mouth twice daily Vitamins A,C,P-Ylhp-Vrosni (Preservision Areds) 4,296 mcg-226 mg-90 mg capsule [...] needed Orally every 6 hrs Active Vitamins A,C,K-Qqhi-Mukdgp (Preservision Areds) 4,296 mcg-226 mg-90 mg capsule (4 sources) Start: 07-23-2024 take 1 capsule by mouth twice daily Vitamins A,C,B-Yugb-Oodpvi (Preservision Areds) 4,296 mcg-226 mg-90 mg capsule Active 1 CAP PO Twice daily July 23, 2024 1:00am Start: 07-23-2024 take 1 capsule by [facility] twice daily Vitamins A,C,K-Zztz-Gjjaoc (Preservision Areds) 4,296 mcg-226 mg-90 mg capsule Active 1 CAP PO Twice daily July 23, 2024 12:00am Completed/Discontinued Medications Medication Drug Class(es) Dates Sig (Normalized) Sig (Original) Acetaminophen / butalbital / Caffeine (14 sources) Barbiturate, Central Nervous System Stimulant, Methylxanthine Fioricet Not-Galen ing [id number] 200 actuat albuterol 0.09 mg/actuat metered dose [...] tablet Discontinued 250 MG PO Twice daily 10 September 18, 2024 12:00am September 25, 2024 2:27pm [...] Discontinued 100 MG PO Twice daily 10 November 18, 2023 12:00am July 23, 2024 [...] Chronic Other aftercare (2 sources) Other long filler cigar roller machine (current) drug therapy; 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] Onset: 2 Episodic Other aftercare (1 source) Long-term current use of drug therapy; Translations: [Other long filler cigar roller machine (current) drug therapy] Episodic Other bone disease [...] rate/Area] 49 mL/min/{1.73_m2} Low >=60 mL/min/1.73m 2 [facility] Laboratory - Chemistry and C hemistry - challengeOrdered By: Marcos Roque on 12-31-2024 Calcium [Mass/Vol] 9.2 mg/dL 8.5-10.1 [facility] Chloride [Moles/Vol] 106 mmol/L 98-107 [facility] CO2 [Moles/Vol] 27.4 mmol/L 21.0-32.0 [facility] Creatinine [Mass/Vol] 1.10 mg/dL High 0.55-1.02 [facility] GFR/1.73 sq M.predicted MDRD (S/P/Bld) [Vol rate/Area] 59 mL/min/{1.73_m2} Low >=60 mL/min/1.73m 2 [facility] Glucose [Mass/Vol] 110 mg/dL High 74-106 [facility] Potassium [Moles/Vol] 3.3 mmol/L Low 3.5-5.1 [facility] Sodium [Moles/Vol] 144 mmol/L 136-145 [facility] Urea nitrogen [Mass/Vol] 29.0 mg/dL High 7.0-18.0 [facility] Urea nitrogen/Creatinine [Mass ratio] 26.4 mg/mg [facility] Serum or plasma anion gap de terminationOrdered By: Marcos Roque on 12-31-2024 Anion gap [Moles/Vol] 13.9 mmol/L Fi [facility] Basophils Auto (Bld) [#/Vol] Ordered By: Marcos Roque on 12-24-2024 Basophils (Bld) [#/Vol] 0.0 10 3/uL 0.0-0.1 [facility] Basophils/100 WBC Auto (Bld) Ordered By: Marcos Roque on 12-24-2024 Basophils/100 WBC (Bld) 0.4 % 0.2-2.0 [facility] Cholesterol in LDL Calc [Mas s/Vol]Ordered By: Marcos Roque on 12-24-2024 Cholesterol in LDL [Mass/Vol] 86.0 mg/dL [facility] Comment on above: <100 mg/dl [id number] 0-129 mg/dl NEAR OR ABOVE [id number] mg/dl BORDERLINE [id number] mg/dl HIGH>190 mg/dl VERY HIGH Cholesterol in VLDL Calc [Ma ss/Vol]Ordered By: Marcos Roque on 12-24-2024 Cholesterol in VLDL [Mass/Vol] 30.2 mg/dL [facility] Eosinophils/100 WBC Auto (Bl d)Ordered By: Marcos Roque on 12-24-2024 Eosinophils/100 WBC (Bld) 6.1 % 0.9-7.0 [facility] Erythrocyte distribution wid th Auto (RBC) [Ratio]Ordered By: Marcos Roque on 12-24-2024 Erythrocyte distribution width (RBC) [Ratio] 12.5 % 11.0-15.0 [facility] Globulin Calc (S) [Mass/Vol] Ordered By: Marcos Roque on 12-24-2024 Globulin (S) [Mass/Vol] 3.7 g/dL [facility] Glomerular filtration rate ( GFR) estimation in non- AmericanOrdered By: Marcos Roque on 12-24-2024 GFR/1.73 sq M.predicted among non-blacks MDRD (S/P/Bld) [Vol rate/Area] 50 mL/min/{1.73_m2} Low >=60 mL/min/1.73m 2 [facility] Hematocrit Auto (Bld) [Volum e fraction]Ordered By: Marcos Roque on 12-24-2024 Hematocrit (Bld) [Volume fraction] 37.7 % 36.0-48.0 [facility] Hemoglobin [Mass/volume] in BloodOrdered By: Marcos Roque on 12-24-2024 Hemoglobin (Bld) [Mass/Vol] 12.4 g/dL 12.0-16.0 [facility] Laboratory - Chemistry and C hemistry - challengeOrdered By: Marcos Roque on 12-24-2024 Albumin [Mass/Vol] 3.4 g/dL 3.4-5.0 [facility] ALP [Catalytic activity/Vol] 70 U/L 46-116 [facility] ALT [Catalytic activity/Vol] 23 U/L 14-59 [facility] AST [Catalytic activity/Vol] 15 U/L 15-37 [facility] Bilirubin [Mass/Vol] 0.4 mg/dL 0.2-1.0 [facility] Calcium [Mass/Vol] 9.1 mg/dL 8.5-10.1 [facility] Chloride [Moles/Vol] 106 mmol/L 98-107 [facility] Cholesterol [Mass/Vol] 155 mg/dL <=200 [facility] Cholesterol in HDL [Mass/Vol] 39 mg/dL Low 40-60 [facility] Comment on above: > or =60 mg/dl - LOW CARDIOVASCULAR RISK<40 mg/dl - HIGH CARDIOVASCULAR RISK CO2 [Moles/Vol] 29.9 mmol/L 21.0-32.0 [facility] Creatinine [Mass/Vol] 1.08 mg/dL High 0.55-1.02 [facility] Free T4 [Mass/Vol] 1.22 ng/dL 0.76-1.46 [facility] GFR/1.73 sq M.predicted MDRD (S/P/Bld) [Vol rate/Area] mL/min/{1.73_m2} >=60 mL/min/1.73m 2 [facility] Glucose [Mass/Vol] 109 mg/dL High 74-106 [facility] Potassium [Moles/Vol] 2.9 mmol/L Critically low 3.5-5.1 [facility] Comment on above: RESULTS CALLED TO ANN MARIE WHITE) AT [facility] Protein [Mass/Vol] 7.1 g/dL 6.4-8.2 [facility] Sodium [Moles/Vol] 146 mmol/L High 136-145 [facility] Triglyceride [Mass/Vol] 151 mg/dL High <=150 [facility] TSH Qn 0.625 m[IU]/L 0.358-3.740 [facility] Urea nitrogen [Mass/Vol] 24.0 mg/dL High 7.0-18.0 [facility] Urea nitrogen/Creatinine [Mass ratio] 22.2 mg/mg [facility] Laboratory - Hematology and Cell countsOrdered By: Marcos Roque on 12-24-2024 Immature granulocytes/100 WBC (Bld) 0.2 % 0.0-0.5 [facility] Leukocytes [#/volume] correc jo ann for nucleated erythrocytes in Blood by Automated counOrdered By: Marcos Roque on 12-24-2024 WBC corrected for nucl RBC Auto (Bld) [#/Vol] 9.2 10 3/uL 4.0-11.0 [facility] Lymphocytes Auto (Bld) [#/Vo l]Ordered By: Marcos Roque on 12-24-2024 Lymphocytes (Bld) [#/Vol] 3.6 10 3/uL 1.2-3.8 [facility] Lymphocytes/100 WBC Auto (Bl d)Ordered By: Marcos Roque on 12-24-2024 Lymphocytes/100 WBC (Bld) 38.9 % 20.5-60.0 [facility] MCH Auto (RBC) [Entitic mass ]Ordered By: Marcos Roque on 12-24-2024 MCH (RBC) [Entitic mass] 29.2 pg 26.7-34.0 [facility] MCHC Auto (RBC) [Mass/Vol]Or dered By: Marcos Roque on 12-24-2024 MCHC (RBC) [Mass/Vol] 32.9 g/dL 29.9-35.2 [facility] MCV Auto (RBC) [Entitic vol] Ordered By: Marcos Roque on 12-24-2024 MCV (RBC) [Entitic vol] 88.7 fL 81.0-99.0 [facility] Monocytes Auto (Bld) [#/Vol] Ordered By: Marcos Roque on 12-24-2024 Monocytes (Bld) [#/Vol] 0.7 10 3/uL 0.3-0.8 [facility] Monocytes/100 WBC Auto (Bld) Ordered By: Marcos Roque on 12-24-2024 Monocytes/100 WBC (Bld) 7.3 % 1.7-12.0 [facility] Neutrophils Auto (Bld) [#/Vo l]Ordered By: Marcos Roque on 12-24-2024 Neutrophils (Bld) [#/Vol] 4.3 10 3/uL 1.4-6.5 [facility] Neutrophils/100 WBC Auto (Bl d)Ordered By: Marcos Roque on 12-24-2024 Neutrophils/100 WBC (Bld) 47.1 % 43.0-75.0 [facility] No Panel InformationOrdered By: Marcos Roque on 12-24-2024 Eosinophils # (Auto) 0.6 10 3/uL 0.0-0.7 [facility] Immature Granulocyte # (Auto) 0.02 10 3/uL 0.00-0.03 [facility] Total Triiodothyronine 141 ng/dL 71-180 [facility] Comment on above: Performed at: [place] [id number] Director: Dayton Toussaint PhD, Phone: [phone] Platelet mean volume Auto (B ld) [Entitic vol]Ordered By: Marcos Roque on 12-24-2024 Platelet mean volume (Bld) [Entitic vol] 10.8 fL 9.5-13.5 [facility] Platelets Auto (Bld) [#/Vol] Ordered By: Marcos Roque on 12-24-2024 Platelets (Bld) [#/Vol] 315 10 3/uL 150-450 [facility] RBC Auto (Bld) [#/Vol]Ordere d By: Marcos Roque on 12-24-2024 RBC (Bld) [#/Vol] 4.25 10 6/uL 4.20-5.40 [facility] Serum or plasma albumin/glob ulin mass ratioOrdered By: Marcos Roque on 12-24-2024 Albumin/Globulin [Mass ratio] 0.9 {ratio} [facility] Serum or plasma anion gap de terminationOrdered By: Marcos Roque on 12-24-2024 Anion gap [Moles/Vol] 13.0 mmol/L [facility] Serum or plasma total choles terol/high density lipoprotein (HDL) cholesterol mass ratOrdered By: Marcos Roque on 12-24-2024 Cholesterol.total/Ziara sterol in HDL [Mass ratio] 4.0 {ratio} [facility] Comment on above: 3.3 - 4.4 LOW RISK4. 4 - 7.1 AVERAGE RISK7.1 - 11.0 MODERATE RISK>11.0 HIGH RISK Pathology Request for Lab Co rpon 12-19-2024 Pathology Request for Lab Amadou Normal [facility] Comment on above: Order Comment: MIRZA MORRIS ECBRIAN Result Comment: See report. Scanned copy available in EMR. PERFORMED BY: [place] [address] PATHOLOGIST BEAD TRIMMER BRENT MOORE M.D. Performed By: #### P ATH TO [facility] #### [address] Basophils/100 WBC Manual cnt (Bld)on 09-16-2024 Basophils/100 WBC (Bld) Basophils/100 leukocytes in Blood by Manual count Low 0.2-2.0 [facility] Eosinophils/100 WBC Manual c nt (Bld)on 09-16-2024 Eosinophils/100 WBC (Bld) Eosinophils/100 leukocytes in Blood by Manual count 0.9-7.0 [facility] Estimated glomerular filtrat ion rate (GFR) non- Americanon 09-16-2024 GFR/1.73 sq M.predicted among non-blacks MDRD (S/P/Bld) [Vol rate/Area] Estimated glomerular filtration rate (GFR) non- Low >=60 mL/min/1.73m 2 [facility] Globulin Calc (S) [Mass/Vol] on 09-16-2024 Globulin (S) [Mass/Vol] Serum globulin measurement by calculation (mass/volume) [facility] Laboratory - Chemistry and C hemistry - challengeon 09-16-2024 Calcium [Mass/Vol] 8.3 mg/dL Low 8.5-10.1 [facility] Chloride [Moles/Vol] 112 mmol/L High 98-107 [facility] CO2 [Moles/Vol] 23.9 mmol/L 21.0-32.0 [facility] Creatinine [Mass/Vol] 1.44 mg/dL High 0.55-1.02 [facility] GFR/1.73 sq M.predicted MDRD (S/P/Bld) [Vol rate/Area] 44 mL/min/{1.73_m2} Low >=60 mL/min/1.73m 2 [facility] Glucose [Mass/Vol] 103 mg/dL 74-106 [facility] Potassium [Moles/Vol] 3.2 mmol/L Low 3.5-5.1 [facility] Sodium [Moles/Vol] 146 mmol/L High 136-145 [facility] Urea nitrogen [Mass/Vol] 57.0 mg/dL High 7.0-18.0 [facility] Urea nitrogen/Creatinine [Mass ratio] 39.6 mg/mg [facility] Bilirubin Ql (U) Negative NEGATIVE [facility] Glucose (U) [Mass/Vol] Negative NEGATIVE [facility] Ketones Ql (U) 15 mg/dL Abnormal NEGATIVE [facility] pH (U) 6.0 [pH] 5.0-9.0 [facility] Specific gravity (U) [Rel density] 1.010 1.005-1.025 [facility] Urobilinogen Qn (U) 1.0 {Jeremias'U}/dL 0.2-1.0 [facility] Albumin [Mass/Vol] 2.6 g/dL Low 3.4-5.0 [facility] ALP [Catalytic activity/Vol] 93 U/L 46-116 [facility] ALT [Catalytic activity/Vol] 24 U/L 14-59 [facility] AST [Catalytic activity/Vol] 15 U/L 15-37 [facility] Bilirubin [Mass/Vol] 0.6 mg/dL 0.2-1.0 [facility] Lipase [Catalytic activity/Vol] 55.0 U/L 16.0-77.0 [facility] Protein [Mass/Vol] 7.3 g/dL 6.4-8.2 [facility] Lactate [Moles/Vol] 1.2 mmol/L 0.4-2.0 [facility] Laboratory - Hematology and Cell countson 09-16-2024 Band form neutrophils/100 WBC (Bld) 2.0 % 0-5 [facility] Lymphocytes/100 WBC (Bld) 12.0 % Low 20.5-60.0 [facility] Monocytes/100 WBC (Bld) 10.0 % 1.7-12.0 [facility] Laboratory - Specimen inform ationon 09-16-2024 Appearance (U) SL CLOUDY CLEAR [facility] Color (U) LT. YELLOW YELLOW [facility] Laboratory - Urinalysison Leukocyte esterase Test strip Ql (U) SMALL Abnormal NEGATIVE [facility] Mucus Ql (Urine sed) NONE SEEN NONE SEEN [facility] Nitrite Ql (U) Negative NEGATIVE [facility] Protein Ql (U) 100 mg/dL Abnormal NEG/TRACE [facility] No Panel Informationon 09-16 Urine Bacteria MODERATE #/HPF Abnormal NONE SEEN [facility] Urine Culture Reflexed YES-[facility] Urine Occult Blood MODERATE Abnormal NEGATIVE [facility] Urine Other Casts NONE SEEN #/LPF NONE SEEN [facility] Urine Other Crystals None Seen #/HPF None Seen [facility] Urine RBC 2-5 #/HPF Abnormal 0-2 [facility] Urine Squamous Epithelial Cells MODERATE #/LPF Abnormal NONE/RARE [facility] Urine WBC 10-20 #/HPF Abnormal NONE SEEN [facility] Absolute Basophils (Manual) 0.00 10 3/uL 0.00-0.10 [facility] Band Neutrophils # (Manual) 0.3 10 3/uL 0.0-0.3 [facility] Eosinophils # (Manual) 0.33 10 3/uL 0.00-0.70 [facility] Lymphocytes # (Manual) 1.98 10 3/uL 1.20-3.80 [facility] Monocytes # (Manual) 1.65 10 3/uL High 0.30-0.80 [facility] Segmented Neutrophils # (Manual) 12.21 10 3/uL High 1.4-6.5 [facility] Segmented neutrophils/100 WB C Manual cnt (Bld)on 09-16-2024 Segmented neutrophils/100 WBC (Bld) Manual blood segmented neutrophils/100 leukocytes 43.0-75.0 [facility] Serum or plasma albumin/glob ulin mass ratioon 09-16-2024 Albumin/Globulin [Mass ratio] Serum or plasma albumin/globulin mass ratio [facility] Serum or plasma anion gap de terminationon 09-16-2024 Anion gap [Moles/Vol] Serum or plasma anion gap determination [facility] Urine Cultureon 09-16-2024 Bacteria identified Cx Nom (U) ORGANISM: Escherichia coli (O:ESCCOL) [place] Count 75,000 Aerobic TIA Charge (NMIC56) ------ [...] RESISTANT TO ALL B-LACTAM DRUGS. PERFORMED BY: [facility] [address] [place] [address] PATHOLOGIST BEAD TRIMMER EDGARDO BECERRA M.D. Normal [facility] Comment on above: Performed By: #### C UU #### [facility] [address] [place] [address] Urine cultureOrdered By: Omi Mills on 09-16-2024 Bacteria identified Cx Nom (U) Escherichia coli Abnormal [facility] Laboratory - Chemistry and C hemistry - challengeon 09-11-2024 Bilirubin Ql (U) Negative [facility] Glucose (U) [Mass/Vol] Negative [facility] Ketones Ql (U) Negative [facility] pH (U) 5 [pH] [facility] Specific gravity (U) [Rel density] 1.020 [facility] Urobilinogen (U) [Mass/Vol] 0.2 mg/dL [facility] Laboratory - Specimen inform ationon 09-11-2024 Appearance (U) cloudy [facility] Color (U) yellow [facility] Laboratory - Urinalysison Leukocyte esterase Test strip Ql (U) ++ [facility] Nitrite Ql (U) Negative [facility] Protein Ql (U) ++ [facility] No Panel Informationon 09-11 Urine Occult Blood ++ [facility] No Panel Informationon 02-14 Reference Lab Test Patient Age Note . [facility] Comment on above: TESTS RESULT FLAG UN ITS REF RANGE LAB - Clinician Provided Cytology Information Source.............Cervix;Endocervix No. of containers..01 ThinPrep VialAge Algo ACOG Anuja... Note 01 <21 or >65 or no age provided ------ FLAG LEGEND: L-Low Normal,H-High Normal,LL-Alert Low,HH-Alert High <-Panic Low,>-Panic High,A-Abnormal,AA-Critical Abnormal ------Performed at:01 =G [facility] [place] [address] [facility] [place] [address] Nandini Kim MD, Thin Prep Pap Screen Note . [facility] Comment on above: TESTS RESULT FLAG UN ITS REF RANGE LAB -DIAGNOSIS: 02 NEGATIVE FOR INTRAEPITHELIAL LESION OR MALIGNANCY.Specimen adequacy: 02 Satisfactory for evaluation. Endocervical and/or squamous metaplastic cells (endocervical component) are present.Performed by: 02 Shira Wilder, Scene And Lighting Design Lecturer ([facility]). 02Note: Note 03 The Pap smear is [...] Low,>-Panic High,A-Abnormal,AA-Critical Abnormal ------Performed at:02 [facility] [address] [address] [place] [address] Willie Villanueva MD, [address] [address] Nandini Kim MD, Srgmwackm at: = - [facility] [address] [id number] Director: Nandini Kim MD, Phone: [phone] at: [facility] - [facility] [id number] [place], [place] [id number] Director: Willie Villanueva MD, Phone: [phone] Basophils Auto (Bld) [#/Vol] on 12-23-2023 Basophils (Bld) [#/Vol] 0.0 10 3/uL 0.0-0.1 [facility] Basophils/100 WBC Auto (Bld) on 12-23-2023 Basophils/100 WBC (Bld) 0.4 % 0.2-2.0 [facility] Cholesterol in LDL Calc [Mas s/Vol]on 12-23-2023 Cholesterol in LDL [Mass/Vol] 106.8 mg/dL [facility] Comment on above: <100 mg/dl [id number] 0-129 mg/dl NEAR OR ABOVE [id number] mg/dl BORDERLINE [id number] mg/dl HIGH>190 mg/dl VERY HIGH Cholesterol in VLDL Calc [Ma ss/Vol]on 12-23-2023 Cholesterol in VLDL [Mass/Vol] 24.2 mg/dL [facility] Eosinophils/100 WBC Auto (Bl d)on 12-23-2023 Eosinophils/100 WBC (Bld) 5.7 % 0.9-7.0 [facility] Erythrocyte distribution wid th Auto (RBC) [Ratio]on 12-23-2023 Erythrocyte distribution width (RBC) [Ratio] 12.5 % 11.0-15.0 [facility] Estimated glomerular filtrat ion rate (GFR) non- Americanon 12-23-2023 GFR/1.73 sq M.predicted among non-blacks MDRD (S/P/Bld) [Vol rate/Area] 49 mL/min/{1.73_m2} Low >=60 [facility] Globulin Calc (S) [Mass/Vol] on 12-23-2023 Globulin (S) [Mass/Vol] 3.6 g/dL [facility] Hematocrit Auto (Bld) [Volum e fraction]on 12-23-2023 Hematocrit (Bld) [Volume fraction] 41.1 % 36.0-48.0 [facility] Hemoglobin [Mass/volume] in Bloodon 12-23-2023 Hemoglobin (Bld) [Mass/Vol] 13.3 g/dL 12.0-16.0 [facility] Laboratory - Chemistry and C hemistry - challengeon 12-23-2023 Albumin [Mass/Vol] 3.8 g/dL 3.4-5.0 [facility] ALP [Catalytic activity/Vol] 78 U/L 46-116 [facility] ALT [Catalytic activity/Vol] 32 U/L 14-59 [facility] AST [Catalytic activity/Vol] 19 U/L 15-37 [facility] Bilirubin [Mass/Vol] 0.6 mg/dL 0.2-1.0 [facility] Calcium [Mass/Vol] 9.3 mg/dL 8.5-10.1 [facility] Chloride [Moles/Vol] 105 mmol/L 98-107 [facility] Cholesterol [Mass/Vol] 175 mg/dL <=200 [facility] Cholesterol in HDL [Mass/Vol] 44 mg/dL 40-60 [facility] Comment on above: > or =60 mg/dl - LOW CARDIOVASCULAR RISK<40 mg/dl - HIGH CARDIOVASCULAR RISK CO2 [Moles/Vol] 28.8 mmol/L 21.0-32.0 [facility] Creatinine [Mass/Vol] 1.11 mg/dL High 0.55-1.02 [facility] Free T4 [Mass/Vol] 0.98 ng/dL 0.76-1.46 [facility] GFR/1.73 sq M.predicted MDRD (S/P/Bld) [Vol rate/Area] 59 mL/min/{1.73_m2} Low >=60 [facility] Glucose [Mass/Vol] 98 mg/dL 74-106 [facility] Potassium [Moles/Vol] 3.1 mmol/L Low 3.5-5.1 [facility] Protein [Mass/Vol] 7.4 g/dL 6.4-8.2 [facility] Sodium [Moles/Vol] 143 mmol/L 136-145 [facility] Triglyceride [Mass/Vol] 121 mg/dL <=150 [facility] TSH Qn 1.246 m[IU]/L 0.358-3.740 [facility] Urate [Mass/Vol] 6.4 mg/dL High 2.6-6.0 [facility] Urea nitrogen [Mass/Vol] 23.0 mg/dL High 7.0-18.0 [facility] Urea nitrogen/Creatinine [Mass ratio] 20.7 mg/mg [facility] Laboratory - Hematology and Cell countson 12-23-2023 Immature granulocytes/100 WBC (Bld) 0.3 % 0.0-0.5 [facility] Leukocytes [#/volume] correc jo ann for nucleated erythrocytes in Blood by Automated counon 12-23-2023 WBC corrected for nucl RBC Auto (Bld) [#/Vol] 8.9 10 3/uL 4.0-11.0 [facility] Lymphocytes Auto (Bld) [#/Vo l]on 12-23-2023 Lymphocytes (Bld) [#/Vol] 2.9 10 3/uL 1.2-3.8 [facility] Lymphocytes/100 WBC Auto (Bl d)on 12-23-2023 Lymphocytes/100 WBC (Bld) 33.0 % 20.5-60.0 [facility] MCH Auto (RBC) [Entitic mass ]on 12-23-2023 MCH (RBC) [Entitic mass] 29.0 pg 26.7-34.0 [facility] MCHC Auto (RBC) [Mass/Vol]on 12-23-2023 MCHC (RBC) [Mass/Vol] 32.4 g/dL 29.9-35.2 [facility] MCV Auto (RBC) [Entitic vol] on 12-23-2023 MCV (RBC) [Entitic vol] 89.5 fL 81.0-99.0 [facility] Monocytes Auto (Bld) [#/Vol] on 12-23-2023 Monocytes (Bld) [#/Vol] 0.7 10 3/uL 0.3-0.8 [facility] Monocytes/100 WBC Auto (Bld) on 12-23-2023 Monocytes/100 WBC (Bld) 8.0 % 1.7-12.0 [facility] Neutrophils Auto (Bld) [#/Vo l]on 12-23-2023 Neutrophils (Bld) [#/Vol] 4.7 10 3/uL 1.4-6.5 [facility] Neutrophils/100 WBC Auto (Bl d)on 12-23-2023 Neutrophils/100 WBC (Bld) 52.6 % 43.0-75.0 [facility] No Panel Informationon 12-22 Eosinophils # (Auto) 0.5 10 3/uL 0.0-0.7 [facility] Immature Granulocyte # (Auto) 0.03 10 3/uL 0.00-0.03 [facility] Total Triiodothyronine 132 ng/dL 71-180 [facility] Comment on above: Performed at: [address] [id number] Director: [place] Toussaint PhD, Phone: [phone] Platelet mean volume Auto (B ld) [Entitic vol]on 12-23-2023 Platelet mean volume (Bld) [Entitic vol] 10.9 fL 9.5-13.5 [facility] Platelets Auto (Bld) [#/Vol] on 12-23-2023 Platelets (Bld) [#/Vol] 325 10 3/uL 150-450 [facility] RBC Auto (Bld) [#/Vol]on RBC (Bld) [#/Vol] 4.59 10 6/uL 4.20-5.40 [facility] Serum or plasma albumin/glob ulin mass ratioon 12-23-2023 Albumin/Globulin [Mass ratio] 1.1 {ratio} [facility] Serum or plasma anion gap de terminationon 12-23-2023 Anion gap [Moles/Vol] 12.3 mmol/L [facility] Serum or plasma total choles terol/high density lipoprotein (HDL) cholesterol mass vanesa 12-23-2023 Cholesterol.total/Zaira sterol in HDL [Mass ratio] 4.0 {ratio} [facility] Comment on above: 3.3 - 4.4 LOW RISK4. 4 - 7.1 AVERAGE RISK7.1 - 11.0 MODERATE RISK>11.0 HIGH RISK Thyroid stimulating immunogl obulin (TSI) measurementon 12-23-2023 Thyroid stimulating immunoglobulins actual/normal (S) [Relative mass conc] 0.66 IU/L Abnormal 0.00-0.55 [facility] Comment on above: Performed at: [address] [id number] Director: Anderson Rodriguez MD, Phone: [phone] Laboratory - Chemistry and C hemistry - challengeon 11-18-2023 Bilirubin Ql (U) Negative [facility] Glucose (U) [Mass/Vol] Negative [facility] Ketones Ql (U) Negative [facility] pH (U) 7 [pH] [facility] Specific gravity (U) [Rel density] 1.015 [facility] Urobilinogen (U) [Mass/Vol] 0.2 mg/dL [facility] Laboratory - Specimen inform ationon 11-18-2023 Appearance (U) cloudy [facility] Color (U) yellow [facility] Laboratory - Urinalysison Leukocyte esterase Test strip Ql (U) +++ [facility] Nitrite Ql (U) Negative [facility] Protein Ql (U) ++ [facility] No Panel Informationon 11-17 Urine Occult Blood +++ [facility] Laboratory - Chemistry and C hemistry - challengeon 07-25-2023 TSH Qn 3.532 m[IU]/L 0.358-3.740 [facility] TSHon 07-21-2022 TSH 3.102 uIU/mL Normal 0.358-3.740 [facility] Comment on above: Performed By: #### B MP, TSH, LIPID #### [facility] [address] [address] [address] Leonardo Salazar Thyroid Stimulating Hormoneo 07-21-[address] [facility] Other TSHon 06-14-2022 TSH 3.853 uIU/mL Critically high 0.358-3.[address] [facility] Comment on above: Performed By: #### T SH #### [facility] [address] [address] [address] Leonardo Salazar TSHon 05-03-2022 TSH 5.728 uIU/mL Critically high 0.358-3.[address] [facility] Comment on above: Performed By: #### T SH #### [facility] [address] [address] [address] Leonardo Salazar TSHon 03-25-2022 TSH 4.674 uIU/mL Critically high 0.358-3.[address] [facility] Comment on above: Performed By: #### B MP, TSH, LIPID #### [facility] [address] [address] [address] Leonardo Salazar PAP ACOG PANEL 2: 30 to 65on 02-12-2022 . . Normal [facility] Comment on above: Performed By: #### B MP, TSH, LIPID #### [facility] [address] [address] [address] Leonardo Salazar Age Gdln ACOG Testing Comment Normal [facility] Comment on above: Result Comment: <21 or >65 or no age provided Performed By: #### B MP, TSH, LIPID #### [facility] [address] [address] [address] Leonardo Salazar DIAGNOSIS: Comment Normal [facility] Comment on above: Result Comment: NEGA TIVE FOR INTRAEPITHELIAL LESION OR MALIGNANCY. Performed By: #### B MP, TSH, LIPID #### [facility] [address] [address] [address] Leonardo Salazar Methodology: Comment Normal [facility] Comment on above: Result Comment: This liquid based ThinPrep(R) pap test was screened with the use of an image guided system. Performed By: #### B MP, TSH, LIPID #### [facility] [address] [place] [address] Dr. Leonardo Salazar Note: Comment Normal [facility] Comment on above: Result Comment: The Pap smear is a screening test designed to aid in the detection of premalignant and malignant conditions of the uterine cervix. It is not a diagnostic procedure and should not be used as the sole means of detecting cervical cancer. Both false-positive and false-negative reports do occur. . Performed By: #### B MP, TSH, LIPID #### [facility] [address] [place] [address] Dr. Leonardo Salazar Performed by: Comment Normal [facility] Comment on above: Result Comment: Troy Faulkner [employer] Lecturer (ASCP) Performed By: #### B MP, TSH, LIPID #### [facility] [address] [place] [address] Dr. Leonardo Salazar Specimen adequacy: Comment Normal [facility] Comment on above: Result Comment: Sati sfactory for evaluation. Endocervical and/or squamous metaplastic cells (endocervical component) are present. Performed By: #### B MP, TSH, LIPID #### [facility] [address] [place] [address] Dr. Leonardo Salazar Covid-19 PCR ([facility])on 12-05 SARS-CoV-2 (COVID-19) RNA MOSHE+probe Ql (Unsp spec) Detected Critically abnormal NOT DETECTED [facility] Comment on above: Result Comment: This test is not yet approved or cleared by the [place] FDA. When there are no FDA-approved or cleared tests available, and other criteria are met, FDA can make tests available under an emergency access mechanism called an Emergency Use Authorization (EUA). The EUA for this test is supported by the [place] of Health and Human Service's (HHS's) declaration [...] used). Performed By: #### C VDTB #### [facility] [address] [place] [address] Dr. Leonardo Salazar THYROID-STIMULATING IMMUNOGL OBULINon 12-28-2021 Thyroid Sim Immunoglobulin 4.57 IU/L Critically high 0.00-0.55 [facility] Comment on above: Performed By: #### T OSITO #### [facility] [address] [place] [address] Dr. Leonardo Salazar US THYROIDon 12-27-2021 US [...] thyroid TR 3 nodules. TR 3 The [employer] TI-RADS committee's white paper recommendations for thyroid lesions classified as TR3 (mildly suspicious) are listed below: > 1.5 cm. Follow-up ultrasound in 1, 3, and 5 years. > 2.5 cm. FNA. J. Am Luis Radiol 2017;14:587-595. Electronically authenticated by: [place] Varghese: 2021-12-27 07:22 Normal [facility] THYROID PEROXIDASE ABon 07-2 Thyroid Peroxidase (TPO) Ab 234 IU/mL Critically high 0-34 [facility] Comment on above: Performed By: #### T POAB #### [facility] [address] [place] [address] Dr. Leonardo Salazar T3, TOTAL (TRIIODOTHYRONINE) on 12-11-2021 T3, TOTAL 196 ng/dL Critically high 71-180 [facility] Comment on above: Performed By: #### B MP, TSH, LIPID #### [facility] [address] [place] [address] Dr. Leonardo Salazar CBC AUTO DIFFon 12-09-2021 BASO # 0.1 103/ul Normal 0.0-0.1 [facility] Comment on above: Performed By: #### C BC #### [facility] [address] [place] [address] Dr. Leonardo Salazar Basophils/100 WBC (Bld) 0.4 % Normal 0.2-2.0 [facility] Comment on above: Performed By: #### C BC #### [facility] [address] [place] [address] Dr. Leonardo Salazar EO # 0.3 103/ul Normal 0.0-0.7 [facility] Comment on above: Performed By: #### C BC #### [facility] [address] [place] [address] Dr. Leonardo Salazar Eosinophils/100 WBC (Bld) 2.3 % Normal 0.9-7.0 [facility] Comment on above: Performed By: #### C BC #### [facility] [address] [place] [address] Dr. Leonardo Salazar Erythrocyte distribution width (RBC) [Ratio] 12.9 % Normal 11.0-15.0 [facility] Comment on above: Performed By: #### C BC #### [facility] [address] [place] [address] Dr. Leonardo Salazar Hematocrit (Bld) [Volume fraction] 43.1 % Normal 36.0-48.0 [facility] Comment on above: Performed By: #### C BC #### [facility] [address] [place] [address] Dr. Leonardo Salazar Hemoglobin (Bld) [Mass/Vol] 13.7 g/dL Normal 12.0-16.0 [facility] Comment on above: Performed By: #### C BC #### [facility] [address] [place] [address] Dr. Leonardo Salazar IG # 0.07 10e3/ul Critically high 0.00-0.03 [facility] Comment on above: Performed By: #### C BC #### [facility] [address] [place] [address] Dr. Leonardo Salazar IG % 0.6 % Critically high 0.0-0.5 [facility] Comment on above: Performed By: #### C BC #### [facility] [address] [place] [address] Dr. Leonardo Salazar LYMPH # 2.9 103/ul Normal 1.2-3.8 [facility] Comment on above: Performed By: #### C BC #### [facility] [address] [place] [address] Dr. Leonardo Salazar Lymphocytes/100 WBC (Bld) 25.3 % Normal 20.5-60.0 [facility] Comment on above: Performed By: #### C BC #### [facility] [address] [place] [address] Dr. Leonarod Salazar MANUAL DIFF REQ NO Normal [facility] Comment on above: Performed By: #### C BC #### [facility] [address] [place] [address] Dr. Leonardo Salazar MCH (RBC) [Entitic mass] 27.5 pg Normal 26.7-34.0 [facility] Comment on above: Performed By: #### C BC #### [facility] [address] [place] [address] Dr. Leonardo Salazar MCHC (RBC) [Mass/Vol] 31.8 g/dL Normal 29.9-35.2 [facility] Comment on above: Performed By: #### C BC #### [facility] [address] [address] [address] Leonardo Salazar MCV (RBC) [Entitic vol] 86.4 fL Normal 81.0-99.0 [facility] Comment on above: Performed By: #### C BC #### [facility] [address] [address] [address] Leonardo Salazar MONO # 0.9 103/ul Critically high 0.3-0.8 [facility] Comment on above: Performed By: #### C BC #### [facility] [address] [address] [address] Leonardo Salazar Monocytes/100 WBC (Bld) 8.2 % Normal 1.7-12.0 [facility] Comment on above: Performed By: #### C BC #### [facility] [address] [place] [address] Dr. Leonardo Salazar NEUT # 7.1 103/ul Critically high 1.4-6.5 [facility] Comment on above: Performed By: #### C BC #### [facility] [address] [place] [address] Dr. Leonardo Salazar Neutrophils/100 WBC (Bld) 63.2 % Normal 43.0-75.0 [facility] Comment on above: Performed By: #### C BC #### [facility] [address] [place] [address] Dr. Leonardo Salazar Platelet mean volume (Bld) [Entitic vol] 10.4 fL Normal 9.5-13.5 [facility] Comment on above: Performed By: #### C BC #### [facility] [address] [address] [address] Leonardo Salazar PLT 320 103/ul Normal 150-450 [facility] Comment on above: Performed By: #### C BC #### [facility] [address] [place] [address] Dr. Leonardo Salazar RBC 4.99 106/ul Normal 4.20-5.40 [facility] Comment on above: Performed By: #### C BC #### [facility] [address] [place] [address] Dr. Leonardo Salazar WBC 11.3 103/ul Critically high 4.0-11.0 [facility] Comment on above: Performed By: #### C BC #### [facility] [address] [place] [address] Dr. Leonardo Salazar FREE T3on 12-09-2021 FREE T3 5.33 pg/mlL Critically high 2.18-3.98 [facility] Comment on above: Performed By: #### F T3 #### [facility] [address] [place] [address] Dr. Leonardo Salazar FREE T4on 12-09-2021 Free T4 [Mass/Vol] 1.97 ng/dL Critically high 0.76-1.46 [facility] Comment on above: Performed By: #### B MP, TSH, LIPID #### [facility] [address] [place] [address] Dr. Leonardo Salazar LIPID PROFILEon 12-09-2021 CHOL-HDL RATIO NORM SEE BELOW Normal [facility] Comment on above: Result Comment: 3.3 - 4.4 LOW RISK 4.4 - 7.1 AVERAGE RISK 7.1 - 11.0 MODERATE RISK >11.0 HIGH RISK Performed By: #### B MP, TSH, LIPID #### [facility] [address] [place] [address] Dr. Leonardo Salazar Cholesterol [Mass/Vol] 170 mg/dL Normal <=200 [facility] Comment on above: Performed By: #### B MP, TSH, LIPID #### [facility] [address] [place] [address] Dr. Leonardo Salazar Cholesterol in HDL [Mass/Vol] 51 mg/dL Normal 40-60 [facility] Comment on above: Performed By: #### B MP, TSH, LIPID #### [facility] [address] [place] [address] Dr. Leonardo Salazar Cholesterol in LDL [Mass/Vol] 105.4 mg/dL Normal [facility] Comment on above: Performed By: #### B MP, TSH, LIPID #### [facility] [address] [address] [address] Leonardo Salazar Cholesterol.total/Zaira sterol in HDL [Mass ratio] 3.3 {ratio} Normal [facility] Comment on above: Performed By: #### B MP, TSH, LIPID #### [facility] [address] [address] [address] Leonardo Salazar HDL NORMAL > or = 60 mg/dl - LOW CARDIOVASCULAR RISK <40 mg/dl - HIGH CARDIOVASCULAR RISK Normal [facility] Comment on above: Performed By: #### B MP, TSH, LIPID #### [facility] [address] [address] [address] Leonardo Salazar LDL CALC NORMAL SEE BELOW Normal [facility] Comment on above: Result Comment: <100 mg/dl OPTIMAL 100 - 129 mg/dl NEAR OR ABOVE OPTIMAL 130 - 159 mg/dl BORDERLINE HIGH 160 - 189 mg/dl HIGH >190 mg/dl VERY HIGH Performed By: #### B MP, TSH, LIPID #### [facility] [address] [address] [address] Lenoardo Salazar Triglyceride [Mass/Vol] 68 mg/dL Normal <=150 [facility] Comment on above: Performed By: #### B MP, TSH, LIPID #### [facility] [address] [address] [address] Leonardo Salazar VLDL CALC 13.6 mg/dL Normal [facility] Comment on above: Performed By: #### B MP, TSH, LIPID #### [facility] [address] [address] [address] Leonardo Salazar MG MAMM SCREEN 3D SAÚL CADon 12-09-2021 MG MAMM SCREEN 3D SAÚL CAD Patient: KRISTYN ALEXANDER Exam Date: 12/09/2021 : 1955 Gender:F Ordering : DR MARCOS ROQUE D.O. Admission #: [id number] Family : DR CONSUELO CLEVELAND . Order #: [id number] CLICK HERE TO VIEW EXAM RADIOLOGY REPORT [...] breast cancer at age 70. LOCATION: [facility] BREAST COMPOSITION: Heterogeneously dense,which may obscure small [...] Zaragoza M.D. on 12/10/2021 at 14:20 Normal [facility] PROF CHEM 8 (BAS METB)on Anion gap [Moles/Vol] 10.4 mmol/L Normal [facility] Comment on above: Performed By: #### B MP, TSH, LIPID #### [facility] [address] [address] [address] Leonardo Salazar Calcium [Mass/Vol] 9.7 mg/dL Normal 8.5-10.1 [facility] Comment on above: Performed By: #### B MP, TSH, LIPID #### [facility] [address] [address] [address] Leonardo Salazar Chloride [Moles/Vol] 106 mmol/L Normal 98-107 [facility] Comment on above: Performed By: #### B MP, TSH, LIPID #### [facility] [address] [address] [address] Leonardo Salazar CO2 [Moles/Vol] 29.5 mmol/L Normal 21.0-32.0 [facility] Comment on above: Performed By: #### B MP, TSH, LIPID #### [facility] [address] [address] [address] Leonardo Salazar Creatinine [Mass/Vol] 0.88 mg/dL Normal 0.55-1.02 [facility] Comment on above: Performed By: #### B MP, TSH, LIPID #### [facility] [address] [address] [address] Leonardo Salazar EGFR-AF ARGENTINE >60 Normal >=60 [facility] Comment on above: Performed By: #### B MP, TSH, LIPID #### [facility] [address] [address] [address] Leonardo Salazar EGFR-NON AF ARGENTINE >60 Normal >=60 [facility] Comment on above: Performed By: #### B MP, TSH, LIPID #### [facility] [address] [address] [address] Leonardo Salazar Glucose [Mass/Vol] 98 mg/dL Normal 74-106 [facility] Comment on above: Performed By: #### B MP, TSH, LIPID #### [facility] [address] [address] [address] Leonardo Salazar Potassium [Moles/Vol] 3.9 mmol/L Normal 3.5-5.1 [facility] Comment on above: Performed By: #### B MP, TSH, LIPID #### [facility] [address] [address] [address] Leonardo Salazar Sodium [Moles/Vol] 142 mmol/L Normal 136-[address] [facility] Comment on above: Performed By: #### B MP, TSH, LIPID #### [facility] [address] [address] [address] Leonardo Salazar Urea nitrogen [Mass/Vol] 23.0 mg/dL Critically high 7.0-18.0 [facility] Comment on above: Performed By: #### B MP, TSH, LIPID #### [facility] [address] [address] [address] Leonardo Salazar Urea nitrogen/Creatinine [Mass ratio] 26.1 mg/mg Normal [facility] Comment on above: Performed By: #### B MP, TSH, LIPID #### [facility] [address] [place] [address] Dr. Leonardo Salazar TSHon 12-09-2021 TSH Qn m[IU]/L Critically low 0.358-3.740 [facility] Comment on above: Performed By: #### B MP, TSH, LIPID #### [facility] [address] [address] [address] Leonardo Salazar Vital Signs Date Time Vital Sign Value Performing Clinician Facility 01-30-2025 09:47-0400 Body height 168.91 cm Marcos Ball DO Work Phone: [facility] 01-30-2025 09:47-0400 Body mass index (BMI) [Ratio] 30.2 kg/m2 Marcos Ball DO Work Phone: [facility] 01-30-2025 09:47-0400 Body weight 86.29 kg Marcos Ball DO Work Phone: [facility] 01-30-2025 09:47-0400 Diastolic blood pressure 87 mm[Hg] Marcos Ball DO Work Phone: [facility] 01-30-2025 09:47-0400 Heart rate 83 /min Marcos Ball DO Work Phone: [facility] 01-30-2025 09:47-0400 Respiratory rate 12 /min Marcos Ball DO Work Phone: [facility] 01-30-2025 09:47-0400 Systolic blood pressure 154 mm[Hg] Marcos Ball DO Work Phone: [facility] 12-19-2024 11:58-0400 Diastolic blood pressure 74 mm[Hg] Marcos Ball DO Work Phone: [facility] 12-19-2024 11:58-0400 Heart rate 74 /min Marcos Ball DO Work Phone: [facility] 12-19-2024 11:58-0400 Respiratory rate 18 /min Marcos Ball DO Work Phone: [facility] 12-19-2024 11:58-0400 SaO2% (BldA) [Mass fraction] 97 % Marcos Ball DO Work Phone: [facility] 12-19-2024 11:58-0400 Systolic blood pressure 147 mm[Hg] Marcos Ball DO Work Phone: [facility] 12-19-2024 10:05-0400 Body height 168.91 cm Marcos Ball DO Work Phone: [facility] 12-19-2024 10:05-0400 Body weight 87.09 kg Marcos Ball DO Work Phone: [facility] 11-20-2024 11:35-0400 Body height 172.72 cm Marcos Ball DO Work Phone: [facility] 11-20-2024 11:35-0400 Body mass index (BMI) [Ratio] 29 kg/m2 Marcos Ball DO Work Phone: [facility] 11-20-2024 11:35-0400 Body weight 86.69 kg Marcos Ball DO Work Phone: [facility] 11-20-2024 11:35-0400 Diastolic blood pressure 84 mm[Hg] Marcos Ball DO Work Phone: [facility] 11-20-2024 11:35-0400 Heart rate 76 /min Marcos Ball DO Work Phone: [facility] 11-20-2024 11:35-0400 Respiratory rate 12 /min Marcos Ball DO Work Phone: [facility] 11-20-2024 11:35-0400 Systolic blood pressure 162 mm[Hg] Marcos Ball DO Work Phone: [facility] 09-25-2024 13:49-0400 Body height 172.72 cm Ghanshyam Hay DO Work Phone: [facility] 09-25-2024 13:49-0400 Body mass index (BMI) [Ratio] 28.3 kg/m2 Ghanshyam Hay DO Work Phone: [facility] 09-25-2024 13:49-0400 Body weight 84.53 kg Ghanshyam Hay DO Work Phone: [facility] 09-25-2024 13:49-0400 Diastolic blood pressure 78 mm[Hg] Ghanshyam Hay DO Work Phone: [facility] 09-25-2024 13:49-0400 Heart rate 92 /min Ghanshyam Hay DO Work Phone: [facility] 09-25-2024 13:49-0400 Respiratory rate 12 /min Ghanshyam Hay DO Work Phone: [facility] 09-25-2024 13:49-0400 Systolic blood pressure 136 mm[Hg] Ghanshyam Hay DO Work Phone: [facility] 07-23-2024 11:45-0500 Body height 172.[address] [facility] 07-23-2024 11:45-0500 Body mass index (BMI) [Ratio] 30.1 kg/m2 [facility] 07-23-2024 11:45-0500 Body weight 89.[address] [facility] 07-23-2024 11:45-0500 Diastolic blood pressure 75 mm[Hg] [facility] 07-23-2024 11:45-0500 Heart rate 80 /min [facility] 07-23-2024 11:45-0500 Respiratory rate 12 /min [facility] 07-23-2024 11:45-0500 Systolic blood pressure 124 mm[Hg] [facility] 03-19-2024 11:57-0400 Body height 172.[address] [facility] 03-19-2024 11:57-0400 Body mass index (BMI) [Ratio] 29.8 kg/m2 [facility] 03-19-2024 11:57-0400 Body weight 89.[address] [facility] 03-19-2024 11:57-0400 Diastolic blood pressure 82 mm[Hg] [facility] 03-19-2024 11:57-0400 Heart rate 71 /min [facility] 03-19-2024 11:57-0400 Respiratory rate 12 /min [facility] 03-19-2024 11:57-0400 Systolic blood pressure 134 mm[Hg] [facility] 11-29-2023 11:44-0400 Body height 172.[address] [facility] 11-29-2023 11:44-0400 Body mass index (BMI) [Ratio] 29.5 kg/m2 [facility] 11-29-2023 11:44-0400 Body weight 88.[address] [facility] 11-29-2023 11:44-0400 Diastolic blood pressure 85 mm[Hg] [facility] 11-29-2023 11:44-0400 Heart rate 89 /min [facility] 11-29-2023 11:44-0400 Respiratory rate 12 /min [facility] 11-29-2023 11:44-0400 Systolic blood pressure 134 mm[Hg] [facility] 09-06-2023 11:44-0400 Body height 172.[address] [facility] 09-06-2023 11:44-0400 Body mass index (BMI) [Ratio] 29.6 kg/m2 [facility] 09-06-2023 11:44-0400 Body weight 88.[address] [facility] 09-06-2023 11:44-0400 Diastolic blood pressure 82 mm[Hg] [facility] 09-06-2023 11:44-0400 Heart rate 80 /min [facility] 09-06-2023 11:44-0400 Respiratory rate 16 /min [facility] 09-06-2023 11:44-0400 Systolic blood pressure 131 mm[Hg] [facility] 07-25-2023 11:40-0500 Body height 172.[address] [facility] 07-25-2023 11:40-0500 Body mass index (BMI) [Ratio] 30.2 kg/m2 [facility] 07-25-2023 11:40-0500 Body weight 90.[address] [facility] 07-25-2023 11:40-0500 Diastolic blood pressure 78 mm[Hg] [facility] 07-25-2023 11:40-0500 Heart rate 73 /min [facility] 07-25-2023 11:40-0500 Respiratory rate 12 /min [facility] 07-25-2023 11:40-0500 Systolic blood pressure 137 mm[Hg] [facility] 03-23-2023 10:00-0400 Body height 172.72 cm Marcos Ball Other [facility] Other 03-23-2023 10:00-0400 Body mass index (BMI) [Ratio] 29.83 kg/m2 Marcos Ball Other [facility] Other 03-23-2023 10:00-0400 Body weight 89 kg Marcos Ball Other [facility] Other 03-23-2023 10:00-0400 Diastolic blood pressure 79 mm[Hg] Marcos Ball Other [facility] Other 03-23-2023 10:00-0400 Respiratory rate 12 /min Marcos Ball Other [facility] Other 03-23-2023 10:00-0400 Systolic blood pressure 131 mm[Hg] Marcos Ball Other [facility] Other 11-24-2022 10:00-0400 Body height 172.72 cm Marcos Ball Other [facility] Other 11-24-2022 10:00-0400 Body mass index (BMI) [Ratio] 29.43 kg/m2 Marcos Ball Other [facility] Other 11-24-2022 10:00-0400 Body weight 87.82 kg Marcos Ball Other [facility] Other 11-24-2022 10:00-0400 Diastolic blood pressure 87 mm[Hg] Marcos Ball Other [facility] Other 11-24-2022 10:00-0400 Respiratory rate 12 /min Marcos Ball Other [facility] Other 11-24-2022 10:00-0400 Systolic blood pressure 128 mm[Hg] Marcos Ball Other [facility] Other 07-21-2022 11:00-0500 Body height 172.72 cm Marcos Roque Other [facility] Other 07-21-2022 11:00-0500 Body mass index (BMI) [Ratio] 29.31 kg/m2 Marcso Roque Other [facility] Other 07-21-2022 11:00-0500 Body weight 87.45 kg Marcos Roque Other [facility] Other 07-21-2022 11:00-0500 Diastolic blood pressure 68 mm[Hg] Marcos Ball Other [facility] Other 07-21-2022 11:00-0500 Respiratory rate 12 /min Marcos Roque Other [facility] Other 07-21-2022 11:00-0500 Systolic blood pressure 124 mm[Hg] Marcos Jude Other [facility] Other Encounters Encounter Date Encounter Type Care Provider Facility Start: 02-19-2025 End: 02-19-2025 ambulatory CONSUELO CLEVELAND Not Available Start: 01-30-2025 End: 01-30-2025 ambulatory Marcos Roque DO Work Phone: [facility] Work Phone: Start: 01-30-2025 End: 01-30-2025 Patient encounter procedure Marcos Jude DO -[facility] Work Phone: Start: 12-31-2024 Non-patient / Non-visit Marcos ruiz DO -[facility] Work Phone: Start: 12-24-2024 Non-patient / Non-visit Marcos Mitchell ruiz DO -[facility] Work Phone: Start: 12-19-2024 End: 12-19-2024 ambulatory Edu Watts Facility:[facility] Start: 12-19-2024 Non-patient / Non-visit Edu Fairbanks [facility] Work Phone: Start: 11-20-2024 End: 11-20-2024 Patient encounter procedure Marcos Roque DO -[facility] Work Phone: Start: 09-25-2024 End: 09-25-2024 ambulatory Ghanshyam Mills DO Work Phone: [facility] Work Phone: Start: 09-25-2024 End: 09-25-2024 Patient encounter procedure Ghanshyam Mills DO Work Phone: [facility] Work Phone: Start: 09-16-2024 End: 09-16-2024 ambulatory Ghanshyam Mills [facility] Work Phone: Start: 09-16-2024 End: 09-16-2024 Departed Referred Ghanshyam Mills DO Work Phone: [facility] Start: 09-16-2024 Non-patient / Non-visit Ghanshyam forde DO Work Phone: [facility] Work Phone: Start: 09-11-2024 End: 09-11-2024 ambulatory [facility] Work Phone: Start: 09-11-2024 End: 09-11-2024 Patient encounter procedure [facility] Work Phone: Start: 07-23-2024 End: 07-23-2024 ambulatory [facility] Work Phone: Start: 07-23-2024 End: 07-23-2024 Patient encounter procedure [facility] Work Phone: Start: 06-25-2024 End: 06-25-2024 ambulatory NIDIA M YARA Not Available Start: 06-13-2024 End: 06-13-2024 ambulatory NIDIA M YARA Not Available Start: 06-04-2024 End: 06-04-2024 ambulatory NIDIA M YARA Not Available Start: 05-24-2024 End: 05-24-2024 ambulatory NIDIA M YARA Not Available Start: 03-19-2024 End: 03-19-2024 ambulatory [facility] Work Phone: Start: 03-19-2024 End: 03-19-2024 Patient encounter procedure [facility] Work Phone: Start: 03-01-2024 End: 03-01-2024 ambulatory NIDIA M YARA Not Available Start: 02-15-2024 Non-patient / Non-visit [facility] Work Phone: Start: 12-28-2023 End: 12-28-2023 ambulatory [facility] Work Phone: Start: 12-28-2023 End: 12-28-2023 Patient encounter procedure [facility] Work Phone: Start: 12-23-2023 Non-patient / Non-visit [facility] Work Phone: Start: 11-29-2023 End: 11-29-2023 ambulatory [facility] Work Phone: Start: 11-29-2023 End: 11-29-2023 Patient encounter procedure [facility] Work Phone: Start: 11-18-2023 End: 11-18-2023 ambulatory [facility] Work Phone: Start: 11-18-2023 End: 11-18-2023 Patient encounter procedure [facility] Work Phone: Start: 09-06-2023 End: 09-06-2023 ambulatory [facility] Work Phone: Start: 09-06-2023 End: 09-06-2023 Patient encounter procedure [facility] Work Phone: Start: 07-25-2023 End: 07-25-2023 ambulatory [facility] Work Phone: Start: 07-25-2023 End: 07-25-2023 Patient encounter procedure [facility] Work Phone: Start: 03-23-2023 End: 03-23-2023 ambulatory Marcos Ball Other [facility] Other Start: 03-23-2023 Office outpatient vi sit 25 minutes Marcos Ball [facility] Start: 01-06-2023 End: 01-06-2023 ambulatory Marcos Ball Other [facility] Other Start: 01-06-2023 Telephone encounter Marcos Ball [facility] Start: 12-23-2022 End: 12-23-2022 ambulatory Marcos Ball Other [facility] Other Start: 12-23-2022 Telephone encounter Marcos Ball [facility] Start: 12-21-2022 End: 12-21-2022 ambulatory Marcos Ball Other [facility] Other Start: 12-21-2022 Telephone encounter Marcos Ball [facility] Start: 11-24-2022 End: 11-24-2022 ambulatory Marcos Ball Other [facility] Other Start: 11-24-2022 Patient encounter procedure Marcos Ball [facility] Start: 11-17-2022 End: 11-17-2022 ambulatory Marcos Roque Other [facility] Other Start: 11-17-2022 Telephone encounter Marcos Roque [facility] Start: 11-08-2022 End: 11-08-2022 ambulatory Marcos Roque Other [facility] Other Start: 11-08-2022 Telephone encounter Marcos Roque [facility] Start: 09-28-2022 End: 09-28-2022 ambulatory Marcos Roque Other [facility] Other Start: 09-28-2022 Telephone encounter Marcos Roque [facility] Start: 09-27-2022 End: 09-27-2022 ambulatory Marcos Roque Other [facility] Other Start: 09-27-2022 Telephone encounter Marcos Roque [facility] Start: 09-15-2022 End: 09-15-2022 ambulatory Marcos Roque Other [facility] Other Start: 09-15-2022 Office outpatient vi sit 15 minutes Marcos Roque [facility] Start: 07-21-2022 Office outpatient vi sit 25 minutes Marcos Roque [facility] Start: 07-21-2022 End: 07-22-[address] MARCOS ROQUE Facility:[facility] Start: 06-15-2022 End: 06-15-2022 ambulatory Marcos Roque Other [facility] Other Start: 06-15-2022 Nursing evaluation o f [...] Gynecological examin ation normal Marcos Roque Other [facility] Other Start: 02-04-2022 End: 02-04-[address] CONSUELO CLEVELAND . Facility:[facility] Start: 02-04-2022 Adult health examination Cristobal Roque Other [facility] Other Start: 12-30-2021 End: 12-30-[address] MARCOS ROQUE Facility:[facility] Start: 12-25-2021 End: 12-26-[address] MARCOS ROQUE Facility:[facility] Start: 12-09-2021 End: 12-10-[address] MARCOS ROQUE Facility:[facility] Start: 11-18-2020 End: 11-18-2020 Pre-procedure evaluation check Marcos Jude Other [facility] Other Start: 08-22-2020 End: 08-22-2020 Discharged Recurring Edmund Cardoza [facility]-Covid Vaccine Procedures Date Procedure Procedure Detail [...] Marcos Roque Other Screening for osteoporosis B enjalinda Roque Other Plan of Treatment Date Care Activity Detail Author Start: 12-19-2024 [facility] Start: 11-20-2024 Patient referral [facility] Work Phone: Start: 09-16-2024 Bacteria identified in Urine by Culture Urine Culture [facility] Start: 09-16-2024 Urine culture [facility] Comprehensive metabo lic 1999 panel - Serum or Plasma [facility] Comprehensive metabo lic 1999 panel - Serum or Plasma [facility] MG Breast - bilatera l Screening [facility] MG Breast - bilatera l Screening [facility] Patient Education [facility] Hemo rrhoids Discharge Instructions Know your Meds [facility] Colon Polypectomy Discharge Instructions [facility] Work Phone: Patient referral [facility] Work Phone: Thyroid stimulating immunoglobulins actual/normal in Serum [facility] Immunizations Immunization Date Immunization Notes Care Provider Fa gayatri 02-11-2024 Fluzone QIV High-Dos e 65YR+ [facility] 10-06-2022 COVID-19 Pfizer (bivalent) Marcos Roque Other [facility] 03-02-2022 COVID-19 Pfizer (bivalent) Marcos Roque Other [facility] 03-02-2022 influenza virus vaccine, unspecified formulation [facility] 03-02-2022 influenza, high dose seasonal, preservative-free Marcos Roque Other [employer] [facility] Other 09-07-2021 COVID-19 Pfizer Marcos ruiz Other [facility] 09-07-2021 COVID-19 Vaccine Pfi zer - Documentation Purposes Only Marcos Roque Other [facility] 03-11-2021 influenza virus vaccine, split virus (incl. purified surface antigen) Marcos Roque Other [employer] [facility] Other 03-11-2021 influenza virus vaccine, unspecified formulation [facility] 03-03-2021 COVID-19 Vaccine Pfi zer - Documentation Purposes Only Marcos Roque Other [facility] 08-22-2020 COVID-19 mRNA,[id number] (Pfizer) [facility] 07-30-2020 COVID-19 mRNA,[id number] (Pfizer) [facility] 03-19-2020 influenza virus vaccine, split virus (incl. purified surface antigen) Marcos Roque Other [facility] Other 03-19-2020 influenza virus vaccine, unspecified formulation [facility] 03-20-2019 influenza virus vaccine, split virus (incl. purified surface antigen) Marcos Roque Other [facility] Other 03-20-2019 influenza virus vaccine, unspecified formulation [facility] 03-16-2018 influenza virus vaccine, split virus (incl. purified surface antigen) Marcos Roque Other [facility] Other 03-16-2018 influenza virus vaccine, unspecified formulation [facility] 04-04-2017 influenza virus vaccine, split virus (incl. purified surface antigen) Marcos Roque Other [facility] Other 04-04-2017 influenza virus vaccine, unspecified formulation [facility] 04-06-2016 influenza virus vaccine, split virus (incl. purified surface antigen) Marcos Roque Other [facility] Other 04-06-2016 influenza virus vaccine, unspecified formulation [facility] 04-03-2015 tetanus and diphther ia toxoids, adsorbed, preservative free, for adult use (5 Lf of tetanus toxoid and 2 Lf of diphtheria toxoid) Marcos Roque Other [facility] 02-21-2014 tetanus and diphther ia toxoids, adsorbed, preservative free, for adult use (5 Lf of tetanus toxoid and 2 Lf of diphtheria toxoid) Marcos Roque Other [facility] 03-07-2013 tetanus and diphther ia toxoids, adsorbed, preservative free, for adult use (5 Lf of tetanus toxoid and 2 Lf of diphtheria toxoid) Marcos Roque Other [facility] Payers Date Payer Category Payer Medicare [id number] 1955 Unknown [id number] 2.16.84 [id number] 1955 Unknown [id number] 2.16.84 [id number] 1954 Unknown [id number] 2.16.84 [id number] 1954 Unknown [id number] 2.16.84 0.1.614752.3.579.2.593 1954 Unknown [id number] 2.16.84 0.1.537595.3.579.2.593 1954 Unknown [id number] 2.16.84 0.1.365642.3.579.2.593 1954 Unknown [id number] 2.16.84 0.1.288516.3.579.2.593 1954 Unknown [id number] 2.16.84 0.1.624942.3.579.2.593 1954 Unknown [id number] 2.16.8 40.1.542567.3.579.2.1259 1954 Unknown [id number] 2.16.84 0.1.452896.3.579.2.1259 1954 Unknown [id number] 2.16.84 0.1.307956.3.579.2.1259 1954 Unknown [id number] 2.16.84 0.1.191951.3.579.2.1259 1954 Unknown [id number] 2.16.84 0.1.815082.3.579.2.1259 1954 Unknown [id number] 2.16.84 [id number] Medicare [id number] Self-pay Self Pay [id number] Social History Date Type Detail Facility Tobacco smoking status NHIS Unknown if ever smoked [facility] Start: 1955 Sex Assigned At Female F [facility] Sex Assigned At Sex Assigned At Bir th [facility] Other Start: 03-23-2023 End: 12-19-2024 Tobacco smoking status NHIS Never smoked tobacco (finding) [facility] Start: 07-23-2024 End: 09-25-2024 Sex Female (finding) [facility] Goals Date Patient Goal Desired Activity [...] contact dermatitis acute January 30, 2025 9:39am [facility] Work Phone: 1(163) 779-151804-22-2025 Evaluation note* Diagnosis Onset Date Resolution Status [...] st cancer noneactive November 20, 2024 11:24am [facility] Work Phone: 1(414) 690-741802-17-2025 Evaluation note* Diagnosis Onset Date Resolution Status [...] 23 11:26am Dysuria acute September 11 9:56am [facility] Work Phone: 1(801) 638-856202-17-2025 Evaluation note* Diagnosis Onset Date Resolution Status [...] of ri ght shoulder acute July 23 025 11:26am Dysuria acute September 11 9:56am Gastroesophageal reflux dise ase with esophagitis without hemorrhage acute September 25, 2024 1:37pm Graves disease acute September 1:37pm Metabolic dysfunction-associ ated fatty liver disease (MAFLD) acute Apri l 2024 1:37pm Mild intermittent asthma wit hout complication acute September 25, 2024 1:37pm Primary hypertension acute Apri l 2024 1:37pm Strain of rotator cuff of ri ght shoulder acute September 25, 2024 1:37pm [facility] Work Phone: 1(467) 291-920102-17-2025 Evaluation note* Diagnosis Onset Date Resolution Status [...] 23 11:26am Primary hypertension acute 2024 11:26am [facility] Work Phone: 1(691) 390-258710-18-2023 Evaluation note* Encounter Date Diagnosis Assessment Notes [...] since increased allergens where planning on vacationing [facility] Other 06-21-2023 Evaluation note* Encounter Date Diagnosis [...] High risk medication use (ICD-10 - Z79.899) [facility] Other 06-05-2023 Evaluation note* Encounter Date Diagnosis Assessment Notes Treatment Notes Treatment Clinical Notes Nov, Graves disease (ICD-10 - E05.00) [facility] Other 04-12-2023 Evaluation note* Encounter Date Diagnosis [...] Flonase and Claritin Kenalog may be beneficial [facility] Other 02-15-2023 Evaluation note* Encounter Date Diagnosis [...] - G44.229) Tylenol, heat/ice and massage [facility] Other 01-10-2023 Evaluation note* Encounter Date Diagnosis Assessment Notes Treatment Notes Treatment Clinical Notes Jun, Dysuria (ICD-10 - R30.0) [facility] Other 01-09-2023 Evaluation note* Encounter Date Diagnosis Assessment Notes Treatment Notes Treatment Clinical Notes Jun, Graves disease (ICD-10 - E05.00) [facility] Other Evaluation [facility]No [facility] Other [facility]uy [facility] Other Evaluation noteNo assessment information available [facility] Work Phone: Evaluation note* Diagnosis Onset Date Resolution Status Chronic tension-type headache, not intractable acute Gastroesophageal reflux dise ase with esophagitis without hemorrhage acute Graves disease acute Hypercholesterolemia acute Mild intermittent asthma without complication acute NAFLD (nonalcoholic fatty liver disease) acute Primary hypertension acute [facility] Work Phone: Evaluation note* Diagnosis Onset Date Resolution Status Valgus deformity of right great toe noneactive Bursitis due to trauma nonea ctive [facility] Work Phone: Evaluation note* Diagnosis Onset Date Resolution Status Valgus deformity of right great toe noneactive Bursitis due to trauma nonea ctive Chronic tension-type headache, not intractable acute Gastroesophageal reflux dise ase with esophagitis without hemorrhage acute Graves disease acute Hypercholesterolemia acute Metabolic dysfunction-associ ated steatotic liver disease (MASLD) acute Mild intermittent asthma without complication acute Primary hypertension acute [facility] Work Phone: Evaluation note* Diagnosis Onset Date Resolution Status Chronic tension-type headache, not intractable acute Gastroesophageal reflux dise ase with esophagitis without hemorrhage acute Graves disease acute Hypercholesterolemia acute Metabolic dysfunction-associ ated steatotic liver disease (MASLD) acute Mild intermittent asthma without complication acute Primary hypertension acute Medicare annual wellness visit, subsequent noneactive Screening mammogram for breast cancer noneactive [facility] Work Phone: Evaluation note* Diagnosis Onset Date Resolution Status Seasonal allergic rhinitis due to pollen acute Chronic tension-type headache, not intractable acute Gastroesophageal reflux dise ase with esophagitis without hemorrhage acute Graves disease acute Hypercholesterolemia acute Metabolic dysfunction-associ ated steatotic liver disease (MASLD) acute Mild intermittent asthma without complication acute Primary hypertension acute [facility] Work Phone: History general Narrative - Reported* [...] History D&C Hospitalization History SEE SURGICAL HX [facility] Other History general Narrative - [facility] Other Hospital Discharge instructions Additional Instructions DISCHARGE [...] NOT operate machinery such as power tools, [employer] mowers, Dazo blowers, sewing machines, etc. for 24 hours. [...] Follow up with PCP. - Office number [phone].[facility] Work Phone: Reason for referral (narrative)No reason for referral [facility] Work [facility]: Advance Directives No Advanced Directives Records Found Advance Directive Response Recorded Date/ Time Advance [...] 2024 11:24am Screening mammogram for breast cancer [facility] 2024 11:24am Chief Complaint Admit [...] 2024 11:24am Screening mammogram for breast cancer [facility] 2024 11:24am Allergic contact dermatitis January 30, 2025 9:39am Assessments No Assessments Information Available Summary Purpose Family History No Family History Records Found Relationship Condition Age at Onset Recorded Date/T [...] content) DATE CREATED AUTHOR 07/26/2022 [facility] DATE CREATED AUTHOR AUTHOR'S ORGANIZ ATION 12/26/2024 [facility] DATE CREATED AUTHOR AUTHOR'S PAULA ATION 02/20/2025 [facility] EPIC REASON FOR VISIT (unrecogniz [...] Team Status: Inactive Member Role Status Janell oRque DO Primary Care Provide r, Attending Provider [...] PRIMARY CLINICAL RECORDS. [facility]. provides no warranty or guarantee of the accuracy or completeness of information in this document.
== END 2025-02-26 09:21 | disposition home or self-care (01) ==
LOC: RAD 09:20
PROVIDERS: PCP Internal Medicine; Visit Provider Obstetrics & Gynecology
DX: Z78.0 Asymptomatic menopausal state (principal)
CPT/HCPCS: 77080